=== PATIENT | female | born 1940 | race Caucasian/White ===

== ENCOUNTER → 2018-08-21 | Outpatient (CLI) | payer MEDICARE ==
[~2018-08-21] VITALS: Ht 157.5 cm; Wt 63.0 kg
[~2018-08-21] MED LIST: ALPR0.254 PO; DILT240C PO; NS IV 500 ML 500 ML IV SCH; NS IV 500 ML 500 ML ONE; RT-ALBUINH INH
[2018-08-21 14:00] VITALS: BP 119/57
--- NOTE | 2018-08-21 14:00 | NUR ---
PT ARRIVED AT 1258, HOWEVER, DUE TO ACCOUNT REGISTRATION ISSUES, TREATMENT WAS DELAYED.
[2018-08-21 15:17] VITALS: BP 119/57
[2018-08-21 15:33] VITALS: BP 127/60
--- NOTE | 2018-08-21 16:10 | NUR ---
TRANSPORTED PT PER WC TO [facility] AND REPORT GIVEN TO Miracle FIERRO RN. CARE OF PT TRANSFERRED TO [facility] MED[facility]SUR[facility].
--- NOTE | 2018-08-21 16:15 | NUR ---
PATIENT BROUGHT TO ROOM VIA WHEELCHAIR. ACCOMPANIED BY STAFF AND ADULT SON. FIRST UNIT OF BLOOD TRANSFUSING. ORIENTED TO ROOM AND CALL LIGHT. PATIENT HAS NO COMPLAINTS AT THIS TIME.
[2018-08-21 17:23] VITALS: BP 147/68
[2018-08-21 17:42] VITALS: BP 149/67
[2018-08-21 18:03] VITALS: BP 148/67
[2018-08-21 21:11] LABS: HEMOGLOBIN 8.3 G/DL (11.5-16.0)
--- NOTE | 2018-08-21 21:20 | NUR ---
SECOND UNIT OF BLOOD DONE AT 2004, VS 99.0F TEMP, HEART RATE 80, B/P 159/68. DISCHARGE INSTRUCTIONS GIVEN TO PT AND REPLIED UNDERSTANDING OF THE INSTRUCTIONS. PT LEFT THE FLOOR VIA WC, ACCOMPANIED BY THIS RN AND SON AT 2119.
== END ==
LOC: SDC 12:46
PROVIDERS: ATTEND Family Medicine
DX: D64.9 Anemia, unspecified (principal)
CPT/HCPCS: 36415; 36430; 85014; 85018; 86850; 86900; 86901; 86920

== ENCOUNTER → 2018-08-21 | Outpatient (CLI) | payer MEDICARE ==
[~2018-08-21] MED LIST changes: -NS IV 500 ML 500 ML IV SCH; -NS IV 500 ML 500 ML ONE
[2018-08-21 11:14] LABS: EOSINOPHILS % (AUTO) 0 % (0-10); LYMPHOCYTES % (AUTO) 4 % (12-44); MEAN CORPUSCULAR HEMOGLOBIN 19 PG (25-34); MEAN CORPUSCULAR HGB CONC 27 G/DL (32-36); MEAN CORPUSCULAR VOLUME 70 FL (80-99); MEAN PLATELET VOLUME 9.6 FL (7.4-10.4); MONOCYTES % (AUTO) 8 % (0-12); NEUTROPHILS % (AUTO) 87 % (42-75); PLATELET COUNT 559 10^3/uL (130-400); RED CELL DISTRIBUTION WIDTH 17.3 % (10.0-14.5)
[2018-08-21 11:15] LABS: BASOPHILS % (AUTO) 0 % (0-10); EOSINOPHILS # (AUTO) 0.1 10^3/uL (0.0-0.3); LYMPHOCYTES # (AUTO) 0.6 X 10^3 (1.0-4.0); NEUTROPHILS # (AUTO) 11.2 X 10^3 (1.8-7.8)
[2018-08-21 11:19] LABS: HEMATOCRIT 19 % (35-52); HEMOGLOBIN 5.1 G/DL (11.5-16.0)
[2018-08-21 11:42] LABS: BAND NEUTROPHILS 0 %; BASOPHILS % (MANUAL) 0 %; EOSINOPHILS % (MANUAL) 1 %; HYPOCHROMASIA MODERATE; LYMPHOCYTES % (MANUAL) 2 %; MONOCYTES % (MANUAL) 5 %; NEUTROPHILS % (MANUAL) 92 %
[2018-08-21 11:43] LABS: MICROCYTOSIS MARKED
== END ==
LOC: LAB FS 10:50
PROVIDERS: ATTEND Family Medicine
DX: D64.9 Anemia, unspecified (principal)
CPT/HCPCS: 36415; 85007; 85027

== ENCOUNTER → 2018-10-23 | Outpatient (CLI) | payer MEDICARE ==
[~2018-10-23] MED LIST changes: +NS IV 500 ML 500 ML IV SCH
[2018-10-23 21:09] VITALS: BP 120/58
[2018-10-23 21:35] VITALS: BP 118/56
[2018-10-24 00:09] VITALS: BP 133/64
[2018-10-24 00:46] VITALS: BP 119/55
[2018-10-24 01:06] VITALS: BP 125/60
[2018-10-24 03:47] VITALS: BP 129/63
[2018-10-24 06:14] LABS: HEMOGLOBIN 7.5 G/DL (11.5-16.0)
--- NOTE | 2018-10-24 06:20 | NUR ---
THIS CALLED PT'S LAB RESULTS OF HEMOGLOBIN 7.5 AND HEMATOCRIT 25 AFTER 2 UNITS OF PACKED RED BLOOD CELLS AN OUTPATIENT INFUSION TO DR. MATTHEWS. DR. MATTHEWS OKAY WITH DISCONTINUING IV AND SENDING PT HOME.
== END ==
LOC: 4TH 19:10 → SDC 19:10 → 4TH 10-24 14:37
PROVIDERS: ATTEND Family Medicine
DX: D64.9 Anemia, unspecified (principal)
CPT/HCPCS: 36430; 86850; 86900; 86901; 86920

== ENCOUNTER → 2018-10-23 | Outpatient (CLI) | payer MEDICARE ==
[2018-10-23 15:28] LABS: WHITE BLOOD COUNT 10.9 10^3/uL (4.3-11.0)
[2018-10-23 15:30] LABS: HEMATOCRIT 18 % (35-52); HEMOGLOBIN 4.8 G/DL (11.5-16.0); MEAN CORPUSCULAR HEMOGLOBIN 19 PG (25-34); MEAN CORPUSCULAR VOLUME 68 FL (80-99)
[2018-10-23 15:31] LABS: BASOPHILS % (AUTO) 0 % (0-10); EOSINOPHILS # (AUTO) 0.1 10^3/uL (0.0-0.3); EOSINOPHILS % (AUTO) 1 % (0-10); LYMPHOCYTES # (AUTO) 0.6 X 10^3 (1.0-4.0); LYMPHOCYTES % (AUTO) 6 % (12-44); MEAN CORPUSCULAR HGB CONC 27 G/DL (32-36); MEAN PLATELET VOLUME 9.3 FL (7.4-10.4); MONOCYTES # (AUTO) 0.8 X 10^3 (0.0-1.0); MONOCYTES % (AUTO) 8 % (0-12); NEUTROPHILS # (AUTO) 9.4 X 10^3 (1.8-7.8); NEUTROPHILS % (AUTO) 86 % (42-75); PLATELET COUNT 534 10^3/uL (130-400); RED CELL DISTRIBUTION WIDTH 17.5 % (10.0-14.5)
[2018-10-23 15:59] LABS: BAND NEUTROPHILS 0 %; LYMPHOCYTES % (MANUAL) 4 %; MONOCYTES % (MANUAL) 2 %; NEUTROPHILS % (MANUAL) 92 %
[2018-10-23 16:00] LABS: BASOPHILS % (MANUAL) 0 %; EOSINOPHILS % (MANUAL) 0 %; HYPOCHROMASIA MODERATE; METAMYELOCYTES % 0 %; MYELOCYTES % 2 %
== END ==
LOC: LAB FS 14:19
PROVIDERS: ATTEND Family Medicine
DX: D64.9 Anemia, unspecified (principal)
CPT/HCPCS: 36415; 85007; 85027

== ENCOUNTER → 2018-10-31 | Outpatient (CLI) | payer MEDICARE ==
[~2018-10-31] MED LIST changes: -NS IV 500 ML 500 ML IV SCH
[2018-10-31 11:32] LABS: HEMATOCRIT 29 % (35-52); HEMOGLOBIN 8.3 G/DL (11.5-16.0); MEAN CORPUSCULAR HEMOGLOBIN 22 PG (25-34); MEAN CORPUSCULAR HGB CONC 29 G/DL (32-36); MEAN CORPUSCULAR VOLUME 75 FL (80-99); WHITE BLOOD COUNT 11.8 10^3/uL (4.3-11.0)
[2018-10-31 11:33] LABS: BASOPHILS % (AUTO) 0 % (0-10); EOSINOPHILS # (AUTO) 0.1 10^3/uL (0.0-0.3); EOSINOPHILS % (AUTO) 1 % (0-10); LYMPHOCYTES # (AUTO) 0.7 X 10^3 (1.0-4.0); LYMPHOCYTES % (AUTO) 6 % (12-44); MEAN PLATELET VOLUME 9.8 FL (7.4-10.4); MONOCYTES # (AUTO) 0.9 X 10^3 (0.0-1.0); MONOCYTES % (AUTO) 7 % (0-12); NEUTROPHILS # (AUTO) 10.1 X 10^3 (1.8-7.8); NEUTROPHILS % (AUTO) 86 % (42-75); PLATELET COUNT 430 10^3/uL (130-400); RED CELL DISTRIBUTION WIDTH 22.6 % (10.0-14.5)
[2018-10-31 11:47] LABS: BAND NEUTROPHILS 0 %; BASOPHILS % (MANUAL) 0 %; EOSINOPHILS % (MANUAL) 1 %; HYPOCHROMASIA MODERATE; LYMPHOCYTES % (MANUAL) 2 %; MONOCYTES % (MANUAL) 3 %; NEUTROPHILS % (MANUAL) 94 %
[2018-10-31 11:48] LABS: ANISOCYTOSIS SLIGHT
== END ==
LOC: LAB FS 11:10
PROVIDERS: ATTEND Family Medicine
DX: D50.9 Iron deficiency anemia, unspecified (principal)
CPT/HCPCS: 36415; 85007; 85027

== ENCOUNTER 2018-12-10 16:19 | Outpatient (RCR) | payer MEDICARE ==
[~2018-12-10] VITALS: Ht 157.5 cm; Wt 63.0 kg
[2018-12-10] VITALS (7 sets, daily range): BP systolic 96–119; BP diastolic 51–58
[2018-12-10] MEDS ORDERED: diphenhydrAMINE 25 MG TAB (BENADRYL) PO ONE (17:00)
[2018-12-10] MEDS ORDERED: ACETAMINOPHEN 500 MG TAB (TYLENOL) PO ONE (17:00)
[2018-12-10] MEDS ORDERED: NS IV 500 ML 500 ML IV SCH (17:00)
--- NOTE | 2018-12-10 19:15 | NUR ---
TO 4TH FLOOR, ROOM 432 PER . REPORT TO Mahamed ONTIVEROS RN AND CARE OF PT TRANSFERRED TO 4TH MED/SURG.
--- NOTE | 2018-12-10 23:50 | NUR ---
2 units of blood transfused, patient tolerated well, IV removed from left AC, catheter intact. belongings returned to patient and family. accompanied by staff downstairs.
== END 2019-03-10 | disposition home or self-care (01) ==
LOC: SDC 16:19
PROVIDERS: ATTEND Family Medicine
DX: D50.9 Iron deficiency anemia, unspecified (principal)
CPT/HCPCS: 36415; 36430; 86850; 86900; 86901; 86920

== ENCOUNTER → 2018-12-10 | Outpatient (CLI) | payer MEDICARE ==
[2018-12-10 13:20] LABS: WHITE BLOOD COUNT 10.8 10^3/uL (4.3-11.0)
[2018-12-10 13:21] LABS: BASOPHILS % (AUTO) 0 % (0-10); EOSINOPHILS # (AUTO) 0.1 10^3/uL (0.0-0.3); EOSINOPHILS % (AUTO) 1 % (0-10); LYMPHOCYTES # (AUTO) 0.7 X 10^3 (1.0-4.0); LYMPHOCYTES % (AUTO) 6 % (12-44); MEAN CORPUSCULAR HEMOGLOBIN 20 PG (25-34); MEAN CORPUSCULAR HGB CONC 28 G/DL (32-36); MEAN CORPUSCULAR VOLUME 71 FL (80-99); MEAN PLATELET VOLUME 9.5 FL (7.4-10.4); MONOCYTES # (AUTO) 0.7 X 10^3 (0.0-1.0); MONOCYTES % (AUTO) 7 % (0-12); NEUTROPHILS # (AUTO) 9.2 X 10^3 (1.8-7.8); NEUTROPHILS % (AUTO) 85 % (42-75); PLATELET COUNT 573 10^3/uL (130-400); RED CELL DISTRIBUTION WIDTH 18.6 % (10.0-14.5)
[2018-12-10 13:22] LABS: HEMATOCRIT 23 % (35-52)
[2018-12-10 13:25] LABS: HEMOGLOBIN 6.3 G/DL (11.5-16.0)
== END ==
LOC: LAB FS 12:55
PROVIDERS: ATTEND Family Medicine
DX: D50.9 Iron deficiency anemia, unspecified (principal)
CPT/HCPCS: 36415; 85025

== ENCOUNTER → 2019-02-25 | Outpatient (CLI) | payer MEDICARE ==
[2019-02-25 13:12] LABS: BASOPHILS % (AUTO) 1 % (0-10); EOSINOPHILS % (AUTO) 1 % (0-10); LYMPHOCYTES % (AUTO) 6 % (12-44); MEAN CORPUSCULAR HEMOGLOBIN 21 PG (25-34); MEAN CORPUSCULAR HGB CONC 29 G/DL (32-36); MEAN CORPUSCULAR VOLUME 73 FL (80-99); MEAN PLATELET VOLUME 9.3 FL (7.4-10.4); MONOCYTES % (AUTO) 8 % (0-12); NEUTROPHILS % (AUTO) 84 % (42-75); PLATELET COUNT 514 10^3/uL (130-400); RED CELL DISTRIBUTION WIDTH 17.1 % (10.0-14.5); WHITE BLOOD COUNT 10.4 10^3/uL (4.3-11.0)
[2019-02-25 13:13] LABS: BASOPHILS # (AUTO) 0.1 10^3/uL (0.0-0.1); EOSINOPHILS # (AUTO) 0.1 10^3/uL (0.0-0.3); LYMPHOCYTES # (AUTO) 0.7 X 10^3 (1.0-4.0); MONOCYTES # (AUTO) 0.9 X 10^3 (0.0-1.0); NEUTROPHILS # (AUTO) 8.7 X 10^3 (1.8-7.8)
[2019-02-25 13:34] LABS: HEMATOCRIT 23 % (35-52); HEMOGLOBIN 6.7 G/DL (11.5-16.0)
== END ==
LOC: LAB FS 11:35
PROVIDERS: ATTEND Family Medicine
DX: D50.9 Iron deficiency anemia, unspecified (principal)
CPT/HCPCS: 36415; 85025

== ENCOUNTER 2019-02-26 07:54 | Outpatient (CLI) | payer MEDICARE ==
[~2019-02-26] VITALS: Ht 157.5 cm; Wt 63.0 kg
[2019-02-26] VITALS (7 sets, daily range): BP systolic 112–127; BP diastolic 51–73
[2019-02-26] MEDS ORDERED: NS IV 500 ML 500 ML ONE (09:01)
[2019-02-26] MEDS ORDERED: NS IV 500 ML 500 ML IV SCH (09:30)
== END 2019-02-26 15:53 | disposition home or self-care (01) ==
LOC: SDC 07:54
PROVIDERS: ATTEND Family Medicine
DX: D64.9 Anemia, unspecified (principal)
CPT/HCPCS: 36415; 36430; 85014; 85018; 86850; 86900; 86901; 86920

== ENCOUNTER 2019-06-05 14:28 | Outpatient (CLI) | payer MEDICARE ==
[~2019-06-05] VITALS: Ht 160 cm; Wt 58.1 kg
[2019-06-05] VITALS (7 sets, daily range): BP systolic 99–120; BP diastolic 42–79
[2019-06-05] MEDS ORDERED: NS IV 500 ML 500 ML IV SCH (15:00)
[2019-06-05 20:49] LABS: HEMOGLOBIN 8.1 G/DL (11.5-16.0)
== END 2019-06-05 20:55 ==
LOC: SDC 14:28
PROVIDERS: ATTEND Family Medicine
DX: D64.9 Anemia, unspecified (principal)
CPT/HCPCS: 36415; 36430; 85014; 85018; 86850; 86900; 86901; 86920

== ENCOUNTER 2019-09-30 12:00 | Outpatient (CLI) | payer MEDICARE ==
[2019-09-30] VITALS (7 sets, daily range): BP systolic 108–138; BP diastolic 50–65
[~2019-09-30 12:00] MED LIST changes: -DILT240C PO; +DILT240C91 PO
--- NOTE | 2019-09-30 12:12 | NUR ---
roe from lab/blood bank phoned and informed would need a new h & h drawn because no h/h on file. this rn informed 4.2 hgb was on doctors order, he informed need one drawn.
[2019-09-30] MEDS ORDERED: NS IV 500 ML 500 ML IV SCH (12:15)
[2019-09-30 12:32] LABS: HEMOGLOBIN 4.9 G/DL (11.5-16.0)
--- NOTE | 2019-09-30 17:10 | NUR ---
BLOOD INFUSED, VITALS STABLE, LINE FLUSHED WITH 5CC NS, WAITED 15 MIN AND LENORA H/H AND SENT TO LAB.
[2019-09-30 17:31] LABS: HEMOGLOBIN 7.4 G/DL (11.5-16.0)
== END 2019-09-30 17:55 | disposition home or self-care (01) ==
LOC: SDC 12:00
PROVIDERS: ATTEND Family Medicine
DX: D64.9 Anemia, unspecified (principal)
CPT/HCPCS: 36415; 36430; 85014; 85018; 86850; 86900; 86901; 86920

== ENCOUNTER → 2019-11-26 | Outpatient (CLI) | payer MEDICARE ==
[2019-11-26] VITALS (7 sets, daily range): BP systolic 121–150; BP diastolic 56–72
[~2019-11-26] VITALS: Ht 157.5 cm; Wt 58.1 kg
[~2019-11-26] MED LIST changes: +GENT5DRO30 OP; +NS IV 500 ML 500 ML IV SCH
[2019-11-26 18:31] LABS: HEMOGLOBIN 8.1 G/DL (11.5-16.0)
--- NOTE | 2019-11-26 19:10 | NUR ---
NS 0.9% RUN AT 50 ML/HR TO RESTARTED IV SITE RIGHT AC FOR APPROX 10 MIN. NO SWELLING AT SITE, PT DENIES COMPLAINTS, NO IV PUMP OCCLUSION ALARM. 2ND UNIT OF PRBC STARTED AT 75 CC/HR PER PUMP AT 1853. VSS AT 1905, DENIES COMPLAINTS, IV SITE CLEAR. RATE INCREASED TO 120 CC/HR. ASSIST UP TO WC AND TRANSPORTED TO ICU BED 3 WITH STAFF X2 TO COMPLETE TRANSFUSION. PT STATES "THAT IV IS STINGING A BIT NOW." ON ARRIVAL TO ICU. SLIGHT SWELLING AT SITE. TRANSFUSION PAUSED. REPORT TO Tim FROST RN. IV WILL BE RESTARTED FOR COMPLETION OF 2ND UNIT PRBC.
--- NOTE | 2019-11-26 19:32 | NUR ---
PT TO ROOM ICU 3. IV STARTED IN LEFT AC 20G X1 ATTEMPT. PT TOLERATED WELL
== END ==
LOC: SDC 14:07
PROVIDERS: ATTEND Family Medicine
DX: D64.9 Anemia, unspecified (principal)
CPT/HCPCS: 36415; 36430; 85014; 85018; 86850; 86900; 86901; 86920

== ENCOUNTER → 2020-04-09 | Outpatient (CLI) | payer MEDICARE ==
[~2020-04-09] MED LIST changes: +ALPR.25T PO; -ALPR0.254 PO; -NS IV 500 ML 500 ML IV SCH
[2020-04-09 13:31] LABS: WHITE BLOOD COUNT 11.9 10^3/uL (4.3-11.0)
[2020-04-09 13:33] LABS: BASOPHILS % (AUTO) 0 % (0-10); EOSINOPHILS % (AUTO) 1 % (0-10); HEMATOCRIT 24 % (35-52); HEMOGLOBIN 6.4 G/DL (11.5-16.0); LYMPHOCYTES % (AUTO) 6 % (12-44); MEAN CORPUSCULAR HEMOGLOBIN 19 PG (25-34); MEAN CORPUSCULAR HGB CONC 27 G/DL (32-36); MEAN CORPUSCULAR VOLUME 69 FL (80-99); MONOCYTES % (AUTO) 8 % (0-12); NEUTROPHILS % (AUTO) 84 % (42-75); PLATELET COUNT 514 10^3/uL (130-400)
[2020-04-09 13:34] LABS: EOSINOPHILS # (AUTO) 0.2 10^3/uL (0.0-0.3); LYMPHOCYTES # (AUTO) 0.7 X 10^3 (1.0-4.0); MONOCYTES # (AUTO) 0.9 X 10^3 (0.0-1.0)
== END ==
LOC: LAB FS 12:57
PROVIDERS: ATTEND Family Medicine
DX: D50.9 Iron deficiency anemia, unspecified (principal)
CPT/HCPCS: 36415; 85025

== ENCOUNTER → 2020-07-16 | Outpatient (CLI) | payer MEDICARE ==
[2020-07-16 09:37] LABS: BASOPHILS % (AUTO) 0 % (0-10); EOSINOPHILS % (AUTO) 2 % (0-10); HEMATOCRIT 24 % (35-52); HEMOGLOBIN 7.2 G/DL (11.5-16.0); LYMPHOCYTES % (AUTO) 7 % (12-44); MEAN CORPUSCULAR HEMOGLOBIN 22 PG (25-34); MEAN CORPUSCULAR HGB CONC 30 G/DL (32-36); MEAN CORPUSCULAR VOLUME 76 FL (80-99); MEAN PLATELET VOLUME 9.4 FL (7.4-10.4); MONOCYTES % (AUTO) 9 % (0-12); NEUTROPHILS % (AUTO) 82 % (42-75); PLATELET COUNT 536 10^3/uL (130-400); WHITE BLOOD COUNT 9.6 10^3/uL (4.3-11.0)
[2020-07-16 09:38] LABS: EOSINOPHILS # (AUTO) 0.2 10^3/uL (0.0-0.3); LYMPHOCYTES # (AUTO) 0.7 X 10^3 (1.0-4.0); MONOCYTES # (AUTO) 0.8 X 10^3 (0.0-1.0); NEUTROPHILS # (AUTO) 7.9 X 10^3 (1.8-7.8)
[2020-07-16 11:21] LABS: ANISOCYTOSIS MODERATE; BAND NEUTROPHILS 2 %; BASOPHILS % (MANUAL) 1 %; EOSINOPHILS % (MANUAL) 2 %; HYPOCHROMASIA MODERATE; LYMPHOCYTES % (MANUAL) 6 %; MONOCYTES % (MANUAL) 7 %; NEUTROPHILS % (MANUAL) 82 %
[2020-07-16 11:22] LABS: MICROCYTOSIS 2+
== END ==
LOC: LAB FS 08:59
PROVIDERS: ATTEND Family Medicine
DX: D50.9 Iron deficiency anemia, unspecified (principal)
CPT/HCPCS: 36415; 85007; 85027

== ENCOUNTER 2020-09-15 12:48 | Outpatient (CLI) | payer MEDICARE ==
[~2020-09-15] VITALS: Ht 157 cm; Wt 58.9 kg
[2020-09-15] MEDS ORDERED: NS IV 500 ML 500 ML ONE (13:12)
[2020-09-15 13:33] VITALS: BP 90/74
[2020-09-15] MEDS ORDERED: NS IV 500 ML 500 ML IV SCH (13:45)
[2020-09-15 14:16] VITALS: BP 95/44
[2020-09-15 14:31] VITALS: BP 105/46
[2020-09-15 15:55] VITALS: BP 120/47
[2020-09-15 16:10] VITALS: BP 114/48
[2020-09-15 16:30] VITALS: BP 125/54
== END 2020-09-15 18:30 ==
LOC: SDC 12:48
PROVIDERS: ATTEND Family Medicine
DX: D50.0 Iron deficiency anemia secondary to blood loss (chronic) (principal)
CPT/HCPCS: 36430; 86850; 86900; 86901; 86920; P9016

== ENCOUNTER → 2020-09-15 | Outpatient (CLI) | payer MEDICARE ==
[~2020-09-15] MED LIST changes: +ASPI-1238 PO; +ASPI-999 PO; +PANT40TA52 PO
[2020-09-15 12:05] LABS: MEAN CORPUSCULAR HGB CONC 29 G/DL (32-36); MEAN CORPUSCULAR VOLUME 74 FL (80-99); MEAN PLATELET VOLUME 9.8 FL (7.4-10.4); PLATELET COUNT 716 10^3/uL (130-400); WHITE BLOOD COUNT 12.6 10^3/uL (4.3-11.0)
[2020-09-15 12:06] LABS: BASOPHILS # (AUTO) 0.1 10^3/uL (0.0-0.1); BASOPHILS % (AUTO) 1 % (0-10); EOSINOPHILS # (AUTO) 0.1 10^3/uL (0.0-0.3); EOSINOPHILS % (AUTO) 1 % (0-10); LYMPHOCYTES # (AUTO) 0.7 X 10^3 (1.0-4.0); LYMPHOCYTES % (AUTO) 6 % (12-44); MONOCYTES # (AUTO) 0.7 X 10^3 (0.0-1.0); MONOCYTES % (AUTO) 6 % (0-12); NEUTROPHILS # (AUTO) 10.9 X 10^3 (1.8-7.8); NEUTROPHILS % (AUTO) 86 % (42-75)
[2020-09-15 12:08] LABS: HEMATOCRIT 18 % (35-52); HEMOGLOBIN 5.3 G/DL (11.5-16.0); MEAN CORPUSCULAR HEMOGLOBIN 22 PG (25-34)
[2020-09-15 13:31] LABS: LYMPHOCYTES % (MANUAL) 6 %; MONOCYTES % (MANUAL) 5 %; NEUTROPHILS % (MANUAL) 89 %
[2020-09-15 13:32] LABS: ANISOCYTOSIS 2+; HYPOCHROMASIA 3+; MICROCYTOSIS 2+; PLATELET ESTIMATE INCREASED
== END ==
LOC: LAB FS 11:14
PROVIDERS: ATTEND Family Medicine
DX: D50.0 Iron deficiency anemia secondary to blood loss (chronic) (principal)
CPT/HCPCS: 36415; 85007; 85027

== ENCOUNTER 2020-09-21 09:37 | Emergency (ER) | payer MEDICARE ==
--- NOTE | 2020-09-21 09:40 | ED General ---
General Stated Complaint: LOW BP; ABD LAB History of Present Illness Date Seen by Provider: Sep 21, 2020 Time Seen by Provider: 09:45 Initial Comments 80-year-old female presents from her primary care physician's office with complaint of shortness of air, low blood pressure and low hemoglobin. Patient with long-term history of anemia and gets frequent blood transfusions. Her PCP states that she has had probably 25 endoscopies looking for cause of bleeding and that has never been found. Her last blood transfusion was just a couple weeks ago, she states she has had 4 units in the month of August. Allergies and Home Medications Allergies Coded Allergies: Pxervia-Mmr-Fbc Reductase Inhibitor (Verified Allergy, Unknown, 08/25/20) Sulfa (Sulfonamide Antibiotics) (Unverified Allergy, Unknown, 08/21/18) amoxicillin (Verified Allergy, Unknown, 08/25/20) aspartame (Unverified Allergy, Unknown, 08/21/18) atorvastatin (Verified Allergy, Unknown, 08/25/20) bee venom protein (honey bee) (Verified Allergy, Unknown, 08/25/20) diphenhydramine (Verified Allergy, Unknown, 08/25/20) ipratropium (Verified Allergy, Unknown, 08/25/20) iron (Unverified Allergy, Unknown, 08/21/18) "TACHYCARDIA" WITH IV INFUSION nicotine (Verified Allergy, Unknown, 08/25/20) quinine (Verified Allergy, Unknown, 08/25/20) Home Medications ALPRAZolam 0.25 Mg Tablet, 0.25 MG PO BID PRN for ANXIETY, (Reported) Albuterol Sulfate 1 Puff Puff, 2 PUFF INH Q6H PRN for SHORTNESS OF BREATH, (Reported) Aspirin 81 Mg Tablet.dr, 81 MG PO DAILY, (Reported) Diltiazem HCl 240 Mg Cap.er.24h, 240 MG PO DAILY, (Reported) LAST FILLED 03-16-2020 #90/90 DAY SUPPLY Pantoprazole Sodium 40 Mg Tablet.dr, 40 MG PO DAILY Prescribed by: PRESLEY MATTHEWS on 08/27/20 1210 Patient Home Medication List Home Medication List Reviewed: Yes Review of Systems Review of Systems Constitutional: No chills, No fever; malaise, weakness Respiratory: No cough; short of breath Cardiovascular: No chest pain, No edema, No palpitations, No syncope Gastrointestinal: No abdominal pain, No constipation, No diarrhea, No melena, No nausea, No vomiting Genitourinary: No dysuria, No frequency Skin: No change in color, No rash Past Qkrbgnk-Xzfaiq-Jhnqfh Hx Past Med/Social Hx: Reviewed Nursing Past Med/Soc Hx Physical Exam Vital Signs Vital Signs - First Documented 09/21/20 09:40 Temp 36.6 Pulse 69 Resp 16 B/P (MAP) 114/66 (82) Pulse Ox 98 O2 Delivery Room Air Capillary Refill : Height, Weight, BMI Height: '" Weight: lbs. oz. kg; BMI Method: General Appearance: No Apparent Distress, WD/WN HEENT: PERRL/EOMI, Normal ENT Inspection Neck: Normal Inspection, Non Tender Respiratory: Chest Non Tender, Lungs Clear, Normal Breath Sounds, No Accessory Muscle Use, No Respiratory Distress Cardiovascular: No Edema, No Gallop, No JVD, Tachycardia Gastrointestinal: Non Tender, Soft Back: Normal Inspection, No CVA Tenderness Extremity: Normal Capillary Refill, Non Tender Progress/Results/Core Measures Suspected Sepsis SIRS Temperature: Pulse: Respiratory Rate: Laboratory Tests 09/21/20 09:45: White Blood Count 12.2H Blood Pressure / Mean: Laboratory Tests 09/21/20 09:45: Creatinine 1.02, Platelet Count 650H, Total Bilirubin < 0.2 Results/Orders Lab Results Laboratory Tests Test 09/21/20 09:45 Range/Units White Blood Count 12.2 H 4.3-11.0 10^3/uL Red Blood Count 3.41 L 4.35-5.85 10^6/uL Hemoglobin 8.2 #L 11.5-16.0 G/DL Hematocrit 27 L 35-52 % Mean Corpuscular Volume 79 L 80-99 FL Mean Corpuscular Hemoglobin 24 L 25-34 PG Mean Corpuscular Hemoglobin Concent 31 L 32-36 G/DL Red Cell Distribution Width 20.6 H 10.0-14.5 % Platelet Count 650 H 130-400 10^3/uL Mean Platelet Volume 10.0 7.4-10.4 FL Immature Granulocyte % (Auto) 1 % Neutrophils (%) (Auto) 83 H 42-75 % Lymphocytes (%) (Auto) 6 L 12-44 % Monocytes (%) (Auto) 8 0-12 % Eosinophils (%) (Auto) 2 0-10 % Basophils (%) (Auto) 1 0-10 % Neutrophils # (Auto) 10.2 H 1.8-7.8 X 10^3 Lymphocytes # (Auto) 0.8 L 1.0-4.0 X 10^3 Monocytes # (Auto) 1.0 0.0-1.0 X 10^3 Eosinophils # (Auto) 0.2 0.0-0.3 10^3/uL Basophils # (Auto) 0.1 0.0-0.1 10^3/uL Immature Granulocyte # (Auto) 0.1 0.0-0.1 10^3/uL Neutrophils % (Manual) 81 % Lymphocytes % (Manual) 3 % Monocytes % (Manual) 11 % Eosinophils % (Manual) 4 % Basophils % (Manual) 0 % Metamyelocytes % 1 % Band Neutrophils 0 % Hypochromasia MODERATE Poikilocytosis Anisocytosis SLIGHT Sodium Level 135 135-145 MMOL/L Potassium Level 4.4 3.6-5.0 MMOL/L Chloride Level 100 98-107 MMOL/L Carbon Dioxide Level 25 21-32 MMOL/L Anion Gap 25 H 5-14 MMOL/L Blood Urea Nitrogen 15 7-18 MG/DL Creatinine 1.02 0.60-1.30 MG/DL Estimat Glomerular Filtration Rate 52 BUN/Creatinine Ratio 15 Glucose Level 107 H 70-105 MG/DL Calcium Level 9.0 8.5-10.1 MG/DL Corrected Calcium 9.1 8.5-10.1 MG/DL Total Bilirubin < 0.2 0.1-1.0 MG/DL Aspartate Amino Transf (AST/SGOT) 16 5-34 U/L Alanine Aminotransferase (ALT/SGPT) 5 0-55 U/L Alkaline Phosphatase 127 40-136 U/L Total Protein 6.5 6.4-8.2 GM/DL Albumin 3.9 3.2-4.5 GM/DL My Orders Orders - ROVENSTYESI GONZALEZ DO Ed Iv/Invasive Line Start (09/21/20 09:40) Cbc With Automated Diff (09/21/20 09:40) Comprehensive Metabolic Panel (09/21/20 09:40) Ns Iv 1000 Ml (Sodium Chloride 0.9%) (09/21/20 09:45) Diltiazem Injection (Cardizem Injection) (09/21/20 10:00) Manual Differential (09/21/20 09:45) Diltiazem Cd 24 Hr Capsule (Cardizem Cd (09/22/20 09:00) Diltiazem Injection (Cardizem Injection) (09/21/20 11:00) Medications Given in ED Current Medications Medications Dose Ordered Sig/Jonathan Route Start Time Stop Time Status Last Admin Dose Admin Diltiazem HCl 2.5 mg ONCE ONCE IVP 09/21/20 11:00 09/21/20 11:01 DC 09/21/20 10:57 2.5 MG Diltiazem HCl 5 mg ONCE ONCE IVP 09/21/20 10:00 09/21/20 10:01 DC 09/21/20 10:30 5 MG Sodium Chloride 1,000 ml @ STK-MED ONCE .ROUTE 09/21/20 09:45 09/21/20 09:52 DC 09/21/20 10:00 999 MLS/HR Vital Signs/I&O 09/21/20 09:40 Temp 36.6 Pulse 69 Resp 16 B/P (MAP) 114/66 (82) Pulse Ox 98 O2 Delivery Room Air Capillary Refill : ECG Initial ECG Impression Date: Sep 21, 2020 Initial ECG Impression Time: 09:52 Initial ECG Rate: 140 Initial ECG Rhythm: SVT Initial ECG Impression: SVT Initial ECG Comparisson: No Previous ECG Available Departure Impression Primary Impression: Supraventricular tachycardia Additional Impression: Acute on chronic anemia Disposition: 01 HOME, SELF-CARE Condition: Improved Departure-Patient Inst. Decision time for Depature: 11:12 Patient Instructions: Anemia, Possibly From Low Iron, Adult Add. Discharge Instructions: Call Dr Lake to arrange a follow up appointment in 3 days. Take your blood pressure medication as soon as you get home. Follow up in the ER if you feel worse. YESI CAMERON DO Sep 21, 2020 09:40
[2020-09-21] MEDS ORDERED: NS IV 1000 ML 1,000 ML ONE (09:45)
[2020-09-21 10:01] LABS: HEMOGLOBIN 8.2 G/DL (11.5-16.0); MEAN CORPUSCULAR HEMOGLOBIN 24 PG (25-34); WHITE BLOOD COUNT 12.2 10^3/uL (4.3-11.0)
[2020-09-21 10:02] LABS: BASOPHILS % (AUTO) 1 % (0-10); EOSINOPHILS % (AUTO) 2 % (0-10); HEMATOCRIT 27 % (35-52); LYMPHOCYTES % (AUTO) 6 % (12-44); MEAN CORPUSCULAR HGB CONC 31 G/DL (32-36); MEAN CORPUSCULAR VOLUME 79 FL (80-99); MONOCYTES % (AUTO) 8 % (0-12); NEUTROPHILS # (AUTO) 10.2 X 10^3 (1.8-7.8); NEUTROPHILS % (AUTO) 83 % (42-75); PLATELET COUNT 650 10^3/uL (130-400)
[2020-09-21 10:03] LABS: BASOPHILS # (AUTO) 0.1 10^3/uL (0.0-0.1); EOSINOPHILS # (AUTO) 0.2 10^3/uL (0.0-0.3); LYMPHOCYTES # (AUTO) 0.8 X 10^3 (1.0-4.0)
[2020-09-21 10:17] LABS: ALANINE AMINOTRANSFERASE 5 U/L (0-55); ALKALINE PHOSPHATASE 127 U/L (40-136); BUN/CREATININE RATIO 15; CARBON DIOXIDE 25 MMOL/L (21-32); CHLORIDE 100 MMOL/L (98-107); CREATININE SERUM 1.02 MG/DL (0.60-1.30); GFR ESTIMATED 52; GLUCOSE 107 MG/DL (70-105); POTASSIUM 4.4 MMOL/L (3.6-5.0); SODIUM 135 MMOL/L (135-145)
[2020-09-21 10:18] LABS: ALBUMIN 3.9 GM/DL (3.2-4.5); BAND NEUTROPHILS 0 %; BASOPHILS % (MANUAL) 0 %; BILIRUBIN,TOTAL < 0.2 MG/DL (0.1-1.0); EOSINOPHILS % (MANUAL) 4 %; LYMPHOCYTES % (MANUAL) 3 %; METAMYELOCYTES % 1 %; MONOCYTES % (MANUAL) 11 %; NEUTROPHILS % (MANUAL) 81 %; TOTAL PROTEIN 6.5 GM/DL (6.4-8.2)
[2020-09-21 10:19] LABS: ANISOCYTOSIS SLIGHT; HYPOCHROMASIA MODERATE
[2020-09-21 11:27] VITALS: BP 117/57
[2020-09-22] MEDS ORDERED: dilTIAZem120 MG (CARDIZEM CD) CAP PO SCH (09:00)
== END 2020-09-21 11:15 | disposition home or self-care (01) ==
LOC: EDUNIT# 09:37 → ER FS 09:39
DX: I47.1 Supraventricular tachycardia (principal); D64.89 Other specified anemias; Z79.82 Long term (current) use of aspirin; Z88.1 Allergy status to other antibiotic agents; Z88.2 Allergy status to sulfonamides; Z88.8 Allergy status to other drugs, medicaments and biological substances
CPT/HCPCS: 36415; 80053; 85007; 85027; 93005

== ENCOUNTER → 2020-09-24 | Outpatient (CLI) | payer MEDICARE ==
[2020-09-24 09:16] LABS: HEMATOCRIT 24 % (35-52); HEMOGLOBIN 7.1 G/DL (11.5-16.0); MEAN CORPUSCULAR HEMOGLOBIN 24 PG (25-34); MEAN CORPUSCULAR VOLUME 80 FL (80-99); WHITE BLOOD COUNT 9.2 10^3/uL (4.3-11.0)
[2020-09-24 09:17] LABS: BASOPHILS % (AUTO) 0 % (0-10); EOSINOPHILS # (AUTO) 0.3 10^3/uL (0.0-0.3); EOSINOPHILS % (AUTO) 4 % (0-10); LYMPHOCYTES # (AUTO) 0.5 X 10^3 (1.0-4.0); LYMPHOCYTES % (AUTO) 6 % (12-44); MEAN CORPUSCULAR HGB CONC 30 G/DL (32-36); MONOCYTES # (AUTO) 0.6 X 10^3 (0.0-1.0); MONOCYTES % (AUTO) 7 % (0-12); NEUTROPHILS # (AUTO) 7.6 X 10^3 (1.8-7.8); NEUTROPHILS % (AUTO) 83 % (42-75); PLATELET COUNT 437 10^3/uL (130-400)
== END ==
LOC: LAB FS 08:54
PROVIDERS: ATTEND Family Medicine
DX: D50.0 Iron deficiency anemia secondary to blood loss (chronic) (principal)
CPT/HCPCS: 36415; 85025

== ENCOUNTER 2020-09-29 08:18 | Outpatient (CLI) | payer MEDICARE ==
[2020-09-29] VITALS (7 sets, daily range): BP systolic 133–158; BP diastolic 56–69
[~2020-09-29] VITALS: Ht 157 cm; Wt 58.9 kg
[2020-09-29] MEDS ORDERED: NS IV 500 ML 500 ML IV ONE (08:45)
== END 2020-09-29 17:50 ==
LOC: SDC 08:18
PROVIDERS: ATTEND Family Medicine
DX: D64.9 Anemia, unspecified (principal)
CPT/HCPCS: 36430; 86850; 86900; 86901; 86920; P9016

== ENCOUNTER 2020-10-15 18:29 | Emergency (ER) | payer MEDICARE ==
--- NOTE | 2020-10-15 18:33 | ED Chest Pain ---
General Stated Complaint: CP,SOA,DIZZY,HEADACHE Source: patient Exam Limitations: no limitations History of Present Illness Date Seen by Provider: Oct 15, 2020 Time Seen by Provider: 18:33 Initial Comments 80-year-old female presents with complaint of not feeling well all day today. Denies nausea vomiting or diarrhea. States she is eating and drinking okay Allergies and Home Medications Allergies Coded Allergies: Tvscjsx-Gpu-Ixa Reductase Inhibitor (Verified Allergy, Unknown, 08/25/20) Sulfa (Sulfonamide Antibiotics) (Unverified Allergy, Unknown, 08/21/18) amoxicillin (Verified Allergy, Unknown, 08/25/20) aspartame (Unverified Allergy, Unknown, 08/21/18) atorvastatin (Verified Allergy, Unknown, 08/25/20) bee venom protein (honey bee) (Verified Allergy, Unknown, 08/25/20) diphenhydramine (Verified Allergy, Unknown, 08/25/20) ipratropium (Verified Allergy, Unknown, 08/25/20) iron (Unverified Allergy, Unknown, 08/21/18) "TACHYCARDIA" WITH IV INFUSION nicotine (Verified Allergy, Unknown, 08/25/20) quinine (Verified Allergy, Unknown, 08/25/20) Home Medications ALPRAZolam 0.25 Mg Tablet, 0.25 MG PO BID PRN for ANXIETY, (Reported) Albuterol Sulfate 1 Puff Puff, 2 PUFF INH Q6H PRN for SHORTNESS OF BREATH, (Reported) Aspirin 81 Mg Tablet.dr, 81 MG PO DAILY, (Reported) Diltiazem HCl 240 Mg Cap.er.24h, 240 MG PO DAILY, (Reported) LAST FILLED 03-16-2020 #90/90 DAY SUPPLY Diltiazem HCl 120 Mg Cap.er.24h, 120 MG PO DAILY Prescribed by: YESI CAMERON on 10/15/201937 Pantoprazole Sodium 40 Mg Tablet.dr, 40 MG PO DAILY Prescribed by: PRESLEY MATTHEWS on 08/27/20 1210 Patient Home Medication List Home Medication List Reviewed: Yes Review of Systems Review of Systems Constitutional: dizziness; No fever; malaise, weakness Respiratory: Denies Cough; Shortness of Air; Denies Stridor, Denies Wheezing Cardiovascular: Chest Pain, Lightheadedness, Palpitations; Denies Syncope Gastrointestinal: Denies Diarrhea; Nausea; Denies Vomiting Musculoskeletal: No back pain, No joint pain Skin: No change in color, No rash Past Jduzefk-Dnhywx-Dnpoja Hx Past Med/Social Hx: Reviewed Nursing Past Med/Soc Hx Patient Social History Type Used: Cigarettes 2nd Hand Smoke Exposure: No Recent Hopitalizations: No Seasonal Allergies Seasonal Allergies: No Past Medical History Surgeries: Yes (neck, esha and bso) Section, Hysterectomy Respiratory: Yes COPD Cardiac: Yes Heart Attack, Hypertension Neurological: Yes Stroke, TIA Genitourinary: No Gastrointestinal: Yes Gastrointestinal Bleed Musculoskeletal: No Endocrine: No HEENT: No Cancer: No Psychosocial: No Integumentary: No Blood Disorders: Yes (essential thrombocytosis) Physical Exam Vital Signs Vital Signs - First Documented Capillary Refill : Height, Weight, BMI Height: 5'2.00" Weight: 139lbs. 0.0oz. 63.722739qx; 23.58 BMI Method: General Appearance: No Apparent Distress, WD/WN, Anxious Neck: Non Tender, Supple Respiratory: Chest Non Tender, Lungs Clear, Normal Breath Sounds Cardiovascular: Irregularly Irregular; No JVD; Tachycardia Gastrointestinal: No Pulsatile Mass, Non Tender, Soft Extremity: Normal Capillary Refill, Normal Inspection, Non Tender, No Calf Tenderness Neurologic/Psychiatric: Alert, Oriented x3, No Motor/Sensory Deficits, Normal Mood/Affect Progress/Results/Core Measures Results/Orders Lab Results Laboratory Tests Test 10/15/20 18:55 Range/Units White Blood Count 11.2 H 4.3-11.0 10^3/uL Red Blood Count 3.35 L 4.35-5.85 10^6/uL Hemoglobin 8.2 L 11.5-16.0 G/DL Hematocrit 27 L 35-52 % Mean Corpuscular Volume 80 80-99 FL Mean Corpuscular Hemoglobin 24 L 25-34 PG Mean Corpuscular Hemoglobin Concent 31 L 32-36 G/DL Red Cell Distribution Width 17.4 H 10.0-14.5 % Platelet Count 445 H 130-400 10^3/uL Mean Platelet Volume 10.1 7.4-10.4 FL Immature Granulocyte % (Auto) 0 % Neutrophils (%) (Auto) 81 H 42-75 % Lymphocytes (%) (Auto) 8 L 12-44 % Monocytes (%) (Auto) 10 0-12 % Eosinophils (%) (Auto) 1 0-10 % Basophils (%) (Auto) 0 0-10 % Neutrophils # (Auto) 9.1 H 1.8-7.8 X 10^3 Lymphocytes # (Auto) 0.9 L 1.0-4.0 X 10^3 Monocytes # (Auto) 1.1 H 0.0-1.0 X 10^3 Eosinophils # (Auto) 0.1 0.0-0.3 10^3/uL Basophils # (Auto) 0.0 0.0-0.1 10^3/uL Immature Granulocyte # (Auto) 0.1 0.0-0.1 10^3/uL Neutrophils % (Manual) 86 % Lymphocytes % (Manual) 8 % Monocytes % (Manual) 6 % Sodium Level 130 L 135-145 MMOL/L Potassium Level 3.7 3.6-5.0 MMOL/L Chloride Level 97 L 98-107 MMOL/L Carbon Dioxide Level 20 L 21-32 MMOL/L Anion Gap 13 5-14 MMOL/L Blood Urea Nitrogen 6 L 7-18 MG/DL Creatinine 1.02 0.60-1.30 MG/DL Estimat Glomerular Filtration Rate 52 BUN/Creatinine Ratio 6 Glucose Level 108 H 70-105 MG/DL Calcium Level 8.9 8.5-10.1 MG/DL Corrected Calcium 9.0 8.5-10.1 MG/DL Total Bilirubin 0.2 0.1-1.0 MG/DL Aspartate Amino Transf (AST/SGOT) 14 5-34 U/L Alanine Aminotransferase (ALT/SGPT) 7 0-55 U/L Alkaline Phosphatase 131 40-136 U/L Troponin I < 0.30 <0.30 NG/ML Total Protein 6.3 L 6.4-8.2 GM/DL Albumin 3.9 3.2-4.5 GM/DL My Orders Orders - ROVENSTINE,YESI L DO Ed Iv/Invasive Line Start (10/15/20 18:34) Cbc With Automated Diff (10/15/20 18:34) Comprehensive Metabolic Panel (10/15/20 18:34) Troponin I Fs (10/15/20 18:34) Chest 1 View Ap/Pa Only (10/15/20 18:34) Ekg Tracing (10/15/20 18:34) Diltiazem Injection (Cardizem Injection) (10/15/20 19:00) Manual Differential (10/15/20 18:55) Ns Iv 1000 Ml (Sodium Chloride 0.9%) (10/15/20 19:15) Medications Given in ED Current Medications Medications Dose Ordered Sig/Jonathan Route Start Time Stop Time Status Last Admin Dose Admin Diltiazem HCl 15 mg ONCE ONCE IVP 10/15/20 19:00 10/15/20 19:01 DC 10/15/20 18:59 15 MG Vital Signs/I&O 10/15/20 10/15/20 10/15/20 18:29 18:29 19:51 Temp 36.8 Pulse 150 72 Resp 20 18 B/P (MAP) 112/83 (93) 92/57 Pulse Ox 92 100 O2 Delivery Nasal Cannula Room Air Room Air O2 Flow Rate 3.00 Progress Progress Note : Progress Note HR slowed w Diltiazem bolus to 80, BP 90's/50's. Will give NS IV bolus. H/H stable for her, actually up from level 2 September. Advised to discuss her Meds with her PCP, Dr Lake as pt needs rate control, but her pressure can get low. Much improved at discharge, unsure if she takea diltiazem, but listed as daily med. Initial ECG Impression Date: Oct 15, 2020 Initial ECG Impression Time: 18:40 Initial ECG Rate: 150 Initial ECG Rhythm: SVT Initial ECG Impression: SVT Departure Impression Primary Impression: Supraventricular tachycardia Additional Impression: Anemia Qualified Codes: D64.9 - Anemia, unspecified Disposition: 01 HOME, SELF-CARE Condition: Improved Departure-Patient Inst. Decision time for Depature: 19:37 Referrals: GAL LAKE MD (PCP/Family) Primary Care Physician Patient Instructions: Supraventricular Tachycardia (SVT) Add. Discharge Instructions: Call Dr Lake's office tomorrow morning to ask about your Diltiazem prescription......I have sent in a Rx for Diltiazem 120mg daily. Keep your appointment with the General Surgeon scheduled in 2 weeks for further evaluation of your GI bleeding Scripts Diltiazem HCl (Diltiazem 24Hr Cd) 120 Mg Cap.er.24h 120 MG PO DAILY, #30 CAP Prov: YESI CAMERON DO 10/15/20 YESI CAMERON DO Oct 15, 2020 18:33
[2020-10-15 19:01] LABS: HEMATOCRIT 27 % (35-52); HEMOGLOBIN 8.2 G/DL (11.5-16.0); LYMPHOCYTES % (AUTO) 8 % (12-44); MEAN CORPUSCULAR HEMOGLOBIN 24 PG (25-34); MEAN CORPUSCULAR HGB CONC 31 G/DL (32-36); MEAN CORPUSCULAR VOLUME 80 FL (80-99); MEAN PLATELET VOLUME 10.1 FL (7.4-10.4); NEUTROPHILS % (AUTO) 81 % (42-75); PLATELET COUNT 445 10^3/uL (130-400); WHITE BLOOD COUNT 11.2 10^3/uL (4.3-11.0)
[2020-10-15 19:02] LABS: BASOPHILS % (AUTO) 0 % (0-10); EOSINOPHILS # (AUTO) 0.1 10^3/uL (0.0-0.3); EOSINOPHILS % (AUTO) 1 % (0-10); LYMPHOCYTES # (AUTO) 0.9 X 10^3 (1.0-4.0); MONOCYTES # (AUTO) 1.1 X 10^3 (0.0-1.0); MONOCYTES % (AUTO) 10 % (0-12); NEUTROPHILS # (AUTO) 9.1 X 10^3 (1.8-7.8)
--- NOTE | 2020-10-15 19:08 | Diagnostic Imaging Report ---
INDICATION: Chest pain, shortness of breath, dizziness, head pain. FINDINGS: No infiltrate, effusion or pneumothorax. There is no failure pattern. No free air beneath the diaphragms. IMPRESSION: No acute appearing abnormality. Clear chest on follow-up. Dictated by: Dictated on workstation # [id number]
[2020-10-15] MEDS ORDERED: NS IV 1000 ML 1,000 ML IV SCH (19:15)
[2020-10-15 19:19] LABS: CARBON DIOXIDE 20 MMOL/L (21-32); CHLORIDE 97 MMOL/L (98-107); POTASSIUM 3.7 MMOL/L (3.6-5.0); SODIUM 130 MMOL/L (135-145)
[2020-10-15 19:20] LABS: ALANINE AMINOTRANSFERASE 7 U/L (0-55); ALBUMIN 3.9 GM/DL (3.2-4.5); ALKALINE PHOSPHATASE 131 U/L (40-136); BILIRUBIN,TOTAL 0.2 MG/DL (0.1-1.0); BUN/CREATININE RATIO 6; CALCIUM 8.9 MG/DL (8.5-10.1); CREATININE SERUM 1.02 MG/DL (0.60-1.30); GFR ESTIMATED 52; GLUCOSE 108 MG/DL (70-105); TOTAL PROTEIN 6.3 GM/DL (6.4-8.2)
[2020-10-15 19:25] LABS: LYMPHOCYTES % (MANUAL) 8 %; MONOCYTES % (MANUAL) 6 %; NEUTROPHILS % (MANUAL) 86 %
[2020-10-15] MEDS ORDERED: DILT120C88 PO (19:38)
[2020-10-15 19:51] VITALS: BP 92/57
[2020-10-15] MEDS ORDERED: LORA-404 PO (22:52)
== END 2020-10-15 19:59 | disposition home or self-care (01) ==
LOC: EDUNIT# 18:29 → ER FS 18:30
DX: I47.1 Supraventricular tachycardia (principal); D64.9 Anemia, unspecified; I10 Essential (primary) hypertension; J44.9 Chronic obstructive pulmonary disease, unspecified; I25.2 Old myocardial infarction; Z88.2 Allergy status to sulfonamides; Z88.1 Allergy status to other antibiotic agents; Z91.030 Bee allergy status; Z88.8 Allergy status to other drugs, medicaments and biological substances; Z86.73 Personal history of transient ischemic attack (TIA), and cerebral infarction without residual deficits; Z79.82 Long term (current) use of aspirin
CPT/HCPCS: 36415; 71045; 80053; 84484; 85007; 85027; 93005

== ENCOUNTER 2020-10-15 21:42 | Emergency (ER) | payer MEDICARE ==
[~2020-10-15 21:42] MED LIST changes: +DILT120C88 PO
[2020-10-15] MEDS ORDERED: LORazepam 0.5 MG (ATIVAN) TABLET PO STA (21:57)
--- NOTE | 2020-10-15 21:58 | ED Psychosocial ---
General Stated Complaint: SOA,HEAD PAIN History of Present Illness Date Seen by Provider: Oct 15, 2020 Time Seen by Provider: 21:50 Initial Comments 80-year-old female just discharged from this ER with SVT. She was treated with diltiazem and had improvement and resolution of her symptoms that she presented with. Patient was counseled, advised to follow-up with her PCP regarding her medication. See note for details of the same date. Patient went home, was feeling anxious and shaky so her son brought her back to the emergency room. Allergies and Home Medications Allergies Coded Allergies: Rldgcfa-Vvo-Buk Reductase Inhibitor (Verified Allergy, Unknown, 08/25/20) Sulfa (Sulfonamide Antibiotics) (Unverified Allergy, Unknown, 08/21/18) amoxicillin (Verified Allergy, Unknown, 08/25/20) aspartame (Unverified Allergy, Unknown, 08/21/18) atorvastatin (Verified Allergy, Unknown, 08/25/20) bee venom protein (honey bee) (Verified Allergy, Unknown, 08/25/20) diphenhydramine (Verified Allergy, Unknown, 08/25/20) ipratropium (Verified Allergy, Unknown, 08/25/20) iron (Unverified Allergy, Unknown, 08/21/18) "TACHYCARDIA" WITH IV INFUSION nicotine (Verified Allergy, Unknown, 08/25/20) quinine (Verified Allergy, Unknown, 08/25/20) Home Medications ALPRAZolam 0.25 Mg Tablet, 0.25 MG PO BID PRN for ANXIETY, (Reported) Albuterol Sulfate 1 Puff Puff, 2 PUFF INH Q6H PRN for SHORTNESS OF BREATH, (Reported) Aspirin 81 Mg Tablet.dr, 81 MG PO DAILY, (Reported) Diltiazem HCl 240 Mg Cap.er.24h, 240 MG PO DAILY, (Reported) LAST FILLED 03-16-2020 #90/90 DAY SUPPLY Diltiazem HCl 120 Mg Cap.er.24h, 120 MG PO DAILY Prescribed by: YESI CAMERON on 10/15/201937 Lorazepam 0.5 Mg Tablet, 0.5 MG PO TID PRN for ANXIETY Prescribed by: YESI CAMERON on 10/15/202252 Pantoprazole Sodium 40 Mg Tablet.dr, 40 MG PO DAILY Prescribed by: PRESLEY MATTHEWS on 08/27/20 1210 Patient Home Medication List Home Medication List Reviewed: Yes Review of Systems Constitutional: No fever, No malaise, No weakness Respiratory: No cough, No short of breath Cardiovascular: see HPI; No chest pain, No edema, No palpitations, No syncope Psychiatric/Neurological: See HPI, Anxiety; Denies Tremors, Denies Weakness Past Wcpnste-Suqswh-Ekgvrs Hx Past Med/Social Hx: Reviewed Nursing Past Med/Soc Hx Patient Social History Type Used: Cigarettes Former Smoker, Quit: Sep 06, 2020 2nd Hand Smoke Exposure: No Recent Hopitalizations: No Seasonal Allergies Seasonal Allergies: No Past Medical History Surgeries: Yes (neck, esha and bso) Section, Hysterectomy Respiratory: Yes COPD Cardiac: Yes Heart Attack, Hypertension Neurological: Yes Stroke, TIA Genitourinary: No Gastrointestinal: Yes Gastrointestinal Bleed Musculoskeletal: No Endocrine: No HEENT: No Cancer: No Psychosocial: No Integumentary: No Blood Disorders: Yes (essential thrombocytosis) Physical Exam Capillary Refill : Height, Weight, BMI Height: 5'2.00" Weight: 139lbs. 0.0oz. 63.934885gd; 23.58 BMI Method: General Appearance: WD/WN, no apparent distress, other (anxious) HEENT: PERRL/EOMI, normal ENT inspection Respiratory: chest non-tender, lungs clear, normal breath sounds Cardiovascular: normal peripheral pulses, regular rate, rhythm, no edema, no gallop, no JVD, no murmur Neurologic/Psychiatric: no motor/sensory deficits, alert, normal mood/affect, oriented x 3 Appearance/Memory: appropriate appearance, appropriate insight Behavior/Eye Contact: cooperative, good eye contact, normal speech Thoughts/Hallucinations: normal thought pattern Skin: normal color, warm/dry Progress/Results/Core Measures Results/Orders My Orders Orders - ROVENSTINEYESI DO Lorazepam Tablet (Ativan Tablet) (10/15/20 21:57) Progress Progress Note : Progress Note normal vitals and in no distress. Asked pt if she had anxiety medication and she said, "no". Pointed to her medications, which she did not have at previous visit today. She has a Rx for Xanax, asked why she didn't take one, she said' "I only take that in the morning". Explained that alprazolam is for anxiety and she could take it for this purpose. Given 1mg Ativan po Departure Impression Primary Impression: Anxiety Disposition: 01 HOME, SELF-CARE Condition: Improved Departure-Patient Inst. Decision time for Depature: 23:21 Referrals: GAL LAKE MD (PCP/Family) Primary Care Physician Patient Instructions: Anxiety, Adult ED Add. Discharge Instructions: See Dr Lake next week to discuss your daily medications. Scripts Lorazepam (Ativan) 0.5 Mg Tablet 0.5 MG PO TID PRN for ANXIETY for 7 Days, #20 TAB Prov: YESI CAMERON DO 10/15/20 YESI CAMERON DO Oct 15, 2020 21:58
[2020-10-15] MEDS ORDERED: LORA-404 PO (22:52)
[2020-10-15 23:27] VITALS: BP 118/42
== END 2020-10-15 23:31 | disposition home or self-care (01) ==
LOC: EDUNIT# 21:42 → ER FS 21:43
DX: F41.9 Anxiety disorder, unspecified (principal); J44.9 Chronic obstructive pulmonary disease, unspecified; I25.2 Old myocardial infarction; I10 Essential (primary) hypertension; Z88.2 Allergy status to sulfonamides; Z88.1 Allergy status to other antibiotic agents; Z91.030 Bee allergy status; Z88.8 Allergy status to other drugs, medicaments and biological substances; Z87.891 Personal history of nicotine dependence; Z86.73 Personal history of transient ischemic attack (TIA), and cerebral infarction without residual deficits; Z79.82 Long term (current) use of aspirin
CPT/HCPCS: 99283

== ENCOUNTER → 2020-10-21 | Outpatient (CLI) | payer MEDICARE ==
[~2020-10-21] MED LIST changes: +LORA-404 PO
[2020-10-21 09:10] LABS: HEMATOCRIT 26 % (35-52); HEMOGLOBIN 7.8 G/DL (11.5-16.0); MEAN CORPUSCULAR HEMOGLOBIN 24 PG (25-34); MEAN CORPUSCULAR HGB CONC 30 G/DL (32-36); MEAN CORPUSCULAR VOLUME 80 FL (80-99); MEAN PLATELET VOLUME 10.2 FL (7.4-10.4); PLATELET COUNT 368 10^3/uL (130-400)
[2020-10-21 09:11] LABS: BASOPHILS # (AUTO) 0.1 10^3/uL (0.0-0.1); BASOPHILS % (AUTO) 1 % (0-10); EOSINOPHILS # (AUTO) 0.4 10^3/uL (0.0-0.3); EOSINOPHILS % (AUTO) 3 % (0-10); LYMPHOCYTES # (AUTO) 0.9 X 10^3 (1.0-4.0); LYMPHOCYTES % (AUTO) 8 % (12-44); MONOCYTES % (AUTO) 9 % (0-12); NEUTROPHILS # (AUTO) 8.6 X 10^3 (1.8-7.8); NEUTROPHILS % (AUTO) 78 % (42-75)
[2020-10-21 09:31] LABS: BAND NEUTROPHILS 0 %; BASOPHILS % (MANUAL) 2 %; EOSINOPHILS % (MANUAL) 2 %; LYMPHOCYTES % (MANUAL) 10 %; MONOCYTES % (MANUAL) 4 %; NEUTROPHILS % (MANUAL) 81 %
[2020-10-21 09:32] LABS: ANISOCYTOSIS SLIGHT; ELLIPT/OVALOCYTES SLIGHT; MYELOCYTES % 1 %
== END ==
LOC: LAB FS 08:32
PROVIDERS: ATTEND Family Medicine
DX: D47.3 Essential (hemorrhagic) thrombocythemia (principal); D50.0 Iron deficiency anemia secondary to blood loss (chronic)
CPT/HCPCS: 36415; 85007; 85027

== ENCOUNTER → 2020-10-25 | Outpatient (CLI) | payer MEDICARE ==
[2020-10-25 08:41] LABS: BASOPHILS % (AUTO) 0 % (0-10); EOSINOPHILS % (AUTO) 2 % (0-10); HEMATOCRIT 24 % (35-52); LYMPHOCYTES # (AUTO) 0.5 X 10^3 (1.0-4.0); LYMPHOCYTES % (AUTO) 6 % (12-44); MEAN CORPUSCULAR HEMOGLOBIN 23 PG (25-34); MEAN CORPUSCULAR HGB CONC 30 G/DL (32-36); MEAN CORPUSCULAR VOLUME 79 FL (80-99); MEAN PLATELET VOLUME 9.7 FL (7.4-10.4); MONOCYTES % (AUTO) 9 % (0-12); NEUTROPHILS # (AUTO) 7.5 X 10^3 (1.8-7.8); NEUTROPHILS % (AUTO) 82 % (42-75); PLATELET COUNT 483 10^3/uL (130-400); WHITE BLOOD COUNT 9.1 10^3/uL (4.3-11.0)
[2020-10-25 08:42] LABS: EOSINOPHILS # (AUTO) 0.2 10^3/uL (0.0-0.3); MONOCYTES # (AUTO) 0.8 X 10^3 (0.0-1.0)
[2020-10-25 09:21] LABS: ANISOCYTOSIS 2+; BASOPHILS % (MANUAL) 1 %; EOSINOPHILS % (MANUAL) 3 %; HYPOCHROMASIA 3+; LYMPHOCYTES % (MANUAL) 6 %; MICROCYTOSIS 1+; MONOCYTES % (MANUAL) 9 %; NEUTROPHILS % (MANUAL) 81 %
== END ==
LOC: LAB FS 08:14
PROVIDERS: ATTEND Family Medicine
DX: D50.0 Iron deficiency anemia secondary to blood loss (chronic) (principal); D47.3 Essential (hemorrhagic) thrombocythemia
CPT/HCPCS: 36415; 85007; 85027

== ENCOUNTER → 2020-10-27 | Outpatient (CLI) | payer MEDICARE ==
[2020-10-27 09:25] LABS: HEMATOCRIT 26 % (35-52); HEMOGLOBIN 7.2 G/DL (11.5-16.0); MEAN CORPUSCULAR HEMOGLOBIN 23 PG (25-34); WHITE BLOOD COUNT 8.4 10^3/uL (4.3-11.0)
[2020-10-27 09:26] LABS: BASOPHILS # (AUTO) 0.1 10^3/uL (0.0-0.1); BASOPHILS % (AUTO) 1 % (0-10); EOSINOPHILS # (AUTO) 0.2 10^3/uL (0.0-0.3); EOSINOPHILS % (AUTO) 3 % (0-10); LYMPHOCYTES # (AUTO) 0.6 X 10^3 (1.0-4.0); LYMPHOCYTES % (AUTO) 7 % (12-44); MEAN CORPUSCULAR HGB CONC 28 G/DL (32-36); MEAN CORPUSCULAR VOLUME 81 FL (80-99); MEAN PLATELET VOLUME 9.5 FL (7.4-10.4); MONOCYTES # (AUTO) 0.8 X 10^3 (0.0-1.0); MONOCYTES % (AUTO) 9 % (0-12); NEUTROPHILS # (AUTO) 6.8 X 10^3 (1.8-7.8); NEUTROPHILS % (AUTO) 81 % (42-75); PLATELET COUNT 532 10^3/uL (130-400)
== END ==
LOC: LAB FS 08:48
PROVIDERS: ATTEND Family Medicine
DX: D50.0 Iron deficiency anemia secondary to blood loss (chronic) (principal)
CPT/HCPCS: 36415; 85025

== ENCOUNTER → 2020-11-01 | Outpatient (CLI) | payer MEDICARE ==
[2020-11-01 09:12] LABS: WHITE BLOOD COUNT 9.1 10^3/uL (4.3-11.0)
[2020-11-01 09:17] LABS: HEMATOCRIT 21 % (35-52); HEMOGLOBIN 6.4 G/DL (11.5-16.0); MEAN CORPUSCULAR HEMOGLOBIN 22 PG (25-34); MEAN CORPUSCULAR HGB CONC 30 G/DL (32-36); MEAN CORPUSCULAR VOLUME 74 FL (80-99)
[2020-11-01 09:18] LABS: BASOPHILS % (AUTO) 0 % (0-10); EOSINOPHILS # (AUTO) 0.2 10^3/uL (0.0-0.3); EOSINOPHILS % (AUTO) 2 % (0-10); LYMPHOCYTES # (AUTO) 0.6 X 10^3 (1.0-4.0); LYMPHOCYTES % (AUTO) 7 % (12-44); MEAN PLATELET VOLUME 10.5 FL (7.4-10.4); MONOCYTES # (AUTO) 0.8 X 10^3 (0.0-1.0); MONOCYTES % (AUTO) 9 % (0-12); NEUTROPHILS # (AUTO) 7.5 X 10^3 (1.8-7.8); NEUTROPHILS % (AUTO) 82 % (42-75); PLATELET COUNT 250 10^3/uL (130-400)
[2020-11-01 09:49] LABS: BAND NEUTROPHILS 0 %; BASOPHILS % (MANUAL) 1 %; EOSINOPHILS % (MANUAL) 1 %; HYPERSEGMENTED NEUT MODERATE; LYMPHOCYTES % (MANUAL) 4 %; MONOCYTES % (MANUAL) 10 %; NEUTROPHILS % (MANUAL) 84 %
[2020-11-01 09:50] LABS: HYPOCHROMASIA SLIGHT; PLATELET CLUMPS SLIGHT
== END ==
LOC: LAB FS 08:36
PROVIDERS: ATTEND Family Medicine
DX: D50.0 Iron deficiency anemia secondary to blood loss (chronic) (principal)
CPT/HCPCS: 36415; 85007; 85027

== ENCOUNTER → 2020-11-01 | Outpatient (CLI) | payer MEDICARE ==
[~2020-11-01] MED LIST changes: +NS IV 500 ML 500 ML IV SCH
[2020-11-01 13:16] VITALS: BP 117/59
[2020-11-01 13:32] VITALS: BP 117/57
[2020-11-01 15:24] VITALS: BP 124/73
[2020-11-01 15:54] VITALS: BP 135/66
[2020-11-01 16:07] VITALS: BP 147/65
[2020-11-01 18:10] VITALS: BP_SYST 117; BP_SYST 146; BP_DIAS 59; BP_DIAS 70
== END ==
LOC: SDC 11:20
PROVIDERS: ATTEND Family Medicine
DX: D64.9 Anemia, unspecified (principal)
CPT/HCPCS: 36430; 86850; 86900; 86901; 86920; P9016

== ENCOUNTER → 2020-11-08 | Outpatient (CLI) | payer MEDICARE ==
[~2020-11-08] MED LIST changes: -NS IV 500 ML 500 ML IV SCH
[2020-11-08 10:01] LABS: BASOPHILS % (AUTO) 1 % (0-10); EOSINOPHILS % (AUTO) 2 % (0-10); HEMATOCRIT 33 % (35-52); HEMOGLOBIN 9.8 G/DL (11.5-16.0); LYMPHOCYTES % (AUTO) 6 % (12-44); MEAN CORPUSCULAR HEMOGLOBIN 23 PG (25-34); MEAN CORPUSCULAR HGB CONC 30 G/DL (32-36); MEAN CORPUSCULAR VOLUME 79 FL (80-99); MEAN PLATELET VOLUME 9.6 FL (7.4-10.4); MONOCYTES % (AUTO) 7 % (0-12); NEUTROPHILS % (AUTO) 83 % (42-75); PLATELET COUNT 324 10^3/uL (130-400); WHITE BLOOD COUNT 9.6 10^3/uL (4.3-11.0)
[2020-11-08 10:02] LABS: BASOPHILS # (AUTO) 0.1 10^3/uL (0.0-0.1); EOSINOPHILS # (AUTO) 0.2 10^3/uL (0.0-0.3); LYMPHOCYTES # (AUTO) 0.6 X 10^3 (1.0-4.0); MONOCYTES # (AUTO) 0.7 X 10^3 (0.0-1.0)
== END ==
LOC: LAB FS 08:49
PROVIDERS: ATTEND Family Medicine
DX: D50.0 Iron deficiency anemia secondary to blood loss (chronic) (principal)
CPT/HCPCS: 36415; 85025

== ENCOUNTER → 2020-12-10 | Outpatient (CLI) | payer MEDICARE ==
[2020-12-10 09:13] LABS: BASOPHILS % (AUTO) 1 % (0-10); EOSINOPHILS # (AUTO) 0.1 10^3/uL (0.0-0.3); EOSINOPHILS % (AUTO) 1 % (0-10); HEMATOCRIT 27 % (35-52); LYMPHOCYTES # (AUTO) 0.5 X 10^3 (1.0-4.0); LYMPHOCYTES % (AUTO) 6 % (12-44); MEAN CORPUSCULAR HEMOGLOBIN 22 PG (25-34); MEAN CORPUSCULAR HGB CONC 30 G/DL (32-36); MEAN CORPUSCULAR VOLUME 74 FL (80-99); MEAN PLATELET VOLUME 9.5 FL (7.4-10.4); MONOCYTES # (AUTO) 0.6 X 10^3 (0.0-1.0); MONOCYTES % (AUTO) 8 % (0-12); NEUTROPHILS # (AUTO) 6.8 X 10^3 (1.8-7.8); NEUTROPHILS % (AUTO) 84 % (42-75); PLATELET COUNT 411 10^3/uL (130-400); WHITE BLOOD COUNT 8.1 10^3/uL (4.3-11.0)
== END ==
LOC: LAB FS 08:33
PROVIDERS: ATTEND Family Medicine
DX: D50.0 Iron deficiency anemia secondary to blood loss (chronic) (principal)
CPT/HCPCS: 36415; 85025

== ENCOUNTER → 2020-12-16 | Outpatient (CLI) | payer MEDICARE ==
[2020-12-16 08:58] LABS: HEMATOCRIT 27 % (35-52); HEMOGLOBIN 7.8 G/DL (11.5-16.0); MEAN CORPUSCULAR HEMOGLOBIN 21 PG (25-34); MEAN CORPUSCULAR HGB CONC 29 G/DL (32-36); MEAN CORPUSCULAR VOLUME 73 FL (80-99); PLATELET COUNT 356 10^3/uL (130-400); WHITE BLOOD COUNT 7.9 10^3/uL (4.3-11.0)
[2020-12-16 08:59] LABS: BASOPHILS % (AUTO) 0 % (0-10); EOSINOPHILS % (AUTO) 2 % (0-10); LYMPHOCYTES % (AUTO) 4 % (12-44); MEAN PLATELET VOLUME 9.8 FL (7.4-10.4); MONOCYTES % (AUTO) 9 % (0-12); NEUTROPHILS % (AUTO) 84 % (42-75)
[2020-12-16 09:00] LABS: EOSINOPHILS # (AUTO) 0.2 10^3/uL (0.0-0.3); LYMPHOCYTES # (AUTO) 0.3 X 10^3 (1.0-4.0); MONOCYTES # (AUTO) 0.7 X 10^3 (0.0-1.0); NEUTROPHILS # (AUTO) 6.6 X 10^3 (1.8-7.8)
[2020-12-16 09:28] LABS: BAND NEUTROPHILS 1 %; BASOPHILS % (MANUAL) 0 %; EOSINOPHILS % (MANUAL) 3 %; LYMPHOCYTES % (MANUAL) 4 %; MONOCYTES % (MANUAL) 11 %; NEUTROPHILS % (MANUAL) 81 %
[2020-12-16 09:29] LABS: ANISOCYTOSIS SLIGHT; HYPOCHROMASIA MODERATE
== END ==
LOC: LAB FS 08:17
PROVIDERS: ATTEND Family Medicine
DX: D50.0 Iron deficiency anemia secondary to blood loss (chronic) (principal)
CPT/HCPCS: 36415; 85007; 85027

== ENCOUNTER → 2021-01-06 | Outpatient (CLI) | payer MEDICARE ==
[2021-01-06 08:49] LABS: HEMATOCRIT 26 % (35-52); HEMOGLOBIN 7.5 G/DL (11.5-16.0); LYMPHOCYTES % (AUTO) 7 % (12-44); MEAN CORPUSCULAR HEMOGLOBIN 20 PG (25-34); MEAN CORPUSCULAR HGB CONC 29 G/DL (32-36); MEAN CORPUSCULAR VOLUME 69 FL (80-99); MEAN PLATELET VOLUME 9.8 FL (7.4-10.4); MONOCYTES % (AUTO) 9 % (0-12); NEUTROPHILS % (AUTO) 80 % (42-75); PLATELET COUNT 420 10^3/uL (130-400); WHITE BLOOD COUNT 8.6 10^3/uL (4.3-11.0)
[2021-01-06 08:50] LABS: BASOPHILS # (AUTO) 0.1 10^3/uL (0.0-0.1); BASOPHILS % (AUTO) 1 % (0-10); EOSINOPHILS # (AUTO) 0.2 10^3/uL (0.0-0.3); EOSINOPHILS % (AUTO) 2 % (0-10); LYMPHOCYTES # (AUTO) 0.6 X 10^3 (1.0-4.0); MONOCYTES # (AUTO) 0.8 X 10^3 (0.0-1.0); NEUTROPHILS # (AUTO) 6.9 X 10^3 (1.8-7.8)
[2021-01-06 09:19] LABS: ANISOCYTOSIS MODERATE; EOSINOPHILS % (MANUAL) 2 %; HYPOCHROMASIA MODERATE; LYMPHOCYTES % (MANUAL) 11 %; MICROCYTOSIS MODERATE; MONOCYTES % (MANUAL) 6 %; NEUTROPHILS % (MANUAL) 81 %
== END ==
LOC: LAB FS 08:19
PROVIDERS: ATTEND Family Medicine
DX: Z01.89 Encounter for other specified special examinations (principal)
CPT/HCPCS: 36415; 85007; 85027

== ENCOUNTER → 2021-01-12 | Outpatient (CLI) | payer MEDICARE ==
[2021-01-12 09:33] LABS: BASOPHILS % (AUTO) 1 % (0-10); EOSINOPHILS % (AUTO) 2 % (0-10); HEMATOCRIT 29 % (35-52); HEMOGLOBIN 8.1 G/DL (11.5-16.0); LYMPHOCYTES % (AUTO) 5 % (12-44); MEAN CORPUSCULAR HEMOGLOBIN 20 PG (25-34); MEAN CORPUSCULAR HGB CONC 28 G/DL (32-36); MEAN CORPUSCULAR VOLUME 70 FL (80-99); MEAN PLATELET VOLUME 9.7 FL (7.4-10.4); MONOCYTES % (AUTO) 8 % (0-12); NEUTROPHILS % (AUTO) 84 % (42-75); PLATELET COUNT 390 10^3/uL (130-400)
[2021-01-12 09:34] LABS: BASOPHILS # (AUTO) 0.1 10^3/uL (0.0-0.1); EOSINOPHILS # (AUTO) 0.2 10^3/uL (0.0-0.3); LYMPHOCYTES # (AUTO) 0.5 X 10^3 (1.0-4.0); MONOCYTES # (AUTO) 0.8 X 10^3 (0.0-1.0); NEUTROPHILS # (AUTO) 8.4 X 10^3 (1.8-7.8)
[2021-01-12 09:59] LABS: BAND NEUTROPHILS 1 %; BASOPHILS % (MANUAL) 0 %; EOSINOPHILS % (MANUAL) 4 %; LYMPHOCYTES % (MANUAL) 10 %; MICROCYTOSIS MODERATE; MONOCYTES % (MANUAL) 1 %; NEUTROPHILS % (MANUAL) 84 %
== END ==
LOC: LAB FS 08:37
PROVIDERS: ATTEND Family Medicine
DX: D50.0 Iron deficiency anemia secondary to blood loss (chronic) (principal)
CPT/HCPCS: 36415; 85007; 85027

== ENCOUNTER → 2021-01-26 | Outpatient (CLI) | payer MEDICARE ==
[2021-01-26 09:20] LABS: HEMATOCRIT 26 % (35-52); HEMOGLOBIN 7.4 G/DL (11.5-16.0); MEAN CORPUSCULAR HEMOGLOBIN 20 PG (25-34); MEAN CORPUSCULAR HGB CONC 29 G/DL (32-36); MEAN CORPUSCULAR VOLUME 68 FL (80-99); MEAN PLATELET VOLUME 9.6 FL (7.4-10.4); PLATELET COUNT 473 10^3/uL (130-400); WHITE BLOOD COUNT 10.5 10^3/uL (4.3-11.0)
[2021-01-26 09:21] LABS: BASOPHILS % (AUTO) 0 % (0-10); EOSINOPHILS # (AUTO) 0.2 10^3/uL (0.0-0.3); EOSINOPHILS % (AUTO) 2 % (0-10); LYMPHOCYTES # (AUTO) 0.5 X 10^3 (1.0-4.0); LYMPHOCYTES % (AUTO) 5 % (12-44); MONOCYTES # (AUTO) 0.7 X 10^3 (0.0-1.0); MONOCYTES % (AUTO) 7 % (0-12); NEUTROPHILS % (AUTO) 86 % (42-75)
[2021-01-26 09:37] LABS: ATYPICAL LYMPHOCYTES 2 %; BAND NEUTROPHILS 0 %; BASOPHILS % (MANUAL) 0 %; EOSINOPHILS % (MANUAL) 0 %; LYMPHOCYTES % (MANUAL) 2 %; MONOCYTES % (MANUAL) 5 %; NEUTROPHILS % (MANUAL) 91 %
[2021-01-26 09:38] LABS: ANISOCYTOSIS SLIGHT; ELLIPT/OVALOCYTES SLIGHT; HYPOCHROMASIA MODERATE
== END ==
LOC: LAB FS 09:00
PROVIDERS: ATTEND Family Medicine
DX: D50.0 Iron deficiency anemia secondary to blood loss (chronic) (principal)
CPT/HCPCS: 36415; 85007; 85027

== ENCOUNTER 2021-02-03 08:28 | Outpatient (RCR) | payer MEDICARE ==
[2021-02-03 09:14] LABS: HEMOGLOBIN 7.2 G/DL (11.5-16.0); MEAN CORPUSCULAR HEMOGLOBIN 19 PG (25-34); WHITE BLOOD COUNT 10.6 10^3/uL (4.3-11.0)
[2021-02-03 09:15] LABS: HEMATOCRIT 26 % (35-52); MEAN CORPUSCULAR VOLUME 68 FL (80-99)
[2021-02-03 09:22] LABS: BASOPHILS % (AUTO) 0 % (0-10); EOSINOPHILS # (AUTO) 0.2 10^3/uL (0.0-0.3); EOSINOPHILS % (AUTO) 1 % (0-10); LYMPHOCYTES # (AUTO) 0.5 X 10^3 (1.0-4.0); LYMPHOCYTES % (AUTO) 5 % (12-44); MEAN CORPUSCULAR HGB CONC 28 G/DL (32-36); MEAN PLATELET VOLUME 9.7 FL (7.4-10.4); MONOCYTES # (AUTO) 0.9 X 10^3 (0.0-1.0); MONOCYTES % (AUTO) 8 % (0-12); NEUTROPHILS % (AUTO) 85 % (42-75); PLATELET COUNT 468 10^3/uL (130-400)
[2021-02-03 10:08] LABS: EOSINOPHILS % (MANUAL) 2 %; HYPOCHROMASIA MARKED; LYMPHOCYTES % (MANUAL) 8 %; MONOCYTES % (MANUAL) 6 %; NEUTROPHILS % (MANUAL) 84 %; PLATELET ESTIMATE INCREASED; RBC MORPH ABNORMAL
[2021-02-03 10:09] LABS: ANISOCYTOSIS MODERATE; ELLIPT/OVALOCYTES SLIGHT; MICROCYTOSIS MARKED; POIKILOCYTOSIS MODERATE; TARGET CELLS SLIGHT; TEAR DROP CELLS SLIGHT
== END 2021-05-04 | disposition home or self-care (01) ==
LOC: LAB FS 08:28
PROVIDERS: ATTEND Family Medicine
DX: D50.0 Iron deficiency anemia secondary to blood loss (chronic) (principal)
CPT/HCPCS: 36415; 85007; 85027

== ENCOUNTER → 2021-02-16 | Outpatient (CLI) | payer MEDICARE ==
[2021-02-16 11:29] LABS: HEMATOCRIT 26 % (35-52); HEMOGLOBIN 7.2 g/dL (11.5-16.0); LYMPHOCYTES % (AUTO) 4 % (12-44); MEAN CORPUSCULAR HEMOGLOBIN 18 pg (25-34); MEAN CORPUSCULAR HGB CONC 28 g/dL (32-36); MEAN CORPUSCULAR VOLUME 66 fL (80-99); MEAN PLATELET VOLUME 9.9 fL (9.0-12.2); NEUTROPHILS % (AUTO) 88 % (42-75); PLATELET COUNT 435 10^3/uL (130-400); WHITE BLOOD COUNT 10.6 10^3/uL (4.3-11.0)
[2021-02-16 11:30] LABS: BASOPHILS % (AUTO) 0 % (0-10); EOSINOPHILS # (AUTO) 0.1 10^3/uL (0.0-0.3); EOSINOPHILS % (AUTO) 1 % (0-10); LYMPHOCYTES # (AUTO) 0.5 X 10^3 (1.0-4.0); MONOCYTES # (AUTO) 0.6 X 10^3 (0.0-1.0); MONOCYTES % (AUTO) 6 % (0-12); NEUTROPHILS # (AUTO) 9.3 X 10^3 (1.8-7.8)
[2021-02-16 11:59] LABS: EOSINOPHILS % (MANUAL) 1 %; LYMPHOCYTES % (MANUAL) 6 %; MONOCYTES % (MANUAL) 4 %; NEUTROPHILS % (MANUAL) 89 %
[2021-02-16 12:00] LABS: HYPOCHROMASIA 3+; MICROCYTOSIS 2+; PLATELET ESTIMATE INCREASED
== END ==
LOC: LAB FS 08:55
PROVIDERS: ATTEND Family Medicine
DX: D50.0 Iron deficiency anemia secondary to blood loss (chronic) (principal)
CPT/HCPCS: 36415; 85007; 85027

== ENCOUNTER → 2021-02-25 | Outpatient (CLI) | payer MEDICARE ==
[2021-02-25 09:09] LABS: HEMATOCRIT 27 % (35-52); HEMOGLOBIN 7.6 g/dL (11.5-16.0); MEAN CORPUSCULAR HEMOGLOBIN 18 pg (25-34); MEAN CORPUSCULAR VOLUME 66 fL (80-99); WHITE BLOOD COUNT 10.3 10^3/uL (4.3-11.0)
[2021-02-25 09:10] LABS: MEAN CORPUSCULAR HGB CONC 28 g/dL (32-36); MEAN PLATELET VOLUME 9.7 fL (9.0-12.2); PLATELET COUNT 474 10^3/uL (130-400)
[2021-02-25 09:11] LABS: BASOPHILS % (AUTO) 0 % (0-10); EOSINOPHILS % (AUTO) 2 % (0-10); LYMPHOCYTES % (AUTO) 6 % (12-44); MONOCYTES % (AUTO) 7 % (0-12); NEUTROPHILS % (AUTO) 85 % (42-75)
[2021-02-25 09:12] LABS: EOSINOPHILS # (AUTO) 0.2 10^3/uL (0.0-0.3); LYMPHOCYTES # (AUTO) 0.6 X 10^3 (1.0-4.0); MONOCYTES # (AUTO) 0.7 X 10^3 (0.0-1.0); NEUTROPHILS # (AUTO) 8.8 X 10^3 (1.8-7.8)
[2021-02-25 09:44] LABS: BAND NEUTROPHILS 0 %; BASOPHILS % (MANUAL) 0 %; EOSINOPHILS % (MANUAL) 3 %; LYMPHOCYTES % (MANUAL) 9 %; MONOCYTES % (MANUAL) 6 %; NEUTROPHILS % (MANUAL) 82 %
== END ==
LOC: LAB FS 08:44
PROVIDERS: ATTEND Family Medicine
DX: D50.0 Iron deficiency anemia secondary to blood loss (chronic) (principal)
CPT/HCPCS: 36415; 85007; 85027

== ENCOUNTER → 2021-03-04 | Outpatient (CLI) | payer MEDICARE ==
[2021-03-04 10:44] LABS: HEMATOCRIT 26 % (35-52); HEMOGLOBIN 7.3 g/dL (11.5-16.0); MEAN CORPUSCULAR HEMOGLOBIN 19 pg (25-34); MEAN CORPUSCULAR HGB CONC 28 g/dL (32-36); MEAN CORPUSCULAR VOLUME 67 fL (80-99); MEAN PLATELET VOLUME 9.7 fL (9.0-12.2); NEUTROPHILS % (AUTO) 85 % (42-75); PLATELET COUNT 441 10^3/uL (130-400); WHITE BLOOD COUNT 10.5 10^3/uL (4.3-11.0)
[2021-03-04 10:45] LABS: BASOPHILS # (AUTO) 0.1 10^3/uL (0.0-0.1); BASOPHILS % (AUTO) 1 % (0-10); EOSINOPHILS # (AUTO) 0.2 10^3/uL (0.0-0.3); EOSINOPHILS % (AUTO) 1 % (0-10); LYMPHOCYTES # (AUTO) 0.6 X 10^3 (1.0-4.0); LYMPHOCYTES % (AUTO) 6 % (12-44); MONOCYTES # (AUTO) 0.8 X 10^3 (0.0-1.0); MONOCYTES % (AUTO) 7 % (0-12); NEUTROPHILS # (AUTO) 8.9 X 10^3 (1.8-7.8)
[2021-03-04 10:55] LABS: BASOPHILS % (MANUAL) 2 %; EOSINOPHILS % (MANUAL) 2 %; LYMPHOCYTES % (MANUAL) 8 %; MONOCYTES % (MANUAL) 5 %; NEUTROPHILS % (MANUAL) 83 %; PLATELET ESTIMATE INCREASED; POIKILOCYTOSIS SLIGHT; RBC MORPH ABNORMAL
[2021-03-04 10:56] LABS: ANISOCYTOSIS MODERATE; ELLIPT/OVALOCYTES SLIGHT; HYPOCHROMASIA MODERATE; MICROCYTOSIS MARKED; TARGET CELLS SLIGHT
== END ==
LOC: LAB FS 09:01
PROVIDERS: ATTEND Family Medicine
DX: D50.0 Iron deficiency anemia secondary to blood loss (chronic) (principal)
CPT/HCPCS: 36415; 85007; 85027

== ENCOUNTER → 2021-03-11 | Outpatient (CLI) | payer MEDICARE ==
[2021-03-11 09:00] LABS: HEMATOCRIT 26 % (35-52); HEMOGLOBIN 7.1 g/dL (11.5-16.0); MEAN CORPUSCULAR HEMOGLOBIN 18 pg (25-34); MEAN CORPUSCULAR HGB CONC 28 g/dL (32-36); MEAN CORPUSCULAR VOLUME 67 fL (80-99); MEAN PLATELET VOLUME 9.7 fL (9.0-12.2); PLATELET COUNT 509 10^3/uL (130-400); WHITE BLOOD COUNT 11.5 10^3/uL (4.3-11.0)
[2021-03-11 09:01] LABS: BASOPHILS # (AUTO) 0.1 10^3/uL (0.0-0.1); BASOPHILS % (AUTO) 1 % (0-10); EOSINOPHILS # (AUTO) 0.2 10^3/uL (0.0-0.3); EOSINOPHILS % (AUTO) 2 % (0-10); LYMPHOCYTES % (AUTO) 8 % (12-44); MONOCYTES % (AUTO) 9 % (0-12); NEUTROPHILS # (AUTO) 9.2 X 10^3 (1.8-7.8); NEUTROPHILS % (AUTO) 80 % (42-75)
[2021-03-11 09:22] LABS: BAND NEUTROPHILS 0 %; BASOPHILS % (MANUAL) 1 %; EOSINOPHILS % (MANUAL) 0 %; LYMPHOCYTES % (MANUAL) 10 %; MONOCYTES % (MANUAL) 12 %; NEUTROPHILS % (MANUAL) 77 %
[2021-03-11 09:23] LABS: ANISOCYTOSIS SLIGHT; HYPOCHROMASIA MODERATE
== END ==
LOC: LAB FS 08:33
PROVIDERS: ATTEND Family Medicine
DX: D50.0 Iron deficiency anemia secondary to blood loss (chronic) (principal)
CPT/HCPCS: 36415; 85007; 85027

== ENCOUNTER 2021-03-18 10:31 | Outpatient (CLI) | payer MEDICARE ==
[~2021-03-18] VITALS: Ht 160 cm; Wt 54.5 kg
[2021-03-18] VITALS (7 sets, daily range): BP systolic 120–151; BP diastolic 62–72
[2021-03-18] MEDS ORDERED: CATHETER FLUSH 10 ML SYR IV PRN (11:00)
[2021-03-18] MEDS ORDERED: NS IV 500 ML 500 ML IV SCH (11:15)
== END 2021-03-18 17:05 ==
LOC: SDC 10:31
PROVIDERS: ATTEND Family Medicine
DX: D64.9 Anemia, unspecified (principal)
CPT/HCPCS: 36430; 86850; 86900; 86901; 86920; P9016

== ENCOUNTER → 2021-03-18 | Outpatient (CLI) | payer MEDICARE ==
[2021-03-18 08:58] LABS: WHITE BLOOD COUNT 10.9 10^3/uL (4.3-11.0)
[2021-03-18 09:01] LABS: HEMATOCRIT 25 % (35-52); HEMOGLOBIN 6.7 g/dL (11.5-16.0); MEAN CORPUSCULAR HEMOGLOBIN 19 pg (25-34)
[2021-03-18 09:02] LABS: BASOPHILS % (AUTO) 0 % (0-10); EOSINOPHILS # (AUTO) 0.2 10^3/uL (0.0-0.3); EOSINOPHILS % (AUTO) 2 % (0-10); LYMPHOCYTES # (AUTO) 0.9 X 10^3 (1.0-4.0); LYMPHOCYTES % (AUTO) 8 % (12-44); MEAN CORPUSCULAR HGB CONC 27 g/dL (32-36); MEAN CORPUSCULAR VOLUME 70 fL (80-99); MEAN PLATELET VOLUME 9.8 fL (9.0-12.2); MONOCYTES % (AUTO) 9 % (0-12); NEUTROPHILS # (AUTO) 8.8 X 10^3 (1.8-7.8); NEUTROPHILS % (AUTO) 80 % (42-75); PLATELET COUNT 527 10^3/uL (130-400)
[2021-03-18 09:22] LABS: BAND NEUTROPHILS 0 %; BASOPHILS % (MANUAL) 0 %; EOSINOPHILS % (MANUAL) 1 %; HYPOCHROMASIA MARKED; LYMPHOCYTES % (MANUAL) 7 %; MONOCYTES % (MANUAL) 7 %; NEUTROPHILS % (MANUAL) 85 %
[2021-03-18 09:23] LABS: ANISOCYTOSIS MODERATE; POIKILOCYTOSIS SLIGHT
== END ==
LOC: LAB FS 08:25
PROVIDERS: ATTEND Family Medicine
DX: D50.0 Iron deficiency anemia secondary to blood loss (chronic) (principal)
CPT/HCPCS: 36415; 85007; 85027

== ENCOUNTER → 2021-03-28 | Outpatient (CLI) | payer MEDICARE ==
[2021-03-28 09:06] LABS: HEMATOCRIT 33 % (35-52); MEAN CORPUSCULAR HEMOGLOBIN 22 pg (25-34); MEAN CORPUSCULAR HGB CONC 30 g/dL (32-36); MEAN CORPUSCULAR VOLUME 74 fL (80-99); WHITE BLOOD COUNT 11.6 10^3/uL (4.3-11.0)
[2021-03-28 09:07] LABS: BASOPHILS % (AUTO) 0 % (0-10); EOSINOPHILS # (AUTO) 0.2 10^3/uL (0.0-0.3); EOSINOPHILS % (AUTO) 2 % (0-10); LYMPHOCYTES # (AUTO) 0.7 X 10^3 (1.0-4.0); LYMPHOCYTES % (AUTO) 6 % (12-44); MEAN PLATELET VOLUME 9.6 fL (9.0-12.2); MONOCYTES # (AUTO) 0.8 X 10^3 (0.0-1.0); MONOCYTES % (AUTO) 7 % (0-12); NEUTROPHILS # (AUTO) 9.8 X 10^3 (1.8-7.8); NEUTROPHILS % (AUTO) 85 % (42-75); PLATELET COUNT 445 10^3/uL (130-400)
[2021-03-28 09:46] LABS: EOSINOPHILS % (MANUAL) 3 %; LYMPHOCYTES % (MANUAL) 6 %; MONOCYTES % (MANUAL) 7 %; NEUTROPHILS % (MANUAL) 84 %
[2021-03-28 09:47] LABS: HYPOCHROMASIA 2+; MICROCYTOSIS 2+
== END ==
LOC: LAB FS 08:32
PROVIDERS: ATTEND Family Medicine
DX: D50.0 Iron deficiency anemia secondary to blood loss (chronic) (principal)
CPT/HCPCS: 36415; 85007; 85027

== ENCOUNTER → 2021-04-04 | Outpatient (CLI) | payer MEDICARE ==
[2021-04-04 09:10] LABS: HEMATOCRIT 32 % (35-52); HEMOGLOBIN 9.4 g/dL (11.5-16.0); MEAN CORPUSCULAR HEMOGLOBIN 22 pg (25-34)
[2021-04-04 09:11] LABS: MEAN CORPUSCULAR HGB CONC 30 g/dL (32-36); MEAN CORPUSCULAR VOLUME 74 fL (80-99); MEAN PLATELET VOLUME 9.3 fL (9.0-12.2); PLATELET COUNT 455 10^3/uL (130-400)
[2021-04-04 09:13] LABS: BASOPHILS # (AUTO) 0.1 10^3/uL (0.0-0.1); BASOPHILS % (AUTO) 1 % (0-10); EOSINOPHILS # (AUTO) 0.2 10^3/uL (0.0-0.3); EOSINOPHILS % (AUTO) 2 % (0-10); LYMPHOCYTES # (AUTO) 0.5 X 10^3 (1.0-4.0); LYMPHOCYTES % (AUTO) 6 % (12-44); MONOCYTES # (AUTO) 0.6 X 10^3 (0.0-1.0); MONOCYTES % (AUTO) 7 % (0-12); NEUTROPHILS # (AUTO) 7.5 X 10^3 (1.8-7.8); NEUTROPHILS % (AUTO) 84 % (42-75)
[2021-04-04 09:35] LABS: ANISOCYTOSIS SLIGHT; BAND NEUTROPHILS 0 %; BASOPHILS % (MANUAL) 1 %; EOSINOPHILS % (MANUAL) 1 %; HYPOCHROMASIA SLIGHT; LYMPHOCYTES % (MANUAL) 5 %; MONOCYTES % (MANUAL) 6 %; NEUTROPHILS % (MANUAL) 87 %
== END ==
LOC: LAB FS 08:35
PROVIDERS: ATTEND Family Medicine
DX: D50.0 Iron deficiency anemia secondary to blood loss (chronic) (principal)
CPT/HCPCS: 36415; 85007; 85027

== ENCOUNTER → 2021-04-25 | Outpatient (CLI) | payer MEDICARE ==
[2021-04-25 11:10] LABS: BASOPHILS % (AUTO) 0 % (0-10); EOSINOPHILS % (AUTO) 2 % (0-10); HEMATOCRIT 27 % (35-52); HEMOGLOBIN 8.3 g/dL (11.5-16.0); LYMPHOCYTES % (AUTO) 5 % (12-44); MEAN CORPUSCULAR HEMOGLOBIN 22 pg (25-34); MEAN CORPUSCULAR HGB CONC 31 g/dL (32-36); MEAN CORPUSCULAR VOLUME 73 fL (80-99); MEAN PLATELET VOLUME 9.8 fL (9.0-12.2); MONOCYTES % (AUTO) 7 % (0-12); NEUTROPHILS % (AUTO) 85 % (42-75); PLATELET COUNT 445 10^3/uL (130-400)
[2021-04-25 11:11] LABS: EOSINOPHILS # (AUTO) 0.2 10^3/uL (0.0-0.3); LYMPHOCYTES # (AUTO) 0.5 X 10^3 (1.0-4.0); MONOCYTES # (AUTO) 0.7 X 10^3 (0.0-1.0); NEUTROPHILS # (AUTO) 8.5 X 10^3 (1.8-7.8)
[2021-04-25 11:31] LABS: EOSINOPHILS % (MANUAL) 1 %; HYPOCHROMASIA 2+; LYMPHOCYTES % (MANUAL) 4 %; MICROCYTOSIS 3+; MONOCYTES % (MANUAL) 6 %; NEUTROPHILS % (MANUAL) 89 %; PLATELET ESTIMATE INCREASED
== END ==
LOC: LAB FS 08:38
PROVIDERS: ATTEND Family Medicine
DX: D50.0 Iron deficiency anemia secondary to blood loss (chronic) (principal)
CPT/HCPCS: 36415; 85007; 85027

== ENCOUNTER 2021-06-13 08:15 | Outpatient (RCR) | payer MEDICARE ==
[2021-05-09 09:41] LABS: WHITE BLOOD COUNT 12.6 10^3/uL (4.3-11.0)
[2021-05-09 09:42] LABS: BASOPHILS % (AUTO) 0 % (0-10); EOSINOPHILS # (AUTO) 0.2 10^3/uL (0.0-0.3); EOSINOPHILS % (AUTO) 2 % (0-10); HEMATOCRIT 29 % (35-52); HEMOGLOBIN 8.8 g/dL (11.5-16.0); LYMPHOCYTES # (AUTO) 0.6 X 10^3 (1.0-4.0); LYMPHOCYTES % (AUTO) 5 % (12-44); MEAN CORPUSCULAR HEMOGLOBIN 22 pg (25-34); MEAN CORPUSCULAR HGB CONC 30 g/dL (32-36); MEAN CORPUSCULAR VOLUME 73 fL (80-99); MEAN PLATELET VOLUME 9.8 fL (9.0-12.2); MONOCYTES # (AUTO) 0.7 X 10^3 (0.0-1.0); MONOCYTES % (AUTO) 6 % (0-12); NEUTROPHILS % (AUTO) 87 % (42-75); PLATELET COUNT 509 10^3/uL (130-400)
[2021-05-09 11:13] LABS: EOSINOPHILS % (MANUAL) 4 %; LYMPHOCYTES % (MANUAL) 4 %; MONOCYTES % (MANUAL) 6 %; NEUTROPHILS % (MANUAL) 86 %; PLATELET ESTIMATE INCREASED
[2021-05-09 11:14] LABS: ANISOCYTOSIS MODERATE; HYPOCHROMASIA 3+; MICROCYTOSIS 2+
[2021-05-18 09:11] LABS: HEMATOCRIT 27 % (35-52); HEMOGLOBIN 8.1 g/dL (11.5-16.0); MEAN CORPUSCULAR HEMOGLOBIN 21 pg (25-34); WHITE BLOOD COUNT 11.8 10^3/uL (4.3-11.0)
[2021-05-18 09:12] LABS: BASOPHILS % (AUTO) 0 % (0-10); EOSINOPHILS % (AUTO) 1 % (0-10); LYMPHOCYTES # (AUTO) 0.5 X 10^3 (1.0-4.0); LYMPHOCYTES % (AUTO) 5 % (12-44); MEAN CORPUSCULAR HGB CONC 30 g/dL (32-36); MEAN CORPUSCULAR VOLUME 71 fL (80-99); MEAN PLATELET VOLUME 9.4 fL (9.0-12.2); MONOCYTES # (AUTO) 0.6 X 10^3 (0.0-1.0); MONOCYTES % (AUTO) 5 % (0-12); NEUTROPHILS # (AUTO) 10.5 X 10^3 (1.8-7.8); NEUTROPHILS % (AUTO) 89 % (42-75); PLATELET COUNT 495 10^3/uL (130-400)
[2021-05-18 09:13] LABS: EOSINOPHILS # (AUTO) 0.2 10^3/uL (0.0-0.3)
[2021-05-18 09:30] LABS: BAND NEUTROPHILS 1 %; EOSINOPHILS % (MANUAL) 1 %; LYMPHOCYTES % (MANUAL) 4 %; MONOCYTES % (MANUAL) 2 %; NEUTROPHILS % (MANUAL) 92 %
[2021-05-18 09:31] LABS: HYPOCHROMASIA MODERATE; MICROCYTOSIS MODERATE; PLATELET ESTIMATE INCREASED; POLYCHROMASIA SLIGHT
[2021-05-18 09:32] LABS: ANISOCYTOSIS SLIGHT; RBC MORPH ABNORMAL
[2021-06-13 08:53] LABS: HEMATOCRIT 25 % (35-52); HEMOGLOBIN 7.2 g/dL (11.5-16.0); MEAN CORPUSCULAR HEMOGLOBIN 20 pg (25-34); WHITE BLOOD COUNT 10.4 10^3/uL (4.3-11.0)
[2021-06-13 08:54] LABS: BASOPHILS % (AUTO) 0 % (0-10); EOSINOPHILS # (AUTO) 0.1 10^3/uL (0.0-0.3); EOSINOPHILS % (AUTO) 1 % (0-10); LYMPHOCYTES # (AUTO) 0.4 X 10^3 (1.0-4.0); LYMPHOCYTES % (AUTO) 4 % (12-44); MEAN CORPUSCULAR HGB CONC 29 g/dL (32-36); MEAN CORPUSCULAR VOLUME 68 fL (80-99); MEAN PLATELET VOLUME 9.9 fL (9.0-12.2); MONOCYTES # (AUTO) 0.5 X 10^3 (0.0-1.0); MONOCYTES % (AUTO) 5 % (0-12); NEUTROPHILS # (AUTO) 9.2 X 10^3 (1.8-7.8); NEUTROPHILS % (AUTO) 89 % (42-75); PLATELET COUNT 467 10^3/uL (130-400)
[2021-06-13 09:49] LABS: BAND NEUTROPHILS 1 %; BASOPHILS % (MANUAL) 0 %; EOSINOPHILS % (MANUAL) 0 %; LYMPHOCYTES % (MANUAL) 3 %; MONOCYTES % (MANUAL) 7 %; NEUTROPHILS % (MANUAL) 89 %
[2021-06-13 09:50] LABS: PLATELET ESTIMATE NORMAL; RBC MORPH NORMAL
== END 2021-06-24 | disposition home or self-care (01) ==
LOC: LAB FS 08:15
PROVIDERS: ATTEND Family Medicine
DX: D50.0 Iron deficiency anemia secondary to blood loss (chronic) (principal)
CPT/HCPCS: 36415; 85007; 85027

== ENCOUNTER 2021-06-21 08:33 | Outpatient (RCR) | payer MEDICARE ==
[2021-06-21 09:34] LABS: BASOPHILS % (AUTO) 0 % (0-10); EOSINOPHILS % (AUTO) 2 % (0-10); LYMPHOCYTES # (AUTO) 0.4 X 10^3 (1.0-4.0); LYMPHOCYTES % (AUTO) 5 % (12-44); MEAN CORPUSCULAR HEMOGLOBIN 19 pg (25-34); MEAN CORPUSCULAR HGB CONC 29 g/dL (32-36); MEAN CORPUSCULAR VOLUME 67 fL (80-99); MEAN PLATELET VOLUME 9.6 fL (9.0-12.2); MONOCYTES # (AUTO) 0.8 X 10^3 (0.0-1.0); MONOCYTES % (AUTO) 8 % (0-12); NEUTROPHILS # (AUTO) 8.4 X 10^3 (1.8-7.8); NEUTROPHILS % (AUTO) 85 % (42-75); PLATELET COUNT 537 10^3/uL (130-400); WHITE BLOOD COUNT 9.8 10^3/uL (4.3-11.0)
[2021-06-21 09:35] LABS: EOSINOPHILS # (AUTO) 0.2 10^3/uL (0.0-0.3)
[2021-06-21 09:40] LABS: HEMOGLOBIN 6.9 g/dL (11.5-16.0)
[2021-06-21 09:41] LABS: HEMATOCRIT 24 % (35-52)
[2021-06-21 10:12] LABS: BAND NEUTROPHILS 1 %; BASOPHILS % (MANUAL) 1 %; EOSINOPHILS % (MANUAL) 1 %; LYMPHOCYTES % (MANUAL) 3 %; MONOCYTES % (MANUAL) 8 %; NEUTROPHILS % (MANUAL) 86 %; PLATELET ESTIMATE INCREASED
[2021-06-21 10:13] LABS: HYPOCHROMASIA 3+; MICROCYTOSIS 3+
== END 2021-06-24 | disposition home or self-care (01) ==
LOC: LAB FS 08:33
PROVIDERS: ATTEND Family Medicine
DX: D50.0 Iron deficiency anemia secondary to blood loss (chronic) (principal)
CPT/HCPCS: 36415; 85007; 85027

== ENCOUNTER 2021-06-22 08:07 | Outpatient (CLI) | payer MEDICARE ==
[~2021-06-22] VITALS: Ht 160 cm; Wt 58.6 kg
[2021-06-22 08:12] VITALS: BP 110/52
[2021-06-22] MEDS ORDERED: NS IV 500 ML 500 ML IV SCH (08:30)
[2021-06-22 08:55] LABS: HEMOGLOBIN 6.8 g/dL (11.5-16.0)
[2021-06-22 09:53] VITALS: BP 110/52
[2021-06-22 10:10] VITALS: BP 124/63
[2021-06-22 12:35] VITALS: BP 142/99
[2021-06-22 13:10] VITALS: BP 146/64
[2021-06-22 16:10] VITALS: BP 132/62
== END 2021-06-22 16:30 | disposition home or self-care (01) ==
LOC: SDC 08:07
PROVIDERS: ATTEND Family Medicine
DX: D64.9 Anemia, unspecified (principal)
CPT/HCPCS: 36430; 85014; 85018; 86850; 86900; 86901; 86920; P9016; 36415

== ENCOUNTER → 2021-07-13 | Outpatient (CLI) | payer MEDICARE ==
[2021-07-13 09:40] LABS: HEMATOCRIT 32 % (35-52); LYMPHOCYTES % (AUTO) 5 % (12-44); MEAN CORPUSCULAR HEMOGLOBIN 22 pg (25-34); MEAN CORPUSCULAR HGB CONC 31 g/dL (32-36); MEAN CORPUSCULAR VOLUME 73 fL (80-99); MEAN PLATELET VOLUME 9.5 fL (9.0-12.2); MONOCYTES % (AUTO) 8 % (0-12); NEUTROPHILS % (AUTO) 84 % (42-75); PLATELET COUNT 440 10^3/uL (130-400); WHITE BLOOD COUNT 8.9 10^3/uL (4.3-11.0)
[2021-07-13 09:41] LABS: BASOPHILS % (AUTO) 0 % (0-10); EOSINOPHILS # (AUTO) 0.1 10^3/uL (0.0-0.3); EOSINOPHILS % (AUTO) 2 % (0-10); LYMPHOCYTES # (AUTO) 0.5 X 10^3 (1.0-4.0); MONOCYTES # (AUTO) 0.7 X 10^3 (0.0-1.0); NEUTROPHILS # (AUTO) 7.5 X 10^3 (1.8-7.8)
[2021-07-13 10:16] LABS: BAND NEUTROPHILS 0 %; BASOPHILS % (MANUAL) 1 %; EOSINOPHILS % (MANUAL) 4 %; LYMPHOCYTES % (MANUAL) 5 %; MONOCYTES % (MANUAL) 7 %; MYELOCYTES % 1 %; NEUTROPHILS % (MANUAL) 82 %
== END ==
LOC: LAB FS 08:58
PROVIDERS: ATTEND Family Medicine
DX: D50.9 Iron deficiency anemia, unspecified (principal)
CPT/HCPCS: 36415; 85007; 85027

== ENCOUNTER → 2021-07-25 | Outpatient (RCR) | payer MEDICARE ==
[2021-07-25 10:14] LABS: WHITE BLOOD COUNT 10.4 10^3/uL (4.3-11.0)
[2021-07-25 10:15] LABS: BASOPHILS % (AUTO) 0 % (0-10); EOSINOPHILS # (AUTO) 0.1 10^3/uL (0.0-0.3); EOSINOPHILS % (AUTO) 1 % (0-10); HEMATOCRIT 31 % (35-52); HEMOGLOBIN 9.3 g/dL (11.5-16.0); LYMPHOCYTES # (AUTO) 0.6 X 10^3 (1.0-4.0); LYMPHOCYTES % (AUTO) 5 % (12-44); MEAN CORPUSCULAR HEMOGLOBIN 22 pg (25-34); MEAN CORPUSCULAR HGB CONC 30 g/dL (32-36); MEAN CORPUSCULAR VOLUME 73 fL (80-99); MEAN PLATELET VOLUME 9.4 fL (9.0-12.2); MONOCYTES # (AUTO) 0.8 X 10^3 (0.0-1.0); MONOCYTES % (AUTO) 7 % (0-12); NEUTROPHILS # (AUTO) 8.9 X 10^3 (1.8-7.8); NEUTROPHILS % (AUTO) 85 % (42-75); PLATELET COUNT 358 10^3/uL (130-400)
[2021-07-25 12:31] LABS: BAND NEUTROPHILS 1 %; BASOPHILS % (MANUAL) 0 %; EOSINOPHILS % (MANUAL) 1 %; LYMPHOCYTES % (MANUAL) 4 %; MONOCYTES % (MANUAL) 4 %; NEUTROPHILS % (MANUAL) 89 %
[2021-07-25 12:32] LABS: ATYPICAL LYMPHOCYTES 1 %; HYPOCHROMASIA 2+; MICROCYTOSIS 2+; PLATELET ESTIMATE NORMAL
== END | disposition home or self-care (01) ==
LOC: LAB FS 09:12
PROVIDERS: ATTEND Family Medicine
DX: D50.9 Iron deficiency anemia, unspecified (principal)
CPT/HCPCS: 36415; 85007; 85027

== ENCOUNTER 2021-08-05 09:07 | Outpatient (RCR) | payer MEDICARE ==
[2021-08-05 09:37] LABS: BASOPHILS % (AUTO) 0 % (0-10); EOSINOPHILS # (AUTO) 0.2 10^3/uL (0.0-0.3); EOSINOPHILS % (AUTO) 2 % (0-10); HEMATOCRIT 31 % (35-52); HEMOGLOBIN 9.4 g/dL (11.5-16.0); LYMPHOCYTES # (AUTO) 0.5 10^3/uL (1.0-4.0); LYMPHOCYTES % (AUTO) 5 % (12-44); MEAN CORPUSCULAR HEMOGLOBIN 22 pg (25-34); MEAN CORPUSCULAR HGB CONC 30 g/dL (32-36); MEAN CORPUSCULAR VOLUME 74 fL (80-99); MEAN PLATELET VOLUME 9.8 fL (9.0-12.2); MONOCYTES # (AUTO) 0.7 10^3/uL (0.0-1.0); MONOCYTES % (AUTO) 7 % (0-12); NEUTROPHILS # (AUTO) 9.3 10^3/uL (1.8-7.8); NEUTROPHILS % (AUTO) 86 % (42-75); PLATELET COUNT 380 10^3/uL (130-400); WHITE BLOOD COUNT 10.8 10^3/uL (4.3-11.0)
[2021-08-05 10:16] LABS: ATYPICAL LYMPHOCYTES 1 %; BASOPHILS % (MANUAL) 1 %; EOSINOPHILS % (MANUAL) 2 %; LYMPHOCYTES % (MANUAL) 3 %; MONOCYTES % (MANUAL) 7 %; NEUTROPHILS % (MANUAL) 86 %
[2021-08-05 10:17] LABS: ANISOCYTOSIS MARKED; HYPOCHROMASIA MODERATE; MICROCYTOSIS MODERATE; PLATELET ESTIMATE NORMAL; POIKILOCYTOSIS SLIGHT; RBC MORPH ABNORMAL
[2021-08-05 10:18] LABS: ELLIPT/OVALOCYTES SLIGHT; TARGET CELLS SLIGHT
== END 2021-08-22 | disposition home or self-care (01) ==
LOC: LAB FS 09:07
PROVIDERS: ATTEND Family Medicine
DX: D50.9 Iron deficiency anemia, unspecified (principal)
CPT/HCPCS: 36415; 85007; 85027

== ENCOUNTER 2021-08-23 09:05 | Outpatient (RCR) | payer MEDICARE ==
[2021-08-23 09:43] LABS: BASOPHILS % (AUTO) 0 % (0-10); EOSINOPHILS # (AUTO) 0.2 10^3/uL (0.0-0.3); EOSINOPHILS % (AUTO) 2 % (0-10); HEMATOCRIT 27 % (35-52); HEMOGLOBIN 8.2 g/dL (11.5-16.0); LYMPHOCYTES # (AUTO) 0.4 10^3/uL (1.0-4.0); LYMPHOCYTES % (AUTO) 5 % (12-44); MEAN CORPUSCULAR HEMOGLOBIN 22 pg (25-34); MEAN CORPUSCULAR HGB CONC 30 g/dL (32-36); MEAN CORPUSCULAR VOLUME 72 fL (80-99); MEAN PLATELET VOLUME 9.5 fL (9.0-12.2); MONOCYTES # (AUTO) 0.6 10^3/uL (0.0-1.0); MONOCYTES % (AUTO) 7 % (0-12); NEUTROPHILS # (AUTO) 8.1 10^3/uL (1.8-7.8); NEUTROPHILS % (AUTO) 86 % (42-75); PLATELET COUNT 378 10^3/uL (130-400); WHITE BLOOD COUNT 9.5 10^3/uL (4.3-11.0)
[2021-08-23 10:12] LABS: BAND NEUTROPHILS 0 %; BASOPHILS % (MANUAL) 1 %; EOSINOPHILS % (MANUAL) 3 %; HYPOCHROMASIA SLIGHT; LYMPHOCYTES % (MANUAL) 4 %; MONOCYTES % (MANUAL) 6 %; NEUTROPHILS % (MANUAL) 86 %
[2021-09-07] MEDS ORDERED: ONDA4TAB11 PO (15:06)
[2021-09-11] MEDS ORDERED: DILT240C91 PO (09:51)
[2021-09-11] MEDS ORDERED: DILT180C85 PO (09:53)
[2021-09-12] MEDS ORDERED: DILT60TA PO (08:43)
[2021-09-12] MEDS ORDERED: LORA-404 PO (08:43)
[2021-09-12] MEDS ORDERED: ALBU2.5V4 PO (08:43)
[2021-09-12] MEDS ORDERED: ONDA4TAB11 PO (08:43)
[2021-09-12] MEDS ORDERED: PANT40TA52 PO (08:44)
[2021-09-12] MEDS ORDERED: TRM50T PO (08:53)
[2021-09-14] MEDS ORDERED: CYAN-41 PO (10:51)
[2021-09-14] MEDS ORDERED: ASPI-1238 PO (11:01)
[2021-09-22] MEDS ORDERED: SUCR1TAB PO (13:15)
== END 2021-09-22 | disposition home or self-care (01) ==
LOC: LAB FS 09:05
PROVIDERS: ATTEND Family Medicine
DX: D50.9 Iron deficiency anemia, unspecified (principal)
CPT/HCPCS: 36415; 85007; 85027

== ENCOUNTER 2021-09-07 13:18 | Emergency (ER) | payer MEDICARE ==
[2021-09-07] MEDS ORDERED: LACTATED RINGERS 1,000 ML IV SCH (13:30)
[2021-09-07] MEDS ORDERED: ADENOSINE 6 MG/2 ML (ADENOCARD) VIAL IV ONE (13:30)
[2021-09-07] MEDS ORDERED: ONDANSETRON 4 MG/2 ML (SDV) Z0FRAN IVP ONE (13:30)
[2021-09-07] MEDS ORDERED: ASPIRIN 81 MG CHEW (CHILDREN'S ASA) PO ONE (13:30)
[2021-09-07 13:44] LABS: BASOPHILS # (AUTO) 0.1 10^3/uL (0.0-0.1); BASOPHILS % (AUTO) 0 % (0-10); EOSINOPHILS # (AUTO) 0.2 10^3/uL (0.0-0.3); EOSINOPHILS % (AUTO) 1 % (0-10); HEMATOCRIT 32 % (35-52); HEMOGLOBIN 9.6 g/dL (11.5-16.0); LYMPHOCYTES # (AUTO) 1.1 10^3/uL (1.0-4.0); LYMPHOCYTES % (AUTO) 7 % (12-44); MEAN CORPUSCULAR HEMOGLOBIN 21 pg (25-34); MEAN CORPUSCULAR HGB CONC 30 g/dL (32-36); MEAN CORPUSCULAR VOLUME 72 fL (80-99); MONOCYTES # (AUTO) 1.2 10^3/uL (0.0-1.0); MONOCYTES % (AUTO) 7 % (0-12); NEUTROPHILS # (AUTO) 13.4 10^3/uL (1.8-7.8); NEUTROPHILS % (AUTO) 83 % (42-75); PLATELET COUNT 211 10^3/uL (130-400); WHITE BLOOD COUNT 16.1 10^3/uL (4.3-11.0)
--- NOTE | 2021-09-07 13:46 | ED Cardiac General ---
History of Present Illness General Stated Complaint: STROKE SYMPTOMS Source: patient, family Exam Limitations: no limitations History of Present Illness Date Seen by Provider: Sep 07, 2021 Time Seen by Provider: 13:16 Initial Comments 81-year-old female with past medical history of advanced COPD on 3 L baseline oxygen, hypertension, hyperlipidemia, CAD, stroke coming in with her son due to general weakness. Started about an hour prior to arrival when she was trying to go to the bathroom, and felt generally weak. Did not feel more weak on one side or the other, no numbness, no vision or voice changes. Denied any chest pain, increased shortness of breath, abdominal pain, has had some nausea with nonbloody nonbilious vomiting that started on route here. Also denies any diarrhea or any other concerns. Have been eating and drinking normally prior to today. Allergies and Home Medications Allergies Coded Allergies: Szddjnf-Dkp-Yif Reductase Inhibitor (Verified Allergy, Unknown, 08/25/20) Sulfa (Sulfonamide Antibiotics) (Unverified Allergy, Unknown, 08/21/18) amoxicillin (Verified Allergy, Unknown, 08/25/20) aspartame (Unverified Allergy, Unknown, 08/21/18) atorvastatin (Verified Allergy, Unknown, 08/25/20) bee venom protein (honey bee) (Verified Allergy, Unknown, 08/25/20) diphenhydramine (Verified Allergy, Unknown, 08/25/20) ipratropium (Verified Allergy, Unknown, 08/25/20) iron (Unverified Allergy, Unknown, 08/21/18) "TACHYCARDIA" WITH IV INFUSION nicotine (Verified Allergy, Unknown, 08/25/20) quinine (Verified Allergy, Unknown, 08/25/20) Patient Home Medication List Home Medication List Reviewed: Yes ALPRAZolam (Xanax Tablet) 0.25 Mg Tablet, 0.25 MG PO BID PRN for ANXIETY, (Reported) Entered as Reported by: BRONSON AHUMADA on 08/21/18 164 Albuterol Sulfate (Ventolin Hfa) 1 Puff Puff, 2 PUFF INH Q6H PRN for SHORTNESS OF BREATH, (Reported) Entered as Reported by: BRONSON AHUMADA on 08/21/18 1649 Aspirin (Aspirin EC) 81 Mg Tablet.dr, 81 MG PO DAILY, (Reported) Entered as Reported by: DORIS WADDELL on 08/26/20 1030 Diltiazem HCl (Diltiazem 24Hr ER) 240 Mg Cap.er.24h, 240 MG PO DAILY, (Reported) Entered as Reported by: BRONSON AHUMADA on 08/21/18 1649 Diltiazem HCl (Diltiazem 24Hr Cd) 120 Mg Cap.er.24h, 120 MG PO DAILY Prescribed by: YESI CAMERON on 10/15/20 1938 Lorazepam (Ativan) 0.5 Mg Tablet, 0.5 MG PO TID PRN for ANXIETY Prescribed by: YESI VILLALBASTCARLOS on 10/15/20 2253 Ondansetron (Ondansetron Odt) 4 Mg Tab.rapdis, 4 MG PO Q6H PRN for NAUSEA/VOMITING-1ST LINE Prescribed by: LISA AMAYA on 09/07/21 1506 Pantoprazole Sodium (Pantoprazole Sodium) 40 Mg Tablet.dr, 40 MG PO DAILY Prescribed by: PRESLEY MATTHEWS on 08/27/20 1210 Review of Systems Review of Systems Constitutional: No chills, No fever EENTM: No Blurred Vision Respiratory: Denies Cough, Denies Shortness of Air Cardiovascular: Denies Chest Pain; Lightheadedness Gastrointestinal: No Symptoms Reported Genitourinary: No Symptoms Reported Musculoskeletal: no symptoms reported Skin: no symptoms reported Psychiatric/Neurological: No Symptoms Reported Endocrine: No Symptoms Reported Hematologic/Lymphatic: No Symptoms Reported All Other Systems Reviewed Negative Unless Noted: Yes Past Lejwftw-Moobfa-Pwrxgx Hx Patient Social History Tobacco Use?: Yes (Quit cigarettes 3 weeks ago) Seasonal Allergies Seasonal Allergies: No Past Medical History Surgeries: Yes (neck, esha and bso) Section, Hysterectomy Respiratory: Yes COPD Cardiac: Yes Heart Attack, Hypertension Neurological: Yes Stroke, TIA Genitourinary: No Gastrointestinal: Yes Gastrointestinal Bleed Musculoskeletal: No Endocrine: No HEENT: No Cancer: No Psychosocial: No Integumentary: No Blood Disorders: Yes (essential thrombocytosis) Physical Exam Vital Signs Vital Signs - First Documented 09/07/21 09/07/21 13:29 14:27 Temp 35.9 Pulse 169 Resp 12 B/P (MAP) 140/57 (84) Pulse Ox 100 O2 Delivery Nasal Cannula O2 Flow Rate 3.00 Capillary Refill : Height, Weight, BMI Height: 5'2.00" Weight: 139lbs. 0.0oz. 63.218393jo; 23.58 BMI Method: General Appearance: No Apparent Distress, WD/WN HEENT: PERRL/EOMI, Normal ENT Inspection, Pharynx Normal Neck: Full Range of Motion, Normal Inspection, Non Tender, Supple Respiratory: Chest Non Tender, Lungs Clear, Normal Breath Sounds, No Accessory Muscle Use, No Respiratory Distress Cardiovascular: No Edema, Normal Peripheral Pulses, Tachycardia Gastrointestinal: Non Tender, Soft; No Distended, No Guarding Extremity: Normal Capillary Refill, Normal Inspection, Normal Range of Motion, Non Tender, No Calf Tenderness, No Pedal Edema Neurologic/Psychiatric: Alert, Oriented x3, No Motor/Sensory Deficits, Normal Mood/Affect, 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 as Tested Skin: Normal Color, Warm/Dry Lymphatic: No Adenopathy Progress/Results/Core Measures Results/Orders Lab Results Laboratory Tests Test 09/07/21 13:39 Range/Units White Blood Count 16.1 H 4.3-11.0 10^3/uL Red Blood Count 4.52 3.80-5.11 10^6/uL Hemoglobin 9.6 L 11.5-16.0 g/dL Hematocrit 32 L 35-52 % Mean Corpuscular Volume 72 L 80-99 fL Mean Corpuscular Hemoglobin 21 L 25-34 pg Mean Corpuscular Hemoglobin Concent 30 L 32-36 g/dL Red Cell Distribution Width 18.0 H 10.0-14.5 % Platelet Count 211 130-400 10^3/uL Mean Platelet Volume 10.0 9.0-12.2 fL Immature Granulocyte % (Auto) 1 % Neutrophils (%) (Auto) 83 H 42-75 % Lymphocytes (%) (Auto) 7 L 12-44 % Monocytes (%) (Auto) 7 0-12 % Eosinophils (%) (Auto) 1 0-10 % Basophils (%) (Auto) 0 0-10 % Neutrophils # (Auto) 13.4 H 1.8-7.8 10^3/uL Lymphocytes # (Auto) 1.1 1.0-4.0 10^3/uL Monocytes # (Auto) 1.2 H 0.0-1.0 10^3/uL Eosinophils # (Auto) 0.2 0.0-0.3 10^3/uL Basophils # (Auto) 0.1 0.0-0.1 10^3/uL Immature Granulocyte # (Auto) 0.2 H 0.0-0.1 10^3/uL Neutrophils % (Manual) 85 % Lymphocytes % (Manual) 4 % Monocytes % (Manual) 8 % Eosinophils % (Manual) 0 % Basophils % (Manual) 1 % Band Neutrophils 1 % Atypical Lymphocytes 1 % Clumped Platelets MODERATE Hypochromasia SLIGHT Anisocytosis SLIGHT Prothrombin Time 13.8 12.2-14.7 SEC INR Comment 1.0 0.8-1.4 Activated Partial Thromboplast Time 27 24-35 SEC Sodium Level 132 L 135-145 MMOL/L Potassium Level 4.1 3.6-5.0 MMOL/L Chloride Level 97 L 98-107 MMOL/L Carbon Dioxide Level 18 L 21-32 MMOL/L Anion Gap 17 H 5-14 MMOL/L Blood Urea Nitrogen 8 7-18 MG/DL Creatinine 1.12 0.60-1.30 MG/DL Estimat Glomerular Filtration Rate 49 BUN/Creatinine Ratio 7 Glucose Level 146 H 70-105 MG/DL Calcium Level 9.5 8.5-10.1 MG/DL Corrected Calcium 9.6 8.5-10.1 MG/DL Magnesium Level 1.9 1.6-2.4 MG/DL Total Bilirubin 0.3 0.1-1.0 MG/DL Aspartate Amino Transf (AST/SGOT) 13 5-34 U/L Alanine Aminotransferase (ALT/SGPT) 7 0-55 U/L Alkaline Phosphatase 130 40-136 U/L Troponin I < 0.30 <0.30 NG/ML Pro-B-Type Natriuretic Peptide 816.0 H <75.0 PG/ML Total Protein 6.9 6.4-8.2 GM/DL Albumin 3.9 3.2-4.5 GM/DL My Orders Orders - LISA AMAYA MD Cbc With Automated Diff (09/07/21 13:28) Magnesium (09/07/21 13:28) Chest 1 View Ap/Pa Only (09/07/21 13:28) Ekg Tracing (09/07/21 13:28) Comprehensive Metabolic Panel (09/07/21 13:28) Protime With Inr (09/07/21 13:28) Partial Thromboplastin Time (09/07/21 13:28) O2 (09/07/21 13:28) Monitor-Rhythm Ecg Trace Only (09/07/21 13:28) Aspirin Chewable Tablet (Baby Aspirin Ch (09/07/21 13:30) Ed Iv/Invasive Line Start (09/07/21 13:28) Troponin I Fs (09/07/21 13:28) Probnp Fs (09/07/21 13:28) Lactated Ringers (Lr 1000 Ml Iv Solution (09/07/21 13:30) Ondansetron Injection (Zofran Injectio (09/07/21 13:30) Adenosine Injection (Adenocard Injection (09/07/21 13:30) Manual Differential (09/07/21 13:39) Diltiazem Injection (Cardizem Injection) (09/07/21 14:00) Diltiazem Drip Pre-Mix (Cardizem Drip Pr (09/07/21 14:00) Diltiazem Drip Pre-Mix (Cardizem Drip Pr (09/07/21 13:51) Diltiazem Injection (Cardizem Injection) (09/07/21 13:52) Ekg Tracing (09/07/21 14:05) Diltiazem Cd 24 Hr Capsule (Cardizem Cd (09/07/21 14:30) Medications Given in ED Current Medications Medications Dose Ordered Sig/Jonathan Route Start Time Stop Time Status Last Admin Dose Admin Adenosine 12 mg ONCE ONCE IV 09/07/21 13:30 09/07/21 13:31 DC 09/07/21 13:51 12 MG Aspirin 324 mg ONCE ONCE PO 09/07/21 13:30 09/07/21 13:31 DC 09/07/21 13:45 324 MG Diltiazem HCl 10 mg ONCE ONCE IVP 09/07/21 14:00 09/07/21 14:01 DC 09/07/21 13:56 10 MG Ondansetron HCl 4 mg ONCE ONCE IVP 09/07/21 13:30 09/07/21 13:31 DC 09/07/21 13:58 4 MG Vital Signs/I&O 09/07/21 09/07/21 13:29 14:27 Temp 35.9 Pulse 169 Resp 12 B/P (MAP) 140/57 (84) Pulse Ox 100 100 O2 Delivery Nasal Cannula Nasal Cannula O2 Flow Rate 3.00 3.00 Progress Progress Note : Progress Note 81-year-old female with above history coming in due to general weakness. ABCs were intact and vitals were stable on presentation. Physical exam reassuring including a nonfocal neuro exam. Her NIH stroke scale is 0. On the monitor her heart rate was in the 170s and appeared like SVT which was consistent with without an EKG. An IV was placed and basic labs including cardiac biomarkers were obtained. Adenosine was given with conversion for about 1 minute before she went back into SVT. She was then given a bolus of diltiazem followed by a drip, she converted relatively quickly so the drip was stopped. She was given a bolus of IV fluids as well. We gave her p.o. diltiazem to last longer afte rwards. On reassessment she was feeling significantly better. Chest x-ray clear without any focal abnormalities. I believe she is stable for discharge with outpatient follow-up given she is at her baseline. The patient was able to stand at her baseline as well. She was sent home with strict return precautions. Initial ECG Impression Date: Sep 07, 2021 Initial ECG Impression Time: 13:29 Initial ECG Rate: 168 Initial ECG Rhythm: SVT Comment Narrow QRS, normal axis, SVT EKG : EKG Time: 14:00 Rate: 86 Rhythm: Normal Sinus Comment Narrow QRS, normal axis, no significant ST changes or T wave normalities Diagnostic Imaging Diagonstic Imaging: Xray (chest) Comments [facility] [place], [place] NAME: [facility] REC#: [id number] PT STATUS: REG ER : 1940 PHYSICIAN: LISA AMAYA MD ADMIT DATE: 09/07/21/ER FS Draft Date of Exam:09/07/21 CHEST 1 VIEW AP/PA ONLY INDICATION: Generalized weakness and shortness of breath. TIME OF EXAM: 1:37 p.m. COMPARISON: Correlation is made with prior chest from 10/15/2020. FINDING: The heart size is normal. The pulmonary vascularity is unremarkable. The lungs are clear. No infiltrate, effusion or pneumothorax is detected. IMPRESSION: No acute cardiopulmonary process is detected. Dictated on workstation # [id number] Dict: 09/07/21 1344 Trans: 09/07/21 1346 [id number] Interpreted by: KAILYN HUBBARD MD Electronically signed by: Departure Impression Primary Impression: SVT (supraventricular tachycardia) Additional Impressions: Weakness Vomiting Qualified Codes: R11.2 - Nausea with vomiting, unspecified Disposition: HOME, SELF-CARE Condition: Stable Departure-Patient Inst. Decision time for Depature: 15:05 Referrals: GAL DAN MD (PCP/Family) Primary Care Physician JOSELYN MCCLELLAND MD FACP FAC CCDS Patient Instructions: Supraventricular Tachycardia (SVT) Add. Discharge Instructions: You are seen in the emergency department because you are feeling generally weak. You were in a rhythm called SVT or supraventricular tachycardia. We gave you some medicines to break you out of this rhythm. You can restart your diltiazem tomorrow, but we gave you enough for today. I sent nausea medicines to your pharmacy if you continue to feel like you need to vomit. Please call Dr. Mcclelland whose number is in this paperwork to schedule an appointment, he is a commercial real estate paralegal and [employer]. Scripts Ondansetron (Ondansetron Odt) 4 Mg Tab.rapdis 4 MG PO Q6H PRN for NAUSEA/VOMITING-1ST LINE for 5 Days, #20 TAB Prov: LISA AMAYA MD 09/07/21 LISA AMAYA MD Sep 07, 2021 13:46
[2021-09-07] MEDS ORDERED: dilTIAZem DRIP PRE-MIX 125 ML IV ONE (13:51)
[2021-09-07 13:59] LABS: PROTHROMBIN TIME PATIENT 13.8 SEC (12.2-14.7)
[2021-09-07] MEDS ORDERED: dilTIAZem DRIP PRE-MIX 125 ML IV SCH (14:00)
[2021-09-07 14:04] LABS: ANISOCYTOSIS SLIGHT; ATYPICAL LYMPHOCYTES 1 %; BAND NEUTROPHILS 1 %; BASOPHILS % (MANUAL) 1 %; EOSINOPHILS % (MANUAL) 0 %; HYPOCHROMASIA SLIGHT; LYMPHOCYTES % (MANUAL) 4 %; MONOCYTES % (MANUAL) 8 %; NEUTROPHILS % (MANUAL) 85 %; PLATELET CLUMPS MODERATE
[2021-09-07] MEDS ORDERED: dilTIAZem120 MG (CARDIZEM CD) CAP PO SCH (14:30)
[2021-09-07 14:41] LABS: ALBUMIN 3.9 GM/DL (3.2-4.5); BILIRUBIN,TOTAL 0.3 MG/DL (0.1-1.0); CALCIUM 9.5 MG/DL (8.5-10.1); CREATININE SERUM 1.12 MG/DL (0.60-1.30); MAGNESIUM 1.9 MG/DL (1.6-2.4); POTASSIUM 4.1 MMOL/L (3.6-5.0); TOTAL PROTEIN 6.9 GM/DL (6.4-8.2)
[2021-09-07] MEDS ORDERED: ONDA4TAB11 PO (15:06)
[2021-09-07 15:47] VITALS: BP 136/57
== END 2021-09-07 15:15 | disposition home or self-care (01) ==
LOC: EDUNIT# 13:18 → ER FS 13:19
DX: I47.1 Supraventricular tachycardia (principal); R11.2 Nausea with vomiting, unspecified; Z87.891 Personal history of nicotine dependence
CPT/HCPCS: 36415; 71045; 80053; 83735; 83880; 84484; 85007; 85027; 85610; 85730; 93005; 93041

== ENCOUNTER 2021-09-09 12:20 | Inpatient (IN) | payer MEDICARE ==
[2021-09-09] VITALS (7 sets, daily range): BP systolic 105–146; BP diastolic 59–78
[~2021-09-09] VITALS: Ht 160 cm; Wt 64.1 kg
[~2021-09-09 12:20] MED LIST changes: +ONDA4TAB11 PO
[2021-09-09] MEDS ORDERED: ADENOSINE 6 MG/2 ML (ADENOCARD) VIAL IV ONE ×4 (12:30→13:00)
[2021-09-09] MEDS ORDERED: NS IV 1000 ML 1,000 ML ONE (12:36)
[2021-09-09 12:53] LABS: BASOPHILS % (AUTO) 0 % (0-10); EOSINOPHILS # (AUTO) 0.1 10^3/uL (0.0-0.3); EOSINOPHILS % (AUTO) 1 % (0-10); HEMATOCRIT 31 % (35-52); HEMOGLOBIN 9.2 g/dL (11.5-16.0); LYMPHOCYTES # (AUTO) 0.9 10^3/uL (1.0-4.0); LYMPHOCYTES % (AUTO) 6 % (12-44); MEAN CORPUSCULAR HEMOGLOBIN 22 pg (25-34); MEAN CORPUSCULAR HGB CONC 30 g/dL (32-36); MEAN CORPUSCULAR VOLUME 73 fL (80-99); MEAN PLATELET VOLUME 10.1 fL (9.0-12.2); MONOCYTES # (AUTO) 0.9 10^3/uL (0.0-1.0); MONOCYTES % (AUTO) 6 % (0-12); NEUTROPHILS # (AUTO) 13.1 10^3/uL (1.8-7.8); NEUTROPHILS % (AUTO) 86 % (42-75); PLATELET COUNT 533 10^3/uL (130-400); WHITE BLOOD COUNT 15.2 10^3/uL (4.3-11.0)
[2021-09-09] MEDS ORDERED: fentaNYL INJ 100 MCG/2 ML AMP ONE (12:57)
[2021-09-09] MEDS ORDERED: MIDAZOLAM 5 MG/5 ML (VERSED) VIAL ONE (12:58)
[2021-09-09] MEDS ORDERED: proPOfol 200 MG/20 ML (DIPRIVAN) VIAL IV ONE (13:04)
[2021-09-09 13:06] LABS: POTASSIUM 4.1 MMOL/L (3.6-5.0)
[2021-09-09 13:07] LABS: CALCIUM 9.8 MG/DL (8.5-10.1)
[2021-09-09 13:08] LABS: TOTAL PROTEIN 6.7 GM/DL (6.4-8.2)
[2021-09-09 13:10] LABS: BILIRUBIN,TOTAL 0.4 MG/DL (0.1-1.0)
[2021-09-09] MEDS ORDERED: dilTIAZem DRIP PRE-MIX 125 ML IV ONE (13:11)
[2021-09-09 13:12] LABS: CREATININE SERUM 1.01 MG/DL (0.60-1.30)
[2021-09-09 13:15] LABS: MAGNESIUM 1.7 MG/DL (1.6-2.4)
[2021-09-09] MEDS ORDERED: dilTIAZem DRIP PRE-MIX 125 ML IV SCH ×2 (13:15→18:00)
[2021-09-09 13:17] LABS: PROTHROMBIN TIME PATIENT 13.4 SEC (12.2-14.7)
--- NOTE | 2021-09-09 13:33 | Diagnostic Imaging Report ---
CLINICAL INDICATION: Patient is weak and has a history of SMVT. EXAM: Portable chest x-ray, upright view. COMPARISON: Chest x-ray dated 09/07/2021. FINDINGS: Pulmonary vasculature and cardiac silhouette are within normal limits. There are slightly increased lung markings in both lung bases again seen, which may be related to atelectasis or scarring. There is no interval lung infiltrate. There is no pleural effusion or pneumothorax. There are degenerative spurs involving the spine. IMPRESSION: There is no radiographic evidence of acute cardiopulmonary process. Suspected mild bibasilar atelectasis or scarring. Dictated by: Dictated on workstation # [id number]
[2021-09-09 13:54] LABS: ANISOCYTOSIS SLIGHT; BASOPHILS % (MANUAL) 0 %; EOSINOPHILS % (MANUAL) 2 %; HYPOCHROMASIA SLIGHT; LYMPHOCYTES % (MANUAL) 6 %; MICROCYTOSIS SLIGHT; MONOCYTES % (MANUAL) 7 %; NEUTROPHILS % (MANUAL) 85 %
[2021-09-09 15:14] LABS: BILIRUBIN,URINE NEGATIVE (NEGATIVE); CLARITY,URINE CLEAR; COLOR,URINE YELLOW; GLUCOSE, URINE (UA) NEGATIVE (NEGATIVE); KETONES,URINE 1+ (NEGATIVE); LEUKOCYTE ESTERASE ,URINE 1+ (NEGATIVE); NITRITE,URINE NEGATIVE (NEGATIVE); PROTEIN,URINE TRACE (NEGATIVE)
[2021-09-09 15:19] LABS: BACTERIA,URINE FEW /HPF; HYALINE CASTS, URINE 0-2 /LPF; RBC,URINE 0-2 /HPF; YEAST,URINE FEW /HPF
[2021-09-09] MEDS ORDERED: NS 100 ML (IVPB) BAG IV ONE (16:15)
[2021-09-09] MEDS ORDERED: HOLD METFORMIN - RECEIVED CONTRAST 20 ML VIAL IV SCH (16:15)
[2021-09-09] MEDS ORDERED: IOHEXOL 350 MG/ML 100 ML (OMNIPAQUE 350) VIAL IV ONE (16:15)
--- NOTE | 2021-09-09 16:21 | ED General ---
General Chief Complaint: Cardiac/General Problems Stated Complaint: STROKE SYMPTOMS Nursing Triage Note: PT FROM [facility] PT VERY WEAK, STATES HAS HX SVT. SON BROUGHT PT TO ED. STATES HAS NOT HAD BM FOR 4 DAYS. UPON ARRIVAL PT IN SVT HR 160'S. PT LETHARGIC Source of Information: Patient Exam Limitations: No Limitations History of Present Illness Date Seen by Provider: Sep 09, 2021 Time Seen by Provider: 12:25 Initial Comments This 81-year-old woman presents to the emergency room with complaints of generalized weakness, shortness of breath, constipation, headache, and lethargy. She was seen 2 days ago in the [place] ER and treated for SVT. To her knowledge she has not ever had SVT before, but review of the chart notes multiple ER visits for SVT in the past. Patient reported no other arrhythmias but it was later noted on her [facility] paperwork she does have a history of chronic atrial fibrillation. Patient was noted to have a narrow complex tachycardia in the 140s with a morphology suggestive of SVT. She was intermittently hypotensive during initial assessment. She is alert and able to answer questions appropriately. She exhibited no focal neurologic deficits on initial assessment. 2 and 3 days ago patient was having significant nausea and vomiting. She may not have been keeping her medications down during that time. Nausea and vomiting have sensed diminished. She denies any fever, cough, or other symptoms of acute infection. She did have COVID-19 at the end of June. She was treated with Paxlovid and later steroids. Her per son's report she also has "lesions" in her GI tract that cause her to experience chronic blood loss. Allergies and Home Medications Allergies Coded Allergies: Odbihtv-NEM-LxI Reductase Inhibitor (Verified Allergy, Unknown, 08/25/20) Sulfa (Sulfonamide Antibiotics) (Unverified Allergy, Unknown, 08/21/18) amoxicillin (Verified Allergy, Unknown, 08/25/20) aspartame (Unverified Allergy, Unknown, 08/21/18) atorvastatin (Verified Allergy, Unknown, 08/25/20) bee venom protein (honey bee) (Verified Allergy, Unknown, 08/25/20) diphenhydramine (Verified Allergy, Unknown, 08/25/20) ipratropium (Verified Allergy, Unknown, 08/25/20) iron (Unverified Allergy, Unknown, 08/21/18) "TACHYCARDIA" WITH IV INFUSION nicotine (Verified Allergy, Unknown, 08/25/20) quinine (Verified Allergy, Unknown, 08/25/20) Patient Home Medication List Home Medication List Reviewed: Yes ALPRAZolam (Xanax Tablet) 0.25 Mg Tablet, 0.25 MG PO BID PRN for ANXIETY, (Reported) Entered as Reported by: BRONSON AHUMADA on 08/21/18 1649 Albuterol Sulfate (Ventolin Hfa) 1 Puff Puff, 2 PUFF INH Q6H PRN for SHORTNESS OF BREATH, (Reported) Entered as Reported by: BRONSON AHUMADA on 08/21/18 1649 Aspirin (Aspirin EC) 81 Mg Tablet.dr, 81 MG PO DAILY, (Reported) Entered as Reported by: DORIS WADDELL on 08/26/20 1030 Diltiazem HCl (Diltiazem 24Hr ER) 240 Mg Cap.er.24h, 240 MG PO DAILY, (Reported) Entered as Reported by: BRONSON AHUMADA on 08/21/18 1649 Diltiazem HCl (Diltiazem 24Hr Cd) 120 Mg Cap.er.24h, 120 MG PO DAILY Prescribed by: YESI CAMERON on 10/15/20 1938 Lorazepam (Ativan) 0.5 Mg Tablet, 0.5 MG PO TID PRN for ANXIETY Prescribed by: YESI CAMERON on 10/15/20 2253 Ondansetron (Ondansetron Odt) 4 Mg Tab.rapdis, 4 MG PO Q6H PRN for NAUSEA/VOMITING-1ST LINE Prescribed by: LISA AMAYA on 09/07/21 1506 Pantoprazole Sodium (Pantoprazole Sodium) 40 Mg Tablet.dr, 40 MG PO DAILY Prescribed by: PRESLEY MATTHEWS on 08/27/20 1210 Review of Systems Review of Systems Constitutional: see HPI EENTM: no symptoms reported Respiratory: see HPI Cardiovascular: see HPI Gastrointestinal: see HPI Genitourinary: no symptoms reported : No Musculoskeletal: no symptoms reported Skin: no symptoms reported Psychiatric/Neurological: No Symptoms Reported Hematologic/Lymphatic: No Symptoms Reported Past Kmplvgo-Cociwt-Prsbsh Hx Patient Social History Tobacco Use?: No Smoking Status: Former Smoker Substance use?: No Alcohol Use?: No Pt feels they are or have been: No Seasonal Allergies Seasonal Allergies: No Past Medical History Surgery/Hospitalization HX: COPD, SVT, STROKE, Surgeries: Yes (neck, esha and bso) Section, Hysterectomy Respiratory: Yes COPD Cardiac: Yes (SVT) Atrial Fibrillation, Heart Attack, Hypertension Neurological: Yes Stroke, TIA Genitourinary: No Gastrointestinal: Yes Gastrointestinal Bleed Musculoskeletal: No Endocrine: No HEENT: No Cancer: No Psychosocial: No Integumentary: No Blood Disorders: Yes (essential thrombocytosis, chronic anemia transfusion dependent) Physical Exam Vital Signs Vital Signs - First Documented 09/09/21 12:20 Pulse 165 Resp 20 B/P (MAP) 104/81 (89) Pulse Ox 100 O2 Delivery Nasal Cannula O2 Flow Rate 4.00 Capillary Refill : Less Than 3 Seconds Height, Weight, BMI Height: 5'2.00" Weight: 139lbs. 0.0oz. 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 Mentation sluggish. Able to follow instructions and answer questions appropriately.) Skin: Normal Color, Warm/Dry Progress/Results/Core Measures Suspected Sepsis SIRS Temperature: Pulse: 165 Respiratory Rate: 20 Laboratory Tests 09/09/21 12:29: White Blood Count 15.2H Blood Pressure 104 /81 Mean: 89 Laboratory Tests 09/09/21 12:29: Creatinine 1.01, INR Comment 1.0, Platelet Count 533H, Total Bilirubin 0.4 Results/Orders Lab Results Laboratory Tests Test 09/09/21 12:29 09/09/21 14:53 Range/Units White Blood Count 15.2 H 4.3-11.0 10^3/uL Red Blood Count 4.22 3.80-5.11 10^6/uL Hemoglobin 9.2 L 11.5-16.0 g/dL Hematocrit 31 L 35-52 % Mean Corpuscular Volume 73 L 80-99 fL Mean Corpuscular Hemoglobin 22 L 25-34 pg Mean Corpuscular Hemoglobin Concent 30 L 32-36 g/dL Red Cell Distribution Width 17.4 H 10.0-14.5 % Platelet Count 533 H 130-400 10^3/uL Mean Platelet Volume 10.1 9.0-12.2 fL Immature Granulocyte % (Auto) 1 % Neutrophils (%) (Auto) 86 H 42-75 % Lymphocytes (%) (Auto) 6 L 12-44 % Monocytes (%) (Auto) 6 0-12 % Eosinophils (%) (Auto) 1 0-10 % Basophils (%) (Auto) 0 0-10 % Neutrophils # (Auto) 13.1 H 1.8-7.8 10^3/uL Lymphocytes # (Auto) 0.9 L 1.0-4.0 10^3/uL Monocytes # (Auto) 0.9 0.0-1.0 10^3/uL Eosinophils # (Auto) 0.1 0.0-0.3 10^3/uL Basophils # (Auto) 0.0 0.0-0.1 10^3/uL Immature Granulocyte # (Auto) 0.1 0.0-0.1 10^3/uL Neutrophils % (Manual) 85 % Lymphocytes % (Manual) 6 % Monocytes % (Manual) 7 % Eosinophils % (Manual) 2 % Basophils % (Manual) 0 % Hypochromasia SLIGHT Anisocytosis SLIGHT Microcytosis SLIGHT Prothrombin Time 13.4 12.2-14.7 SEC INR Comment 1.0 0.8-1.4 Activated Partial Thromboplast Time 36 H 24-35 SEC Sodium Level 133 L 135-145 MMOL/L Potassium Level 4.1 3.6-5.0 MMOL/L Chloride Level 97 L 98-107 MMOL/L Carbon Dioxide Level 20 L 21-32 MMOL/L Anion Gap 16 H 5-14 MMOL/L Blood Urea Nitrogen 9 7-18 MG/DL Creatinine 1.01 0.60-1.30 MG/DL Estimat Glomerular Filtration Rate 55 BUN/Creatinine Ratio 9 Glucose Level 111 H 70-105 MG/DL Calcium Level 9.8 8.5-10.1 MG/DL Corrected Calcium 9.8 8.5-10.1 MG/DL Magnesium Level 1.7 1.6-2.4 MG/DL Total Bilirubin 0.4 0.1-1.0 MG/DL Aspartate Amino Transf (AST/SGOT) 15 5-34 U/L Alanine Aminotransferase (ALT/SGPT) 11 0-55 U/L Alkaline Phosphatase 112 40-136 U/L Myoglobin 69.5 10.0-92.0 NG/ML Troponin I < 0.028 <0.028 NG/ML Total Protein 6.7 6.4-8.2 GM/DL Albumin 4.0 3.2-4.5 GM/DL Urine Color YELLOW Urine Clarity CLEAR Urine pH 7.0 5-9 Urine Specific [place] 1.010 L 1.016-1.022 Urine Protein TRACE H NEGATIVE Urine Glucose (UA) NEGATIVE NEGATIVE Urine Ketones 1+ H NEGATIVE Urine Nitrite NEGATIVE NEGATIVE Urine Bilirubin NEGATIVE NEGATIVE Urine Urobilinogen 0.2 < = 1.0 MG/DL Urine Leukocyte Esterase 1+ H NEGATIVE Urine RBC (Auto) TRACE-I H NEGATIVE Urine RBC 0-2 /HPF Urine WBC 5-10 H /HPF Urine Squamous Epithelial Cells 2-5 /HPF Urine Crystals NONE /LPF Urine Bacteria FEW H /HPF Urine Casts PRESENT /LPF Urine Hyaline Casts 0-2 H /LPF Urine Mucus NEGATIVE /LPF Urine Yeast FEW H /HPF Urine Culture Indicated YES My Orders Orders - AURELIA TORRES MD Ekg Tracing (09/09/21 12:30) Adenosine Injection (Adenocard Injection (09/09/21 12:30) Adenosine Injection (Adenocard Injection (09/09/21 12:36) Ns Iv 1000 Ml (Sodium Chloride 0.9%) (09/09/21 12:36) Cbc With Automated Diff (09/09/21 12:46) Magnesium (09/09/21 12:46) Chest 1 View, Ap/Pa Only (09/09/21 12:46) Ekg Tracing (09/09/21 12:46) Comprehensive Metabolic Panel (09/09/21 12:46) Myoglobin Serum (09/09/21 12:46) Protime With Inr (09/09/21 12:46) Partial Thromboplastin Time (09/09/21 12:46) O2 (09/09/21 12:46) Monitor-Rhythm Ecg Trace Only (09/09/21 12:46) Lipid Panel (09/10/21 06:00) Ed Iv/Invasive Line Start (09/09/21 12:46) Troponin I [place] (09/09/21 12:46) Adenosine Injection (Adenocard Injection (09/09/21 13:00) Adenosine Injection (Adenocard Injection (09/09/21 13:00) Manual Differential (09/09/21 12:29) Fentanyl Inj (Sublimaze Injection) (09/09/21 12:57) Midazolam Injection (Versed Injection) (09/09/21 12:58) Propofol Injection (Diprivan Injection) (09/09/21 13:04) Diltiazem Drip Pre-Mix (Cardizem Drip Pr (09/09/21 13:15) Diltiazem Drip Pre-Mix (Cardizem Drip Pr (09/09/21 13:11) Ekg Tracing (09/09/21 13:44) Ekg Tracing (09/09/21 13:44) Ua Culture If Indicated (09/09/21 14:27) Urine Culture (09/09/21 14:53) Ct Abdomen/Pelvis W (09/09/21 15:58) Iohexol Injection (Omnipaque 350 Mg/Ml 1 (09/09/21 16:15) Received Contrast (Hold Metformin- Contr (09/09/21 16:15) Ns (Ivpb) (Sodium Chloride 0.9% Ivpb Bag (09/09/21 16:15) Blood Culture (09/09/21 16:54) Vital Signs Adult Sepsis Patie Q15M (09/09/21 16:54) Remove Rings In Anticipation O (09/09/21 16:54) Lactic Acid Analyzer (09/09/21 16:54) Meropenem (Merrem 1000 Mg) (09/09/21 17:00) Consult Physician (09/09/21 17:10) Consult Physician (09/09/21 17:10) Ed Admission (Communication) (09/09/21 17:11) Medications Given in ED Current Medications Medications Dose Ordered Sig/Jonathan Route Start Time Stop Time Status Last Admin Dose Admin Adenosine 6 mg ONCE ONCE IV 09/09/21 13:00 09/09/21 13:01 DC 09/09/21 12:32 6 MG Adenosine 12 mg ONCE ONCE IV 09/09/21 13:00 09/09/21 13:01 DC 09/09/21 12:38 12 MG Iohexol 100 ml ONCE ONCE IV 09/09/21 16:15 09/09/21 16:16 DC 09/09/21 16:28 66 ML Meropenem 1000 mg/ Sodium Chloride 100 ml @ 200 mls/hr ONCE ONCE IV 09/09/21 17:00 09/09/21 17:29 DC 09/09/21 17:52 200 MLS/HR Sodium Chloride 100 ml ONCE ONCE IV 09/09/21 16:15 09/09/21 16:16 DC 09/09/21 16:28 80 ML Sodium Chloride 1,000 ml @ STK-MED ONCE .ROUTE 09/09/21 12:36 09/09/21 12:40 DC 09/09/21 12:45 1,000 MLS/HR Vital Signs/I&O 09/09/21 09/09/21 12:20 14:20 Pulse 165 Resp 20 B/P (MAP) 104/81 (89) Pulse Ox 100 92 O2 Delivery Nasal Cannula Nasal Cannula O2 Flow Rate 4.00 4.00 Capillary Refill : Less Than 3 Seconds Blood Pressure Mean: 89 Progress Note #1: Time: 17:17 Progress Note Patient was seen and examined promptly after arrival. She was noted to have SVT with mild hypotension. IV fluids were initiated. She was given adenosine 6 mg which briefly converted her to sinus rhythm. Adenosine was repeated with a 12 mg dose. This likewise briefly converted her to sinus rhythm. Patient was becoming more persistently hypotensive. A second liter of IV fluids was initiated. We were preparing for electrocardioversion when her narrow complex tachycardia started spacing out which resulted in an improved blood pressure. We were then able to start a Cardizem drip. Intermittent SVT alternating with brief sinus rhythm gradually improved and eventually converted to sustained sinus rhythm. Patient was feeling much improved. After cardiac stability was achieved, we addressed the abdominal pain with a CT scan. Colitis was noted. Blood cultures will be obtained and she will be started on meropenem for both colitis and urinary tract infection. Dr. Murillo was consulted and the case was discussed with him multiple times. Dr. Martinez agrees to admission and will write orders. Patient is going to the ICU on Cardizem drip. Dr. Martinez desires to continue drip and convert to oral Cardizem after she is settled into the ICU. Progress Note #2: Time: 18:[address] Martinez requested consultation with Dr. Wolef. Dr. Wolfe recommends a clear liquid diet and PPI. He was in agreement with choice of meropenem as an antibiotic. ECG EKG #1: EKG Time: 12:29 Rate: 163 Rhythm: SVT Comment SVT with heart rate in the 160s. No definite ischemic changes. EKG #2: EKG Time: 12:29 Rate: 111 Rhythm: SVT Comment SVT with conversion to sinus rhythm after administration of adenosine. No ST elevation or depression. EKG #3: EKG Time: 12:30 Rate: 164 Rhythm: SVT Comment Return to SVT after chemical cardioversion with adenosine. Heart rate is back to the 160s. No ST elevation to suggest STEMI. EKG #4: EKG Time: 12:34 Rate: 41 Rhythm: S.Ketan Comment Sinus bradycardia after conversion to sinus rhythm with a second dose of adenosine. Minimal ST depression. No ST elevation. Diagnostic Imaging Diagonstic Imaging: Xray Plain Films/CT/US/NM/MRI: chest Comments NAME: DORA PAINTING MED REC#: [id number] PT STATUS: REG ER : 1940 PHYSICIAN: AURELIA TORRES MD ADMIT DATE: 09/09/21/ER Signed Date of Exam:09/09/21 CHEST 1 VIEW, AP/PA ONLY CLINICAL INDICATION: Patient is weak and has a history of SMVT. EXAM: Portable chest x-ray, upright view. COMPARISON: Chest x-ray dated 09/07/2021. FINDINGS: Pulmonary vasculature and cardiac silhouette are within normal limits. There are slightly increased lung markings in both lung bases again seen, which may be related to atelectasis or scarring. There is no interval lung infiltrate. There is no pleural effusion or pneumothorax. There are degenerative spurs involving the spine. IMPRESSION: There is no radiographic evidence of acute cardiopulmonary process. Suspected mild bibasilar atelectasis or scarring. Dictated by: Dictated on workstation # [id number] Dict: 09/09/21 1328 Trans: 09/09/21 1656 [id number] Interpreted by: ISATU AGUILAR MD Electronically signed by: ISATU AGUILAR MD 09/09/211655 Diagonstic Imaging: CT Plain Films/CT/US/NM/MRI: abdomen, pelvis Comments NAME: DORA PAINTING [facility] REC#: [id number] PT STATUS: REG ER : 1940 PHYSICIAN: AURELIA TORRES MD ADMIT DATE: 09/09/21/ER Signed Date of Exam:09/09/21 CT ABDOMEN/PELVIS W EXAMINATION: CT abdomen and pelvis with intravenous contrast. TECHNIQUE: Multiple contiguous axial images were obtained through the abdomen and pelvis after the uneventful administration of intravenous contrast. All CT scans use one or more of the following dose optimizing techniques: Automated exposure control, MA and/or KvP adjustment based on patient size and exam type or iterative reconstruction. HISTORY: Abdominal pain, leukocytosis. COMPARISON: None available. FINDINGS: Lung bases: Bibasilar dependent atelectasis. There is a 1.1 x 0.9 cm right lower lobe subpleural pulmonary nodule. Solid organs: The liver is normal without focal lesion. The gallbladder is surgically absent. There is no biliary ductal dilation. Pancreas is normal. Spleen is normal. Adrenal glands are normal. The kidneys are normal without hydronephrosis. Bowel: The stomach and small bowel are normal without obstruction. There is wall thickening of the right hemicolon. No findings of acute appendicitis. Peritoneum: There is no intraperitoneal free fluid or free air. No suspicious lymphadenopathy. Vasculature: Calcification of the aorta without aneurysm. Musculoskeletal: Degenerative changes of the spine without suspicious osseous lesion or compression fracture. Pelvis: The uterus is surgically absent. No adnexal mass. The urinary bladder is normal. IMPRESSION: 1. Wall thickening of the right hemicolon, which can be seen with an infectious or inflammatory colitis. 2. A 1.0 cm average right lower lobe subpleural pulmonary nodule. Recommend follow-up CT in three months or alternatively evaluation with PET/CT. Dictated by: Dictated on workstation # [id number] Dict: 09/09/21 1634 Trans: 09/09/21 1642 [id number] Interpreted by: MARCELINO VALERIO DO Electronically signed by: MARCELINO VALERIO DO 09/09/21 1392 Departure Communication (Admissions) Time/Spoke to Admitting Phy: 17:05 Dr. Martinez Time/Spoke to Consulting Phy: 13:00 Dr. Murillo Impression Primary Impression: Paroxysmal SVT (supraventricular tachycardia) Additional Impressions: Hypotension Qualified Codes: I95.9 - Hypotension, unspecified Left sided abdominal pain Urinary tract infection Qualified Codes: N39.0 - Urinary tract infection, site not specified Colitis Pulmonary nodule 1 cm or greater in diameter Disposition: ADMITTED INPATIENT Condition: Stable Admissions Decision to Admit Reason: Admit from ER (General) Decision to Admit/Date: Sep 09, 2021 Time/Decision to Admit Time: 13:00 Departure-Patient Inst. Referrals: GAL DAN MD (PCP/Family) Primary Care Physician Copy Copies To 1: GAL DAN MD, JOSHUA T MD Sep 09, 2021 16:21
--- NOTE | 2021-09-09 16:41 | Diagnostic Imaging Report ---
EXAMINATION: CT abdomen and pelvis with intravenous contrast. TECHNIQUE: Multiple contiguous axial images were obtained through the abdomen and pelvis after the uneventful administration of intravenous contrast. All CT scans use one or more of the following dose optimizing techniques: Automated exposure control, MA and/or KvP adjustment based on patient size and exam type or iterative reconstruction. HISTORY: Abdominal pain, leukocytosis. COMPARISON: None available. FINDINGS: Lung bases: Bibasilar dependent atelectasis. There is a 1.1 x 0.9 cm right lower lobe subpleural pulmonary nodule. Solid organs: The liver is normal without focal lesion. The gallbladder is surgically absent. There is no biliary ductal dilation. Pancreas is normal. Spleen is normal. Adrenal glands are normal. The kidneys are normal without hydronephrosis. Bowel: The stomach and small bowel are normal without obstruction. There is wall thickening of the right hemicolon. No findings of acute appendicitis. Peritoneum: There is no intraperitoneal free fluid or free air. No suspicious lymphadenopathy. Vasculature: Calcification of the aorta without aneurysm. Musculoskeletal: Degenerative changes of the spine without suspicious osseous lesion or compression fracture. Pelvis: The uterus is surgically absent. No adnexal mass. The urinary bladder is normal. IMPRESSION: 1. Wall thickening of the right hemicolon, which can be seen with an infectious or inflammatory colitis. 2. A 1.0 cm average right lower lobe subpleural pulmonary nodule. Recommend follow-up CT in three months or alternatively evaluation with PET/CT. Dictated by: Dictated on workstation # [id number]
[2021-09-09] MEDS ORDERED: MEROPENEM 1,000 MG in NS (IVPB) 100 ML IV ONE (17:00)
[2021-09-09] MEDS ORDERED: morphine INJ 4 MG/ML 1 ML (VIAL/SYRINGE) IV PRN (18:00)
[2021-09-09] MEDS ORDERED: polyethylene glycoL POWDER 17 GM (MIRALAX) PACK PO PRN (18:00)
[2021-09-09] MEDS ORDERED: PATIENT MAY USE OWN MEDS, ALL PO SCH (18:00)
[2021-09-09] MEDS ORDERED: ONDANSETRON 4 MG/2 ML (SDV) Z0FRAN IV PRN (18:00)
[2021-09-09] MEDS ORDERED: BISACODYL 10 MG SUPP (DULCOLAX) PR PRN (18:00)
[2021-09-09] MEDS ORDERED: MILK OF MAGNESIA 400 MG/5 ML 30 ML UDC PO PRN (18:00)
[2021-09-09] MEDS: MEROPENEM 1,000 MG in NS (IVPB) 100 ML IV SCH (18:00)
[2021-09-09] MEDS ORDERED: ANTACID SUSP 30 ML UDC (MYLANTA) PO PRN (18:00)
[2021-09-09] MEDS ORDERED: LACTULOSE SYRUP 10GM/15ML (ENULOSE) 30ML UDC PO PRN (18:00)
[2021-09-09] MEDS ORDERED: CALCIUM CARBONATE 500 MG (TUMS) TAB.CHEW PO PRN (18:00)
[2021-09-09] MEDS ORDERED: ACETAMINOPHEN 325 MG TABLET PO PRN (18:00)
[2021-09-09] MEDS ORDERED: ONDANSETRON 4 MG (ZOFRAN) ORAL DISSOLVE TAB PO PRN (18:00)
[2021-09-09] MEDS: NS IV 1000 ML 1,000 ML IV SCH (20:07)
[2021-09-09] MEDS: DOCUSATE SODIUM 100 MG (COLACE) CAP PO SCH (20:08)
[2021-09-09] MEDS: SENNOSIDES 8.6 MG (SENOKOT) TAB PO SCH (20:08)
--- NOTE | 2021-09-09 21:22 | CONSULTATION REPORT ---
DATE OF SERVICE: ADMITTING PHYSICIAN: Dr. Martinez. ATTENDING PRIMARY CARE PHYSICIAN: Dr. Lake. HISTORY OF PRESENT ILLNESS: The patient is an 81-year-old female who presented to the Emergency Department with generalized weakness and shortness of breath as well as headache and lethargy. She was seen 2 days prior at [facility] and was treated for supraventricular tachycardia. She has a known history of this in the past as well. She also does have a possibility of atrial fibrillation. Upon presentation, she was found to be tachycardic in the 140s as well as a rhythm consistent with supraventricular tachycardia, which was rate controlled with a calcium channel naheed. Upon further questioning, she reports for the past 2 days, she has had some nausea and vomiting as well as some mild abdominal pain. She has had some issues with loose stools in the past as well as blood per rectum. We had done an EGD on her on 08/27/2020 and she was found to have a small hiatal hernia as well as a moderate gastritis and a small antral ulcer with an overlying clot and no active bleeding. A CT scan was also performed, which did show inflammation of the right side of the colon consistent with colitis. PAST MEDICAL HISTORY: Supraventricular tachycardia, atrial fibrillation, history of myocardial infarction, hypertension, COPD, history of stroke, history of TIA, history of lower gastrointestinal bleeding. PAST SURGICAL HISTORY: Total abdominal hysterectomy, section. ALLERGIES: STATINS, SULFA, AMOXICILLIN, ASPARTAME, ATORVASTATIN - DIPHENHYDRAMINE, IPRATROPIUM, IRON, NICOTINE, QUININE. MEDICATIONS: Alprazolam 0.25 mg b.i.d. p.r.n., albuterol inhaler 2 puffs q.6 hours p.r.n. Aspirin 81 mg daily, diltiazem 240 mg daily, lorazepam 0.5 mg t.i.d. p.r.n., Zofran p.r.n., Protonix 40 mg daily. SOCIAL HISTORY: Previous smoker, negative alcohol. FAMILY HISTORY: Noncontributory. VITAL SIGNS: Temperature 35.7, pulse 65, blood pressure 134/56, respirations 22, pulse ox 100% on 4 liters nasal cannula. REVIEW OF SYSTEMS: This is a well-nourished female, currently in no acute distress. She is currently not experiencing any shortness of breath or difficulty breathing. No cough or sputum production. Two-day history of nausea and vomiting of undigested food as well as bilious material. No hematemesis, no coffee ground emesis. She has had intermittent episodes of diarrhea in the past and also possibly red blood per rectum. No fever, chills, no recent inadvertent weight loss. All other review of systems negative. PHYSICAL EXAMINATION: CHEST: Distant breath sounds and scattered rhonchi bilaterally. HEART: Regular, no murmurs. EXTREMITIES: No lower extremity edema, negative Homans sign. HEENT: No scleral icterus. NECK: No cervical lymphadenopathy. ABDOMEN: Soft, nondistended. There is pain along the right lateral abdomen. No peritoneal signs. No hernias. SKIN: Warm, dry. LABORATORY DATA: WBC 15.2, hemoglobin 9.2, hematocrit 31, platelets 533, BUN 9, creatinine 1.01. Urinalysis, 1+ leukocyte esterase, few bacteria. ASSESSMENT AND PLAN: An 81-year-old female with symptomatic supraventricular tachycardia, which has been rate controlled with calcium channel naheed. She has also had nausea and vomiting as well as a history of antral ulcer as well as a hiatal hernia that was detected on an EGD in 2020. A CT scan also did show colitis along the right side of the colon of unknown etiology; however, due to her past history, this mostly likely indicates an ischemic colitis. Recommendation is to proceed with conservative management with maximizing her medical status as well as IV fluids to allow for greater arterial perfusion. We will also start IV antibiotics. Once stable, as an inpatient versus an outpatient, she may also need an EGD as well as colonoscopy as well as biopsies as appropriate. Job ID: [id number] DocumentID: [id number] Dictated Date: 09/09/2021 20:57:13 Preparation Supervisor Freezing Date: 09/09/2021 21:21:40 Dictated By: NELDA HUDSON MD [facility]
[2021-09-10] VITALS (14 sets, daily range): BP systolic 133–167; BP diastolic 52–84
[2021-09-10] MEDS: NS IV 1000 ML 1,000 ML IV SCH (02:00)
[2021-09-10 04:24] LABS: BASOPHILS % (AUTO) 0 % (0-10); EOSINOPHILS # (AUTO) 0.2 10^3/uL (0.0-0.3); EOSINOPHILS % (AUTO) 1 % (0-10); HEMATOCRIT 27 % (35-52); HEMOGLOBIN 7.9 g/dL (11.5-16.0); LYMPHOCYTES # (AUTO) 0.7 10^3/uL (1.0-4.0); LYMPHOCYTES % (AUTO) 6 % (12-44); MEAN CORPUSCULAR HEMOGLOBIN 22 pg (25-34); MEAN CORPUSCULAR HGB CONC 30 g/dL (32-36); MEAN CORPUSCULAR VOLUME 73 fL (80-99); MEAN PLATELET VOLUME 9.7 fL (9.0-12.2); MONOCYTES # (AUTO) 0.7 10^3/uL (0.0-1.0); MONOCYTES % (AUTO) 6 % (0-12); NEUTROPHILS % (AUTO) 86 % (42-75); PLATELET COUNT 339 10^3/uL (130-400); WHITE BLOOD COUNT 11.7 10^3/uL (4.3-11.0)
[2021-09-10 04:29] LABS: ALBUMIN 3.5 GM/DL (3.2-4.5); CHLORIDE 102 MMOL/L (98-107); POTASSIUM 3.4 MMOL/L (3.6-5.0); SODIUM 135 MMOL/L (135-145)
[2021-09-10 04:31] LABS: TRIGLYCERIDES 123 MG/DL (<150); VLDL CHOLESTEROL 25 MG/DL (5-40)
[2021-09-10 04:32] LABS: GLUCOSE 82 MG/DL (70-105); TOTAL PROTEIN 5.6 GM/DL (6.4-8.2)
[2021-09-10 04:33] LABS: CARBON DIOXIDE 21 MMOL/L (21-32)
[2021-09-10 04:34] LABS: BILIRUBIN,TOTAL 0.4 MG/DL (0.1-1.0)
[2021-09-10 04:35] LABS: ALKALINE PHOSPHATASE 91 U/L (40-136); CREATININE SERUM 0.76 MG/DL (0.60-1.30); GFR ESTIMATED 78
[2021-09-10 04:36] LABS: CHOLESTEROL 143 MG/DL (< 200)
[2021-09-10 04:37] LABS: BUN/CREATININE RATIO 11
[2021-09-10 04:38] LABS: HDL CHOLESTEROL 38 MG/DL (40-60)
[2021-09-10 04:39] LABS: ALANINE AMINOTRANSFERASE < 6 U/L (0-55)
[2021-09-10] MEDS: MEROPENEM 1,000 MG in NS (IVPB) 100 ML IV SCH ×2 (05:19→17:37)
--- NOTE | 2021-09-10 06:22 | History & Physical-Hospitalist ---
History of Present Illness HPI/Chief Complaint Chief complaint: Palpitations with weakness History of present illness: This is an 81-year-old white female with known history of SVT who presented to the ER with palpitations. Patient was found to have SVT but refractory to interventions. Patient was placed on Cardizem drip with good improvement in aborted tachycardia. Patient denies any pain. Her bowels did move. Colitis diagnosed on CT scan so placed on antibiotics. Dr. HUDSON consulted along with Dr. Murillo for colitis and arrhythmia respectively. Patient doing very well, moved to fourth floor. Echocardiogram being performed today. Source: patient Exam Limitations: no limitations Date Seen 09/10/21 Time Seen by a Provider: 11:00 Attending Physician Lizet Martinez Pankaj K MD Referring Physician Date of Admission Sep 09, 2021 at 17:12 Home Medications & Allergies Home Medications Reviewed patient Home Medication Reconciliation performed by pharmacy medication reconciliations security installation technician and/or nursing. Patients Allergies have been reviewed. Allergies Allergies Coded Allergies Qepnanu-RFY-JfI Reductase Inhibitor (Verified Allergy, Unknown, 08/25/20) Sulfa (Sulfonamide Antibiotics) (Unverified Allergy, Unknown, 08/21/18) amoxicillin (Verified Allergy, Unknown, 08/25/20) aspartame (Unverified Allergy, Unknown, 08/21/18) atorvastatin (Verified Allergy, Unknown, 08/25/20) bee venom protein (honey bee) (Verified Allergy, Unknown, 08/25/20) diphenhydramine (Verified Allergy, Unknown, 08/25/20) ipratropium (Verified Allergy, Unknown, 08/25/20) iron (Unverified Allergy, Unknown, 08/21/18) "TACHYCARDIA" WITH IV INFUSION nicotine (Verified Allergy, Unknown, 08/25/20) quinine (Verified Allergy, Unknown, 08/25/20) Past Noivfkk-Xirgap-Xsbwxp Hx Patient Social History Marrital Status: single Employed/Student: retired Tobacco Use?: No Tobacco type used: Cigarettes Smoking Status: Former Smoker Use of E-Cig and/or Vaping dev: No Substance use?: No Alcohol Use?: No Pt feels they are or have been: No Immunizations Up To Date Date of Influenza Vaccine: Jul 12, 2021 Seasonal Allergies Seasonal Allergies: No Current Status Advance Directives: No Communicates: Verbally Primary Language: Tam[place] Preferred Spoken Language: Tam[place] Is interpretation needed?: No Implanted or Applied Medical D: None Past Medical History Surgeries: Section, Hysterectomy COPD Atrial Fibrillation, Heart Attack, Hypertension Stroke, TIA Gastrointestinal Bleed Blood Disorders: Yes (essential thrombocytosis, chronic anemia transfusion dependent) PMHx: Depression COPD CAD HTN Chronic transfusion dependent anemia SurgHx: Hysterectomy Appendectomy Neck surgery Review of Systems Constitutional: see HPI, malaise, weakness EENTM: no symptoms reported Respiratory: dyspnea on exertion Cardiovascular: palpitations Gastrointestinal: no symptoms reported Genitourinary: no symptoms reported Musculoskeletal: no symptoms reported Skin: no symptoms reported Psychiatric/Neurological: No Symptoms Reported All Other Systems Reviewed Negative Unless Noted: Yes Physical Exam Physical Exam Vital Signs Vital Signs - First Documented 09/09/21 09/10/21 12:20 07:03 Pulse 165 Resp 20 B/P (MAP) 104/81 (89) Pulse Ox 100 O2 Delivery Nasal Cannula O2 Flow Rate 4.00 FiO2 100 Capillary Refill : Less Than 3 Seconds Height, Weight, BMI Height: 5'2.00" Weight: 139lbs. 0.0oz. [id number]; 22.89 BMI Method: General Appearance: No Apparent Distress, Chronically ill Eyes: Right Eye Normal Inspection, Right Eye PERRL HEENT: PERRL/EOMI, Normal ENT Inspection, Pharynx Normal, Moist Mucous Membranes Neck: Full Range of Motion, Normal Inspection, Non Tender Respiratory: Chest Non Tender, Lungs Clear, Normal Breath Sounds, No Accessory Muscle Use, No Respiratory Distress Cardiovascular: Regular Rate, Rhythm, No Edema, No Gallop, No JVD, No Murmur, Normal Peripheral Pulses Gastrointestinal: Normal Bowel Sounds, No Organomegaly, No Pulsatile Mass, Soft, Tenderness Back: Normal Inspection, No CVA Tenderness, No Vertebral Tenderness Extremity: Normal Capillary Refill, Normal Inspection, Normal Range of Motion, Non Tender, No Calf Tenderness, No Pedal Edema Neurologic/Psychiatric: Alert, Oriented x3, No Motor/Sensory Deficits, Normal Mood/Affect Skin: Normal Color, Warm/Dry Lymphatic: No Adenopathy Results Results/Procedures Labs Laboratory Tests 09/09/21 12:29 09/10/21 04:11 Patient resulted labs reviewed. Assessment/Plan Admission Diagnosis Assessment: Atrial tachycardia status post Cardizem drip History of TIA and stroke Acute colitis placed on antibiotics consulted general surgery Hypertension Plan: Supportive care IV antibiotics Moved to fourth floor Appreciate Dr. HUDSON and Dr. Murillo Admission Status: Inpatient Order (span 2 midnights) Reason for Inpatient Admission: Atrial tachycardia with colitis Diagnosis/Problems Diagnosis/Problems (1) Supraventricular tachycardia Status: Acute (2) Paroxysmal atrial fibrillation (3) Hypotension Status: Acute Qualifiers: Hypotension type: unspecified hypotension type Qualified Codes: I95.9 - Hypotension, unspecified (4) Acute on chronic anemia Status: Acute Clinical Quality Measures DVT/VTE Risk/Contraindication: Contraindications-Pharm: Other *list below* Other: LIZET Khalil DO Sep 10, 2021 06:22
[2021-09-10] MEDS: RT-ALBUTEROL SULF 2.5 MG/3 ML PRE-MIX VIAL INH SCH ×4 (06:57→18:40)
[2021-09-10] MEDS: DOCUSATE SODIUM 100 MG (COLACE) CAP PO SCH ×2 (08:54→20:47)
[2021-09-10] MEDS: SENNOSIDES 8.6 MG (SENOKOT) TAB PO SCH ×2 (08:55→20:47)
[2021-09-10] MEDS: PANTOPRAZOLE 40 MG (PROTONIX) VIAL IV SCH (08:55)
--- NOTE | 2021-09-10 10:07 | Occupational Therapy Eval ---
OT Evaluation-General/PLF Medical Diagnosis Admission Date Sep 09, 2021 at 17:12 Medical Diagnosis: colitis, paroxysmal SVT. Onset Date: Sep 09, 2021 Therapy Diagnosis Therapy Diagnosis: decreased ADL status Height/Weight Height (Feet): 5 Height (Inches): 2.00 Weight (Pounds): 139 Weight (Ounces): 0.0 Precautions Precautions/Isolations: Fall Prevention, Standard Precautions Referral Physician: Michelle Social History Home: Single Level Current Living Status: Children (son and son's S.O.) Entry Into Home: Level Entry ADL-Prior Level of Function SCALE: Activities may be completed with or without assistive devices. 5-Whghopusgt-lweqaom completes the activity by him/herself with no assistance from a helper. 5-Set-up or Clean-up Assistance-helper sets up or cleans up; patient completes activity. [place] assists only prior to or following the activity. 4-Supervision or Touching Assistance-helper provides verbal cues and/or touching/steadying and/or contact guard assistance as patient completes activity. Assistance may be provided throughout the activity or intermittently. 3-Partial/Moderate Assistance-helper does LESS THAN HALF the effort. [place] lifts, holds or supports trunk or limbs, but provides less than half the effort. 2-Substantial/Maximal Assistance-helper does MORE THAN HALF the effort. [place] lifts or holds trunk or limbs and provides more than half the effort. 1-Slzxsmmpa-objugy does ALL the effort. Patient does none of the effort to complete the activity. Or, the assistance of 2 or more helpers is required for the patient to complete the activity. If activity was not attempted, code reason: 7-Patient Refused. 9-Not Applicable-not attempted and the patient did not perform the activity before the current illness, exacerbation or injury. 10-Not Attempted due to Environmental Limitations-(lack of equipment, weather restraints, etc.). 88-Not Attempted due to Medical Conditions or Safety Concerns. ADL PLOF Comments Pt reports IND with ADLs and functional mobility, using cane PRN. She lives with her son in a 1 story house, level entry. She has a tub/shower with a SC, and she has someone with her to supervise as she showers. She wears O2 at baseline Self Care: Independent Functional Cognition: Independent OT Current Status Subjective Pt laying in bed, nurse states pt OK to be seen for OT. Mental Status/Objective Patient Orientation: Person, Place, Situation Attachments: Oxygen Current Upper Extremity ROM WFL RUE LUE Pt limited movements due to attachments, most likely WFL Upper Extremity Strength grossly 3+/5 ADL-Treatment Eating (QC): 5 (set up with opening containers, pt independent with liquid diet.) Oral Hygiene (QC): 3 (Min A with brushing dentures. Pt able to place dentures and tablet in cup to soak.) Other Treatments Pt in bed, agreeable to OT evaluation. Pt provided information about PLOF and home set up, and participated in UE screen. Pt appeared to limit movements of LUE due to attachments, but most likely WFL. OT assisted pt with brushing her dentures, min A. Min A with hair brushing, set up with face washing. OT assists pt with setting up breakfast tray, assist to open containers, then pt able to consume liquid diet without assistance. Pt declined OOB activities at this time, requesting to rest. Pt able to scoot towards HOB with SBA, min verbal cues. Pt positioned to comfort. Post tx, pt in bed, call light in reach and all needs met. Education OT Patient Education: Correct positioning, Energy conservation, Modified ADL techniques, Progress toward Goal/Update tx plan, Purpose of tx/functional activities, Rehab process Teaching Recipient: Patient Teaching Methods: Discussion Response to Teaching: Verbalize Understanding OT Shelter Goals Mass Spectrometry Manager Goals Time Frame: Sep 23, 2021 Eating (QC): 6 Oral Hygiene (QC): 6 Toileting Hygiene (QC): 6 Shower/Bathe Self (QC): 4 Upper Body Dressing (QC): 5 Lower Body Dressing (QC): 4 On/Off Footwear (QC): 4 Additional Goals: 1-Demonstrate ADL Tasks, 2-Verbalize Understanding, 3- ImproveStrength/Santino 1=Demonstrate adherence to instructed precautions during ADL tasks. 2=Patient will verbalize/demonstrate understanding of assistive devices/modifications for ADL. 3=Patient will improve strength/tolerance for activity to enable patient to perform ADL's. OT Education/Plan Problem List/Assessment Assessment: Decreased Activ Tolerance, Decreased UE Strength, Impaired Funct Balance, Impaired I ADL's, Impaired Self-Care Skills Discharge Recommendations Plan/Recommendations: Continue POC Treatment Plan/Plan of Care Patient would benefit from OT for education, treatment and training to promote independence in ADL's, mobility, safety and/or upper extremity function for ADL's. Plan of Care: ADL Retraining, Functional Mobility, UE Funct Exercise/Act Treatment Duration: Sep 23, 2021 Frequency: 3 times per week (3-5 times per week) Estimated Hrs Per Day: .25 hour per day Agreement: Yes Rehab Potential: Fair Time/GCodes Start Time: 09:20 Stop Time: 09:39 Total Time Billed (hr/min): 19 Billed Treatment Time 1, CESAR SINGH OT Sep 10, 2021 10:07
--- NOTE | 2021-09-10 10:23 | Tele-ICU Consult ---
History of Present Illness History of Present Illness Date Seen by Provider: Sep 10, 2021 Time Seen by Provider: 10:23 Date of Admission (Tele-ICU Physician , consultation) Available chart/ vitals / labs / Images reviewed H&P is from ER notes Patient's information available about PMH, Shx, Fhx allergy reviewed in EMR. ROS as per chart and RN report Now in ICU, hemodynamically stable Video assessment done using teleICU camera, rest of exam as per RN Discussed with RN. Consultants: Hospital course: (09/09) 81F Admitted for SVT with conversion to SR after two doses adenosine. Sepsis UTI ,possible colitis may be ischemic colitis. A/P SVT - off drips - PO cardizem UTI with E coli on cx 09/09 - abx - meropenem N/V - CT with colitis - ? ischemic - Sx consulted - ABX 09/09 meropenem Anemia - ? delutional - follow - STOP IVF h/o PUD - egd 2020 atrial ulcer , HH Hypoxia 2 L O2 - chronic , baseline level Lines : (Central Line Necessity Reviewed) [place]: OG: Nutrition: Analgesia: Anxiety/ delirium VTE Prophylaxis: Stress Ulcer Prophylaxis: PPI Plans in collaboration with bedside consultants and IM MDs. Discussed with RN to reach out if any questions or concerns A total of 32 minutes of critical care time was devoted to this patient today, required to treat and/or prevent further deterioration of critical care condition ( as above ) . Allergies and Home Medications Allergies Coded Allergies: Endxtym-SFM-SmB Reductase Inhibitor (Verified Allergy, Unknown, 08/25/20) Sulfa (Sulfonamide Antibiotics) (Unverified Allergy, Unknown, 08/21/18) amoxicillin (Verified Allergy, Unknown, 08/25/20) aspartame (Unverified Allergy, Unknown, 08/21/18) atorvastatin (Verified Allergy, Unknown, 08/25/20) bee venom protein (honey bee) (Verified Allergy, Unknown, 08/25/20) diphenhydramine (Verified Allergy, Unknown, 08/25/20) ipratropium (Verified Allergy, Unknown, 08/25/20) iron (Unverified Allergy, Unknown, 08/21/18) "TACHYCARDIA" WITH IV INFUSION nicotine (Verified Allergy, Unknown, 08/25/20) quinine (Verified Allergy, Unknown, 08/25/20) Home Medications ALPRAZolam 0.25 Mg Tablet, 0.25 MG PO BID PRN for ANXIETY, (Reported) Albuterol Sulfate 1 Puff Puff, 2 PUFF INH Q6H PRN for SHORTNESS OF BREATH, (Reported) Aspirin 81 Mg Tablet.dr, 81 MG PO DAILY, (Reported) Diltiazem HCl 240 Mg Cap.er.24h, 240 MG PO DAILY, (Reported) LAST FILLED 03-16-2020 #90/90 DAY SUPPLY Diltiazem HCl 120 Mg Cap.er.24h, 120 MG PO DAILY Prescribed by: YESI CAMERON on 10/15/20 1938 Lorazepam 0.5 Mg Tablet, 0.5 MG PO TID PRN for ANXIETY Prescribed by: YESI CAMERON on 10/15/20 2253 Ondansetron 4 Mg Tab.rapdis, 4 MG PO Q6H PRN for NAUSEA/VOMITING-1ST LINE Prescribed by: LISA AMAYA on 09/07/21 1506 Pantoprazole Sodium 40 Mg Tablet.dr, 40 MG PO DAILY Prescribed by: PRESLEY MATTHEWS on 08/27/20 1210 Past Medical/Social/Family Hx Patient Social History Tobacco Use?: No Tobacco type used: Cigarettes Smoking Status: Former Smoker Use of E-Cig and/or Vaping dev: No Substance use?: No Alcohol Use?: No Pt stated abuse/neglect: No Immunizations Up To Date Influenza Vaccine Up-to-Date: No; Not Current Current Status Advance Directives: No Communicates: Verbally Primary Language: Sudanese Preferred Spoken Language: Sudanese Is interpretation needed?: No Implanted or Applied Medical D: None Past Medical History PMHx: Depression COPD CAD HTN Chronic transfusion dependent anemia SurgHx: Hysterectomy Appendectomy Neck surgery Review of Systems Constitutional: see HPI Focused Exam Lactate Level 09/09/21 17:23: Lactic Acid Level 0.70 Height, Weight, BMI Height: 5'2.00" Weight: 139lbs. 0.0oz. 63.361076dd; 22.89 BMI Method: Exam Exam Patient acknowledged, consented, and participated in this virtual visit which was conducted using real time audio/video Vital Signs Date Time Temp Pulse Resp B/P (MAP) Pulse Ox O2 Delivery O2 Flow Rate FiO2 09/10/21 10:00 71 16 157/60 (92) 100 Nasal Cannula 2.00 09/10/21 09:19 Nasal Cannula 2.00 09/10/21 09:00 74 142/70 (94) 99 Nasal Cannula 2.00 09/10/21 08:00 100 Nasal Cannula 2.00 09/10/21 08:00 87 17 153/59 (90) 94 Nasal Cannula 2.00 09/10/21 07:46 36.3 09/10/21 07:03 Nasal Cannula 2.00 100 09/10/21 07:00 68 09/10/21 07:00 67 13 138/57 (84) 100 Nasal Cannula 2.00 09/10/21 06:00 82 21 167/84 (111) 98 High Flow N/C 5.00 09/10/21 05:00 58 19 133/66 (88) 99 High Flow N/C 5.00 09/10/21 04:00 36.5 High Flow N/C 5.00 09/10/21 04:00 94 Nasal Cannula 3.00 09/10/21 04:00 82 20 136/64 (88) 100 High Flow N/C 5.00 09/10/21 03:00 54 19 136/63 (87) 100 High Flow N/C 5.00 09/10/21 02:00 55 18 152/61 (91) 100 High Flow N/C 5.00 09/10/21 01:00 64 17 144/57 (86) 100 High Flow N/C 5.00 09/10/21 01:00 61 09/10/21 00:00 36.2 High Flow N/C 5.00 09/10/21 00:00 74 27 142/62 (88) 100 High Flow N/C 5.00 09/09/21 23:58 94 Nasal Cannula 4.00 09/09/21 23:00 73 25 146/61 (89) 95 High Flow N/C 5.00 09/09/21 22:13 Nasal Cannula 4.00 09/09/21 22:00 71 16 139/70 (93) 100 High Flow N/C 5.00 09/09/21 21:00 55 18 143/59 (87) 100 High Flow N/C 5.00 09/09/21 20:00 64 19 128/62 (84) 100 High Flow N/C 5.00 09/09/21 20:00 94 Nasal Cannula 4.00 09/09/21 20:00 35.7 09/09/21 19:00 61 09/09/21 19:00 65 25 135/78 (97) 100 High Flow N/C 5.00 09/09/21 18:30 132/59 (83) 09/09/21 18:30 64 14 100 09/09/21 18:28 69 09/09/21 18:15 105/76 (86) 09/09/21 18:01 65 22 134/56 100 09/09/21 14:20 92 Nasal Cannula 4.00 09/09/21 12:20 165 20 104/81 (89) 100 Nasal Cannula 4.00 I & O 09/10/21 07:00 Intake Total 1890 ml Output Total 1300 ml Balance 590 ml Height & Weight Height: 5'2.00" Weight: 139lbs. 0.0oz. 63.447623zp; 22.89 BMI Method: General Appearance: No Apparent Distress, WD/WN, Other (Appears ill/lethargic) HEENT: PERRL/EOMI, Normal ENT Inspection Neck: Normal Inspection; No JVD Respiratory: Lungs Clear, Normal Breath Sounds, No Accessory Muscle Use Cardiovascular: No Edema, No Murmur, Tachycardia Capillary Refill: Less Than 3 Seconds Extremity: Normal Inspection, Non Tender, No Pedal Edema Neurologic/Psychiatric: Alert, Oriented x3, credit reporter II-XII Norm as Tested, Other (Generalized weakness with no focal deficits. Mentation sluggish. Able to follow instructions and answer questions appropriately.) Skin: Normal Color, Warm/Dry Results Lab Laboratory Tests 09/09/21 12:29 09/10/21 04:11 Assessment/Plan Assessment/Plan . TIFFANY ARREOLA MD Sep 10, 2021 10:23
[2021-09-10] MEDS ORDERED: ALPRAZolam 0.25 MG (XANAX) TAB PO PRN (11:30)
--- NOTE | 2021-09-10 12:06 | Physical Therapy Evaluation ---
PT Evaluation-General Medical Diagnosis Admission Date Sep 09, 2021 at 17:12 Medical Diagnosis: colitis, paroxysmal SVT. Onset Date: Sep 09, 2021 Therapy Diagnosis Therapy Diagnosis: decreased mobility Height/Weight Height (Feet): 5 Height (Inches): 2.00 Weight (Pounds): 139 Weight (Ounces): 0.0 Precautions Precautions/Isolations: Fall Prevention, Standard Precautions Weight Bear Status Right Lower Extremity: Right Full Weight Bearing Left Lower Extremity: Left Full Weight Bearing Referral Physician: Michelle Reason for Referral: Evaluation/Treatment Medical History Pertinent Medical History: Atrial Fib, CAD, COPD, CVA Current History Presented to ER with weakness, SOB, constipation, headache. Reviewed History: Yes Social History Home: Single Level Current Living Status: Children (son and son's S.O.) Entry Into Home: Level Entry Prior Prior Level of Function SCALE: Activities may be completed with or without assistive devices. 8-Ypchkckrxt-imzytzu completes the activity by him/herself with no assistance from a helper. 5-Set-up or Clean-up Assistance-helper sets up or cleans up; patient completes activity. [place] assists only prior to or following the activity. 4-Supervision or Touching Assistance-helper provides verbal cues and/or touching/steadying and/or contact guard assistance as patient completes activity. Assistance may be provided throughout the activity or intermittently. 3-Partial/Moderate Assistance-helper does LESS THAN HALF the effort. [place] lifts, holds or supports trunk or limbs, but provides less than half the effort. 2-Substantial/Maximal Assistance-helper does MORE THAN HALF the effort. [place] lifts or holds trunk or limbs and provides more than half the effort. 1-Bbnjxbxfb-hzpasq does ALL the effort. Patient does none of the effort to complete the activity. Or, the assistance of 2 or more helpers is required for the patient to complete the activity. If activity was not attempted, code reason: 7-Patient Refused. 9-Not Applicable-not attempted and the patient did not perform the activity before the current illness, exacerbation or injury. 10-Not Attempted due to Environmental Limitations-(lack of equipment, weather restraints, etc.). 88-Not Attempted due to Medical Conditions or Safety Concerns. Bed Mobility: 6 Transfers (B,C,W/C): 6 Gait: 6 Indoor Mobility (Ambulation): Independent PT Evaluation-Current Subjective Pt. in bed, states she just returned from the bedside chair per testing needing to be done soon. Pt. states she was able to get to/from commode to bed by herself earlier. Pt/Family Goals home Objective Patient Orientation: Person, Place, Time, Situation ROM/Strength ROM Upper Extremities See PT ROM Lower Extremities WNL (B) Strength Upper Extremities See OT Strength Lower Extremities Grossly 4/5 (B) Integumentary/Posture Integumentary see nursing notes Bowel Incontinence: No Bladder Incontinence: No Posture unremarkable Neuromuscular (Tone, Coordination, Reflexes) grossly intact Sensory Vision: Functional Hearing: Functional Sensation Right Upper Extremit: Intact Sensation Left Upper Extremity: Intact Sensation Right Lower Extremit: Intact Sensation Left Lower Extremity: Intact Transfers Roll Left to Right (QC): 6 Sit to Lying (QC): 6 Lying to Sitting/Side of Bed(Q: 6 Sit to Stand (QC): 4 Gait Does the Patient Walk?: Yes Mode of Locomotion: Walk Anticipated Mode of Locomotion: Walk Balance Sitting Static: Good Sitting Dynamic: Good Standing Static: Good Assessment/Needs Pt. is an 81 y.o. female with mild mobility deficits. She is currently CGA/SBA with transfers, no ambulation tested today per upcoming test and needing to be in bed. Pt. would benefit from short-term PT to restore mobility for return home safely. Rehab Potential: Good PT Short Term Goals Short Term Goals Time Frame: Sep 16, 2021 Sit to lyin Lying to sitting on side of be: 6 Sit to stand: 6 Chair/iom-gy-qneyt transfer: 6 Walk 10 feet: 6 Walk 50 feet with two turns: 6 Walk 150 feet: 6 PT Plan Problem List Problem List: Activity Tolerance, Functional Strength, Safety, Balance, Gait, Transfer, Bed Mobility, ROM Treatment/Plan Treatment Plan: Continue Plan of Care Treatment Plan: Bed Mobility, Education, Functional Activity Santino, Functional Strength, Gait, Safety, Therapeutic Exercise, Transfers Treatment Duration: Sep 16, 2021 Frequency: 6 times per week Estimated Hrs Per Day: .25 hour per day Patient and/or Family Agrees t: Yes Time/GCodes Time In: 1110 Time Out: 1120 Total Billed Treatment Time: 10 Total Billed Treatment 1, JOLLY 10' SUSAN CONTRERAS PT Sep 10, 2021 12:06
--- NOTE | 2021-09-10 13:50 | Consultation-Cardiology ---
HPI-Cardiology Cardiology Consultation: Date of Consultation 09/10/21 Date of Admission 09/09/2021 Attending Physician Lizet Martinez DO Admitting Physician K[place]ash Lake MD Consulting Physician SARAH LEE JR, MD HPI: Time Seen by a Provider: 15:06 Chief Complaint: Reason for consultation: Atrial arrhythmias. I had the pleasure of seeing Celena in the intensive care unit at [facility] in [place], [place] this afternoon. She has a history of hypertension but no known history of cardiac disease. Earlier in the week she had gone to [place] emergency room with palpitations. She was found to be in supraventricular tachycardia and was treated with intravenous adenosine which broke the tach ycardia. She was discharged home later the same day from the emergency room. Then yesterday she was at home and again developed palpitations with a sensation of rapid heartbeats that would come and go. This would make her very lightheaded and short of breath. She denies chest discomfort. At one point she had gotten up to use the bathroom and was again having palpitations and felt as though she could not move. She did not feel weak or dizzy at that time. She just states that she cannot move. She called out to her family and they brought her to our emergency room for further evaluation. She was again found to be in supraventricular tachycardia and was treated with adenosine twice. On the second dose she converted back to sinus rhythm but within a short period of time, she was having recurrent supraventricular tachycardia as well as some possible short bursts of atrial fibrillation. She was started on intravenous diltiazem and admitted to the intensive care unit. I started her on oral diltiazem last evening and today she is feeling much better. She is off the intravenous diltiazem. She denies chest discomfort, paroxysmal nocturnal dyspnea, orthopnea, syncope, or ankle edema. She states she quit smoking several days ago after the first episode of palpitations. Certain portions of this document may have been dictated utilizing voice recognition technology. Inherent to this technology, typographical and grammatical errors may exist. As much as I am diligent to identify and correct these mistakes, some errors may remain in the document. Review of Systems-Cardiology Review of Systems : No Other comments Review of 10 organ systems is as per the history of present illness, otherwise negative. QWP-Mkecxs-Iflxdm Hx Patient Social History Smoking Status: Former Smoker 2nd Hand Smoke Exposure: No Have you traveled recently?: No Alcohol Use?: No Pt feels they are or have been: No Tobacco type used: Cigarettes Immunizations Up To Date Date of Influenza Vaccine: Jul 12, 2021 Past Medical History PMH As described under Assessment. Allergies and Home Medications Allergies Coded Allergies: Zhrjjbx-TTF-[id number] Reductase Inhibitor (Verified Allergy, Unknown, 08/25/20) Sulfa (Sulfonamide Antibiotics) (Unverified Allergy, Unknown, 08/21/18) amoxicillin (Verified Allergy, Unknown, 08/25/20) aspartame (Unverified Allergy, Unknown, 08/21/18) atorvastatin (Verified Allergy, Unknown, 08/25/20) bee venom protein (honey bee) (Verified Allergy, Unknown, 08/25/20) diphenhydramine (Verified Allergy, Unknown, 08/25/20) ipratropium (Verified Allergy, Unknown, 08/25/20) iron (Unverified Allergy, Unknown, 08/21/18) "TACHYCARDIA" WITH IV INFUSION nicotine (Verified Allergy, Unknown, 08/25/20) quinine (Verified Allergy, Unknown, 08/25/20) Patient Home Medication List Home Medication List Reviewed: Yes ALPRAZolam (Xanax Tablet) 0.25 Mg Tablet, 0.25 MG PO BID PRN for ANXIETY, (Reported) Entered as Reported by: BRONSON AHUMADA on 08/21/181648 Albuterol Sulfate (Ventolin Hfa) 1 Puff Puff, 2 PUFF INH Q6H PRN for SHORTNESS OF BREATH, (Reported) Entered as Reported by: BRONSON AHUMADA on 08/21/18 164 Aspirin (Aspirin EC) 81 Mg Tablet.dr, 81 MG PO DAILY, (Reported) Entered as Reported by: DORIS WADDELL on 08/26/20 1030 Diltiazem HCl (Diltiazem 24Hr ER) 240 Mg Cap.er.24h, 240 MG PO DAILY, (Reported) Entered as Reported by: BRONSON AHUMADA on 08/21/18 164 Diltiazem HCl (Diltiazem 24Hr Cd) 120 Mg Cap.er.24h, 120 MG PO DAILY Prescribed by: YESI CAMERON on 10/15/201937 Lorazepam (Ativan) 0.5 Mg Tablet, 0.5 MG PO TID PRN for ANXIETY Prescribed by: YESI CAMERON on 10/15/20 2253 Ondansetron (Ondansetron Odt) 4 Mg Tab.rapdis, 4 MG PO Q6H PRN for NAUSEA/VOMITING-1ST LINE Prescribed by: LISA AMAYA on 09/07/21 1506 Pantoprazole Sodium (Pantoprazole Sodium) 40 Mg Tablet.dr, 40 MG PO DAILY Prescribed by: PRESLEY MATTHEWS on 08/27/20 1210 Exam Vital Signs Vital Signs Date Time Temp Pulse Resp B/P (MAP) Pulse Ox O2 Delivery O2 Flow Rate FiO2 09/10/21 13:00 86 19 100 Nasal Cannula 2.00 09/10/21 12:00 135/68 (90) 09/10/21 11:37 36.4 09/10/21 10:39 100 Physical Exam General: Alert. No acute distress. Well nourished and appears stated age. Eye: Extraocular movements are intact. Conjunctivae are clear. There are no xanthelasma. HENT: Normocephalic. Atraumatic. Carotid pulsations 2/2 without bruits. Neck: Jugular venous pressure does not appear elevated. No thyromegaly appreciated. Respiratory: Lungs are clear to auscultation. Respirations are non-labored. Breath sounds are equal. Symmetrical chest wall expansion. Cardiovascular: Normal rate. Regular rhythm. No murmur. No gallop. Point of maximal impulse is not appear displaced. Good pulses equal in all extremities. N o edema. Gastrointestinal: Soft. Normal bowel sounds. Skin: Skin turgor is normal. There is no pallor. Musculoskeletal: No kyphosis or scoliosis appreciated. Neurologic: Alert and oriented to person, place, time. Cranial nerves 3-12 appear grossly intact. The patient has good motor tone strength in the upper and lower extremities bilaterally. Psychiatric: Cooperative. Appropriate mood & affect. Labs Laboratory Tests Test 09/09/21 17:23 09/10/21 04:11 09/10/21 10:25 Range/Units Lactic Acid Level 0.70 0.50-2.00 MMOL/L White Blood Count 11.7 H 4.3-11.0 10^3/uL Red Blood Count 3.62 L 3.80-5.11 10^6/uL Hemoglobin 7.9 L 11.5-16.0 g/dL Hematocrit 27 L 35-52 % Mean Corpuscular Volume 73 L 80-99 fL Mean Corpuscular Hemoglobin 22 L 25-34 pg Mean Corpuscular Hemoglobin Concent 30 L 32-36 g/dL Red Cell Distribution Width 17.3 H 10.0-14.5 % Platelet Count 339 130-400 10^3/uL Mean Platelet Volume 9.7 9.0-12.2 fL Immature Granulocyte % (Auto) 1 % Neutrophils (%) (Auto) 86 H 42-75 % Lymphocytes (%) (Auto) 6 L 12-44 % Monocytes (%) (Auto) 6 0-12 % Eosinophils (%) (Auto) 1 0-10 % Basophils (%) (Auto) 0 0-10 % Neutrophils # (Auto) 10.0 H 1.8-7.8 10^3/uL Lymphocytes # (Auto) 0.7 L 1.0-4.0 10^3/uL Monocytes # (Auto) 0.7 0.0-1.0 10^3/uL Eosinophils # (Auto) 0.2 0.0-0.3 10^3/uL Basophils # (Auto) 0.0 0.0-0.1 10^3/uL Immature Granulocyte # (Auto) 0.1 0.0-0.1 10^3/uL Sodium Level 135 135-145 MMOL/L Potassium Level 3.4 L 3.6-5.0 MMOL/L Chloride Level 102 98-107 MMOL/L Carbon Dioxide Level 21 21-32 MMOL/L Anion Gap 12 5-14 MMOL/L Blood Urea Nitrogen 8 7-18 MG/DL Creatinine 0.76 0.60-1.30 MG/DL Estimat Glomerular Filtration Rate 78 BUN/Creatinine Ratio 11 Glucose Level 82 70-105 MG/DL Calcium Level 9.0 8.5-10.1 MG/DL Corrected Calcium 9.4 8.5-10.1 MG/DL Total Bilirubin 0.4 0.1-1.0 MG/DL Aspartate Amino Transf (AST/SGOT) 12 5-34 U/L Alanine Aminotransferase (ALT/SGPT) < 6 0-55 U/L Alkaline Phosphatase 91 40-136 U/L Total Protein 5.6 L 6.4-8.2 GM/DL Albumin 3.5 3.2-4.5 GM/DL Triglycerides Level 123 <150 MG/DL Cholesterol Level 143 < 200 MG/DL LDL Cholesterol Direct 83 1-129 MG/DL VLDL Cholesterol 25 5-40 MG/DL HDL Cholesterol 38 L 40-60 MG/DL Stool Occult Blood Immunoassay NEGATIVE NEGATIVE Radiology ECHOCARDIOGRAM (09/10/2021): 1. Left ventricle: The cavity size is normal. There is severe concentric hypertrophy. Systolic function is normal. The estimated ejection fraction is 60- 65%. There were no regional wall motion abnormalities identified. Doppler parameters are consistent with abnormal left ventricular relaxation (grade 1 diastolic dysfunction). 2. Mitral valve: The annulus is mildly calcified. 3. Pulmonary arteries: The pulmonary artery pressure cannot be estimated on this study due to inadequate tricuspid regurgitant envelope. ECG Impression ECG Comment She had several electrocardiograms in the emergency room and her most recent electrocardiogram shows sinus bradycardia at 41 bpm with occasional premature supraventricular complexes, nonspecific intraventricular conduction delay and nonspecific ST changes. Diagnosis/Problems Diagnosis/Problems (1) Supraventricular tachycardia Status: Acute Assessment & Plan: She mainly seems to be having intermittent paroxysmal supraventricular tachycardia. This seems to have improved with oral diltiazem twice daily. I will change this over to once daily long-acting oral diltiazem. (2) Paroxysmal atrial fibrillation Assessment & Plan: She also had some irregular supraventricular tachycardia while she was in the emergency room which could be brief bursts of atrial fibrillation. She has not had any prolonged atrial fibrillation since being admitted. I may consider an outpatient event monitor following discharge. There is no indication for oral anticoagulation at this time. (3) Primary hypertension Assessment & Plan: She is now on diltiazem for the supraventricular tachycardia and her blood pressures have improved. (4) Cigarette smoker Assessment & Plan: She just quit smoking last week. Ongoing cessation was encouraged. SARAH LEE JR, MD Sep 10, 2021 13:50
[2021-09-11] VITALS: BP 134/68
[2021-09-11 04:00] VITALS: BP 151/67
[2021-09-11] MEDS: MEROPENEM 1,000 MG in NS (IVPB) 100 ML IV SCH ×2 (05:14→17:38)
--- NOTE | 2021-09-11 06:55 | Progress Note - Hospitalist ---
Subjective HPI/CC On Admission Date Seen by Provider: Sep 11, 2021 Time Seen by Provider: 12:00 Chief complaint: Palpitations with weakness History of present illness: This is an 81-year-old white female with known history of SVT who presented to the ER with palpitations. Patient was found to have SVT but refractory to interventions. Patient was placed on Cardizem drip with good improvement in aborted tachycardia. Patient denies any pain. Her bowels did move. Colitis diagnosed on CT scan so placed on antibiotics. Dr. HUDSON consulted along with Dr. Murillo for colitis and arrhythmia respectively. Patient doing very well, moved to fourth floor. Echocardiogram being performed today. Subjective/Events-last exam Patient was feeling better but now not feeling well Complains of weakness generalized Refused to allow labs to be drawn today Antibiotics maintained PT and OT will be ordered tomorrow Checked meds labs Review of Systems General: Fatigue, Malaise Neurological: Weakness Focused Exam Lactate Level 09/09/21 17:23: Lactic Acid Level 0.70 Objective Exam Vital Signs Vital Signs Date Time Temp Pulse Resp B/P (MAP) Pulse Ox O2 Delivery O2 Flow Rate FiO2 09/12/21 04:00 36.1 77 18 131/60 (83) 100 Nasal Cannula 2.00 09/11/21 21:26 100 Capillary Refill : Less Than 3 Seconds General Appearance: No Apparent Distress, WD/WN, Chronically ill Respiratory: Lungs Clear, Normal Breath Sounds Cardiovascular: Regular Rate, Rhythm Neurologic/Psychiatric: Alert, Oriented x3, No Motor/Sensory Deficits, Normal Mood/Affect Results/Procedures Lab Patient resulted labs reviewed. Assessment/Plan Assessment and Plan Assess & Plan/Chief Complaint Assessment: Atrial tachycardia status post Cardizem drip History of TIA and stroke Acute colitis placed on antibiotics consulted general surgery Hypertension Plan: Supportive care IV antibiotics Moved to fourth floor Appreciate Dr. HUDSON and Dr. Murillo 09/11/2021: Supportive care PT and OT tomorrow Diagnosis/Problems Diagnosis/Problems (1) Supraventricular tachycardia Status: Acute (2) Paroxysmal atrial fibrillation (3) Hypotension Status: Acute Qualifiers: Hypotension type: unspecified hypotension type Qualified Codes: I95.9 - Hypotension, unspecified (4) Acute on chronic anemia Status: Acute Clinical Quality Measures DVT/VTE Risk/Contraindication: Contraindications-Pharm: Other *list below* Other: ANA PAULA Khalil DO Sep 11, 2021 06:55
[2021-09-11] MEDS: RT-ALBUTEROL SULF 2.5 MG/3 ML PRE-MIX VIAL INH SCH ×3 (07:06→21:26)
[2021-09-11 07:14] VITALS: BP_SYST 122; BP_SYST 179; BP_DIAS 62; BP_DIAS 68
[2021-09-11] MEDS: SENNOSIDES 8.6 MG (SENOKOT) TAB PO SCH ×2 (07:32→22:40)
[2021-09-11] MEDS: DOCUSATE SODIUM 100 MG (COLACE) CAP PO SCH ×2 (07:32→22:40)
[2021-09-11] MEDS: PANTOPRAZOLE 40 MG (PROTONIX) VIAL IV SCH (09:01)
[2021-09-11] MEDS ORDERED: DILT240C91 PO (09:51)
[2021-09-11] MEDS ORDERED: DILT180C85 PO (09:53)
--- NOTE | 2021-09-11 09:55 | Cardiology Progress Note ---
Progress Note-Cardiology Events since last exam Date Seen by Provider: Sep 11, 2021 Time Seen by Provider: 09:54 Events since last exam I am following her due to supraventricular tachycardia. She has been transferred to the medical floor. She has not had any recurrent supraventricular tachycardia noted on telemetry. Overall, she states she feels better and she wants to go home today. She denies chest pain, dyspnea at rest, palpitations, syncope, or ankle edema. Certain portions of this document may have been dictated utilizing voice recognition technology. Inherent to this technology, typographical and grammatical errors may exist. As much as I am diligent to identify and correct these mistakes, some errors may remain in the document. Vitals Last set of Vitals Signs Vital Signs 09/11/21 07:14 Temp 36.4 Pulse 69 Resp 22 B/P (MAP) 122/62 (82) Pulse Ox 100 O2 Delivery Nasal Cannula O2 Flow Rate 2.00 FiO2 100 Exam Vital Signs Vital Signs Date Time Temp Pulse Resp B/P (MAP) Pulse Ox O2 Delivery O2 Flow Rate FiO2 09/11/21 07:14 Nasal Cannula 2.00 100 09/11/21 07:14 36.4 69 22 122/62 (82) 100 Physical Exam General: Alert. No acute distress. Eye: No xanthelasma. HENT: Normocephalic. Neck: Jugular venous pressure does not appear elevated. Respiratory: Lungs are clear to auscultation. Respirations are non-labored. Breath sounds are equal. Symmetrical chest wall expansion. Cardiovascular: Normal rate. Regular rhythm. 2/6 systolic ejection murmur. No gallop. No edema. Gastrointestinal: Soft. Normal bowel sounds. Skin: Warm. Dry. Neurologic: Alert and oriented to person, place, time. Cranial nerves 3-11 grossly intact. Psychiatric: Cooperative. Appropriate mood & affect. Labs Laboratory Tests Test 09/10/21 10:25 09/10/21 17:45 Range/Units Stool Occult Blood Immunoassay NEGATIVE NEGATIVE Glucometer 103 70-110 MG/DL Diagnosis/Problems Diagnosis/Problems (1) Supraventricular tachycardia Status: Acute Assessment & Plan: She mainly seems to be having intermittent paroxysmal supraventricular tachycardia. I now have her on once daily diltiazem CD. The arrhythmia has improved. I recommend a 24-hour Holter monitor following discharge. I will arrange for this through my office after she goes home. (2) Paroxysmal atrial fibrillation Assessment & Plan: She also had some irregular supraventricular tachycardia while she was in the emergency room which could be brief bursts of atrial fibrillation. She has not had any prolonged atrial fibrillation since being admitted. As above, I will have her undergo a 24-hour Holter monitor for some initial screening after she is discharged. There is no indication for oral anticoagulation at this time. (3) Primary hypertension Assessment & Plan: She is now on diltiazem for the supraventricular tachycardia and her blood pressures have improved. (4) Abnormal electrocardiogram Assessment & Plan: She also has a borderline abnormal electrocardiogram. I will have my office arrange for an outpatient stress test following discharge. I have started her on low strength aspirin. She is intolerant to statin medications. (5) Cigarette smoker Assessment & Plan: She just quit smoking last week. Ongoing cessation was encouraged. SARAH LEE JR, MD Sep 11, 2021 09:55
[2021-09-11] MEDS ORDERED: ASPIRIN E.C. 81 MG (ECOTRIN) TAB PO ONE (10:00)
--- NOTE | 2021-09-11 10:33 | Progress Note ---
Subjective Date Seen by a Provider: Sep 11, 2021 Time Seen by a Provider: 09:40 Subjective/Events-last exam Patient seen with Dr. Wolfe. Patient denies any abdominal pain. Did report episode of nausea this morning, but no vomiting. Tolerating diet. Having BMs. Focused Exam Lactate Level 09/09/21 17:23: Lactic Acid Level 0.70 Objective Exam Vital Signs Date Time Temp Pulse Resp B/P (MAP) Pulse Ox O2 Delivery O2 Flow Rate FiO2 09/11/21 09:00 100 Nasal Cannula 2.00 09/11/21 07:14 Nasal Cannula 2.00 100 09/11/21 07:14 36.4 69 22 122/62 (82) 100 Nasal Cannula 2.00 09/11/21 07:00 75 09/11/21 04:00 36.3 69 16 151/67 (95) 100 Nasal Cannula 2.00 09/11/21 01:00 75 09/11/21 00:00 36.6 72 18 134/68 (90) 99 Nasal Cannula 2.00 09/10/21 21:00 100 Nasal Cannula 2.00 09/10/21 19:37 36.6 88 20 136/60 (85) 99 Nasal Cannula 2.00 09/10/21 19:00 90 09/10/21 18:42 Nasal Cannula 2.00 100 09/10/21 18:00 92 19 100 Nasal Cannula 2.00 09/10/21 17:48 36.7 09/10/21 17:00 81 23 98 Nasal Cannula 2.00 09/10/21 16:00 84 24 140/52 (81) 100 Nasal Cannula 2.00 09/10/21 15:27 Nasal Cannula 2.00 100 09/10/21 15:00 71 25 100 Nasal Cannula 2.00 09/10/21 13:00 86 19 100 Nasal Cannula 2.00 09/10/21 13:00 83 09/10/21 12:00 78 17 135/68 (90) 94 Nasal Cannula 2.00 09/10/21 12:00 100 Nasal Cannula 2.00 09/10/21 11:37 36.4 09/10/21 11:00 81 13 99 Nasal Cannula 2.00 09/10/21 10:39 Nasal Cannula 2.00 100 I & O 09/11/21 07:00 Intake Total 1850 ml Output Total 500 ml Balance 1350 ml Capillary Refill : Less Than 3 Seconds General Appearance: No Apparent Distress, WD/WN Neck: Normal Inspection, Supple Respiratory: No Accessory Muscle Use, No Respiratory Distress Cardiovascular: Regular Rate, Rhythm, No Edema Gastrointestinal: normal bowel sounds, non tender, soft Extremity: Normal Inspection, Normal Range of Motion Neurologic/Psychiatric: Alert, Oriented x3 Skin: Normal Color, Warm/Dry Results Lab Laboratory Tests 09/10/21 17:45: Glucometer 103 Microbiology 09/09/21 Blood Culture - Preliminary, Resulted Staph, Coag Neg (INSPECTOR WELDED PARTS) 09/09/21 Urine Culture - Final, Complete Escherichia coli See Comments Assessment/Plan Assessment/Plan Assess & Plan/Chief Complaint An 81-year-old female with symptomatic supraventricular tachycardia, ischemic colitis. VSS WBC 11.7 Continue IV abx, fluids, pain and nausea medication Continue with PUD diet EGD and Colonoscopy with biopsies as inpatient vs outpatient Clinical Quality Measures DVT/VTE Risk/Contraindication: Contraindications-Pharm: Other *list below* Other: FAWN Mendes COMPLIANCE NURSE Sep 11, 2021 10:33
[2021-09-11 11:14] VITALS: BP 147/63
[2021-09-11 15:51] VITALS: BP 147/62
[2021-09-11 19:38] VITALS: BP 131/72
[2021-09-12] VITALS (9 sets, daily range): BP systolic 122–140; BP diastolic 57–95
[2021-09-12] MEDS: MEROPENEM 1,000 MG in NS (IVPB) 100 ML IV SCH ×2 (04:57→17:36)
[2021-09-12 06:09] LABS: BASOPHILS % (AUTO) 0 % (0-10); EOSINOPHILS # (AUTO) 0.2 10^3/uL (0.0-0.3); EOSINOPHILS % (AUTO) 2 % (0-10); HEMATOCRIT 25 % (35-52); HEMOGLOBIN 7.3 g/dL (11.5-16.0); LYMPHOCYTES # (AUTO) 0.6 10^3/uL (1.0-4.0); LYMPHOCYTES % (AUTO) 8 % (12-44); MEAN CORPUSCULAR HEMOGLOBIN 22 pg (25-34); MEAN CORPUSCULAR HGB CONC 30 g/dL (32-36); MEAN CORPUSCULAR VOLUME 72 fL (80-99); MONOCYTES # (AUTO) 0.6 10^3/uL (0.0-1.0); MONOCYTES % (AUTO) 8 % (0-12); NEUTROPHILS # (AUTO) 6.4 10^3/uL (1.8-7.8); NEUTROPHILS % (AUTO) 81 % (42-75); PLATELET COUNT 291 10^3/uL (130-400)
[2021-09-12 06:15] LABS: ALBUMIN 3.3 GM/DL (3.2-4.5); POTASSIUM 3.3 MMOL/L (3.6-5.0)
[2021-09-12 06:18] LABS: TOTAL PROTEIN 5.3 GM/DL (6.4-8.2)
[2021-09-12 06:20] LABS: BILIRUBIN,TOTAL 0.2 MG/DL (0.1-1.0)
[2021-09-12 06:21] LABS: CREATININE SERUM 0.73 MG/DL (0.60-1.30)
--- NOTE | 2021-09-12 07:06 | Progress Note - Hospitalist ---
Subjective HPI/CC On Admission Date Seen by Provider: Sep 12, 2021 Time Seen by Provider: 10:00 Chief complaint: Palpitations with weakness History of present illness: This is an 81-year-old white female with known history of SVT who presented to the ER with palpitations. Patient was found to have SVT but refractory to interventions. Patient was placed on Cardizem drip with good improvement in aborted tachycardia. Patient denies any pain. Her bowels did move. Colitis diagnosed on CT scan so placed on antibiotics. Dr. HUDSON consulted along with Dr. Murillo for colitis and arrhythmia respectively. Patient doing very well, moved to fourth floor. Echocardiogram being performed today. Subjective/Events-last exam Pt is doing well Hemoglobin down to 7.3 will give one unit of blood Pt appears to be very weak Dr. Hudson was updated on the hemoglobin Denies any other issues Review of Systems General: Fatigue, Malaise Focused Exam Lactate Level Objective Exam Vital Signs Vital Signs Date Time Temp Pulse Resp B/P (MAP) Pulse Ox O2 Delivery O2 Flow Rate FiO2 09/13/21 03:42 36.9 80 18 148/74 (98) 98 Nasal Cannula 1.00 09/12/21 11:12 28 Capillary Refill : Less Than 3 Seconds General Appearance: No Apparent Distress, WD/WN, Chronically ill, Thin Respiratory: Lungs Clear, Normal Breath Sounds Cardiovascular: Regular Rate, Rhythm Neurologic/Psychiatric: Alert, Oriented x3, Depressed Affect Results/Procedures Lab Laboratory Tests 09/12/21 05:37 Patient resulted labs reviewed. Assessment/Plan Assessment and Plan Assess & Plan/Chief Complaint Assessment: Atrial tachycardia status post Cardizem drip History of TIA and stroke Acute colitis placed on antibiotics consulted general surgery Hypertension Symptomatic anemia requiring transfusion on 09/12/2021 Plan: Supportive care IV antibiotics Moved to fourth floor Appreciate Dr. HUDSON and Dr. Murillo 09/11/2021: Supportive care PT and OT tomorrow 09/12/2021: Transfuse [address] HUDSON of anemia Diagnosis/Problems Diagnosis/Problems (1) Supraventricular tachycardia Status: Acute (2) Paroxysmal atrial fibrillation (3) Hypotension Status: Acute Qualifiers: Hypotension type: unspecified hypotension type Qualified Codes: I95.9 - Hypotension, unspecified (4) Acute on chronic anemia Status: Acute Clinical Quality Measures DVT/VTE Risk/Contraindication: Contraindications-Pharm: Other *list below* Other: ANA PAULA Khalil DO Sep 12, 2021 07:06
[2021-09-12] MEDS ORDERED: NS IV 500 ML 500 ML IV SCH (07:15)
[2021-09-12] MEDS: RT-ALBUTEROL SULF 2.5 MG/3 ML PRE-MIX VIAL INH SCH ×4 (07:18→21:57)
[2021-09-12] MEDS: POTASSIUM CL 10MEQ/50ML IVPB 50 ML IV SCH ×3 (08:29→08:47)
[2021-09-12] MEDS: ASPIRIN E.C. 81 MG (ECOTRIN) TAB PO SCH ×2 (08:30→17:22)
[2021-09-12] MEDS: SENNOSIDES 8.6 MG (SENOKOT) TAB PO SCH ×2 (08:30→21:08)
[2021-09-12] MEDS: DOCUSATE SODIUM 100 MG (COLACE) CAP PO SCH ×2 (08:30→21:08)
[2021-09-12] MEDS: PANTOPRAZOLE 40 MG (PROTONIX) VIAL IV SCH (08:30)
[2021-09-12] MEDS ORDERED: LORA-404 PO (08:43)
[2021-09-12] MEDS ORDERED: ONDA4TAB11 PO (08:43)
[2021-09-12] MEDS ORDERED: DILT60TA PO (08:43)
[2021-09-12] MEDS ORDERED: ALBU2.5V4 PO (08:43)
[2021-09-12] MEDS ORDERED: PANT40TA52 PO (08:44)
[2021-09-12] MEDS ORDERED: KCL 20 MEQ TAB (K-DUR) PO ONE ×2 (08:45→11:00)
[2021-09-12] MEDS ORDERED: TRM50T PO (08:53)
--- NOTE | 2021-09-12 10:03 | Physical Therapy Daily Note ---
PT Daily Note-Current Subjective Pt sitting on [facility] upon arrival. SIDE SHOW ENTERTAINER answering call light. Pt agrees to PT. Pt reports nausea and cannot finish breakfast. Pain Location: No Pain Reported Mental Status Patient Orientation: Person, Place, Situation Attachments: Oxygen, IV Transfers SCALE: Activities may be completed with or without assistive devices. 3-Rxdgggqqwd-utflqtj completes the activity by him/herself with no assistance from a helper. 5-Set-up or Clean-up Assistance-helper sets up or cleans up; patient completes activity. [place] assists only prior to or following the activity. 4-Supervision or Touching Assistance-helper provides verbal cues and/or touching/steadying and/or contact guard assistance as patient completes activity. Assistance may be provided throughout the activity or intermittently. 3-Partial/Moderate Assistance-helper does LESS THAN HALF the effort. [place] lifts, holds or supports trunk or limbs, but provides less than half the effort. 2-Substantial/Maximal Assistance-helper does MORE THAN HALF the effort. [place] lifts or holds trunk or limbs and provides more than half the effort. 8-Rxwsqknpr-mlskjj does ALL the effort. Patient does none of the effort to complete the activity. Or, the assistance of 2 or more helpers is required for the patient to complete the activity. If activity was not attempted, code reason: 7-Patient Refused. 9-Not Applicable-not attempted and the patient did not perform the activity before the current illness, exacerbation or injury. 10-Not Attempted due to Environmental Limitations-(lack of equipment, weather restraints, etc.). 88-Not Attempted due to Medical Conditions or Safety Concerns. Sit to Lying (QC): 5 Sit to Stand (QC): 4 Chair/Exr-fl-Ounbh Xfer(QC): 4 Toilet Transfer (QC): 4 Weight Bearing Right Lower Extremity: Right Full Weight Bearing Left Lower Extremity: Left Full Weight Bearing Treatments Pt on [facility] upon arrival. Pt stands with Min A-CGA from SIDE SHOW ENTERTAINER. Pt is able to TF back to bed with just assistance for managing IV & O2 lines. Pt declines EX or add. walk. PIC line Nurse arrives to complete new IV so tx ends at this time. All needs met, call light in hand. Assessment Current Status: Good Progress Pt is fatigued during tx. PT Short Term Goals Short Term Goals Time Frame: Sep 16, 2021 Sit to lyin Lying to sitting on side of be: 6 Sit to stand: 6 Chair/dod-ah-bipma transfer: 6 Walk 10 feet: 6 Walk 50 feet with two turns: 6 Walk 150 feet: 6 PT Plan Problem List Problem List: Activity Tolerance, Functional Strength Treatment/Plan Treatment Plan: Continue Plan of Care Treatment Plan: Bed Mobility, Education, Functional Activity Santino, Functional Strength, Gait, Safety, Therapeutic Exercise, Transfers Treatment Duration: Sep 16, 2021 Frequency: 6 times per week Estimated Hrs Per Day: .25 hour per day Patient and/or Family Agrees t: Yes Safety Risks/Education Patient Education: Transfer Techniques, Correct Positioning Teaching Recipient: Patient Teaching Methods: Discussion Response to Teaching: Verbalize Understanding Time/GCodes Time In: 933 Time Out: 945 Total Billed Treatment Time: 12 Total Billed Treatment 1, FA (12m) CHECO BLACKWELL PTA Sep 12, 2021 10:03
[2021-09-12] MEDS ORDERED: RT-ALBUTEROL SULF 2.5 MG/3 ML PRE-MIX VIAL INH PRN (12:00)
--- NOTE | 2021-09-12 12:07 | Occupational Ther Daily Note ---
OT Current Status-Daily Note Subjective Pt alert, lying in bed. Pt anxious about ordering lunch using phone. Director Trial in [place] dhillonA asked if he could assist pt with meal due to not being able to get through to call center on phone for lunch. Director Trial(Abdirahman) was able to assist pt with ordering and changing ordering status. Mental Status/Objective Patient Orientation: Person, Place, Time, Situation Attachments: IV, Oxygen ADL-Treatment Pt able to cleanse arms and use deodorant by self after set up. Pt declined any other bathing, dressing or oral care. Supine <--> EOB independent. Pt had to sit on EOB due to dizziness. [place] [facility] [place]. SBA to manipulate clothing then pt sat to cleanse after urination. After therapy, pt lying in bed with call light/phone in reach. All needs met in room. Therapy Code Descriptions/Definitions Functional Riner Measure: 0=Not Assessed/NA 4=Minimal Assistance 1=Total Assistance 5=Supervision or Setup 2=Maximal Assistance 6=Modified Riner 3=Moderate Assistance 7=Complete IndependenceSCALE: Activities may be completed with or without assistive devices. 0-Andmgwkvxe-knqharp completes the activity by him/herself with no assistance from a helper. 5-Set-up or Clean-up Assistance-helper sets up or cleans up; patient completes activity. [place] assists only prior to or following the activity. 4-Supervision or Touching Assistance-helper provides verbal cues and/or touching/steadying and/or contact guard assistance as patient completes activity. Assistance may be provided throughout the activity or intermittently. 3-Partial/Moderate Assistance-helper does LESS THAN HALF the effort. [place] lifts, holds or supports trunk or limbs, but provides less than half the effort. 2-Substantial/Maximal Assistance-helper does MORE THAN HALF the effort. [place] lifts or holds trunk or limbs and provides more than half the effort. 0-Kgtyzibtf-knlawu does ALL the effort. Patient does none of the effort to complete the activity. Or, the assistance of 2 or more helpers is required for the patient to complete the activity. If activity was not attempted, code reason: 7-Patient Refused. 9-Not Applicable-not attempted and the patient did not perform the activity before the current illness, exacerbation or injury. 10-Not Attempted due to Environmental Limitations-(lack of equipment, weather restraints, etc.). 88-Not Attempted due to Medical Conditions or Safety Concerns. Toileting Hygiene (QC): 4 Toilet Transfer (QC): 4 OT Residential Goals Residential Goals Time Frame: Sep 23, 2021 Eating (QC): 6 Oral Hygiene (QC): 6 Toileting Hygiene (QC): 6 Shower/Bathe Self (QC): 4 Upper Body Dressing (QC): 5 Lower Body Dressing (QC): 4 On/Off Footwear (QC): 4 Additional Goals: 1-Demonstrate ADL Tasks, 2-Verbalize Understanding, 3-ImproveStrength/Santino 1=Demonstrate adherence to instructed precautions during ADL tasks. 2=Patient will verbalize/demonstrate understanding of assistive devices/modifications for ADL. 3=Patient will improve strength/tolerance for activity to enable patient to perform ADL's. OT Education/Plan Problem List/Assessment Assessment: Decreased Activ Tolerance Discharge Recommendations Plan/Recommendations: Continue POC Treatment Plan/Plan of Care Patient would benefit from OT for education, treatment and training to promote independence in ADL's, mobility, safety and/or upper extremity function for ADL's. Plan of Care: ADL Retraining, Functional Mobility, UE Funct Exercise/Act Treatment Duration: Sep 23, 2021 Frequency: 3 times per week (3-5 times per week) Estimated Hrs Per Day: .25 hour per day Agreement: Yes Rehab Potential: Good Time/GCodes Start Time: 11:30 Stop Time: 11:53 Total Time Billed (hr/min): 23 Billed Treatment Time 1 visit-ADL 2 (23 min) JOSLYN SANTANA Sep 12, 2021 12:07
--- NOTE | 2021-09-12 16:23 | Cardiology Progress Note ---
Progress Note-Cardiology Events since last exam Date Seen by Provider: Sep 12, 2021 Time Seen by Provider: 16:18 Events since last exam I am following her due to atrial arrhythmias. For the most part, she has re mained in sinus rhythm while here in the hospital. She is now receiving a blood transfusion due to anemia. Today she reports melanotic stools which she apparently had not reported to the emergency room provider. She denies chest discomfort, dyspnea at rest, palpitations, syncope, or ankle edema. Certain portions of this document may have been dictated utilizing voice recognition technology. Inherent to this technology, typographical and grammatical errors may exist. As much as I am diligent to identify and correct these mistakes, some errors may remain in the document. Vitals Last set of Vitals Signs Vital Signs 09/12/21 09/12/21 11:12 15:55 Temp 36.2 Pulse 82 Resp 18 B/P (MAP) 122/60 (80) Pulse Ox 97 O2 Delivery Nasal Cannula O2 Flow Rate 1.00 FiO2 28 Labs Labs Laboratory Tests 09/12/21 05:37 Exam Vital Signs Vital Signs Date Time Temp Pulse Resp B/P (MAP) Pulse Ox O2 Delivery O2 Flow Rate FiO2 09/12/21 15:55 36.2 82 18 122/60 (80) 97 Nasal Cannula 1.00 09/12/21 11:12 28 Physical Exam General: Alert. No acute distress. Eye: No xanthelasma. HENT: Normocephalic. Neck: Jugular venous pressure does not appear elevated. Respiratory: Lungs are clear to auscultation. Respirations are non-labored. Breath sounds are equal. Symmetrical chest wall expansion. Cardiovascular: Normal rate. Regular rhythm. 2/6 high-pitched systolic ejection murmur. No gallop. No edema. Gastrointestinal: Soft. Normal bowel sounds. Skin: Warm. Dry. Neurologic: Alert and oriented to person, place, time. Cranial nerves 3-11 grossly intact. Psychiatric: Cooperative. Appropriate mood & affect. Labs Laboratory Tests Test 09/12/21 05:37 Range/Units White Blood Count 8.0 4.3-11.0 10^3/uL Red Blood Count 3.40 L 3.80-5.11 10^6/uL Hemoglobin 7.3 L 11.5-16.0 g/dL Hematocrit 25 L 35-52 % Mean Corpuscular Volume 72 L 80-99 fL Mean Corpuscular Hemoglobin 22 L 25-34 pg Mean Corpuscular Hemoglobin Concent 30 L 32-36 g/dL Red Cell Distribution Width 17.5 H 10.0-14.5 % Platelet Count 291 130-400 10^3/uL Mean Platelet Volume 10.0 9.0-12.2 fL Immature Granulocyte % (Auto) 1 % Neutrophils (%) (Auto) 81 H 42-75 % Lymphocytes (%) (Auto) 8 L 12-44 % Monocytes (%) (Auto) 8 0-12 % Eosinophils (%) (Auto) 2 0-10 % Basophils (%) (Auto) 0 0-10 % Neutrophils # (Auto) 6.4 1.8-7.8 10^3/uL Lymphocytes # (Auto) 0.6 L 1.0-4.0 10^3/uL Monocytes # (Auto) 0.6 0.0-1.0 10^3/uL Eosinophils # (Auto) 0.2 0.0-0.3 10^3/uL Basophils # (Auto) 0.0 0.0-0.1 10^3/uL Immature Granulocyte # (Auto) 0.1 0.0-0.1 10^3/uL Sodium Level 135 135-145 MMOL/L Potassium Level 3.3 L 3.6-5.0 MMOL/L Chloride Level 99 98-107 MMOL/L Carbon Dioxide Level 24 21-32 MMOL/L Anion Gap 12 5-14 MMOL/L Blood Urea Nitrogen 4 L 7-18 MG/DL Creatinine 0.73 0.60-1.30 MG/DL Estimat Glomerular Filtration Rate 82 BUN/Creatinine Ratio 5 Glucose Level 92 70-105 MG/DL Calcium Level 9.0 8.5-10.1 MG/DL Corrected Calcium 9.6 8.5-10.1 MG/DL Total Bilirubin 0.2 0.1-1.0 MG/DL Aspartate Amino Transf (AST/SGOT) 11 5-34 U/L Alanine Aminotransferase (ALT/SGPT) 6 0-55 U/L Alkaline Phosphatase 94 40-136 U/L Total Protein 5.3 L 6.4-8.2 GM/DL Albumin 3.3 3.2-4.5 GM/DL Diagnosis/Problems Diagnosis/Problems (1) Supraventricular tachycardia Status: Acute Assessment & Plan: She mainly seemed to be having intermittent paroxysmal supraventricular tachycardia at the time of admission. Exact electrophysiologic mechanism is unclear. I now have her on once daily diltiazem CD. She had been taking this at home but there was some confusion about the dose. Her son told me today that she had previously been on a higher dose but developed fatigue and the dose was cut back. The arrhythmia has improved. I recommend a 24-hour Holter monitor following discharge. I will arrange for this through my office after she goes home. (2) Paroxysmal atrial fibrillation Assessment & Plan: She also had some irregular supraventricular tachycardia while she was in the emergency room which could be brief bursts of atrial fibrillation. She has not had any prolonged atrial fibrillation since being admitted. As above, I will have her undergo a 24-hour Holter monitor for some initial screening after she is discharged. There is no indication for oral anticoagulation at this time. (3) Primary hypertension Assessment & Plan: She is on diltiazem and blood pressures have been well controlled. If the records are correct, the dose of diltiazem she is taking now is the same dose she was taking prior to admission. (4) Abnormal electrocardiogram Assessment & Plan: She has a borderline abnormal electrocardiogram and had ST depression when she had tachycardia. My office will arrange for an outpatient stress test following discharge. I have started her on low strength aspirin. She is intolerant to statin medications. (5) Cigarette smoker Assessment & Plan: She just quit smoking prior to admission. Ongoing cessation was encouraged. SARAH LEE JR, MD Sep 12, 2021 16:23
--- NOTE | 2021-09-12 16:45 | Physician Query Clarification ---
Physician Query-General Query to Physician: The medical record reflects the following clinical scenario: The patient, in the setting of History/Risk factors, advanced age, Clinical Findings, urine culture showing E. coli Greater than 100,000, UA with 5-10 WBCs, bacteria present, 1+ leukocyte esterase, WBC 13.2 Treatment meropenem IV, IV fluids Question: Do you agree with the impression of Urinary Tract infection per Dr. Linsey Lawrence and Dr. Greg Centeno? 1. Yes; will document diagnosis/condition in the Progress Notes 2. No; will continue current documentation in the Progress Notes 3. Other; will document explanation of clinical findings 4. Clinically undetermined; no explanation for clinical findings Please clarify and document your clinical opinion in the Progress Notes and Discharge Summary including the definitive and/or presumptive diagnosis, (suspected or probable), related to the above clinical findings. Please include clinical findings supporting your diagnosis. In responding to this query, please exercise your independent professional judgment. The purpose of this communication is to more accurately reflect the complexity of your patients condition. The fact that a question is asked does not imply that any particular answer is desired or expected. Please remember a lack of response to the above will prompt a phone page by CDI/coding staff Thank you for timely response to this clarification. Emily Evans MSN, RN Clinical Spikemaking Supervisor [phone] [email or web address] PHYSICIAN RESPONSE: Based on the clinical findings in the record, please respond to the query above on this document as an addendum. Physician Response: Physician Response no If you have questions please contact: Accounting Advisory Services Manager: Ext: Thank you for your time and cooperation. Clinical Spikemaking Supervisor/Accounting Advisory Services Manager This is a permanent part of the medical record EMILY EVANS Sep 12, 2021 16:45 ANA PAULA NUNN DO Sep 12, 2021 20:31
--- NOTE | 2021-09-12 17:46 | Physician Query Clarification ---
Physician Query-General Query to Physician: Clinical Validation Clarification : Álavro Martinez Sepsis has been documented in the medical record. After study, do you consider Sepsis a clinically valid diagnosis? If not clin ically valid, please document "Sepsis, ruled out" on the progress notes and/or discharge summary. 1. No, Sepsis not clinically valid/ruled out 2. Yes, Sepsis is a clinically valid diagnosis 3. Other, with explanation of the clinical findings 4. Clinically undetermined, no explanation for the clinical findings Additional information: Possible ischemic colitis with VS/LABS: IV meropenem HR 165, RR 20, BP 104/81, SpO2 100% sat on 4 L T 35.7, WBC 13.2, Lactic acid 0.70, NS 1L, IV meropenem Please remember a lack of response to the above will prompt a phone page by CDI/coding staff. In responding to this query, please exercise your independent professional judgment. The purpose of this communication is to more accurately reflect the complexity of your patients condition. The fact that a question is asked does not imply that any particular answer is desired or expected. Thank you for timely response to this clarification. Emily Evans MSN, RN Clinical Architectural Project Captain PH PHYSICIAN RESPONSE: Based on the clinical findings in the record, please respond to the query above on this document as an addendum. Physician Response: Physician Response sepsis due to colitis If you have questions please contact: Service Parts Driver: Ext: Thank you for your time and cooperation. Clinical Architectural Project Captain/Service Parts Driver This is a permanent part of the medical record EMILY EVANS Sep 12, 2021 17:46 ANA PAULA MARTINEZ DO Sep 12, 2021 20:32
--- NOTE | 2021-09-12 18:42 | Progress Note ---
Subjective Date Seen by a Provider: Sep 12, 2021 Time Seen by a Provider: 18:00 Subjective/Events-last exam doing better. minimal abd pain. hb stable. HR stable. tolerating diet. Objective Exam Vital Signs Date Time Temp Pulse Resp B/P (MAP) Pulse Ox O2 Delivery O2 Flow Rate FiO2 09/12/21 15:55 36.2 82 18 122/60 (80) 97 Nasal Cannula 1.00 09/12/21 15:21 98 Nasal Cannula 1.00 09/12/21 14:17 36.0 82 19 140/64 100 09/12/21 13:59 36.2 81 20 124/57 100 Room Air 09/12/21 13:00 84 09/12/21 12:00 36.5 83 20 137/71 (93) 97 Nasal Cannula 5.00 09/12/21 11:12 36.0 80 99 28 09/12/21 11:08 99 Nasal Cannula 2.00 09/12/21 09:00 100 Nasal Cannula 2.00 09/12/21 08:00 36.0 89 16 132/95 (107) 100 Nasal Cannula 2.00 09/12/21 07:19 99 Nasal Cannula 2.00 09/12/21 07:00 113 09/12/21 04:00 36.1 77 18 131/60 (83) 100 Nasal Cannula 2.00 09/12/21 01:00 85 09/12/21 00:00 35.8 76 17 136/59 (84) 100 Nasal Cannula 2.00 09/11/21 21:30 Nasal Cannula 2.00 09/11/21 21:26 Nasal Cannula 2.00 100 09/11/21 19:38 36.5 74 18 131/72 (91) 100 Nasal Cannula 2.00 09/11/21 19:00 88 I & O 09/12/21 07:00 Intake Total 1095 ml Output Total 500 ml Balance 595 ml Capillary Refill : Less Than 3 Seconds General Appearance: No Apparent Distress HEENT: PERRL/EOMI Neck: Full Range of Motion Respiratory: Chest Non Tender, Lungs Clear Cardiovascular: Regular Rate, Rhythm Gastrointestinal: normal bowel sounds, non tender, soft Extremity: Normal Capillary Refill Neurologic/Psychiatric: Alert, Oriented x3 Skin: Normal Color Lymphatic: No Adenopathy Results Lab Laboratory Tests 09/12/21 05:37: White Blood Count 8.0, Red Blood Count 3.40L, Hemoglobin 7.3L, Hematocrit 25L, Mean Corpuscular Volume 72L, Mean Corpuscular Hemoglobin 22L, Mean Corpuscular Hemoglobin Concent 30L, Red Cell Distribution Width 17.5H, Platelet Count 291, Mean Platelet Volume 10.0, Immature Granulocyte % (Auto) 1, Neutrophils (%) (Auto) 81H, Lymphocytes (%) (Auto) 8L, Monocytes (%) (Auto) 8, Eosinophils (%) (Auto) 2, Basophils (%) (Auto) 0, Neutrophils # (Auto) 6.4, Lymphocytes # (Auto) 0.6L, Monocytes # (Auto) 0.6, Eosinophils # (Auto) 0.2, Basophils # (Auto) 0.0, Immature Granulocyte # (Auto) 0.1, Sodium Level 135, Potassium Level 3.3L, Chloride Level 99, Carbon Dioxide Level 24, Anion Gap 12, Blood Urea Nitrogen 4L , Creatinine 0.73, Estimat Glomerular Filtration Rate 82, BUN/Creatinine Ratio 5, Glucose Level 92, Calcium Level 9.0, Corrected Calcium 9.6, Total Bilirubin 0.2, Aspartate Amino Transf (AST/SGOT) 11, Alanine Aminotransferase (ALT/SGPT) 6, Alkaline Phosphatase 94, Total Protein 5.3L, Albumin 3.3 Microbiology 09/09/21 Blood Culture - Preliminary, Resulted Staph, Coag Neg (SENIOR SUPPLY CHAIN ANALYST) 09/09/21 Urine Culture - Final, Complete Escherichia coli See Comments Assessment/Plan Assessment/Plan Assess & Plan/Chief Complaint colitis with anemia. diet as tolerated. cont PPI. will need EGD and colonscopy as OP in about 2 weeks. Clinical Quality Measures DVT/VTE Risk/Contraindication: Contraindications-Pharm: Other *list below* Other: NELDA Saab MD Sep 12, 2021 18:42
[2021-09-12] MEDS: MELATONIN 3 MG TABLET PO PRN (20:49)
[2021-09-13] VITALS (8 sets, daily range): BP systolic 115–154; BP diastolic 56–85
[2021-09-13 05:21] LABS: BASOPHILS % (AUTO) 0 % (0-10); EOSINOPHILS # (AUTO) 0.2 10^3/uL (0.0-0.3); EOSINOPHILS % (AUTO) 2 % (0-10); HEMATOCRIT 28 % (35-52); HEMOGLOBIN 8.7 g/dL (11.5-16.0); LYMPHOCYTES # (AUTO) 0.7 10^3/uL (1.0-4.0); LYMPHOCYTES % (AUTO) 7 % (12-44); MEAN CORPUSCULAR HEMOGLOBIN 23 pg (25-34); MEAN CORPUSCULAR HGB CONC 31 g/dL (32-36); MEAN CORPUSCULAR VOLUME 74 fL (80-99); MONOCYTES # (AUTO) 0.8 10^3/uL (0.0-1.0); MONOCYTES % (AUTO) 8 % (0-12); NEUTROPHILS # (AUTO) 8.3 10^3/uL (1.8-7.8); NEUTROPHILS % (AUTO) 83 % (42-75); PLATELET COUNT 337 10^3/uL (130-400)
[2021-09-13] MEDS: MEROPENEM 1,000 MG in NS (IVPB) 100 ML IV SCH ×2 (05:32→18:25)
[2021-09-13 05:34] LABS: ALBUMIN 3.4 GM/DL (3.2-4.5); POTASSIUM 4.2 MMOL/L (3.6-5.0)
[2021-09-13 05:35] LABS: CALCIUM 9.3 MG/DL (8.5-10.1)
[2021-09-13 05:36] LABS: TOTAL PROTEIN 5.8 GM/DL (6.4-8.2)
[2021-09-13 05:38] LABS: BILIRUBIN,TOTAL 0.7 MG/DL (0.1-1.0)
[2021-09-13 05:40] LABS: CREATININE SERUM 0.7 MG/DL (0.60-1.30)
[2021-09-13] MEDS ORDERED: CYANOCOBALAMIN INJ 1000 MCG/ML IM ONE (06:00)
[2021-09-13] MEDS: CYANOCOBALAMIN 1,000 MCG (VITAMIN B-12) TABLET PO SCH (06:26)
[2021-09-13] MEDS: RT-ALBUTEROL SULF 2.5 MG/3 ML PRE-MIX VIAL INH SCH ×2 (07:15→23:20)
[2021-09-13] MEDS: PANTOPRAZOLE 40 MG (PROTONIX) VIAL IV SCH (08:57)
[2021-09-13] MEDS: SENNOSIDES 8.6 MG (SENOKOT) TAB PO SCH ×2 (09:01→19:43)
[2021-09-13] MEDS: DOCUSATE SODIUM 100 MG (COLACE) CAP PO SCH ×2 (09:03→19:42)
[2021-09-13] MEDS: ASPIRIN E.C. 81 MG (ECOTRIN) TAB PO SCH (09:04)
--- NOTE | 2021-09-13 09:09 | Progress Note - Hospitalist ---
Subjective HPI/CC On Admission Date Seen by Provider: Sep 13, 2021 Time Seen by Provider: 10:00 Chief complaint: Palpitations with weakness History of present illness: This is an 81-year-old white female with known history of SVT who presented to the ER with palpitations. Patient was found to have SVT but refractory to interventions. Patient was placed on Cardizem drip with good improvement in aborted tachycardia. Patient denies any pain. Her bowels did move. Colitis diagnosed on CT scan so placed on antibiotics. Dr. HUDSON consulted along with Dr. Murillo for colitis and arrhythmia respectively. Patient doing very well, moved to fourth floor. Echocardiogram being performed today. Subjective/Events-last exam Pt is doing about the same Very weak Social work inquired about placement in a skilled nursing or home health but she declined both She continues to tell me that she doesn't feel well Hemoglobin was 8.[address] Hudson Holding Aspirin due to severe anemia requiring transfusion Allergic to iron PT and OT ordered Review of Systems General: Fatigue, Malaise Objective Exam Vital Signs Vital Signs Date Time Temp Pulse Resp B/P (MAP) Pulse Ox O2 Delivery O2 Flow Rate FiO2 09/14/21 04:13 36.5 74 18 146/76 (99) 98 Nasal Cannula 1.00 1.00 09/12/21 11:12 28 Capillary Refill : Less Than 3 Seconds General Appearance: No Apparent Distress, WD/WN, Chronically ill Respiratory: Lungs Clear, Normal Breath Sounds Cardiovascular: Regular Rate, Rhythm Neurologic/Psychiatric: Alert, Oriented x3 Results/Procedures Lab Patient resulted labs reviewed. Assessment/Plan Assessment and Plan Assess & Plan/Chief Complaint Assessment: Atrial tachycardia status post Cardizem drip History of TIA and stroke Acute colitis placed on antibiotics consulted general surgery Hypertension Symptomatic anemia requiring transfusion on 09/12/2021 Plan: Supportive care IV antibiotics Moved to fourth floor Appreciate Dr. HUDSON and Dr. Murillo 09/11/2021: Supportive care PT and OT tomorrow 09/12/2021: Transfuse [address] HUDSON of anemia 09/13/2021: Supportive care Refuses skilled nursing or home health Diagnosis/Problems Diagnosis/Problems (1) Supraventricular tachycardia Status: Acute (2) Paroxysmal atrial fibrillation (3) Hypotension Status: Acute Qualifiers: Hypotension type: unspecified hypotension type Qualified Codes: I95.9 - Hypotension, unspecified (4) Acute on chronic anemia Status: Acute Clinical Quality Measures DVT/VTE Risk/Contraindication: Contraindications-Pharm: Other *list below* Other: ANA PAULA Khalil DO Sep 13, 2021 09:09
--- NOTE | 2021-09-13 09:12 | Cardiology Progress Note ---
Progress Note-Cardiology Events since last exam Date Seen by Provider: Sep 13, 2021 Time Seen by Provider: 09:09 Events since last exam I am following her due to atrial arrhythmias. This morning she has some nausea that improved with sublingual Zofran. She denies vomiting. She has some epigastric discomfort but denies chest pain, per se. She denies any change in her chronic dyspnea which she relates is due to previous smoking. She feels lightheaded but denies syncope. She denies palpitations or ankle edema. Certain portions of this document may have been dictated utilizing voice recognition technology. Inherent to this technology, typographical and grammatical errors may exist. As much as I am diligent to identify and correct these mistakes, some errors may remain in the document. Vitals Last set of Vitals Signs Vital Signs 09/12/21 09/13/21 09/13/21 09/13/21 11:12 08:00 09:00 12:27 Temp 36.6 Pulse 78 Resp 18 B/P (MAP) 146/66 (92) Pulse Ox 100 O2 Delivery Nasal Cannula O2 Flow Rate 1.00 FiO2 28 Labs Labs Laboratory Tests 09/13/21 05:13 Exam Vital Signs Vital Signs Date Time Temp Pulse Resp B/P (MAP) Pulse Ox O2 Delivery O2 Flow Rate FiO2 09/13/21 12:27 78 146/66 (92) 09/13/21 09:00 100 Nasal Cannula 1.00 09/13/21 08:00 36.6 18 09/12/21 11:12 28 Physical Exam General: Alert. No acute distress. Eye: No xanthelasma. HENT: Normocephalic. Neck: Jugular venous pressure does not appear elevated. Respiratory: Lungs are clear to auscultation. Respirations are non-labored. Breath sounds are equal. Symmetrical chest wall expansion. Cardiovascular: Normal rate. Regular rhythm. 2/6 systolic ejection murmur. No gallop. No edema. Gastrointestinal: Soft. Normal bowel sounds. Skin: Warm. Dry. Neurologic: Alert and oriented to person, place, time. Cranial nerves 3-11 grossly intact. Psychiatric: Cooperative. Appropriate mood & affect. Labs Laboratory Tests Test 09/13/21 05:13 Range/Units White Blood Count 10.0 4.3-11.0 10^3/uL Red Blood Count 3.81 3.80-5.11 10^6/uL Hemoglobin 8.7 L 11.5-16.0 g/dL Hematocrit 28 L 35-52 % Mean Corpuscular Volume 74 L 80-99 fL Mean Corpuscular Hemoglobin 23 L 25-34 pg Mean Corpuscular Hemoglobin Concent 31 L 32-36 g/dL Red Cell Distribution Width 18.0 H 10.0-14.5 % Platelet Count 337 130-400 10^3/uL Mean Platelet Volume 10.0 9.0-12.2 fL Immature Granulocyte % (Auto) 1 % Neutrophils (%) (Auto) 83 H 42-75 % Lymphocytes (%) (Auto) 7 L 12-44 % Monocytes (%) (Auto) 8 0-12 % Eosinophils (%) (Auto) 2 0-10 % Basophils (%) (Auto) 0 0-10 % Neutrophils # (Auto) 8.3 H 1.8-7.8 10^3/uL Lymphocytes # (Auto) 0.7 L 1.0-4.0 10^3/uL Monocytes # (Auto) 0.8 0.0-1.0 10^3/uL Eosinophils # (Auto) 0.2 0.0-0.3 10^3/uL Basophils # (Auto) 0.0 0.0-0.1 10^3/uL Immature Granulocyte # (Auto) 0.1 0.0-0.1 10^3/uL Sodium Level 134 L 135-145 MMOL/L Potassium Level 4.2 3.6-5.0 MMOL/L Chloride Level 100 98-107 MMOL/L Carbon Dioxide Level 24 21-32 MMOL/L Anion Gap 10 5-14 MMOL/L Blood Urea Nitrogen 6 L 7-18 MG/DL Creatinine 0.70 0.60-1.30 MG/DL Estimat Glomerular Filtration Rate 86 BUN/Creatinine Ratio 9 Glucose Level 89 70-105 MG/DL Calcium Level 9.3 8.5-10.1 MG/DL Corrected Calcium 9.8 8.5-10.1 MG/DL Total Bilirubin 0.7 0.1-1.0 MG/DL Aspartate Amino Transf (AST/SGOT) 12 5-34 U/L Alanine Aminotransferase (ALT/SGPT) 7 0-55 U/L Alkaline Phosphatase 98 40-136 U/L Total Protein 5.8 L 6.4-8.2 GM/DL Albumin 3.4 3.2-4.5 GM/DL Diagnosis/Problems Diagnosis/Problems (1) Supraventricular tachycardia Status: Acute Assessment & Plan: She mainly seemed to be having intermittent paroxysmal supraventricular tachycardia at the time of admission. Exact electrophysiologic mechanism is unclear. I now have her on once daily diltiazem CD. She had been taking this at home but there was some confusion about the dose. Her son told me she had previously been on a higher dose but developed fatigue and the dose was cut back. The arrhythmia has improved. I recommend a 24-hour Holter monitor following discharge. I will arrange for this through my office after she goes home. (2) Paroxysmal atrial fibrillation Assessment & Plan: She also had some irregular supraventricular tachycardia while she was in the emergency room which could have been brief bursts of atrial fibrillation. She has not had any prolonged atrial fibrillation since being admitted. As above, I will have her undergo a 24-hour Holter monitor for some initial screening after she is discharged. There is no strong indication for or al anticoagulation at this time. (3) Abnormal electrocardiogram Assessment & Plan: She has a borderline abnormal electrocardiogram and had ST depression when she had tachycardia. We had a cancellation in the stress lab today. I had her undergo the nuclear stress test today. I previously started her on low strength aspirin. She is intolerant of statin medications. (4) Primary hypertension Assessment & Plan: She is on diltiazem and blood pressures had been well controlled. If the records are correct, the dose of diltiazem she is taking now is the same dose she was taking prior to admission. Her blood pressures have become mildly elevated over the past 24 hours. If this continues, we may need to adjust her antihypertensive medication. I would prefer to just increase the dose of diltiazem. (5) Cigarette smoker Assessment & Plan: She just quit smoking prior to admission. Ongoing cessation was encouraged. SARAH LEE JR, MD Sep 13, 2021 09:12
[2021-09-13] MEDS ORDERED: REGADENOSON 0.4 MG/5 ML SYR (LEXISCAN) IV ONE ×2 (09:15→11:42)
--- NOTE | 2021-09-13 11:41 | Occupational Ther Daily Note ---
OT Current Status-Daily Note Subjective Pt alert, lying in bed. Pt agrees to therapy. Tech in room to take pt to procedure. Mental Status/Objective Patient Orientation: Person, Place, Time, Situation Attachments: IV, Oxygen ADL-Treatment Independent with bed mobility. SBA for transfer from EOB to BSC. SBA to manipulate clothing for toileting and independent with cleansing. After set up, pt able to don/doff lower body clothing with SBA for safety. Pt then ambulated to w/c for tech to take pt to procedure. All needs met. Therapy Code Descriptions/Definitions Functional [place] Measure: 0=Not Assessed/NA 4=Minimal Assistance 1=Total Assistance 5=Supervision or Setup 2=Maximal Assistance 6=Modified [place] 3=Moderate Assistance 7=Complete IndependenceSCALE: Activities may be completed with or without assistive devices. 0-Kfyxyfphkm-xmtgner completes the activity by him/herself with no assistance from a helper. 5-Set-up or Clean-up Assistance-helper sets up or cleans up; patient completes activity. [place] assists only prior to or following the activity. 4-Supervision or Touching Assistance-helper provides verbal cues and/or touching/steadying and/or contact guard assistance as patient completes activity. Assistance may be provided throughout the activity or intermittently. 3-Partial/Moderate Assistance-helper does LESS THAN HALF the effort. [place] lifts, holds or supports trunk or limbs, but provides less than half the effort. 2-Substantial/Maximal Assistance-helper does MORE THAN HALF the effort. [place] lifts or holds trunk or limbs and provides more than half the effort. 2-Nypdivmko-ggenfd does ALL the effort. Patient does none of the effort to complete the activity. Or, the assistance of 2 or more helpers is required for the patient to complete the activity. If activity was not attempted, code reason: 7-Patient Refused. 9-Not Applicable-not attempted and the patient did not perform the activity bef ore the current illness, exacerbation or injury. 10-Not Attempted due to Environmental Limitations-(lack of equipment, weather r estraints, etc.). 88-Not Attempted due to Medical Conditions or Safety Concerns. Lower Body Dressing (QC): 4 Toileting Hygiene (QC): 4 Toilet Transfer (QC): 4 OT Customer Contact Representative Goals Customer Contact Representative Goals Time Frame: Sep 23, 2021 Eating (QC): 6 Oral Hygiene (QC): 6 Toileting Hygiene (QC): 6 Shower/Bathe Self (QC): 4 Upper Body Dressing (QC): 5 Lower Body Dressing (QC): 4 On/Off Footwear (QC): 4 Additional Goals: 1-Demonstrate ADL Tasks, 2-Verbalize Understanding, 3- ImproveStrength/Santino 1=Demonstrate adherence to instructed precautions during ADL tasks. 2=Patient will verbalize/demonstrate understanding of assistive devices/modifications for ADL. 3=Patient will improve strength/tolerance for activity to enable patient to perform ADL's. OT Education/Plan Problem List/Assessment Assessment: Decreased Activ Tolerance, Impaired Self-Care Skills Discharge Recommendations Plan/Recommendations: Continue POC Treatment Plan/Plan of Care Patient would benefit from OT for education, treatment and training to promote independence in ADL's, mobility, safety and/or upper extremity function for ADL's. Plan of Care: ADL Retraining, Functional Mobility, UE Funct Exercise/Act Treatment Duration: Sep 23, 2021 Frequency: 3 times per week (3-5 times per week) Estimated Hrs Per Day: .25 hour per day Agreement: Yes Rehab Potential: Good Time/GCodes Start Time: 10:55 Stop Time: 11:15 Total Time Billed (hr/min): 20 Billed Treatment Time 1 visit-ADL 1 (20 min) JOSLYN SANTANA Sep 13, 2021 11:41
--- NOTE | 2021-09-13 11:57 | Occupational Ther Daily Note ---
OT Current Status-Daily Note Subjective Pt dozing in recliner, woke to name. 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 Pt agrees to therapy. No c/o pain. Mental Status/Objective Patient Orientation: Person, Place, Time, Situation Attachments: IV ADL-Treatment Pt declines any bathing or dressing. Pt does agree to oral care. Pt does not have dentures here, but is willing to complete oral care. Pt requires set up due to low vision. Pt then is able to complete by self, SBA only for handing pt items. After therapy, pt sitting in recliner with call light/phone in reach. All needs met in room. Therapy Code Descriptions/Definitions Functional [place] Measure: 0=Not Assessed/NA 4=Minimal Assistance 1=Total Assistance 5=Supervision or Setup 2=Maximal Assistance 6=Modified [place] 3=Moderate Assistance 7=Complete IndependenceSCALE: Activities may be completed with or without assistive devices. 3-Wplqknrfhl-djjcwls completes the activity by him/herself with no assistance from a helper. 5-Set-up or Clean-up Assistance-helper sets up or cleans up; patient completes activity. [place] assists only prior to or following the activity. 4-Supervision or Touching Assistance-helper provides verbal cues and/or touching/steadying and/or contact guard assistance as patient completes activity. Assistance may be provided throughout the activity or intermittently. 3-Partial/Moderate Assistance-helper does LESS THAN HALF the effort. [place] lifts, holds or supports trunk or limbs, but provides less than half the effort. 2-Substantial/Maximal Assistance-helper does MORE THAN HALF the effort. [place] lifts or holds trunk or limbs and provides more than half the effort. 1-Lthxsgokl-cvztbt does ALL the effort. Patient does none of the effort to complete the activity. Or, the assistance of 2 or more helpers is required for the patient to complete the activity. If activity was not attempted, code reason: 7-Patient Refused. 9-Not Applicable-not attempted and the patient did not perform the activity before the current illness, exacerbation or injury. 10-Not Attempted due to Environmental Limitations-(lack of equipment, weather restraints, etc.). 88-Not Attempted due to Medical Conditions or Safety Concerns. Oral Hygiene (QC): 4 OT Hand Rug Braider Goals Hand Rug Braider Goals Time Frame: Sep 23, 2021 Eating (QC): 6 Oral Hygiene (QC): 6 Toileting Hygiene (QC): 6 Shower/Bathe Self (QC): 4 Upper Body Dressing (QC): 5 Lower Body Dressing (QC): 4 On/Off Footwear (QC): 4 Additional Goals: 1-Demonstrate ADL Tasks, 2-Verbalize Understanding, 3- ImproveStrength/Santino 1=Demonstrate adherence to instructed precautions during ADL tasks. 2=Patient will verbalize/demonstrate understanding of assistive de vices/modifications for ADL. 3=Patient will improve strength/tolerance for activity to enable patient to perform ADL's. OT Education/Plan Problem List/Assessment Assessment: Impaired Self-Care Skills, Visual-Perceptual Deficit Discharge Recommendations Plan/Recommendations: Continue POC Treatment Plan/Plan of Care Patient would benefit from OT for education, treatment and training to promote independence in ADL's, mobility, safety and/or upper extremity function for ADL's. Plan of Care: ADL Retraining, Functional Mobility, UE Funct Exercise/Act Treatment Duration: Sep 23, 2021 Frequency: 3 times per week (3-5 times per week) Estimated Hrs Per Day: .25 hour per day Agreement: Yes Rehab Potential: Good Time/GCodes Start Time: 11:41 Stop Time: 11:53 Total Time Billed (hr/min): 12 Billed Treatment Time 1 visit-ADL 1 (12 min) JOSLYN SANTANA Sep 13, 2021 11:57
--- NOTE | 2021-09-13 14:00 | Physical Therapy Daily Note ---
PT Daily Note-Current Transfers SCALE: Activities may be completed with or without assistive devices. 2-Pkmezzfnxv-mrcnymx completes the activity by him/herself with no assistance from a helper. 5-Set-up or Clean-up Assistance-helper sets up or cleans up; patient completes activity. [place] assists only prior to or following the activity. 4-Supervision or Touching Assistance-helper provides verbal cues and/or touching/steadying and/or contact guard assistance as patient completes activity. Assistance may be provided throughout the activity or intermittently. 3-Partial/Moderate Assistance-helper does LESS THAN HALF the effort. [place] lifts, holds or supports trunk or limbs, but provides less than half the effort. 2-Substantial/Maximal Assistance-helper does MORE THAN HALF the effort. [place] lifts or holds trunk or limbs and provides more than half the effort. 1-Pwpqtxwdx-uttznx does ALL the effort. Patient does none of the effort to complete the activity. Or, the assistance of 2 or more helpers is required for the patient to complete the activity. If activity was not attempted, code reason: 7-Patient Refused. 9-Not Applicable-not attempted and the patient did not perform the activity before the current illness, exacerbation or injury. 10-Not Attempted due to Environmental Limitations-(lack of equipment, weather restraints, etc.). 88-Not Attempted due to Medical Conditions or Safety Concerns. Roll Left & Right (QC): 4 Sit to Lying (QC): 4 Lying to Sitting/Side of Bed(Q: 4 Sit to Stand (QC): 4 Weight Bearing Right Lower Extremity: Right Full Weight Bearing Left Lower Extremity: Left Full Weight Bearing Gait Training Does the Patient Walk?: Yes Distance: 100 feet Walk 10 feet (QC): 4 Walk 50 ft with 2 Turns(QC): 4 Gait Assistive Device: FWW Assessment Current Status: Fair Progress Patient demonstrates fair overall tolerance to activity. Demonstrates increased gait distance. Patient performs all observed bed mobility and transfers with SBA and verbal cues. Patient ambulates 100 feet with FWW, with SBA and verbal cues for posture, safety, progression and conservation of energy. Patient ambulates with narrow MOISES, shortened stride length bilaterally and fatigues quickly. Patient in bed post treatment with call light in hand, all needs met, nursing notified. PT Short Term Goals Short Term Goals Time Frame: Sep 16, 2021 Sit to lyin Lying to sitting on side of be: 6 Sit to stand: 6 Chair/lrc-qi-ljkjj transfer: 6 Walk 10 feet: 6 Walk 50 feet with two turns: 6 Walk 150 feet: 6 PT Plan Treatment/Plan Treatment Plan: Continue Plan of Care Treatment Plan: Bed Mobility, Education, Functional Activity Santino, Functional Strength, Gait, Safety, Therapeutic Exercise, Transfers Treatment Duration: Sep 16, 2021 Frequency: 6 times per week Estimated Hrs Per Day: .25 hour per day Patient and/or Family Agrees t: Yes Safety Risks/Education Patient Education: Gait Training Teaching Recipient: Patient Teaching Methods: Demonstration, Discussion Response to Teaching: Verbalize Understanding, Return Demonstration Time/GCodes Time In: 1338 Time Out: 1353 Total Billed Treatment Time: 15 Total Billed Treatment Visit, TING Garza PT Sep 13, 2021 14:00
--- NOTE | 2021-09-13 16:32 | NUCLEAR STRESS TEST ---
REGADENOSON NUCLEAR STRESS Date of procedure: 09/13/2021. Primary care provider: Kailash Lake MD Admitting physician: Jennifer Martinez DO. INDICATION: Abnormal electrocardiogram. BASELINE ELECTROCARDIOGRAM: Sinus rhythm with occasional premature supraventricular complexes, right bundle branch block and small inferolateral Q waves. STRESS TEST PROCEDURE: The patient was administered 0.4 mg of intravenous Regadenoson. The resting heart rate was 78 bpm and the peak heart rate was 107 bpm. The resting blood pressure was 146/66 mmHg and the minimum blood pressure was 129/66 mmHg. This represents a normal heart rate and a normal blood pressure response to Regadenoson. The test was stopped due to the protocol. There was no chest discomfort during the test. There were premature supraventricular complexes during the test. There were no significant stress induced electrocardiogram changes. NUCLEAR PROCEDURE: The patient was administered 10.4 mCi of intravenous technetium 99m Tetrofosmin at rest for the rest images. The patient was subsequently administered 32.6 mCi of intravenous technetium 99m Tetrofosmin at peak stress for the stress images. Following an appropriate wait after each injection, imaging was obtained. The images were subsequently processed and reformatted in the usual views. Gated imaging was obtained. The image quality was adequate with a mild degree of gastrointestinal attenuation artifact. CT attenuation correction was used as a adjunct to standard imaging. Both the corrected and uncorrected images were reviewed for interpretation. NUCLEAR RESULTS: There was normal myocardial perfusion in all segments without evidence of infarction or ischemia. There was normal left ventricular chamber size with an end-diastolic volume of 40 mL and an end-systolic volume of 11 mL. There was no evidence of transient ischemic dilatation. The TID ratio was 1.08. There was normal wall motion in all segments with a calculated ejection fraction of 72%. IMPRESSION: 1. Normal heart rate and blood pressure response to regadenoson. 2. There was no chest discomfort or electrocardiogram changes during the test. 3. There were isolated premature supraventricular complexes throughout the test. 4. There was normal myocardial perfusion in all segments without evidence of infarction or ischemia. 5. There was normal wall motion in all segments with a calculated ejection fraction of 72%. Certain portions of this document may have been dictated utilizing voice recognition technology. Inherent to this technology, typographical and grammatical errors may exist. As much as I am diligent to identify and correct these mistakes, some errors may remain in the document. SARAH LEE JR, MD Sep 13, 2021 16:32
[2021-09-13] MEDS: MELATONIN 3 MG TABLET PO PRN (21:03)
[2021-09-14 00:01] VITALS: BP 137/63
[2021-09-14 04:13] VITALS: BP 146/76
[2021-09-14 05:13] LABS: BASOPHILS % (AUTO) 0 % (0-10); EOSINOPHILS # (AUTO) 0.3 10^3/uL (0.0-0.3); EOSINOPHILS % (AUTO) 3 % (0-10); HEMATOCRIT 30 % (35-52); HEMOGLOBIN 9.4 g/dL (11.5-16.0); LYMPHOCYTES # (AUTO) 0.8 10^3/uL (1.0-4.0); LYMPHOCYTES % (AUTO) 9 % (12-44); MEAN CORPUSCULAR HEMOGLOBIN 23 pg (25-34); MEAN CORPUSCULAR HGB CONC 31 g/dL (32-36); MEAN CORPUSCULAR VOLUME 74 fL (80-99); MEAN PLATELET VOLUME 9.6 fL (9.0-12.2); MONOCYTES # (AUTO) 0.8 10^3/uL (0.0-1.0); MONOCYTES % (AUTO) 9 % (0-12); NEUTROPHILS # (AUTO) 7.1 10^3/uL (1.8-7.8); NEUTROPHILS % (AUTO) 78 % (42-75); PLATELET COUNT 246 10^3/uL (130-400)
[2021-09-14 05:20] LABS: ALBUMIN 3.5 GM/DL (3.2-4.5)
[2021-09-14 05:21] LABS: POTASSIUM 4.2 MMOL/L (3.6-5.0)
[2021-09-14 05:22] LABS: CALCIUM 9.4 MG/DL (8.5-10.1)
[2021-09-14 05:23] LABS: TOTAL PROTEIN 5.9 GM/DL (6.4-8.2)
[2021-09-14 05:25] LABS: BILIRUBIN,TOTAL 0.4 MG/DL (0.1-1.0)
[2021-09-14 05:26] LABS: CREATININE SERUM 0.74 MG/DL (0.60-1.30)
[2021-09-14] MEDS: MEROPENEM 1,000 MG in NS (IVPB) 100 ML IV SCH (06:13)
[2021-09-14] MEDS: CYANOCOBALAMIN 1,000 MCG (VITAMIN B-12) TABLET PO SCH (06:13)
[2021-09-14] MEDS: RT-ALBUTEROL SULF 2.5 MG/3 ML PRE-MIX VIAL INH SCH ×2 (06:54→14:29)
[2021-09-14 08:00] VITALS: BP 131/68
[2021-09-14] MEDS: SENNOSIDES 8.6 MG (SENOKOT) TAB PO SCH (08:24)
[2021-09-14] MEDS: DOCUSATE SODIUM 100 MG (COLACE) CAP PO SCH (08:24)
[2021-09-14] MEDS: ASPIRIN E.C. 81 MG (ECOTRIN) TAB PO SCH ×2 (08:28→09:21)
[2021-09-14] MEDS: PANTOPRAZOLE 40 MG (PROTONIX) VIAL IV SCH (08:28)
--- NOTE | 2021-09-14 09:11 | Cardiology Progress Note ---
Progress Note-Cardiology Events since last exam Date Seen by Provider: Sep 14, 2021 Time Seen by Provider: 09:10 Events since last exam I am following her due to atrial arrhythmias. She feels weak and tired today. No change in her chronic dyspnea on exertion which she relates is due to her long history of cigarette smoking which she has quit. She denies chest pain, palpitations, syncope, or ankle edema. Certain portions of this document may have been dictated utilizing voice recognition technology. Inherent to this technology, typographical and grammatical errors may exist. As much as I am diligent to identify and correct these mistakes, some errors may remain in the document. Vitals Last set of Vitals Signs Vital Signs 09/12/21 09/14/21 09/14/21 11:12 04:13 07:00 Temp 36.5 Pulse 77 Resp 18 B/P (MAP) 146/76 (99) Pulse Ox 98 O2 Delivery Nasal Cannula O2 Flow Rate 2.00 FiO2 28 Labs Labs Laboratory Tests 09/14/21 05:05 Exam Vital Signs Vital Signs Date Time Temp Pulse Resp B/P (MAP) Pulse Ox O2 Delivery O2 Flow Rate FiO2 09/14/21 07:00 77 09/14/21 07:00 98 Nasal Cannula 2.00 09/14/21 04:13 36.5 18 146/76 (99) 09/12/21 11:12 28 Physical Exam General: Alert. No acute distress. Eye: No xanthelasma. HENT: Normocephalic. Neck: Jugular venous pressure does not appear elevated. Respiratory: Lungs are clear to auscultation. Respirations are non-labored. Breath sounds are equal. Symmetrical chest wall expansion. Cardiovascular: Normal rate. Regular rhythm. 2/6 high-pitched systolic ejection murmur. No gallop. No edema. Gastrointestinal: Soft. Normal bowel sounds. Skin: Warm. Dry. Neurologic: Alert and oriented to person, place, time. Cranial nerves 3-11 grossly intact. Psychiatric: Cooperative. Appropriate mood & affect. Labs Laboratory Tests Test 09/14/21 05:05 Range/Units White Blood Count 9.0 4.3-11.0 10^3/uL Red Blood Count 4.07 3.80-5.11 10^6/uL Hemoglobin 9.4 L 11.5-16.0 g/dL Hematocrit 30 L 35-52 % Mean Corpuscular Volume 74 L 80-99 fL Mean Corpuscular Hemoglobin 23 L 25-34 pg Mean Corpuscular Hemoglobin Concent 31 L 32-36 g/dL Red Cell Distribution Width 18.4 H 10.0-14.5 % Platelet Count 246 130-400 10^3/uL Mean Platelet Volume 9.6 9.0-12.2 fL Immature Granulocyte % (Auto) 1 % Neutrophils (%) (Auto) 78 H 42-75 % Lymphocytes (%) (Auto) 9 L 12-44 % Monocytes (%) (Auto) 9 0-12 % Eosinophils (%) (Auto) 3 0-10 % Basophils (%) (Auto) 0 0-10 % Neutrophils # (Auto) 7.1 1.8-7.8 10^3/uL Lymphocytes # (Auto) 0.8 L 1.0-4.0 10^3/uL Monocytes # (Auto) 0.8 0.0-1.0 10^3/uL Eosinophils # (Auto) 0.3 0.0-0.3 10^3/uL Basophils # (Auto) 0.0 0.0-0.1 10^3/uL Immature Granulocyte # (Auto) 0.1 0.0-0.1 10^3/uL Sodium Level 133 L 135-145 MMOL/L Potassium Level 4.2 3.6-5.0 MMOL/L Chloride Level 100 98-107 MMOL/L Carbon Dioxide Level 22 21-32 MMOL/L Anion Gap 11 5-14 MMOL/L Blood Urea Nitrogen 12 7-18 MG/DL Creatinine 0.74 0.60-1.30 MG/DL Estimat Glomerular Filtration Rate 80 BUN/Creatinine Ratio 16 Glucose Level 91 70-105 MG/DL Calcium Level 9.4 8.5-10.1 MG/DL Corrected Calcium 9.8 8.5-10.1 MG/DL Total Bilirubin 0.4 0.1-1.0 MG/DL Aspartate Amino Transf (AST/SGOT) 12 5-34 U/L Alanine Aminotransferase (ALT/SGPT) 8 0-55 U/L Alkaline Phosphatase 100 40-136 U/L Total Protein 5.9 L 6.4-8.2 GM/DL Albumin 3.5 3.2-4.5 GM/DL Diagnosis/Problems Diagnosis/Problems (1) Supraventricular tachycardia Status: Acute Assessment & Plan: She mainly seemed to be having intermittent paroxysmal supraventricular tachycardia at the time of admission. Exact electrophysiologic mechanism is unclear. I now have her on once daily diltiazem CD. She had been taking this at home but there was some confusion about the dose. Her son told me she had previously been on a higher dose but developed fatigue and the dose was cut back. The arrhythmia has improved. I recommend a 24-hour Holter monitor following discharge. I will arrange for this through my office after she goes home. (2) Paroxysmal atrial fibrillation Assessment & Plan: She also had some irregular supraventricular tachycardia while she was in the emergency room which could have been brief bursts of atrial fibrillation. She has not had any prolonged atrial fibrillation since being admitted. As above, I will have her undergo a 24-hour Holter monitor for some initial screening after she is discharged. There is no strong indication for oral anticoagulation at this time. (3) Abnormal electrocardiogram Assessment & Plan: She has a borderline abnormal electrocardiogram and had ST depression when she had tachycardia. She underwent a nuclear stress test on 09/13 and this showed normal perfusion with a normal ejection fraction. No additional testing is indicated for this abnormal electrocardiogram at this time. I previously started her on low strength aspirin. She is intolerant of statin medications. (4) Primary hypertension Assessment & Plan: She is on diltiazem and blood pressures had been well controlled. If the records are correct, the dose of diltiazem she is taking now is the same dose she was taking prior to admission. Her blood pressures have again improved over the past 24 hours. I recommend she continue the present dose of diltiazem. If her blood pressures become elevated again, I would recommend increasing the diltiazem as opposed to adding a different agent. (5) Cigarette smoker Assessment & Plan: She just quit smoking prior to admission. Ongoing cessation was encouraged. SARAH LEE JR, MD Sep 14, 2021 09:10
[2021-09-14] MEDS ORDERED: CYAN-41 PO (10:51)
[2021-09-14] MEDS ORDERED: ASPI-1238 PO (11:01)
--- NOTE | 2021-09-14 11:03 | Discharge Summary ---
Discharge Summary Hospital Course Was the Problem List Reviewed?: Yes Problems/Dx: (1) Supraventricular tachycardia Status: Acute (2) Paroxysmal atrial fibrillation (3) Abnormal electrocardiogram (4) Primary hypertension (5) Cigarette smoker Hospital Course Date of Admission: Sep 09, 2021 at 17:12 Admission Diagnosis : Family Physician/Provider: Kailash Lake MD Date of Discharge: 09/14/21 Discharge Diagnosis: Colitis, SVT, anemia requiring transfusion but allergic to iron Hospital Course: Pt had an uneventful hospital course for 6 days after she was admitted for abdominal pain found to have colitis and paroxysmal SVT. Pt was placed on Aspirin treatment, since oral anticoagulation was not an option due to severe anemia requiring transfusion. She did complete antibiotics for the colitis. Dr. Wolfe consulted. No evidence of required in-patient scopes. She will be required to have EGD and colonoscopy as an outpatient. She was deemed stable for discharge. She refused any home health or snf at discharge. Labs and Pending Lab Test: Laboratory Tests 09/14/21 05:05: White Blood Count 9.0, Red Blood Count 4.07, Hemoglobin 9.4L, Hematocrit 30L, Mean Corpuscular Volume 74L, Mean Corpuscular Hemoglobin 23L, Mean Corpuscular Hemoglobin Concent 31L, Red Cell Distribution Width 18.4H, Platelet Count 246, Mean Platelet Volume 9.6, Immature Granulocyte % (Auto) 1, Neutrophils (%) (Auto) 78H, Lymphocytes (%) (Auto) 9L, Monocytes (%) (Auto) 9, Eosinophils (%) (Auto) 3, Basophils (%) (Auto) 0, Neutrophils # (Auto) 7.1, Lymphocytes # (Auto) 0.8L, Monocytes # (Auto) 0.8, Eosinophils # (Auto) 0.3, Basophils # (Auto) 0.0, Immature Granulocyte # (Auto) 0.1, Sodium Level 133L, Potassium Level 4.2, Chloride Level 100, Carbon Dioxide Level 22, Anion Gap 11, Blood Urea Nitrogen 12, Creatinine 0.74, Estimat Glomerular Filtration Rate 80, BUN/Creatinine Ratio 16, Glucose Level 91, Calcium Level 9.4, Corrected Calcium 9.8, Total Bilirubin 0.4, Aspartate Amino Transf (AST/SGOT) 12, Alanine Aminotransferase (ALT/SGPT) 8, Alkaline Phosphatase 100, Total Protein 5.9L, Albumin 3.5 Microbiology 09/09/21 Blood Culture - Preliminary, Resulted Staph, 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) 09/09/21 Urine Culture - Final, Complete Escherichia coli See Comments Home Meds Active Vitamin B-12 (Cyanocobalamin (Vitamin B-12)) 1,000 Mcg Tablet 1,000 Mcg PO DAILY@0700 Diltiazem 24Hr ER (Diltiazem HCl) 180 Mg Cap.er.24h 180 Mg PO DAILY Diltiazem 24Hr ER (Diltiazem HCl) 240 Mg Cap.er.24h 240 Mg PO DAILY LAST FILLED 03-16-2020 #90/90 DAY SUPPLY Reported Tramadol HCl 50 Mg Tablet 50 Mg PO BID PRN Pantoprazole Sodium 40 Mg Tablet.dr 40 Mg PO DAILY Diltiazem HCl 60 Mg Tablet 60 Mg PO BID Ativan (Lorazepam) 0.5 Mg Tablet 0.5 Mg PO BID PRN Albuterol Sulfate 2.5 Mg/3 Ml Vial.neb 1 Vial PO Q6H PRN Ondansetron Odt (Ondansetron) 4 Mg Tab.rapdis 4 Mg PO Q6H PRN Ventolin Hfa (Albuterol Sulfate) 1 Puff Puff 2 Puff INH Q6H PRN Assessment/Pt Instructions PCP in 1 week Discharge Planning: <30 minutes discharge planning Discharge Instructions Discharge Diet: No Restrictions Activity as Tolerated: Yes Discharge Physical Examination Vital Signs Vital Signs Date Time Temp Pulse Resp B/P (MAP) Pulse Ox O2 Delivery O2 Flow Rate FiO2 09/14/21 08:00 36.5 95 18 131/68 (89) 98 Nasal Cannula 1.00 09/12/21 11:12 28 General Appearance: No Apparent Distress, WD/WN, Chronically ill Respiratory: Lungs Clear Cardiovascular: Regular Rate, Rhythm Neurologic/Psychiatric: Alert, Oriented x3 Allergies: Coded Allergies: Hqthlrt-HPD-ZhS Reductase Inhibitor (Verified Allergy, Unknown, 08/25/20) Sulfa (Sulfonamide Antibiotics) (Unverified Allergy, Unknown, 08/21/18) amoxicillin (Verified Allergy, Unknown, 08/25/20) aspartame (Unverified Allergy, Unknown, 08/21/18) atorvastatin (Verified Allergy, Unknown, 08/25/20) bee venom protein (honey bee) (Verified Allergy, Unknown, 08/25/20) diphenhydramine (Verified Allergy, Unknown, 08/25/20) ipratropium (Verified Allergy, Unknown, 08/25/20) iron (Unverified Allergy, Unknown, 08/21/18) "TACHYCARDIA" WITH IV INFUSION nicotine (Verified Allergy, Unknown, 08/25/20) quinine (Verified Allergy, Unknown, 08/25/20) Discharge Summary Date of Admission Sep 09, 2021 at 17:12 Date of Discharge Discharge Date: Sep 14, 2021 Admission Diagnosis Assessment: Atrial tachycardia status post Cardizem drip History of TIA and stroke Acute colitis placed on antibiotics consulted general surgery Hypertension Plan: Supportive care IV antibiotics Moved to fourth floor Appreciate Dr. WOLFE and Dr. Murillo Discharge Diagnosis Assessment: Atrial tachycardia status post Cardizem drip History of TIA and stroke Acute colitis placed on antibiotics consulted general surgery Hypertension Symptomatic anemia requiring transfusion on 09/12/2021 Plan: Supportive care IV antibiotics Moved to fourth floor Appreciate Dr. WOLFE and Dr. Murillo 09/11/2021: Supportive care PT and OT tomorrow 09/12/2021: Transfuse [address] WOLFE of anemia 09/13/2021: Supportive care Refuses snf or home health (1) Supraventricular tachycardia Status: Acute Assessment & Plan: She mainly seemed to be having intermittent paroxysmal supraventricular tachycardia at the time of admission. Exact electrophysiologic mechanism is unclear. I now have her on once daily diltiazem CD. She had been taking this at home but there was some confusion about the dose. Her son told me she had previously been on a higher dose but developed fatigue and the dose was cut back. The arrhythmia has improved. I recommend a 24-hour Holter monitor following discharge. I will arrange for this through my office after she goes home. (2) Paroxysmal atrial fibrillation Assessment & Plan: She also had some irregular supraventricular tachycardia while she was in the emergency room which could have been brief bursts of atrial fibrillation. She has not had any prolonged atrial fibrillation since being admitted. As above, I will have her undergo a 24-hour Holter monitor for some initial screening after she is discharged. There is no strong indication for oral anticoagulation at this time. (3) Abnormal electrocardiogram Assessment & Plan: She has a borderline abnormal electrocardiogram and had ST depression when she had tachycardia. She underwent a nuclear stress test on 03/22 and this showed normal perfusion with a normal ejection fraction. No additional testing is indicated for this abnormal electrocardiogram at this time. I previously started her on low strength aspirin. She is intolerant of statin medications. (4) Primary hypertension Assessment & Plan: She is on diltiazem and blood pressures had been well cont rolled. If the records are correct, the dose of diltiazem she is taking now is the same dose she was taking prior to admission. Her blood pressures have again improved over the past 24 hours. I recommend she continue the present dose of diltiazem. If her blood pressures become elevated again, I would recommend increasing the diltiazem as opposed to adding a different agent. (5) Cigarette smoker Assessment & Plan: She just quit smoking prior to admission. Ongoing cessation was encouraged. Clinical Quality Measures DVT/VTE Risk/Contraindication: Contraindications-Pharm: Other *list below* Other: ANA PAULA Khalil DO Sep 14, 2021 11:03
--- NOTE | 2021-09-14 11:15 | Occ Therapy Progress Note ---
Therapy Progress Note Pt discharging to home today. Checked on pt, pt declined any treatment from OT services today. 1 refusal: [id number] JOSLYN SANTANA Sep 14, 2021 11:15
[2021-09-14 11:36] VITALS: BP 128/69
--- NOTE | 2021-09-14 12:19 | Physical Therapy Daily Note ---
PT Daily Note-Current Subjective Pt pleasant and agreeable. Pt denies pain. Pt expresses she hopes to go home soon. Pt requests to return to bed post therapy. Pt denies pain, "just SOA" post gait training. Mental Status Patient Orientation: Person, Place, Situation Attachments: Oxygen Transfers SCALE: Activities may be completed with or without assistive devices. 8-Adbbvwbvoc-xawjlwf completes the activity by him/herself with no assistance from a helper. 5-Set-up or Clean-up Assistance-helper sets up or cleans up; patient completes activity. [place] assists only prior to or following the activity. 4-Supervision or Touching Assistance-helper provides verbal cues and/or touching/steadying and/or contact guard assistance as patient completes activity. Assistance may be provided throughout the activity or intermittently. 3-Partial/Moderate Assistance-helper does LESS THAN HALF the effort. [place] lifts, holds or supports trunk or limbs, but provides less than half the effort. 2-Substantial/Maximal Assistance-helper does MORE THAN HALF the effort. [place] lifts or holds trunk or limbs and provides more than half the effort. 7-Infxeueaa-epxsox does ALL the effort. Patient does none of the effort to complete the activity. Or, the assistance of 2 or more helpers is required for the patient to complete the activity. If activity was not attempted, code reason: 7-Patient Refused. 9-Not Applicable-not attempted and the patient did not perform the activity before the current illness, exacerbation or injury. 10-Not Attempted due to Environmental Limitations-(lack of equipment, weather restraints, etc.). 88-Not Attempted due to Medical Conditions or Safety Concerns. Pt transfers mod (I) all levels Weight Bearing Right Lower Extremity: Right Full Weight Bearing Left Lower Extremity: Left Full Weight Bearing Gait Training Gait Assistive Device: FWW PT amb with FWW and Port O2 2L/min x 250ft, slow but steady Exercises Supine Ex: Ankle pumps, Quad Set, Short Arc Quads Supine Reps: 15 Assessment Current Status: Good Progress Pt back to bed per pt request. Call light in reach and all needs met. O2 per nasal canula. Pt igor well, somewhat fatigued with above. PT Short Term Goals Short Term Goals Time Frame: Sep 16, 2021 Sit to lyin Lying to sitting on side of be: 6 Sit to stand: 6 Chair/sfg-yy-rhxvw transfer: 6 Walk 10 feet: 6 Walk 50 feet with two turns: 6 Walk 150 feet: 6 PT Plan Treatment/Plan Treatment Plan: Continue Plan of Care Treatment Plan: Bed Mobility, Education, Functional Activity Santino, Functional Strength, Gait, Safety, Therapeutic Exercise, Transfers Treatment Duration: Sep 16, 2021 Frequency: 6 times per week Estimated Hrs Per Day: .25 hour per day Patient and/or Family Agrees t: Yes Time/GCodes Time In: 930 Time Out: 1000 Total Billed Treatment Time: 30 Total Billed Treatment 1, gait 25', ther ex 5' ANDERSON HILL CPTA Sep 14, 2021 12:19
[2021-09-14 17:10] VITALS: BP 128/69
--- NOTE | 2021-09-15 09:05 | Physician Query Clarification ---
PQ-Further Specificity Admission/Discharge Admission Date: Sep 09, 2021 at 17:12 Discharge Date: Sep 14, 2021 at 17:10 Dr. Martinez, The medical record reflects the following clinical scenario: History/Risk Factors: Colitis, SVT, anemia, PAF Clinical Findings: CT abd - Wall thickening of the right hemicolon, which can be seen with an infectious or inflammatory colitis. WBC 15.2 Treatment: IV Meropenem Question: Can you further specify colitis per the clinical indicators above? Please document a response in the Progress Notes or Discharge Summary. 1. infectious colitis 2. noninfectious colitis 3. Other, with explanation of the clinical findings. 4. Clinically undetermined, no explanation for the clinical findings. PHYSICIAN RESPONSE Can you specify per above: 1 Please remember a lack of response to the above will prompt a phone page by CDI/Coding staff. In responding to this query, please exercise your independent professional judgment. The purpose of this communication is to more accurately reflect the complexity of your patients condition. The fact that a question is asked does not imply that any particular answer is desired or expected. Thank you for your timely response to this clarification. Requestors name: Krystle THIS PHYSICIAN QUERY FORM IS A PERMANENT PART OF THE MEDICAL RECORD KRYSTLE DELUCA Sep 15, 2021 09:05 ANA PAULA MARTINEZ DO Sep 15, 2021 21:09
== END 2021-09-14 17:10 | disposition home or self-care (01) | DRG 872 ==
LOC: EDUNIT# 12:22 → ER 12:24 → ICU 17:12 → 4TH 09-10 20:01
PROVIDERS: ADMIT Internal Medicine; ATTEND Internal Medicine
DX: A41.9 Sepsis, unspecified organism (principal); A09 Infectious gastroenteritis and colitis, unspecified; I47.1 Supraventricular tachycardia; D64.9 Anemia, unspecified; I48.0 Paroxysmal atrial fibrillation; I95.9 Hypotension, unspecified; R09.02 Hypoxemia; F32.A Depression, unspecified; I25.10 Atherosclerotic heart disease of native coronary artery without angina pectoris; J44.9 Chronic obstructive pulmonary disease, unspecified; I10 Essential (primary) hypertension; D47.3 Essential (hemorrhagic) thrombocythemia; R91.1 Solitary pulmonary nodule; F17.210 Nicotine dependence, cigarettes, uncomplicated; Z86.16 Personal history of COVID-19; Z87.11 Personal history of peptic ulcer disease; I25.2 Old myocardial infarction; Z86.73 Personal history of transient ischemic attack (TIA), and cerebral infarction without residual deficits; Z79.82 Long term (current) use of aspirin; Z79.899 Other long term (current) drug therapy; Z88.1 Allergy status to other antibiotic agents; Z91.030 Bee allergy status; Z88.2 Allergy status to sulfonamides; Z91.09 Other allergy status, other than to drugs and biological substances
CPT/HCPCS: 36410; 36415; 71045; 74177; 76937; 78452; 80053; 80061; 81000; 82274; 82607; 82947; 83540; 83605; 83735; 83874; 83880; 84484; 85007; 85025; 85027; 85610; 85730; 86850; 86900; 86901; 86920; 87040; 87088; 93005; 93017; 93041; 93306; 94640; 94664; 94760; 96365; 96366; 96367; 96374; 96375

== ENCOUNTER 2021-09-22 06:09 | Outpatient (CLI) | payer MEDICARE ==
[~2021-09-22] VITALS: Ht 160 cm; Wt 56.7 kg
[~2021-09-22 06:09] MED LIST changes: +ALBU2.5V4 PO; +CYAN-41 PO; +DILT180C85 PO; +DILT60TA PO; +TRM50T PO
[2021-09-22] MEDS ORDERED: SUCR1TAB PO (13:15)
== END 2021-09-23 07:00 | disposition home or self-care (01) ==
LOC: PREOP 06:09
PROVIDERS: ATTEND Surgery
DX: Z01.818 Encounter for other preprocedural examination (principal)

== ENCOUNTER 2021-09-28 08:37 | Outpatient (RCR) | payer MEDICARE ==
[~2021-09-28 08:37] MED LIST changes: +SUCR1TAB PO
[2021-09-28 09:03] LABS: BASOPHILS % (AUTO) 0 % (0-10); EOSINOPHILS # (AUTO) 0.1 10^3/uL (0.0-0.3); EOSINOPHILS % (AUTO) 1 % (0-10); LYMPHOCYTES # (AUTO) 0.5 10^3/uL (1.0-4.0); LYMPHOCYTES % (AUTO) 7 % (12-44); MEAN CORPUSCULAR HGB CONC 31 g/dL (32-36); MEAN CORPUSCULAR VOLUME 74 fL (80-99); MEAN PLATELET VOLUME 9.9 fL (9.0-12.2); MONOCYTES # (AUTO) 0.8 10^3/uL (0.0-1.0); MONOCYTES % (AUTO) 10 % (0-12); NEUTROPHILS # (AUTO) 6.5 10^3/uL (1.8-7.8); NEUTROPHILS % (AUTO) 81 % (42-75); PLATELET COUNT 419 10^3/uL (130-400); WHITE BLOOD COUNT 7.9 10^3/uL (4.3-11.0)
[2021-09-28 09:11] LABS: HEMATOCRIT 18 % (35-52); MEAN CORPUSCULAR HEMOGLOBIN 22 pg (25-34)
[2021-09-28 09:12] LABS: HEMOGLOBIN 5.6 g/dL (11.5-16.0)
[2021-09-28 10:28] LABS: BASOPHILS % (MANUAL) 0 %; EOSINOPHILS % (MANUAL) 1 %; LYMPHOCYTES % (MANUAL) 9 %; MONOCYTES % (MANUAL) 10 %; NEUTROPHILS % (MANUAL) 80 %
[2021-09-28 10:29] LABS: HYPOCHROMASIA 3+; MICROCYTOSIS 2+; PLATELET ESTIMATE INCREASED
[2021-09-28] MEDS ORDERED: NF-VITD400 PO (16:19)
[2021-09-29] MEDS ORDERED: ASPI-1238 PO (09:55)
[2021-09-29] MEDS ORDERED: DILT180C85 PO (09:55)
[2021-09-29] MEDS ORDERED: CYAN10007 PO (09:55)
[2021-09-29] MEDS ORDERED: LORA-404 PO (10:00)
[2021-09-29] MEDS ORDERED: ERGO1250 PO (10:00)
== END 2021-10-22 | disposition home or self-care (01) ==
LOC: LAB FS 08:37
PROVIDERS: ATTEND Family Medicine
DX: D50.9 Iron deficiency anemia, unspecified (principal)
CPT/HCPCS: 36415; 85007; 85027

== ENCOUNTER 2021-09-28 11:17 | Inpatient (IN) | payer MEDICARE ==
[~2021-09-28] VITALS: Ht 160 cm; Wt 58.6 kg
[2021-09-28] MEDS ORDERED: NS IV 500 ML 500 ML IV SCH (13:15)
[2021-09-28 14:57] VITALS: BP 117/52
[2021-09-28] MEDS ORDERED: ONDANSETRON 4 MG/2 ML (SDV) Z0FRAN IVP PRN (15:00)
[2021-09-28] MEDS ORDERED: fentaNYL INJ 100 MCG/2 ML AMP IVP PRN (15:00)
[2021-09-28 15:16] VITALS: BP 106/51
[2021-09-28] MEDS ORDERED: NF-VITD400 PO (16:19)
[2021-09-28 17:58] VITALS: BP 120/58
[2021-09-28 20:00] VITALS: BP 121/59
[2021-09-28] MEDS: NS IV 1000 ML 1,000 ML IV SCH (22:40)
[2021-09-28] MEDS ORDERED: LORazepam 0.5 MG (ATIVAN) TABLET PO ONE (23:15)
[2021-09-29] VITALS (7 sets, daily range): BP systolic 110–167; BP diastolic 70–79
[2021-09-29 05:36] LABS: BASOPHILS % (AUTO) 0 % (0-10); EOSINOPHILS # (AUTO) 0.1 10^3/uL (0.0-0.3); EOSINOPHILS % (AUTO) 1 % (0-10); HEMATOCRIT 28 % (35-52); LYMPHOCYTES # (AUTO) 0.4 10^3/uL (1.0-4.0); LYMPHOCYTES % (AUTO) 4 % (12-44); MEAN CORPUSCULAR HEMOGLOBIN 26 pg (25-34); MEAN CORPUSCULAR HGB CONC 33 g/dL (32-36); MEAN CORPUSCULAR VOLUME 79 fL (80-99); MONOCYTES % (AUTO) 9 % (0-12); NEUTROPHILS # (AUTO) 9.3 10^3/uL (1.8-7.8); NEUTROPHILS % (AUTO) 85 % (42-75); PLATELET COUNT 359 10^3/uL (130-400); WHITE BLOOD COUNT 10.9 10^3/uL (4.3-11.0)
[2021-09-29 05:43] LABS: ALBUMIN 3.5 GM/DL (3.2-4.5)
[2021-09-29 05:44] LABS: POTASSIUM 4.5 MMOL/L (3.6-5.0)
[2021-09-29 05:45] LABS: CALCIUM 8.7 MG/DL (8.5-10.1)
[2021-09-29 05:46] LABS: TOTAL PROTEIN 5.8 GM/DL (6.4-8.2)
[2021-09-29 05:48] LABS: BILIRUBIN,TOTAL 0.7 MG/DL (0.1-1.0)
[2021-09-29 05:50] LABS: CREATININE SERUM 0.78 MG/DL (0.60-1.30)
[2021-09-29] MEDS: PANTOPRAZOLE 40 MG (PROTONIX) VIAL IV SCH (08:29)
[2021-09-29] MEDS: NS IV 1000 ML 1,000 ML IV SCH ×3 (08:30→18:23)
[2021-09-29] MEDS ORDERED: PATIENT MAY USE OWN MEDS, ALL MC SCH (09:45)
[2021-09-29] MEDS ORDERED: RT-ALBUTEROL SULF 2.5 MG/3 ML PRE-MIX VIAL INH PRN (09:45)
[2021-09-29] MEDS ORDERED: LORazepam 0.5 MG (ATIVAN) TABLET PO PRN ×2 (09:45→11:30)
[2021-09-29] MEDS ORDERED: CYAN10007 PO (09:55)
[2021-09-29] MEDS: RT-ALBUTEROL SULF 2.5 MG/3 ML PRE-MIX VIAL INH PRN ×2 (09:55→14:57)
[2021-09-29] MEDS ORDERED: ASPI-1238 PO (09:55)
[2021-09-29] MEDS ORDERED: DILT180C85 PO (09:55)
[2021-09-29] MEDS ORDERED: ERGO1250 PO (10:00)
[2021-09-29] MEDS ORDERED: MAGNESIUM CITRATE 300 ML BTL PO NR ×2 (10:00→14:00)
[2021-09-29] MEDS ORDERED: LORA-404 PO (10:00)
--- NOTE | 2021-09-29 10:54 | HISTORY AND PHYSICAL ---
DATE OF SERVICE: ATTENDING PRIMARY CARE PHYSICIAN: Dr. Kailash Lake. HISTORY OF PRESENT ILLNESS: The patient is an 81-year-old female who is known to us. She initially presented to the Emergency Department approximately a month ago with generalized weakness and shortness of breath as well as a headache and lethargy. She was treated a few days prior for SVT and does have a history of atrial fibrillation. Upon presentation, she was found to be tachycardic in the 140s with a rhythm was consistent with an SVT; however, her rate was controlled on calcium channel blockers. She did report some nausea and vomiting as well as mild abdominal pain. She also reported loose stools as well as blood per rectum. She did undergo an EGD on 08/27/2020 where she was found to have a small hiatal hernia as well as a moderate gastritis and a small antral ulcer with an overlying clot with no active bleeding. She also had a CT scan performed, which did show inflammation of the right side of the colon that was consistent with a colitis. She was treated with conservative management and then was instructed to follow up with us for a followup EGD as well as a colonoscopy. She was seen by her primary care physician yesterday and was found to be anemic with hemoglobin of 5. She was scheduled to undergo an EGD as well as a colonoscopy by us; however, will need resuscitation with packed red cells. She was admitted and transfused and will undergo prep for a colonoscopy as well as an EGD and port placement tomorrow. She does have poor venous access and does need frequent blood draws for her ongoing issues with anemia. She does report today that she does feel somewhat better; however, does still have some weakness and fatigue and does currently feel short of breath, but reports that she has been getting breathing treatments at home and does have a history of COPD. MEDICAL HISTORY: Anemia, SVT, atrial fibrillation, history of myocardial infarction, hypertension, COPD, history of stroke, history of TIA, gastroesophageal reflux disease, peptic ulcer disease. PAST SURGICAL HISTORY: section, total abdominal hysterectomy. ALLERGIES: SULFA, STATINS, IRON, ASPARTAME QUININE, AMOXICILLIN, DIPHENHYDRAMINE, IPRATROPIUM, BEE VENOM, NICOTINE. MEDICATIONS: Albuterol sulfate 2 puffs q.6 hours p.r.n., albuterol sulfate nebulizer q.6 hours p.r.n. shortness of breath, aspirin 81 mg daily, vitamin B12 daily, diltiazem 180 mg daily, vitamin D2 every Sunday, lorazepam 0.5 mg daily and p.r.n., Protonix 40 mg daily, Carafate 1 gram before meals and at bedtime, tramadol 50 mg b.i.d. p.r.n. SOCIAL HISTORY: Previous for tobacco smoke, quit in 2021, negative for alcohol. FAMILY HISTORY: Father, myocardial infarction. Mother, hypertension, stroke. Siblings, hypertension. VITAL SIGNS: Blood pressure 165/79, pulse 99, respirations 18, pulse ox 95% on 3 liters nasal cannula, temperature 36 degrees Celsius. REVIEW OF SYSTEMS: This is a well-nourished elderly female, in no acute distress. She does report periods of shortness of breath, but no difficulty breathing. No chest pain, palpitations or diaphoresis. No nausea, vomiting or abdominal pain. No diarrhea or constipation. She does report episodes of bright red blood per rectum in the past. No dark tarry stools. No fever or chills. No recent inadvertent weight loss. All other review of systems negative. PHYSICAL EXAMINATION: CHEST: Clear. Good breath sounds bilaterally. HEART: Regular, no murmurs. EXTREMITIES: No lower extremity edema. Negative Homans sign. HEENT: No scleral icterus. NECK: No cervical lymphadenopathy. ABDOMEN: Soft, nontender, nondistended. SKIN: Warm, dry and pink. NEUROLOGIC: Awake, alert and oriented x3. ASSESSMENT AND PLAN: An 81-year-old female with anemia, who has also had a recent episode of colitis that was detected on CT scan as well as a history of peptic ulcer disease, anemia, weakness and fatigue as well as poor peripheral circulation. At this time, we will proceed with resuscitation with packed red blood cells for her anemia. We will also proceed with PUD prophylaxis as well as schedule her for an EGD and a colonoscopy as well as placement of a [place] implantable port. Job ID: [id number] DocumentID: [id number] Dictated Date: 09/29/2021 10:09:10 Internal Review And Audit Compliance Date: 09/29/2021 10:54:13 Dictated By: FAWN CHATTERJEE APRN
--- NOTE | 2021-09-29 14:15 | Progress Note-Pre Operative ---
Pre-Operative Progress Note H&P Reviewed The H&P was reviewed, patient examined and no changes noted. Date Seen by Provider: Sep 29, 2021 Time Seen by Provider: 14:15 Date H&P Reviewed: Sep 29, 2021 Time H&P Reviewed: 14:15 Pre-Operative Diagnosis: recurrent anemia, poor periperal circulation NELDA HUDSON MD Sep 29, 2021 14:15
[2021-09-29] MEDS: SUCRALFATE 1 GM (CARAFATE) TAB PO SCH ×3 (14:32→20:42)
--- NOTE | 2021-09-29 17:05 | Consultation - Hospitalist ---
DELANO KEARNS MED STUDENT 09/29/21 1705: HPI History of Present Illness: HPI/Chief Complaint CC: severe anemia HPI: This is Miss Hailey Turcios" an 81 yo F,with a past medical history including previous GI bleed, peptic ulcer disease, COPD, hypertension, atrial fibrillation, previous myocardial infarction and CAD. She presented from [place], after having her lab draw completed. Her Hgb was found to be 5.6. She was admitted to the medical/surgical floor for management under Dr. Wolfe. She received 2 units of blood yesterday. Her Hgb has improved to 9.0. There is no known source for the blood loss. She will undergo an EGD and colonoscopy, as well as, port placement scheduled for tomorrow. At this time, she is hemodynamically stable. She endorses shortness of breath, cough and nausea. The hospitalist service is aware of her, and will continue to follow the case as managed by Dr. Wolfe. Source: patient Date Seen 09/29/21 Attending Physician Rinku Wolfe MD PCP Kailash Lake MD Referring Physician Date of Admission Sep 28, 2021 at 13:03 Home Medications & Allergies Home Medications Reviewed patient Home Medication Reconciliation performed by pharmacy medication reconciliations automotive exhaust emissions technician and/or nursing. Patients Allergies have been reviewed. Allergies Allergies Coded Allergies Stgzsaz-VDP-MkY Reductase Inhibitor (Verified Allergy, Unknown, 08/25/20) Sulfa (Sulfonamide Antibiotics) (Unverified Allergy, Unknown, 08/21/18) amoxicillin (Verified Allergy, Unknown, 08/25/20) aspartame (Unverified Allergy, Unknown, 08/21/18) atorvastatin (Verified Allergy, Unknown, 08/25/20) bee venom protein (honey bee) (Verified Allergy, Unknown, 08/25/20) diphenhydramine (Verified Allergy, Unknown, 08/25/20) ipratropium (Verified Allergy, Unknown, 08/25/20) iron (Unverified Allergy, Unknown, 08/21/18) "TACHYCARDIA" WITH IV INFUSION nicotine (Verified Allergy, Unknown, 08/25/20) quinine (Verified Allergy, Unknown, 08/25/20) Past Ccrfylw-Twrqtq-Amtrmd Hx Patient Social History Tobacco Use?: Yes Tobacco type used: Cigarettes Smoking Status: Former Smoker Smokeless Tobacco Frequency: Former User Use of E-Cig and/or Vaping dev: No Substance use?: No Alcohol Use?: No Pt feels they are or have been: No Immunizations Up To Date Date of Influenza Vaccine: Jul 12, 2021 First/Initial COVID19 Vaccinat: NO Second COVID19 Vaccination Devan: NO Seasonal Allergies Seasonal Allergies: No Current Status status: No status: No Advance Directives: No Communicates: Verbally Primary Language: [place] Preferred Spoken Language: [place] Is interpretation needed?: No Sensory deficits: Vision impairment, Hearing impairment Implanted or Applied Medical D: None Past Medical History Surgeries: Section, Hysterectomy, Orthopedic COPD Atrial Fibrillation, Heart Attack, Hypertension Stroke, TIA Gastrointestinal Bleed Blood Disorders: Yes (essential thrombocytosis, chronic anemia transfusion dependent) PMHx: Depression COPD CAD HTN Chronic transfusion dependent anemia SurgHx: Hysterectomy Appendectomy Neck surgery Family Medical History Heart Disease Review of Systems Constitutional: No chills, No dizziness, No fever; weakness EENTM: No blurred vision Respiratory: cough (chronic ), short of breath Cardiovascular: No chest pain, No edema, No palpitations Gastrointestinal: No abdominal pain, No constipation, No diarrhea; nausea; No vomiting Genitourinary: No dysuria, No frequency Physical Exam Physical Exam Vital Signs Vital Signs - First Documented Capillary Refill : Height, Weight, BMI Height: 5'2.00" Weight: 139lbs. 0.0oz. [id number]; 22.89 BMI Method: General Appearance: WD/WN, Anxious, Mild Distress HEENT: Moist Mucous Membranes; No Scleral Icterus (L), No Scleral Icterus (R) Neck: Full Range of Motion, Normal Inspection, Non Tender; No Lymphadenopathy (L), No Lymphadenopathy (R) Respiratory: Chest Non Tender, Decreased Breath Sounds (bilateral lower lobes ), Respiratory Distress Cardiovascular: Regular Rate, Rhythm, No Edema, No Murmur, Normal Peripheral Pulses Gastrointestinal: Normal Bowel Sounds, Non Tender, Soft Extremity: No Pedal Edema, Slow Capillary Refill Neurologic/Psychiatric: Alert, Oriented x3, Depressed Affect Skin: Normal Color, Warm/Dry Lymphatic: No Adenopathy Results Results/Procedures Labs Laboratory Tests 09/29/21 05:25 Patient resulted labs reviewed. Assessment/Plan Assessment and Plan Assess & Plan/Chief Complaint CC: severe anemia A/P - Severe anemia - Previous GI bleed - Peptic ulcer disease - COPD - Hypertension - AFib - History of SVT - previous myocardial infarction - history of TIA - CAD - Depression - Will continue plan as instructed by Dr. Wolfe - PRBC's as required - Colonoscopy prep today - EGD and colonoscopy tomorrow - Port placement, for poor peripheral circulation - Albuterol nebulized, Q6hr PRN - GI ppx with sucralfate - Hospitalist service will continue to follow case LIZET NUNN DO 09/30/21 0526: HPI History of Present Illness: HPI/Chief Complaint Chief complaint: Severe anemia History of present illness: This is an 81-year-old white female known to me from prior admission for midepigastric pain shortness of breath status post EGD at that time who presents to the hospital as a direct admission from her primary care provider's office due to a hemoglobin of 5.0. She required 2 units of blood and now her hemoglobin is good at 9.0. She will have EGD and colonoscopy tomorrow with placement of port. Source: patient Exam Limitations: no limitations Past Nuczuep-Zzcpoz-Ccudkr Hx Patient Social History Marrital Status: single Employed/Student: retired Smoking Status: Former Smoker Past Medical History COPD Atrial Fibrillation, High Cholesterol, Hypertension Colitis, Gastrointestinal Bleed Review of Systems Constitutional: see HPI Physical Exam Physical Exam General Appearance: WD/WN, Anxious, Chronically ill, Mild Distress Respiratory: Lungs Clear, Normal Breath Sounds Cardiovascular: Regular Rate, Rhythm Neurologic/Psychiatric: Alert, Oriented x3 Assessment/Plan Assessment and Plan Assess & Plan/Chief Complaint Assessment: Symptomatic anemia with hemoglobin of 5.0 requiring 2 units of blood Recent atrial tachycardia status post Cardizem drip History of TIA and stroke Recent acute colitis placed on antibiotics consulted general surgery to perform EGD last hospital stay Hypertension Symptomatic anemia requiring transfusion on 09/12/2021 Plan: EGD and colonoscopy tomorrow Port placement Supportive care Supervisory-Addendum Brief Verification & Attestation Participated in pt care: history, MDM, physical Personally performed: exam, history, MDM, supervision of care Care discussed with: Medical Student Procedures: n/a Results interpretation: Verified all documentation Verification and Attestation of Medical Student E/M Service A medical student performed and documented this service in my presence. I reviewed and verified all information documented by the medical student and made modifications to such information, when appropriate. I personally performed the physical exam and medical decision making. Lizet Nunn, Sep 30, 2021,05:22 DELANO KEARNS MED STUDENT Sep 29, 2021 17:05 LIZET NUNN DO Sep 30, 2021 05:26
[2021-09-29] MEDS ORDERED: LORazepam 0.5 MG (ATIVAN) TABLET PO SCH (21:00)
[2021-09-30] VITALS (13 sets, daily range): BP systolic 124–157; BP diastolic 58–91
[2021-09-30] MEDS: RT-ALBUTEROL SULF 2.5 MG/3 ML PRE-MIX VIAL INH PRN ×3 (02:44→17:23)
[2021-09-30 06:21] LABS: BASOPHILS % (AUTO) 0 % (0-10); EOSINOPHILS % (AUTO) 0 % (0-10); HEMATOCRIT 27 % (35-52); HEMOGLOBIN 8.5 g/dL (11.5-16.0); LYMPHOCYTES # (AUTO) 0.3 10^3/uL (1.0-4.0); LYMPHOCYTES % (AUTO) 3 % (12-44); MEAN CORPUSCULAR HEMOGLOBIN 25 pg (25-34); MEAN CORPUSCULAR HGB CONC 32 g/dL (32-36); MEAN CORPUSCULAR VOLUME 80 fL (80-99); MEAN PLATELET VOLUME 9.9 fL (9.0-12.2); MONOCYTES # (AUTO) 1.1 10^3/uL (0.0-1.0); MONOCYTES % (AUTO) 8 % (0-12); NEUTROPHILS # (AUTO) 12.1 10^3/uL (1.8-7.8); NEUTROPHILS % (AUTO) 88 % (42-75); PLATELET COUNT 365 10^3/uL (130-400); WHITE BLOOD COUNT 13.7 10^3/uL (4.3-11.0)
[2021-09-30 06:37] LABS: ALBUMIN 3.4 GM/DL (3.2-4.5); BILIRUBIN,TOTAL 0.7 MG/DL (0.1-1.0); CALCIUM 8.5 MG/DL (8.5-10.1); CREATININE SERUM 0.72 MG/DL (0.60-1.30); POTASSIUM 4.1 MMOL/L (3.6-5.0); TOTAL PROTEIN 5.6 GM/DL (6.4-8.2)
[2021-09-30] MEDS ORDERED: CYANOCOBALAMIN 1,000 MCG (VITAMIN B-12) TABLET PO SCH (07:00)
[2021-09-30] MEDS: SUCRALFATE 1 GM (CARAFATE) TAB PO SCH ×3 (07:58→16:33)
[2021-09-30] MEDS: NS IV 1000 ML 1,000 ML IV SCH ×2 (07:58→16:27)
[2021-09-30] MEDS: PANTOPRAZOLE 40 MG (PROTONIX) VIAL IV SCH (07:58)
[2021-09-30] MEDS ORDERED: ASPIRIN E.C. 81 MG (ECOTRIN) TAB PO SCH (09:00)
[2021-09-30] MEDS ORDERED: PANTOPRAZOLE 40 MG (PROTONIX) TAB PO SCH (09:00)
[2021-09-30] MEDS ORDERED: NON-FORMULARY MEDICATION 1 EA EA (Cyanocobalamin (Vitamin B-12) (Vitamin B-12) 1,000 MCG) PO SCH (09:00)
[2021-09-30] MEDS ORDERED: PROPOFOL INJECTION 50 ML IV ONE (10:58)
[2021-09-30] MEDS ORDERED: LIDOCAINE/EPI 2% 1:200,00 (XYLOCAINE) 20 ML VIAL ONE (11:18)
[2021-09-30] MEDS ORDERED: HEParin (CENTRAL IV FLUSH) 500 UNIT/5 ML SYR ONE (11:18)
[2021-09-30] MEDS ORDERED: 0.9% SODIUM CHLORIDE PF INJ 20 ML VIAL ONE (11:18)
[2021-09-30] MEDS ORDERED: ceFAZolin INJECTION 1,000 MG ONE (13:01)
[2021-09-30] MEDS ORDERED: LACTATED RINGERS 1,000 ML IV PRN (13:45)
--- NOTE | 2021-09-30 13:50 | Progress Note - Hospitalist ---
DELANO KEARNS MED STUDENT 09/30/21 1350: Subjective HPI/CC On Admission Date Seen by Provider: Sep 30, 2021 Time Seen by Provider: 10:15 Chief complaint: Severe anemia History of present illness: This is an 81-year-old white female known to me from prior admission for midepigastric pain shortness of breath status post EGD at that time who presents to the hospital as a direct admission from her primary care provider's office due to a hemoglobin of 5.0. She required 2 units of blood and now her hemoglobin is good at 9.0. She will have EGD and colonoscopy tomorrow with placement of port. Subjective/Events-last exam Miss Mello has no concerns as of this morning. She is still feeling poor. Her egd, colonoscopy and port placement are scheduled for this morning. Pt is starving and does not appreciate missing any meals. Currently on 3L via NC. Review of Systems General: No Chills; Fatigue HEENT: No Visual Changes Pulmonary: Dyspnea, Cough Cardiovascular: No: Chest Pain, Palpitations Gastrointestinal: No: Nausea, Vomiting, Abdominal Pain Genitourinary: No Dysuria, No Frequency Neurological: No: Weakness Objective Exam Vital Signs Vital Signs Date Time Temp Pulse Resp B/P (MAP) Pulse Ox O2 Delivery O2 Flow Rate FiO2 09/30/21 11:00 37.2 105 18 126/71 (89) 91 Nasal Cannula 3.00 Capillary Refill : General Appearance: WD/WN HEENT: No Scleral Icterus (L), No Scleral Icterus (R) Neck: Full Range of Motion, Non Tender; No Lymphadenopathy (L), No Lymphadenopathy (R) Respiratory: Chest Non Tender, Lungs Clear, Decreased Breath Sounds Cardiovascular: Regular Rate, Rhythm, No Edema, No Murmur, Normal Peripheral Pulses Gastrointestinal: Normal Bowel Sounds, Non Tender, Soft Extremity: Normal Capillary Refill, No Pedal Edema Neurologic/Psychiatric: Alert, Oriented x3, Normal Mood/Affect Skin: Normal Color, Warm/Dry Lymphatic: No Adenopathy Results/Procedures Lab Laboratory Tests 09/30/21 06:13 Patient resulted labs reviewed. Assessment/Plan Assessment and Plan Assess & Plan/Chief Complaint CC: severe anemia A/P - Severe anemia - COPD - Hypertension - AFib - History of SVT - previous myocardial infarction - history of TIA - CAD - Depression - Will continue plan as instructed by Dr. Kido - EGD, colonoscopy and port placement today - Supportive care - Hospitalist service will continue to follow case LIZET MARTINEZ DO 10/01/21 0556: Subjective Subjective/Events-last exam Patient ready for EGD and colonoscopy and port placement Hemoglobin stable patient doing really well Review of Systems General: Fatigue Objective Exam General Appearance: No Apparent Distress, WD/WN, Chronically ill Respiratory: Lungs Clear Cardiovascular: Regular Rate, Rhythm Neurologic/Psychiatric: Alert, Oriented x3 Assessment/Plan Assessment and Plan Assess & Plan/Chief Complaint EGD and colonoscopy and port placement Supervisory-Addendum Brief Verification & Attestation Participated in pt care: history, MDM, physical Personally performed: exam, history, MDM, supervision of care Care discussed with: Medical Student Procedures: n/a Results interpretation: Verified all documentation Verification and Attestation of Medical Student E/M Service A medical student performed and documented this service in my presence. I reviewed and verified all information documented by the medical student and made modifications to such information, when appropriate. I personally performed the physical exam and medical decision making. Lizet Martinez, Oct 01, 2021,05:56 DELANO KEARNS MED STUDENT Sep 30, 2021 13:50 LIZET MARTINEZ DO Oct 01, 2021 05:56
--- NOTE | 2021-09-30 13:59 | Anesthesia-General Post-Op ---
MAC Patient Condition Mental Status/LOC: Same as Preop Cardiovascular: Satisfactory Nausea/Vomiting: Absent Respiratory: Satisfactory Pain: Controlled Complications: Absent Post Op Complications Complications None Follow Up Care/Instructions Patient Instructions None needed. Anesthesiology Discharge Order Discharge Order Patient is doing well, no complaints, stable vital signs, no apparent adverse anesthesia problems. No complications reported per nursing. DAVID POTTS CRNA Sep 30, 2021 13:59
--- NOTE | 2021-09-30 14:00 | Progress Note-Post Operative ---
Post-Operative Progess Note Surgeon (s)/Geological Engineer (s) Surgeon NELDA HUDSON MD Geological Engineer: none Pre-Operative Diagnosis recurrent anemia, poor periperal circulation Post-Operative Diagnosis reflux eosphagitis(grade B), small HH(1.5cm), moderate gastritis. mild chronic stage 2 ext and int hemorrhoids, flat polyp descending colon(5mm). Procedure & Operative Findings Date of Procedure 09/30/21 Procedure Performed/Findings placement groshong under flouroscopy. EGD with bx. Colonoscopy with snare polypectomy Anesthesia Type mac Estimated Blood Loss Estimated blood loss (mL): minimal Specimens/Packing Specimens Removed ge jxn, antrum. descending colon. NELDA HUDSON MD Sep 30, 2021 14:00
--- NOTE | 2021-09-30 14:08 | Discharge Inst-Surgical ---
D/C Lap Instructions-KIDO New, Converted, or Re-Newed RX: RX on Chart Follow Up PRN Activity as tolerated High Fiber Diet 25g or more per day Avoid Alcohol, Caffeine, Spicy [place] and Acid foods. Drink 64 fluid oz or more of fluids per day. Symptoms to Report: Fever over 101 degree F, Nausea/Vomiting If any problems/questions: Contact your physician or go to Emergency Room NELDA HUDSON MD Sep 30, 2021 14:08
--- NOTE | 2021-09-30 14:24 | Diagnostic Imaging Report ---
INDICATION: Port-A-Cath placement Portable chest 2:16 PM Left subclavian Port-A-Cath tip projects over the SVC. There are some patchy alveolar infiltrates in the medial lung bases bilaterally. There are no effusions or pneumothoraces. IMPRESSION: Bilateral patchy medial basilar alveolar infiltrates. Dictated by: Dictated on workstation # [id number]
--- NOTE | 2021-09-30 17:45 | OPERATIVE REPORT ---
DATE OF SERVICE: 09/30/2021 ATTENDING PRIMARY CARE PHYSICIAN: Dr. Lake. PREOPERATIVE DIAGNOSES: Recurrent anemia, poor peripheral venous circulation with history of peptic ulcer disease. POSTOPERATIVE DIAGNOSES: Reflux esophagitis grade B, small hiatal hernia approximately 1.5 cm in size, moderate gastritis. No ulcers or any active bleeding. Chronic stage II external and internal hemorrhoids. Oval flat polyp of the descending colon, approximately 5 mm in size. No active bleeding. PROCEDURE: Placement of left subclavian Groshong implantable catheter under fluoroscopy, EGD with biopsy, colonoscopy with snare polypectomy. SURGEON: Nelda Wolfe MD ANESTHESIA: Monitored anesthesia care. ESTIMATED BLOOD LOSS: Minimal. FINDINGS: Same as postoperative diagnoses. DISPOSITION: The patient tolerated the procedure well. INDICATIONS: The patient is an 81-year-old female known to us. Approximately one month ago, she was admitted with SVT and history of atrial fibrillation and was able to be rate controlled with calcium channel blockers. She had also reported loose stools with blood per rectum and a CT scan of the abdomen was performed, which did show inflammation of the right side of the colon consistent with colitis. She was also found to be anemic requiring a blood transfusion at that time. We then proceeded with an EGD and she was on 08/27/2020 found to have a small hiatal hernia, moderate gastritis as well as a small antral ulcer with an overlying fibrin clot, no active bleed. She was again found to be anemic with a hemoglobin of 5 and she also has very poor peripheral venous circulation. She will need adequate resuscitation due to symptomatic anemia and was admitted and given blood transfusion, which did go up appropriately. She was also prepped for her colonoscopy. She does have a number of medical comorbidities including the aforementioned SVT, atrial fibrillation as well as history of myocardial infarction, hypertension, COPD as well as history of stroke. DESCRIPTION OF PROCEDURE: The patient was brought to the operating room, laid supine on the table. After adequate IV pain and sedative medications and monitored anesthesia care, the chest and neck were prepped and draped in standard surgical fashion. The left subclavian region was then anesthetized using 1% lidocaine with epinephrine. The left subclavian vein was then cannulated with drawing of venous blood and the guidewire was then inserted under fluoroscopy. The cannulated needle removed and a skin incision was made using a 15 blade. The dilator and sheath were then placed over the guidewire and the guidewire and dilator were then removed and the catheter was placed through the sheath until the catheter tip was at the superior vena caval - right atrial junction. The sheath was then removed. The inner wire within the catheter was then removed and the catheter cut down to size and port placed onto the catheter. The chest reservoir was then created by extending the skin incision laterally using a 15 blade. A plane was then created between the subcutaneous fat and the anterior pectoralis fascia using blunt dissection as well as electrocautery with visualization of good hemostasis. The port was then placed into the reservoir and sutured to the anterior pectoralis fascia using 3-0 Vicryl interrupted sutures. The subcutaneous tissue was then reapproximated with the same suture in an interrupted manner and skin was closed using 4-0 Monocryl running subcuticular suture. The wound was then cleaned and covered with Dermabond. The port was accessed with a non-coring Gonzalez needle and venous blood drawn and heparinized saline pushed in without any resistance. The mouthpiece was applied. The endoscope was placed in the mouth, visualizing the pharynx and hypopharyngeal region. Vocal cords, epiglottis and vallecula identified and appeared to be normal. Endoscope was then gently intubated the esophageal opening and esophagus insufflated. The endoscope was then advanced through the first, second and third portion of esophagus at the level of the GE junction, a reflux esophagitis, [place] grade B identified. No ulcers or strictures identified in the region. A biopsy was taken with forceps with visualization of good hemostasis. The endoscope was then advanced in the stomach and endoscope retroflexed, visualizing a small hiatal hernia approximately 1.5 cm in size. There was a moderate severity gastritis; however, there were no ulcerations or any active bleeding sources. A biopsy was taken of the antrum to rule out H. pylori with visualization of good hemostasis. The endoscope was then advanced through the pylorus into the first and second portion of the duodenum again with no ulcerations or any active bleeding sources. The endoscope was then slowly withdrawn while taking a second look and suctioning of residual air with no additional findings. The patient was then placed in frog leg position. A digital rectal examination was performed, which revealed chronic stage II external and internal hemorrhoids, not actively edematous nor inflamed and no bleeding. Normal sphincter tone was felt and there were no palpable masses. The endoscope was then intubated into the anus and rectum gently insufflated into the rectum. Endoscope was then advanced through the valves of Kruger of the rectum with no polyps or any neoplasms identified. The endoscope was then advanced through the sigmoid colon where no diverticulosis identified. At the distal descending colon, a flat and oval shaped polyp approximately 5 mm in size in widest diameter was identified and this was removed by snare polypectomy with visualization of good hemostasis. This was then retrieved and sent to pathology. The endoscope was then advanced to the remainder of the descending, transverse and ascending colon to the cecum, which were normal. No active bleeding sources identified. The endoscope was then slowly withdrawn while taking a second look and suctioning of residual air with no additional findings. The patient tolerated the procedure well. 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 We will also recommend a high fiber diet with at least 25 grams of fiber daily as well as significant amounts of water to promote soft stools on a daily basis. We did not find any active bleeding sources and if her hemoglobin remains stable, we feel there will be no contraindication to anticoagulation. However, if she does, she will need further investigation. Job ID: [id number] DocumentID: [id number] Dictated Date: 09/30/2021 14:09:38 Closing Supervisor Date: 09/30/2021 17:44:24 Dictated By: NELDA WOLFE MD MTDD
[2021-09-30] MEDS ORDERED: RT-ALBUTEROL SULF 2.5 MG/3 ML PRE-MIX VIAL INH SCH (21:00)
[2021-10-02] MEDS ORDERED: VITAMIN D2 1.25 MG (50,000 UNITS) CAP PO SCH (09:00)
== END 2021-09-30 18:15 | disposition home or self-care (01) | DRG 804 ==
LOC: SDC 11:17 → 4TH 13:03
PROVIDERS: ADMIT Surgery; ATTEND Surgery
PROC: 02HV33Z Insertion of Infusion Device into Superior Vena Cava, Percutaneous Approach (ICD-10-PCS; 2021-09-30)
PROC: 5A0935A Assistance with Respiratory Ventilation, Less than 24 Consecutive Hours, High Flow/Velocity Cannula (ICD-10-PCS; 2021-09-30)
PROC: 0DB48ZX Excision of Esophagogastric Junction, Via Natural or Artificial Opening Endoscopic, Diagnostic (ICD-10-PCS; principal; 2021-09-30 12:48)
PROC: 0JH60WZ Insertion of Totally Implantable Vascular Access Device into Chest Subcutaneous Tissue and Fascia, Open Approach (ICD-10-PCS; 2021-09-30 12:48)
PROC: 0DBM8ZZ Excision of Descending Colon, Via Natural or Artificial Opening Endoscopic (ICD-10-PCS; 2021-09-30 12:48)
DX: D64.9 Anemia, unspecified (principal); Z86.73 Personal history of transient ischemic attack (TIA), and cerebral infarction without residual deficits; I10 Essential (primary) hypertension; Z87.891 Personal history of nicotine dependence; J44.9 Chronic obstructive pulmonary disease, unspecified; I48.91 Unspecified atrial fibrillation; E78.00 Pure hypercholesterolemia, unspecified; K27.9 Peptic ulcer, site unspecified, unspecified as acute or chronic, without hemorrhage or perforation; I25.2 Old myocardial infarction; I25.10 Atherosclerotic heart disease of native coronary artery without angina pectoris; F32.A Depression, unspecified; K21.00 Gastro-esophageal reflux disease with esophagitis, without bleeding; K44.9 Diaphragmatic hernia without obstruction or gangrene; K29.70 Gastritis, unspecified, without bleeding; K64.8 Other hemorrhoids; K64.4 Residual hemorrhoidal skin tags; K63.5 Polyp of colon
CPT/HCPCS: 36410; 36415; 71045; 76937; 80053; 85025; 86850; 86900; 86901; 86920; 87081; 94640

== ENCOUNTER 2021-10-12 13:30 | Outpatient (RCR) | payer MEDICARE ==
[~2021-10-12 13:30] MED LIST changes: +CYAN10007 PO; +ERGO1250 PO; +NF-VITD400 PO
== END 2021-10-22 | disposition home or self-care (01) ==
LOC: CARD 13:30
PROVIDERS: ATTEND Internal Medicine Cardiovascular Disease
DX: I47.1 Supraventricular tachycardia (principal)

== ENCOUNTER 2021-10-21 18:11 | Emergency (ER) | payer MEDICARE ==
[~2021-10-21] VITALS: Ht 157 cm; Wt 56.6 kg
--- NOTE | 2021-10-21 21:01 | ED General ---
General Chief Complaint: General Problems/Pain Stated Complaint: ABNORMAL LABS Nursing Triage Note: PT WAS CONTACTED BY PCP, DR DAN TODAY ABOUT LOW HGB OF 6.4 FROM CBC DRAWN YESTERDAY. PT INSTRUCTED TO COME TO ED FOR TREATMENT AND EVALUATION. Source of Information: Patient Exam Limitations: No Limitations History of Present Illness Date Seen by Provider: Oct 21, 2021 Time Seen by Provider: 20:45 Initial Comments Patient presents ER by private conveyance from home with chief complaint of Dr. Dan peri labs yesterday and called her and told her hemoglobin was 6.4 she had to come to the ER to seek definitive treatment. She has had multiple transfusions in the past and has had multiple ablations by colonoscopy by a surgeon here as well as other places. She says this month she had an upper and lower GI done. She is not having any chest pain, shortness of air just low energy lately. No lopez bloody stools. Her last colonoscopy and EGD were done by Dr. HUDSON Allergies and Home Medications Allergies Coded Allergies: Xppfdnc-BLK-CiH Reductase Inhibitor (Verified Allergy, Unknown, 08/25/20) Sulfa (Sulfonamide Antibiotics) (Unverified Allergy, Unknown, 08/21/18) amoxicillin (Verified Allergy, Unknown, 08/25/20) aspartame (Unverified Allergy, Unknown, 08/21/18) atorvastatin (Verified Allergy, Unknown, 08/25/20) bee venom protein (honey bee) (Verified Allergy, Unknown, 08/25/20) diphenhydramine (Verified Allergy, Unknown, 08/25/20) ipratropium (Verified Allergy, Unknown, 08/25/20) iron (Unverified Allergy, Unknown, 08/21/18) "TACHYCARDIA" WITH IV INFUSION nicotine (Verified Allergy, Unknown, 08/25/20) quinine (Verified Allergy, Unknown, 08/25/20) Patient Home Medication List Home Medication List Reviewed: Yes Albuterol Sulfate (Ventolin Hfa) 1 Puff Puff, 2 PUFF INH Q6H PRN for SHORTNESS OF BREATH, (Reported) Entered as Reported by: BRONSON AHUMADA on 08/21/18 0209 Albuterol Sulfate (Albuterol Sulfate) 2.5 Mg/3 Ml Vial.neb, 1 VIAL PO Q6H PRN for SHORTNESS OF BREATH, (Reported) Entered as Reported by: SUE PAULINO on 09/12/21 0843 Aspirin (Aspirin EC) 81 Mg Tablet.dr, 81 MG PO 1700, (Reported) Entered as Reported by: DORIS WADDELL on 09/29/21 0955 Cyanocobalamin (Vitamin B-12) (Vitamin B-12) 1,000 Mcg Tablet.er, 1,000 MCG PO DAILY, (Reported) Entered as Reported by: DORIS WADDELL on 09/29/21 0955 Diltiazem HCl (Diltiazem 24Hr ER) 180 Mg Cap.er.24h, 180 MG PO DAILY, (Reported) Entered as Reported by: DORIS WADDELL on 09/29/21 0955 Ergocalciferol (Vitamin D2) (Vitamin D2) 1,250 Mcg Capsule, 1,250 MCG PO SUN, (Reported) Entered as Reported by: DORIS WADDELL on 09/29/21 1000 Lorazepam (Ativan) 0.5 Mg Tablet, 0.5 MG PO 1700, (Reported) Entered as Reported by: SUE PAULINO on 09/12/21 0843 Lorazepam (Ativan) 0.5 Mg Tablet, 0.5 MG PO 0700,1200 PRN for ANXIETY, (Reported) Entered as Reported by: DORIS WADDELL on 09/29/21 1000 Pantoprazole Sodium (Pantoprazole Sodium) 40 Mg Tablet.dr, 40 MG PO DAILY, (Reported) Entered as Reported by: SUE PAULINO on 09/12/21 0844 Sucralfate (Sucralfate) 1 Gm Tablet, 1 GM PO ACHS, (Reported) Entered as Reported by: KYLEIGH JEFFERSON on 09/22/21 1315 Tramadol HCl (Tramadol HCl) 50 Mg Tablet, 50 MG PO BID PRN for PAIN-MILD (1-4), (Reported) Entered as Reported by: USE PAULINO on 09/12/21 0853 Review of Systems Review of Systems Constitutional: No chills, No fever EENTM: No ear discharge, No ear pain Respiratory: No cough, No short of breath Gastrointestinal: No abdominal pain, No diarrhea, No hematemesis, No nausea, No vomiting Musculoskeletal: No back pain, No joint pain All Other Systems Reviewed Negative Unless Noted: Yes Past Hkpnbyc-Fuysxo-Nwhkmt Hx Patient Social History Tobacco Use?: No Use of E-Cig and/or Vaping dev: No Immunizations Up To Date First/Initial COVID19 Vaccinat: NO Second COVID19 Vaccination Devan: NO Third COVID19 Vaccination Date: NO Seasonal Allergies Seasonal Allergies: No Past Medical History Surgery/Hospitalization HX: COPD, SVT, STROKE, Surgeries: Yes (neck) Section, Hysterectomy, Orthopedic Respiratory: Yes COPD Currently Using CPAP: No Currently Using BIPAP: No Cardiac: Yes (SVT) Atrial Fibrillation, High Cholesterol, Hypertension Neurological: Yes Stroke, TIA Genitourinary: No Gastrointestinal: Yes Colitis, Gastrointestinal Bleed Musculoskeletal: No Endocrine: No HEENT: No Cancer: No Psychosocial: No Integumentary: No Blood Disorders: Yes (essential thrombocytosis, chronic anemia transfusion dependent) Family Medical History Heart Disease Physical Exam Vital Signs Vital Signs - First Documented 10/21/21 18:31 Temp 36.8 Pulse 90 Resp 18 B/P (MAP) 123/60 (81) Pulse Ox 97 O2 Delivery Nasal Cannula O2 Flow Rate 3.00 Capillary Refill : Less Than 3 Seconds Height, Weight, BMI Height: 5'2.00" Weight: 139lbs. 0.0oz. [id number]; 22.00 BMI Method: General Appearance: No Apparent Distress, WD/WN Eyes: Bilateral Eye Normal Inspection, Bilateral Eye PERRL, Bilateral Eye EOMI HEENT: PERRL/EOMI, Moist Mucous Membranes Neck: Full Range of Motion, Normal Inspection Respiratory: Lungs Clear, Normal Breath Sounds, No Accessory Muscle Use, No Respiratory Distress Cardiovascular: Regular Rate, Rhythm, No Edema Gastrointestinal: Normal Bowel Sounds, Non Tender, Soft Neurologic/Psychiatric: Alert, Oriented x3 Skin: Normal Color, Warm/Dry Progress/Results/Core Measures Suspected Sepsis SIRS Temperature: Pulse: 90 Respiratory Rate: 18 Laboratory Tests 10/21/21 21:40: White Blood Count 10.1 Blood Pressure 123 /60 Mean: 81 Laboratory Tests 10/21/21 21:40: Creatinine 0.87, Platelet Count 499H Results/Orders Lab Results Laboratory Tests Test 10/21/21 21:40 Range/Units White Blood Count 10.1 4.3-11.0 10^3/uL Red Blood Count 2.72 L 3.80-5.11 10^6/uL Hemoglobin 6.4 *L 11.5-16.0 g/dL Hematocrit 21 L 35-52 % Mean Corpuscular Volume 76 L 80-99 fL Mean Corpuscular Hemoglobin 24 L 25-34 pg Mean Corpuscular Hemoglobin Concent 31 L 32-36 g/dL Red Cell Distribution Width 17.5 H 10.0-14.5 % Platelet Count 499 H 130-400 10^3/uL Mean Platelet Volume 9.8 9.0-12.2 fL Immature Granulocyte % (Auto) 0 % Neutrophils (%) (Auto) 82 H 42-75 % Lymphocytes (%) (Auto) 7 L 12-44 % Monocytes (%) (Auto) 9 0-12 % Eosinophils (%) (Auto) 1 0-10 % Basophils (%) (Auto) 1 0-10 % Neutrophils # (Auto) 8.3 H 1.8-7.8 10^3/uL Lymphocytes # (Auto) 0.7 L 1.0-4.0 10^3/uL Monocytes # (Auto) 0.9 0.0-1.0 10^3/uL Eosinophils # (Auto) 0.1 0.0-0.3 10^3/uL Basophils # (Auto) 0.1 0.0-0.1 10^3/uL Immature Granulocyte # (Auto) 0.0 0.0-0.1 10^3/uL Neutrophils % (Manual) 86 % Lymphocytes % (Manual) 8 % Monocytes % (Manual) 4 % Eosinophils % (Manual) 1 % Band Neutrophils 1 % Hypochromasia MARKED Poikilocytosis SLIGHT Microcytosis MODERATE Sodium Level 132 L 135-145 MMOL/L Potassium Level 4.1 3.6-5.0 MMOL/L Chloride Level 98 98-107 MMOL/L Carbon Dioxide Level 21 21-32 MMOL/L Anion Gap 13 5-14 MMOL/L Blood Urea Nitrogen 9 7-18 MG/DL Creatinine 0.87 0.60-1.30 MG/DL Estimat Glomerular Filtration Rate 66 BUN/Creatinine Ratio 10 Glucose Level 116 H 70-105 MG/DL Calcium Level 8.9 8.5-10.1 MG/DL My Orders Orders - SCOTT OGLESBY Cbc With Automated Diff (10/21/21 20:57) Basic Metabolic Panel (10/21/21 20:57) Manual Differential (10/21/21 21:40) Vital Signs: Special (Order) (10/21/21 22:14) Consent-Obtain Consent For (10/21/21 22:14) Monitor S/S Transfusion Reacti (10/21/21 22:14) Vital Signs/I&O 10/21/21 10/21/21 18:31 22:31 Temp 36.8 35.8 Pulse 90 84 Resp 18 20 B/P (MAP) 123/60 (81) 110/56 Pulse Ox 97 99 O2 Delivery Nasal Cannula Nasal Cannula O2 Flow Rate 3.00 2.00 Capillary Refill : Less Than 3 Seconds Blood Pressure Mean: 81 Progress Note #1: Time: 21:00 Progress Note She is not accompanied by copy of her labs so we will access her port get some labs and set her up for outpatient blood of appropriate. She does have a history of heart disease so 2 units are probably reasonable Progress Note #2: Time: 22:12 Progress Note Type and cross for 2 units outpatient and then her son will take her home when that is done. Departure Impression Primary Impression: Acute on chronic anemia Additional Impression: GI bleed Qualified Codes: K92.2 - Gastrointestinal hemorrhage, unspecified Disposition: 01 HOME, SELF-CARE Condition: Stable Departure-Patient Inst. Decision time for Depature: 22:12 Referrals: GAL DAN MD (PCP/Family) Primary Care Physician Patient Instructions: Gastrointestinal Bleeding (DC) Add. Discharge Instructions: After you get your blood given outpatient you can go home and follow-up next week with your primary care doctor by phone. All discharge instructions reviewed with patient and/or family. Voiced understanding. Copy Copies To 1: GLA DAN MD, TITUS J Oct 21, 2021 21:01
[2021-10-21 21:50] LABS: BASOPHILS # (AUTO) 0.1 10^3/uL (0.0-0.1); BASOPHILS % (AUTO) 1 % (0-10); EOSINOPHILS # (AUTO) 0.1 10^3/uL (0.0-0.3); EOSINOPHILS % (AUTO) 1 % (0-10); HEMATOCRIT 21 % (35-52); LYMPHOCYTES # (AUTO) 0.7 10^3/uL (1.0-4.0); LYMPHOCYTES % (AUTO) 7 % (12-44); MEAN CORPUSCULAR HEMOGLOBIN 24 pg (25-34); MEAN CORPUSCULAR HGB CONC 31 g/dL (32-36); MEAN CORPUSCULAR VOLUME 76 fL (80-99); MEAN PLATELET VOLUME 9.8 fL (9.0-12.2); MONOCYTES # (AUTO) 0.9 10^3/uL (0.0-1.0); MONOCYTES % (AUTO) 9 % (0-12); NEUTROPHILS # (AUTO) 8.3 10^3/uL (1.8-7.8); NEUTROPHILS % (AUTO) 82 % (42-75); PLATELET COUNT 499 10^3/uL (130-400); WHITE BLOOD COUNT 10.1 10^3/uL (4.3-11.0)
[2021-10-21 21:52] LABS: HEMOGLOBIN 6.4 g/dL (11.5-16.0)
[2021-10-21 21:58] LABS: POTASSIUM 4.1 MMOL/L (3.6-5.0)
[2021-10-21 21:59] LABS: CALCIUM 8.9 MG/DL (8.5-10.1)
[2021-10-21 22:04] LABS: CREATININE SERUM 0.87 MG/DL (0.60-1.30)
[2021-10-21 22:31] VITALS: BP 110/56
[2021-10-21 23:03] LABS: BAND NEUTROPHILS 1 %; EOSINOPHILS % (MANUAL) 1 %; HYPOCHROMASIA MARKED; LYMPHOCYTES % (MANUAL) 8 %; MICROCYTOSIS MODERATE; MONOCYTES % (MANUAL) 4 %; NEUTROPHILS % (MANUAL) 86 %; POIKILOCYTOSIS SLIGHT
== END 2021-10-21 22:42 | disposition home or self-care (01) ==
LOC: EDUNIT# 18:11 → ER 18:13
DX: D62 Acute posthemorrhagic anemia (principal); K92.2 Gastrointestinal hemorrhage, unspecified; Z86.79 Personal history of other diseases of the circulatory system; Z90.710 Acquired absence of both cervix and uterus
CPT/HCPCS: 36415; 80048; 85007; 85027; 99281

== ENCOUNTER 2021-10-21 22:25 | Outpatient (CLI) | payer MEDICARE ==
[~2021-10-21] VITALS: Ht 157.4 cm; Wt 58.4 kg
[2021-10-21 22:58] VITALS: BP 103/64
[2021-10-21] MEDS ORDERED: NS IV 500 ML 500 ML IV SCH (23:15)
[2021-10-22] VITALS (7 sets, daily range): BP systolic 105–148; BP diastolic 44–70
== END 2021-10-22 09:46 | disposition home or self-care (01) ==
LOC: 4THo 22:25 → 4TH 22:25 → 4THo 10-22 09:46
PROVIDERS: ATTEND Emergency Medicine
DX: D50.0 Iron deficiency anemia secondary to blood loss (chronic) (principal)
CPT/HCPCS: 36430; 86850; 86900; 86901; 86920; P9016

== ENCOUNTER 2021-10-27 08:37 | Outpatient (RCR) | payer MEDICARE ==
[2021-10-27 09:11] LABS: BASOPHILS % (AUTO) 0 % (0-10); EOSINOPHILS # (AUTO) 0.2 10^3/uL (0.0-0.3); EOSINOPHILS % (AUTO) 2 % (0-10); HEMATOCRIT 32 % (35-52); HEMOGLOBIN 10.1 g/dL (11.5-16.0); LYMPHOCYTES # (AUTO) 0.7 10^3/uL (1.0-4.0); LYMPHOCYTES % (AUTO) 7 % (12-44); MEAN CORPUSCULAR HEMOGLOBIN 24 pg (25-34); MEAN CORPUSCULAR HGB CONC 32 g/dL (32-36); MEAN CORPUSCULAR VOLUME 76 fL (80-99); MEAN PLATELET VOLUME 9.5 fL (9.0-12.2); MONOCYTES # (AUTO) 0.9 10^3/uL (0.0-1.0); MONOCYTES % (AUTO) 9 % (0-12); NEUTROPHILS # (AUTO) 8.1 10^3/uL (1.8-7.8); NEUTROPHILS % (AUTO) 82 % (42-75); PLATELET COUNT 376 10^3/uL (130-400); WHITE BLOOD COUNT 9.8 10^3/uL (4.3-11.0)
== END 2021-11-22 | disposition home or self-care (01) ==
LOC: LAB FS 08:37
PROVIDERS: ATTEND Family Medicine
DX: D50.0 Iron deficiency anemia secondary to blood loss (chronic) (principal)
CPT/HCPCS: 36415; 85025

== ENCOUNTER 2021-12-06 18:11 | Emergency (ER) | payer MEDICARE ==
[~2021-12-06] VITALS: Ht 157.4 cm; Wt 56.7 kg
--- NOTE | 2021-12-06 18:49 | ED Respiratory ---
General Chief Complaint: Respiratory Problems Stated Complaint: SOB/LOW HEMOGLOBIN Nursing Triage Note: pt to room by wheelchair with a visitor. pt states she had blood drawn on sunday and she just got the result of her hgb today which was 6.2. pt reports having shortness of breath but not many other symptoms. pt states she has a port because she has to have blood transfusions so regularly Source: patient, family (Son) Exam Limitations: no limitations History of Present Illness Date Seen by Provider: Dec 06, 2021 Time Seen by Provider: 18:21 Initial Comments Patient to the ER by private conveyance with her son who is her caregiver with chief complaint that Sunday, yesterday she had lab drawn at [facility] in [place] and they called her today to tell her that her hemoglobin is 6.2. She feels short of breath she is having increased work of breathing. She lives on 3 and half liters of nasal cannula oxygen supplementally. She denies any fevers chills cough, recent illness or sick contacts. She has had to have transfusions with her last 1 being about a month ago. Her primary care provider tried to call the outpatient surgery center but they were closed so they sent her to the ER to get blood. Allergies and Home Medications Allergies Coded Allergies: Omwsrrp-NQG-SnE Reductase Inhibitor (Verified Allergy, Unknown, 08/25/20) Sulfa (Sulfonamide Antibiotics) (Unverified Allergy, Unknown, 08/21/18) amoxicillin (Verified Allergy, Unknown, 08/25/20) aspartame (Unverified Allergy, Unknown, 08/21/18) atorvastatin (Verified Allergy, Unknown, 08/25/20) bee venom protein (honey bee) (Verified Allergy, Unknown, 08/25/20) diphenhydramine (Verified Allergy, Unknown, 08/25/20) ipratropium (Verified Allergy, Unknown, 08/25/20) iron (Unverified Allergy, Unknown, 08/21/18) "TACHYCARDIA" WITH IV INFUSION nicotine (Verified Allergy, Unknown, 08/25/20) quinine (Verified Allergy, Unknown, 08/25/20) Patient Home Medication List Home Medication List Reviewed: Yes Albuterol Sulfate (Ventolin Hfa) 1 Puff Puff, 2 PUFF INH Q6H PRN for SHORTNESS OF BREATH, (Reported) Entered as Reported by: BRONSON AHUMADA on 08/21/18 1649 Albuterol Sulfate (Albuterol Sulfate) 2.5 Mg/3 Ml Vial.neb, 1 VIAL PO Q6H PRN for SHORTNESS OF BREATH, (Reported) Entered as Reported by: SUE PAULINO on 09/12/21 0843 Aspirin (Aspirin EC) 81 Mg Tablet.dr, 81 MG PO 1700, (Reported) Entered as Reported by: DORIS WADDELL on 09/29/21 0955 Cyanocobalamin (Vitamin B-12) (Vitamin B-12) 1,000 Mcg Tablet.er, 1,000 MCG PO DAILY, (Reported) Entered as Reported by: DORIS WADDELL on 09/29/21 0955 Diltiazem HCl (Diltiazem 24Hr ER) 180 Mg Cap.er.24h, 180 MG PO DAILY, (Reported) Entered as Reported by: DORIS WADDELL on 09/29/21 0955 Ergocalciferol (Vitamin D2) (Vitamin D2) 1,250 Mcg Capsule, 1,250 MCG PO SUN, (Reported) Entered as Reported by: DORIS WADDELL on 09/29/21 1000 Lorazepam (Ativan) 0.5 Mg Tablet, 0.5 MG PO 1700, (Reported) Entered as Reported by: SUE PAULINO on 09/12/21 0843 Lorazepam (Ativan) 0.5 Mg Tablet, 0.5 MG PO 0700,1200 PRN for ANXIETY, (Reported) Entered as Reported by: DORIS WADDELL on 09/29/21 1000 Pantoprazole Sodium (Pantoprazole Sodium) 40 Mg Tablet.dr, 40 MG PO DAILY, (Reported) Entered as Reported by: SUE PAULINO on 09/12/21 0844 Sucralfate (Sucralfate) 1 Gm Tablet, 1 GM PO ACHS, (Reported) Entered as Reported by: KYLEIGH JEFFERSON on 09/22/21 1315 Tramadol HCl (Tramadol HCl) 50 Mg Tablet, 50 MG PO BID PRN for PAIN-MILD (1-4), (Reported) Entered as Reported by: SUE PAULINO on 09/12/21 0853 Review of Systems Review of Systems Constitutional: No chills, No diaphoresis EENTM: No ear discharge, No ear pain Respiratory: No cough, No short of breath Cardiovascular: No chest pain, No palpitations Gastrointestinal: No abdominal pain, No diarrhea, No nausea Genitourinary: No discharge, No dysuria Musculoskeletal: No back pain, No joint pain All Other Systems Reviewed Negative Unless Noted: Yes Past Umegclv-Wvxrbo-Aorlbc Hx Patient Social History Tobacco Use?: No Use of E-Cig and/or Vaping dev: No Immunizations Up To Date First/Initial COVID19 Vaccinat: NO Second COVID19 Vaccination Devan: NO Third COVID19 Vaccination Date: NO Seasonal Allergies Seasonal Allergies: No Past Medical History Surgery/Hospitalization HX: COPD, SVT, STROKE, Surgeries: Yes (neck) Section, Hysterectomy, Orthopedic Respiratory: Yes COPD Currently Using CPAP: No Currently Using BIPAP: No Cardiac: Yes (SVT) Atrial Fibrillation, High Cholesterol, Hypertension Neurological: Yes Stroke, TIA Genitourinary: No Gastrointestinal: Yes Colitis, Gastrointestinal Bleed Musculoskeletal: No Endocrine: No HEENT: No Cancer: No Psychosocial: No Integumentary: No Blood Disorders: Yes (essential thrombocytosis, chronic anemia transfusion dependent) Family Medical History Heart Disease Physical Exam Vital Signs - First Documented 12/06/21 18:17 Temp 36.4 Pulse 87 Resp 22 B/P (MAP) 138/58 (84) Pulse Ox 100 O2 Delivery Nasal Cannula O2 Flow Rate 3.50 Capillary Refill : Height: 5'2.00" Weight: 139lbs. 0.0oz. [id number]; 22.00 BMI Method: General Appearance: WD/WN, mild distress Eyes: Bilateral Eye Normal Inspection, Bilateral Eye PERRL, Bilateral Eye EOMI HEENT: PERRL/EOMI, normal ENT inspection, pharynx normal Neck: full range of motion, supple, normal inspection Respiratory: lungs clear, normal breath sounds, no accessory muscle use, respiratory distress (mild, 100% on RA, 30 rr) Cardiovascular: normal peripheral pulses, regular rate, rhythm Gastrointestinal: normal bowel sounds, non tender Neurologic/Psychiatric: alert, normal mood/affect, oriented x 3 Skin: warm/dry, pallor Progress/Results/Core Measures Suspected Sepsis SIRS Temperature: Pulse: 87 Respiratory Rate: 22 Laboratory Tests 12/06/21 18:39: White Blood Count 7.4 Blood Pressure 138 /58 Mean: 84 Laboratory Tests 12/06/21 18:39: Creatinine 0.80, Platelet Count 317 Results/Orders Lab Results Laboratory Tests Test 12/06/21 18:39 Range/Units White Blood Count 7.4 4.3-11.0 10^3/uL Red Blood Count 2.57 L 3.80-5.11 10^6/uL Hemoglobin 5.7 *L 11.5-16.0 g/dL Hematocrit 19 *L 35-52 % Mean Corpuscular Volume 74 L 80-99 fL Mean Corpuscular Hemoglobin 22 L 25-34 pg Mean Corpuscular Hemoglobin Concent 30 L 32-36 g/dL Red Cell Distribution Width 16.0 H 10.0-14.5 % Platelet Count 317 130-400 10^3/uL Mean Platelet Volume 10.1 9.0-12.2 fL Immature Granulocyte % (Auto) 1 % Neutrophils (%) (Auto) 77 H 42-75 % Lymphocytes (%) (Auto) 8 L 12-44 % Monocytes (%) (Auto) 12 0-12 % Eosinophils (%) (Auto) 2 0-10 % Basophils (%) (Auto) 0 0-10 % Neutrophils # (Auto) 5.7 1.8-7.8 10^3/uL Lymphocytes # (Auto) 0.6 L 1.0-4.0 10^3/uL Monocytes # (Auto) 0.9 0.0-1.0 10^3/uL Eosinophils # (Auto) 0.2 0.0-0.3 10^3/uL Basophils # (Auto) 0.0 0.0-0.1 10^3/uL Immature Granulocyte # (Auto) 0.0 0.0-0.1 10^3/uL Neutrophils % (Manual) 79 % Lymphocytes % (Manual) 6 % Monocytes % (Manual) 11 % Eosinophils % (Manual) 4 % Hypochromasia MARKED Crenated Cell MARKED Elliptocytes MODERATE Rouleau MARKED Sodium Level 134 L 135-145 MMOL/L Potassium Level 3.9 3.6-5.0 MMOL/L Chloride Level 100 98-107 MMOL/L Carbon Dioxide Level 25 21-32 MMOL/L Anion Gap 9 5-14 MMOL/L Blood Urea Nitrogen 11 7-18 MG/DL Creatinine 0.80 0.60-1.30 MG/DL Estimat Glomerular Filtration Rate 73 BUN/Creatinine Ratio 14 Glucose Level 102 70-105 MG/DL Calcium Level 8.6 8.5-10.1 MG/DL C-Reactive Protein High Sensitivity 0.12 0.00-0.50 MG/DL My Orders Orders - SCOTT OGLESBY Cbc With Automated Diff (12/06/21 18:32) Basic Metabolic Panel (12/06/21 18:32) Hs C Reactive Protein (12/06/21 18:32) Chest 1 View, Ap/Pa Only (12/06/21 18:32) Manual Differential (12/06/21 18:39) Vital Signs/I&O 12/06/21 12/06/21 12/06/21 18:17 18:17 19:55 Temp 36.4 Pulse 87 80 Resp 22 B/P (MAP) 138/58 (84) 136/46 Pulse Ox 100 100 O2 Delivery Nasal Cannula O2 Flow Rate 3.50 Capillary Refill : Blood Pressure Mean: 84 Progress Note : Time: 18:50 Progress Note Plan to check some labs get a chest x-ray and look for any other alternative reason for her increased shortness of breath other than her hemoglobin being low. She does have a history of stroke and coronary disease according to patient. The son relates that they are working on getting capsule endoscopy set up through the primary care office. Diagnostic Imaging Diagonstic Imaging: Xray Plain Films/CT/US/NM/MRI: chest Comments No acute cardiopulmonary process on 1 view chest x-ray. [facility], [place] NAME: GARIMADORA Paulo [facility] REC#: [id number] PT STATUS: REG ER : 1940 PHYSICIAN: SCOTT OGLESBY MD ADMIT DATE: 12/06/21/ER Signed Date of Exam:12/06/21 CHEST 1 VIEW, AP/PA ONLY INDICATION: Shortness of air. Time of Exam: 7:36 PM Correlation is made to prior chest of 09/30/2021. Left chest wall port has tip overlying the SVC right atrial junction. Heart size normal. Lungs are clear. No infiltrates are seen. There is no effusion or pneumothorax. IMPRESSION: No acute cardiopulmonary process is detected. Dictated by: Dictated on workstation # [id number] Dict: 12/06/211940 Trans: 12/06/211952 [facility] [id number] Interpreted by: KAILYN HUBBARD MD Electronically signed by: KAILYN HUBBARD MD 12/06/211952 Reviewed: Reviewed by Me Departure Impression Primary Impression: Anemia Qualified Codes: D64.9 - Anemia, unspecified Additional Impression: Dyspnea Qualified Codes: R06.02 - Shortness of breath Disposition: 01 HOME, SELF-CARE Condition: Stable Departure-Patient Inst. Decision time for Depature: 19:44 Referrals: GAL DAN MD (PCP/Family) Primary Care Physician Patient Instructions: Anemia, Possibly From Low Iron, Adult ED Add. Discharge Instructions: From the ER he will go to fourth floor we will obtain 2 units of blood. When you are done you may go home and follow-up later in the week with your primary care doctor. All discharge instructions reviewed with patient and/or family. Voiced understanding. SCOTT OGLESBY J Dec 06, 2021 18:49
[2021-12-06 18:55] LABS: BASOPHILS % (AUTO) 0 % (0-10); EOSINOPHILS # (AUTO) 0.2 10^3/uL (0.0-0.3); EOSINOPHILS % (AUTO) 2 % (0-10); LYMPHOCYTES # (AUTO) 0.6 10^3/uL (1.0-4.0); LYMPHOCYTES % (AUTO) 8 % (12-44); MEAN CORPUSCULAR HEMOGLOBIN 22 pg (25-34); MEAN CORPUSCULAR HGB CONC 30 g/dL (32-36); MEAN CORPUSCULAR VOLUME 74 fL (80-99); MEAN PLATELET VOLUME 10.1 fL (9.0-12.2); MONOCYTES # (AUTO) 0.9 10^3/uL (0.0-1.0); MONOCYTES % (AUTO) 12 % (0-12); NEUTROPHILS # (AUTO) 5.7 10^3/uL (1.8-7.8); NEUTROPHILS % (AUTO) 77 % (42-75); PLATELET COUNT 317 10^3/uL (130-400); WHITE BLOOD COUNT 7.4 10^3/uL (4.3-11.0)
[2021-12-06 18:57] LABS: HEMATOCRIT 19 % (35-52); HEMOGLOBIN 5.7 g/dL (11.5-16.0)
[2021-12-06 19:02] LABS: POTASSIUM 3.9 MMOL/L (3.6-5.0)
[2021-12-06 19:04] LABS: CALCIUM 8.6 MG/DL (8.5-10.1)
[2021-12-06 19:08] LABS: CREATININE SERUM 0.8 MG/DL (0.60-1.30)
[2021-12-06 19:15] LABS: CRENATED RBC MARKED; ELLIPT/OVALOCYTES MODERATE; EOSINOPHILS % (MANUAL) 4 %; HYPOCHROMASIA MARKED; LYMPHOCYTES % (MANUAL) 6 %; MONOCYTES % (MANUAL) 11 %; NEUTROPHILS % (MANUAL) 79 %; ROULEAUX MARKED
--- NOTE | 2021-12-06 19:46 | Diagnostic Imaging Report ---
INDICATION: Shortness of air. Time of Exam: 7:36 PM Correlation is made to prior chest of 09/30/2021. Left chest wall port has tip overlying the SVC right atrial junction. Heart size normal. Lungs are clear. No infiltrates are seen. There is no effusion or pneumothorax. IMPRESSION: No acute cardiopulmonary process is detected. Dictated by: Dictated on workstation # [id number]
[2021-12-06 19:55] VITALS: BP 136/46
== END 2021-12-06 19:56 | disposition home or self-care (01) ==
LOC: EDUNIT# 18:11 → ER 18:12
DX: R06.00 Dyspnea, unspecified (principal); D64.9 Anemia, unspecified
CPT/HCPCS: 36415; 71045; 80048; 85007; 85027; 86141; 99282

== ENCOUNTER 2021-12-06 19:32 | Outpatient (CLI) | payer MEDICARE ==
[~2021-12-06] VITALS: Ht 157 cm; Wt 63.0 kg
[2021-12-06 20:30] VITALS: BP 132/64
[2021-12-06] MEDS ORDERED: NS IV 500 ML 500 ML IV SCH (20:30)
[2021-12-06] MEDS ORDERED: NS IV 500 ML 500 ML ONE (21:03)
[2021-12-06 21:28] VITALS: BP 132/64
[2021-12-06 21:42] VITALS: BP 143/73
[2021-12-07 00:14] VITALS: BP 140/63
[2021-12-07 00:40] VITALS: BP 137/71
[2021-12-07 00:55] VITALS: BP 130/58
[2021-12-07 04:16] VITALS: BP 156/74
== END 2021-12-07 04:38 | disposition home or self-care (01) ==
LOC: 4THo 19:32 → 4TH 19:32 → 4THo 12-07 04:38
PROVIDERS: ATTEND Emergency Medicine
DX: D64.9 Anemia, unspecified (principal)
CPT/HCPCS: 86850; 86900; 86901; 86920; P9016; 36430

== ENCOUNTER 2021-12-14 09:04 | Outpatient (RCR) | payer MEDICARE | END 2021-12-22 | disposition home or self-care (01) | LOC: LAB FS 09:04 | PROVIDERS: ATTEND Family Medicine | DX: D50.0 Iron deficiency anemia secondary to blood loss (chronic) (principal) ==

== ENCOUNTER 2021-12-30 07:34 | Outpatient (CLI) | payer MEDICARE ==
[2021-12-30 07:50] VITALS: BP 120/54
[2021-12-30] MEDS ORDERED: OMALIZUMAB SUB-Q 150 MG (XOLAIR) VIAL SQ SCH (08:00)
[2021-12-30] MEDS ORDERED: NS IV 500 ML 500 ML IV SCH ×2 (08:30→15:00)
[2021-12-30 08:52] LABS: HEMOGLOBIN 6.9 g/dL (11.5-16.0)
[2021-12-30 10:13] VITALS: BP 124/63
[2021-12-30 10:28] VITALS: BP 129/50
[2021-12-30 12:55] VITALS: BP 130/52
[2021-12-30 13:20] VITALS: BP 130/52
[2021-12-30 13:35] VITALS: BP_SYST 130; BP_SYST 134; BP_DIAS 52; BP_DIAS 64
== END 2021-12-30 16:20 ==
LOC: SDC 07:34
PROVIDERS: ATTEND Nurse Practitioner Family
DX: D64.9 Anemia, unspecified (principal)
CPT/HCPCS: 36430; 85014; 85018; 86850; 86900; 86901; 86920; P9016; 36415

== ENCOUNTER 2022-02-08 08:03 | Outpatient (CLI) | payer MEDICARE ==
[2022-02-08 08:13] VITALS: BP 120/57
[2022-02-08] MEDS ORDERED: NS IV 500 ML 500 ML IV SCH (08:45)
[2022-02-08 10:00] VITALS: BP 120/57
[2022-02-08 10:15] VITALS: BP 112/57
[2022-02-08 13:05] VITALS: BP 114/69
[2022-02-08 13:20] VITALS: BP_SYST 114; BP_SYST 127; BP_DIAS 69; BP_DIAS 73
[2022-02-08 15:40] VITALS: BP 140/69
== END 2022-02-08 12:20 | disposition home or self-care (01) ==
LOC: SDC 08:03
PROVIDERS: ATTEND Family Medicine
DX: D64.9 Anemia, unspecified (principal)
CPT/HCPCS: 36430; 86850; 86900; 86901; 86920; P9016

== ENCOUNTER 2022-03-15 18:38 | Emergency (ER) | payer MEDICARE ==
[~2022-03-15] VITALS: Ht 160 cm; Wt 58.6 kg
[2022-03-15] VITALS (12 sets, daily range): BP systolic 108–123; BP diastolic 44–63
--- NOTE | 2022-03-15 18:53 | ED General ---
General Chief Complaint: General Problems/Pain Stated Complaint: IRR LAB RESULTS Source of Information: Patient History of Present Illness Date Seen by Provider: Mar 15, 2022 Time Seen by Provider: 18:57 Initial Comments PT ARRIVES VIA POV FROM HOME IN [place] PT WITH CHRONIC ANEMIA, REQUIRING FREQUENT TRANSFUSIONS/TRANSFUSION DEPENDENT PT BRINGS OUTPATIENT ORDERS WITH HER FROM DR. DAN, FOR OUTPATIENT TRANSFUSION OF 2 UNITS OF PRBC'S FOR HGB OF 4.9. [employer] SALES REPRESENTATIVE CONTACTED TO ARRANGE FOR OUTPATIENT TRANSFUSION. [employer] SALES REPRESENTATIVE LATER CALLS BACK AND ADVISES TO DO TRANSFUSION IN ER NO STAF F AVAILABLE TO DO OUTPATIENT TRANSFUSION AT THIS TIME PT HAS HAD SHORTNESS OF BREATH FOR THE LAST 2 DAYS, WITH SOME FATIGUE NO CHEST PAIN NO OTHER SYMPTOMS PCP: DR. DAN, [place]. Allergies and Home Medications Allergies Coded Allergies: Grsjsvd-DOC-DeA Reductase Inhibitor (Verified Allergy, Unknown, 08/25/20) Sulfa (Sulfonamide Antibiotics) (Unverified Allergy, Unknown, 08/21/18) amoxicillin (Verified Allergy, Unknown, 08/25/20) aspartame (Unverified Allergy, Unknown, 08/21/18) atorvastatin (Verified Allergy, Unknown, 08/25/20) bee venom protein (honey bee) (Verified Allergy, Unknown, 08/25/20) diphenhydramine (Verified Allergy, Unknown, 08/25/20) ipratropium (Verified Allergy, Unknown, 08/25/20) iron (Unverified Allergy, Unknown, 08/21/18) "TACHYCARDIA" WITH IV INFUSION nicotine (Verified Allergy, Unknown, 08/25/20) quinine (Verified Allergy, Unknown, 08/25/20) Patient Home Medication List Home Medication List Reviewed: Yes Albuterol Sulfate (Ventolin Hfa) 1 Puff Puff, 2 PUFF INH Q6H PRN for SHORTNESS OF BREATH, (Reported) Entered as Reported by: BRONSON AHUMADA on 08/21/18 1649 Albuterol Sulfate (Albuterol Sulfate) 2.5 Mg/3 Ml Vial.neb, 1 VIAL PO Q6H PRN for SHORTNESS OF BREATH, (Reported) Entered as Reported by: SUE PAULINO on 09/12/21 0843 Aspirin (Aspirin EC) 81 Mg Tablet.dr, 81 MG PO 1700, (Reported) Entered as Reported by: DORIS WADDELL on 09/29/21 0955 Cyanocobalamin (Vitamin B-12) (Vitamin B-12) 1,000 Mcg Tablet.er, 1,000 MCG PO DAILY, (Reported) Entered as Reported by: DORIS WADDELL on 09/29/21 0955 Diltiazem HCl (Diltiazem 24Hr ER) 180 Mg Cap.er.24h, 180 MG PO DAILY, (Reported) Entered as Reported by: DORIS WADDELL on 09/29/21 0955 Ergocalciferol (Vitamin D2) (Vitamin D2) 1,250 Mcg Capsule, 1,250 MCG PO SUN, (Reported) Entered as Reported by: DORIS WADDELL on 09/29/21 1000 Lorazepam (Ativan) 0.5 Mg Tablet, 0.5 MG PO 1700, (Reported) Entered as Reported by: SUE PAULINO on 09/12/21 0843 Lorazepam (Ativan) 0.5 Mg Tablet, 0.5 MG PO 0700,1200 PRN for ANXIETY, (Reported) Entered as Reported by: DORIS WADDELL on 09/29/21 1000 Pantoprazole Sodium (Pantoprazole Sodium) 40 Mg Tablet.dr, 40 MG PO DAILY, (Reported) Entered as Reported by: SUE PAULINO on 09/12/21 0844 Sucralfate (Sucralfate) 1 Gm Tablet, 1 GM PO ACHS, (Reported) Entered as Reported by: KYLEIGH JEFFERSON on 09/22/21 1315 Tramadol HCl (Tramadol HCl) 50 Mg Tablet, 50 MG PO BID PRN for PAIN-MILD (1-4), (Reported) Entered as Reported by: SUE PAULINO on 09/12/21 0853 Review of Systems Review of Systems Constitutional: see HPI; No dizziness; malaise Respiratory: see HPI, dyspnea on exertion, short of breath Cardiovascular: no symptoms reported Gastrointestinal: no symptoms reported Genitourinary: no symptoms reported Musculoskeletal: no symptoms reported Skin: no symptoms reported Psychiatric/Neurological: No Symptoms Reported Hematologic/Lymphatic: See HPI, Anemia Immunological/Allergic: no symptoms reported Past Adisndz-Empyht-Bcwjzu Hx Immunizations Up To Date First/Initial COVID19 Vaccinat: NO Second COVID19 Vaccination Devan: NO Third COVID19 Vaccination Date: NO Seasonal Allergies Seasonal Allergies: No Past Medical History Surgery/Hospitalization HX: COPD, SVT, STROKE, Surgeries: Yes (neck) Section, Hysterectomy, Orthopedic Respiratory: Yes COPD Currently Using CPAP: No Currently Using BIPAP: No Cardiac: Yes (SVT) Atrial Fibrillation, High Cholesterol, Hypertension, Irregular Heartbeat Neurological: Yes Stroke, TIA Genitourinary: No Gastrointestinal: Yes Colitis, Gastrointestinal Bleed Musculoskeletal: No Endocrine: No HEENT: No Cancer: No Psychosocial: No Integumentary: No Blood Disorders: Yes (essential thrombocytosis, chronic anemia transfusion dependent) Family Medical History Heart Disease Physical Exam Vital Signs Vital Signs - First Documented 03/15/22 18:47 Temp 36.8 Pulse 95 Resp 18 B/P (MAP) 104/46 (65) Pulse Ox 92 O2 Delivery Nasal Cannula O2 Flow Rate 4.00 Capillary Refill : Height, Weight, BMI Height: 5'2.00" Weight: 139lbs. 0.0oz. [id number]; 22.00 BMI Method: General Appearance: No Apparent Distress, WD/WN HEENT: Pale Conjunctivae (L), Pale Conjunctivae (R) Neck: Normal Inspection Respiratory: Normal Breath Sounds Cardiovascular: Regular Rate, Rhythm Gastrointestinal: Non Tender Extremity: Normal Capillary Refill Neurologic/Psychiatric: Alert, Oriented x3 Skin: Warm/Dry; No Ecchymosis; Pallor; No Petechia Progress/Results/Core Measures Suspected Sepsis SIRS Temperature: Pulse: Respiratory Rate: Laboratory Tests 03/15/22 19:49: White Blood Count 9.8 Blood Pressure / Mean: Laboratory Tests 03/15/22 19:49: Creatinine 0.83, Platelet Count 343, Total Bilirubin 0.3 Results/Orders Lab Results Laboratory Tests Test 03/15/22 19:49 Range/Units White Blood Count 9.8 4.3-11.0 10^3/uL Red Blood Count 2.20 L 3.80-5.11 10^6/uL Hemoglobin 4.9 *L 11.5-16.0 g/dL Hematocrit 16 *L 35-52 % Mean Corpuscular Volume 74 L 80-99 fL Mean Corpuscular Hemoglobin 22 L 25-34 pg Mean Corpuscular Hemoglobin Concent 30 L 32-36 g/dL Red Cell Distribution Width 16.1 H 10.0-14.5 % Platelet Count 343 130-400 10^3/uL Mean Platelet Volume 10.4 9.0-12.2 fL Immature Granulocyte % (Auto) 1 % Neutrophils (%) (Auto) 83 H 42-75 % Lymphocytes (%) (Auto) 5 L 12-44 % Monocytes (%) (Auto) 9 0-12 % Eosinophils (%) (Auto) 1 0-10 % Basophils (%) (Auto) 0 0-10 % Neutrophils # (Auto) 8.1 H 1.8-7.8 10^3/uL Lymphocytes # (Auto) 0.5 L 1.0-4.0 10^3/uL Monocytes # (Auto) 0.9 0.0-1.0 10^3/uL Eosinophils # (Auto) 0.1 0.0-0.3 10^3/uL Basophils # (Auto) 0.0 0.0-0.1 10^3/uL Immature Granulocyte # (Auto) 0.1 0.0-0.1 10^3/uL Sodium Level 133 L 135-145 MMOL/L Potassium Level 4.4 3.6-5.0 MMOL/L Chloride Level 98 98-107 MMOL/L Carbon Dioxide Level 25 21-32 MMOL/L Anion Gap 10 5-14 MMOL/L Blood Urea Nitrogen 11 7-18 MG/DL Creatinine 0.83 0.60-1.30 MG/DL Estimat Glomerular Filtration Rate 69 BUN/Creatinine Ratio 13 Glucose Level 96 70-105 MG/DL Calcium Level 8.9 8.5-10.1 MG/DL Corrected Calcium 9.2 8.5-10.1 MG/DL Magnesium Level 2.0 1.6-2.4 MG/DL Total Bilirubin 0.3 0.1-1.0 MG/DL Aspartate Amino Transf (AST/SGOT) 12 5-34 U/L Alanine Aminotransferase (ALT/SGPT) 11 0-55 U/L Alkaline Phosphatase 92 40-136 U/L Total Protein 6.0 L 6.4-8.2 GM/DL Albumin 3.6 3.2-4.5 GM/DL My Orders Orders - LINA BERKOWITZ DO Ed Iv/Invasive Line Start (03/15/22 18:51) Monitor-Rhythm Ecg Trace Only (03/15/22 18:51) Cbc With Automated Diff (03/15/22 18:51) Comprehensive Metabolic Panel (03/15/22 18:51) Magnesium (03/15/22 18:51) Red Cells Leukocytes Reduced (03/15/22 19:35) Type And Screen (03/15/22 19:35) Ns (Ivpb) (Sodium Chloride 0.9%) (03/15/22 20:43) Medications Given in ED Current Medications Medications Dose Ordered Sig/Jonathan Route Start Time Stop Time Status Last Admin Dose Admin Sodium Chloride 250 ml @ ud STK-MED ONCE .ROUTE 03/15/22 20:43 03/15/22 20:47 DC 03/15/22 21:23 250 MLS/HR Vital Signs/I&O 03/15/22 03/15/22 03/15/22 03/15/22 18:47 19:30 21:00 21:05 Temp 36.8 37.1 36.9 Pulse 95 86 84 Resp 18 16 16 B/P (MAP) 104/46 (65) 123/51 108/53 Pulse Ox 92 96 95 O2 Delivery Nasal Cannula Nasal Cannula Room Air Nasal Cannula O2 Flow Rate 4.00 3.00 2.00 03/15/22 03/15/22 03/15/22 03/15/22 21:10 21:15 21:30 21:45 Temp 37.2 36.9 37.1 37.1 Pulse 85 83 80 84 Resp 20 20 21 B/P (MAP) 110/48 119/63 118/48 111/51 Pulse Ox 96 98 100 100 O2 Delivery Nasal Cannula Nasal Cannula Nasal Cannula Nasal Cannula O2 Flow Rate 4.00 4.00 4.00 4.00 03/15/22 03/15/22 03/15/22 03/15/22 21:50 22:00 22:15 22:55 Temp 37.2 37.0 37.4 Pulse 80 81 80 Resp 20 16 18 B/P (MAP) 119/44 117/56 121/52 Pulse Ox 100 100 100 O2 Delivery Nasal Cannula Nasal Cannula Nasal Cannula Nasal Cannula O2 Flow Rate 3.00 3.00 3.00 3.00 03/15/22 03/15/22 03/15/22 03/16/22 23:00 23:05 23:10 00:45 Temp 37.0 36.9 37.0 36.8 Pulse 87 80 81 Resp 20 16 20 20 B/P (MAP) 112/45 116/48 114/51 108/46 Pulse Ox 99 96 99 98 O2 Delivery Nasal Cannula Nasal Cannula Nasal Cannula Room Air O2 Flow Rate 3.00 3.00 3.00 03/16/22 00:00 Intake Total 395 ml Balance 395 ml Capillary Refill : Progress Note : Progress Note GIVEN 2 UNITS OF PRBC'S NO ADVERSE REACTION COMPUTERS WENT DOWN DURING ER STAY. Departure Impression Primary Impression: Acute on chronic anemia Disposition: HOME, SELF-CARE Condition: Stable Departure-Patient Inst. Decision time for Depature: 00:45 Referrals: GAL DAN MD (PCP/Family) Primary Care Physician Patient Instructions: Anemia, Possibly From Low Iron, Adult ED Add. Discharge Instructions: HOME, REST CONTINUE ALL YOUR MEDICATIONS PRESCRIBED FOLLOW UP WITH DR. DAN THIS WEEK FOR FURTHER CARE--CALL IN THE MORNING TO SCHEDULE APPOINTMENT All discharge instructions reviewed with patient and/or family. Voiced understanding. LINA BERKOWITZ DO Mar 15, 2022 18:53
[2022-03-15 20:02] LABS: BASOPHILS % (AUTO) 0 % (0-10); EOSINOPHILS # (AUTO) 0.1 10^3/uL (0.0-0.3); EOSINOPHILS % (AUTO) 1 % (0-10); LYMPHOCYTES # (AUTO) 0.5 10^3/uL (1.0-4.0); LYMPHOCYTES % (AUTO) 5 % (12-44); MEAN CORPUSCULAR HEMOGLOBIN 22 pg (25-34); MEAN CORPUSCULAR HGB CONC 30 g/dL (32-36); MEAN CORPUSCULAR VOLUME 74 fL (80-99); MEAN PLATELET VOLUME 10.4 fL (9.0-12.2); MONOCYTES # (AUTO) 0.9 10^3/uL (0.0-1.0); MONOCYTES % (AUTO) 9 % (0-12); NEUTROPHILS # (AUTO) 8.1 10^3/uL (1.8-7.8); NEUTROPHILS % (AUTO) 83 % (42-75); PLATELET COUNT 343 10^3/uL (130-400); WHITE BLOOD COUNT 9.8 10^3/uL (4.3-11.0)
[2022-03-15 20:03] LABS: HEMATOCRIT 16 % (35-52); HEMOGLOBIN 4.9 g/dL (11.5-16.0)
[2022-03-15 20:29] LABS: ALBUMIN 3.6 GM/DL (3.2-4.5); BILIRUBIN,TOTAL 0.3 MG/DL (0.1-1.0); CALCIUM 8.9 MG/DL (8.5-10.1); CREATININE SERUM 0.83 MG/DL (0.60-1.30); POTASSIUM 4.4 MMOL/L (3.6-5.0)
[2022-03-15] MEDS ORDERED: NS (IVPB) 250 ML ONE (20:43)
[2022-03-16 00:45] VITALS: BP 108/46
== END 2022-03-16 00:45 | disposition home or self-care (01) ==
LOC: EDUNIT# 18:38 → ER 18:39
DX: D64.9 Anemia, unspecified (principal); Z28.310 Unvaccinated for COVID-19
CPT/HCPCS: 36430; 80053; 83735; 85025; 86850; 86900; 86901; 86920; 93041; 99285; P9016; 36415

== ENCOUNTER → 2022-03-28 | Outpatient (CLI) | payer MEDICARE ==
[2022-03-28 09:34] LABS: BASOPHILS % (AUTO) 0 % (0-10); EOSINOPHILS # (AUTO) 0.3 10^3/uL (0.0-0.3); EOSINOPHILS % (AUTO) 4 % (0-10); HEMATOCRIT 22 % (35-52); LYMPHOCYTES # (AUTO) 0.8 10^3/uL (1.0-4.0); LYMPHOCYTES % (AUTO) 9 % (12-44); MEAN CORPUSCULAR HEMOGLOBIN 23 pg (25-34); MEAN CORPUSCULAR HGB CONC 31 g/dL (32-36); MEAN CORPUSCULAR VOLUME 76 fL (80-99); MEAN PLATELET VOLUME 10.2 fL (9.0-12.2); MONOCYTES # (AUTO) 0.8 10^3/uL (0.0-1.0); MONOCYTES % (AUTO) 10 % (0-12); NEUTROPHILS # (AUTO) 6.6 10^3/uL (1.8-7.8); NEUTROPHILS % (AUTO) 77 % (42-75); PLATELET COUNT 420 10^3/uL (130-400); WHITE BLOOD COUNT 8.6 10^3/uL (4.3-11.0)
[2022-03-28 09:40] LABS: HEMOGLOBIN 6.8 g/dL (11.5-16.0)
== END ==
LOC: LABNPT 09:26
PROVIDERS: ATTEND Family Medicine
DX: D64.9 Anemia, unspecified (principal)
CPT/HCPCS: 85025

== ENCOUNTER 2022-03-29 08:03 | Outpatient (CLI) | payer MEDICARE ==
[2022-03-29] VITALS (7 sets, daily range): BP systolic 113–146; BP diastolic 52–69
[~2022-03-29] VITALS: Ht 157.5 cm; Wt 58.6 kg
[2022-03-29] MEDS ORDERED: NS IV 500 ML 500 ML IV SCH (08:30)
[2022-03-29 08:53] LABS: HEMOGLOBIN 6.1 g/dL (11.5-16.0)
== END 2022-03-29 15:10 ==
LOC: SDC 08:03
PROVIDERS: ATTEND Family Medicine
DX: D64.9 Anemia, unspecified (principal)
CPT/HCPCS: 36430; 85014; 85018; 86850; 86900; 86901; 86920; P9016; 36415

== ENCOUNTER 2022-04-05 09:03 | Outpatient (RCR) | payer MEDICARE ==
[2022-04-05 09:14] LABS: BASOPHILS # (AUTO) 0.1 10^3/uL (0.0-0.1); BASOPHILS % (AUTO) 1 % (0-10); EOSINOPHILS # (AUTO) 0.3 10^3/uL (0.0-0.3); EOSINOPHILS % (AUTO) 4 % (0-10); HEMATOCRIT 27 % (35-52); HEMOGLOBIN 8.6 g/dL (11.5-16.0); LYMPHOCYTES # (AUTO) 0.5 10^3/uL (1.0-4.0); LYMPHOCYTES % (AUTO) 6 % (12-44); MEAN CORPUSCULAR HEMOGLOBIN 25 pg (25-34); MEAN CORPUSCULAR HGB CONC 32 g/dL (32-36); MEAN CORPUSCULAR VOLUME 80 fL (80-99); MEAN PLATELET VOLUME 10.1 fL (9.0-12.2); MONOCYTES # (AUTO) 0.8 10^3/uL (0.0-1.0); MONOCYTES % (AUTO) 8 % (0-12); NEUTROPHILS # (AUTO) 7.5 10^3/uL (1.8-7.8); NEUTROPHILS % (AUTO) 81 % (42-75); PLATELET COUNT 402 10^3/uL (130-400); WHITE BLOOD COUNT 9.2 10^3/uL (4.3-11.0)
[2022-04-05 10:36] LABS: BAND NEUTROPHILS 4 %; BASOPHILS % (MANUAL) 1 %; EOSINOPHILS % (MANUAL) 2 %; HYPOCHROMASIA 2+; LYMPHOCYTES % (MANUAL) 8 %; MICROCYTOSIS 1+; MONOCYTES % (MANUAL) 5 %; NEUTROPHILS % (MANUAL) 80 %; PLATELET ESTIMATE INCREASED
== END 2022-04-24 | disposition home or self-care (01) ==
LOC: LAB FS 09:03
PROVIDERS: ATTEND Family Medicine
DX: D50.9 Iron deficiency anemia, unspecified (principal)
CPT/HCPCS: 36415; 85007; 85027

== ENCOUNTER → 2022-04-11 | Outpatient (CLI) | payer MEDICARE ==
[2022-04-11 10:28] LABS: BASOPHILS % (AUTO) 0 % (0-10); EOSINOPHILS # (AUTO) 0.2 10^3/uL (0.0-0.3); EOSINOPHILS % (AUTO) 2 % (0-10); HEMATOCRIT 25 % (35-52); HEMOGLOBIN 8.1 g/dL (11.5-16.0); LYMPHOCYTES # (AUTO) 0.6 10^3/uL (1.0-4.0); LYMPHOCYTES % (AUTO) 6 % (12-44); MEAN CORPUSCULAR HEMOGLOBIN 25 pg (25-34); MEAN CORPUSCULAR HGB CONC 32 g/dL (32-36); MEAN CORPUSCULAR VOLUME 77 fL (80-99); MONOCYTES # (AUTO) 0.7 10^3/uL (0.0-1.0); MONOCYTES % (AUTO) 7 % (0-12); NEUTROPHILS # (AUTO) 8.8 10^3/uL (1.8-7.8); NEUTROPHILS % (AUTO) 84 % (42-75); PLATELET COUNT 410 10^3/uL (130-400); WHITE BLOOD COUNT 10.5 10^3/uL (4.3-11.0)
[2022-04-11 10:51] LABS: BAND NEUTROPHILS 0 %; BASOPHILS % (MANUAL) 0 %; EOSINOPHILS % (MANUAL) 3 %; LYMPHOCYTES % (MANUAL) 2 %; MONOCYTES % (MANUAL) 9 %; NEUTROPHILS % (MANUAL) 86 %
== END ==
LOC: LABNPT 10:10
PROVIDERS: ATTEND Family Medicine
DX: D50.9 Iron deficiency anemia, unspecified (principal)
CPT/HCPCS: 85007; 85027

== ENCOUNTER 2022-04-18 09:35 | Outpatient (RCR) | payer MEDICARE ==
[2022-04-18 09:42] LABS: BASOPHILS % (AUTO) 0 % (0-10); EOSINOPHILS # (AUTO) 0.3 10^3/uL (0.0-0.3); EOSINOPHILS % (AUTO) 3 % (0-10); HEMATOCRIT 23 % (35-52); LYMPHOCYTES # (AUTO) 0.6 10^3/uL (1.0-4.0); LYMPHOCYTES % (AUTO) 6 % (12-44); MEAN CORPUSCULAR HEMOGLOBIN 24 pg (25-34); MEAN CORPUSCULAR HGB CONC 30 g/dL (32-36); MEAN CORPUSCULAR VOLUME 78 fL (80-99); MEAN PLATELET VOLUME 9.9 fL (9.0-12.2); MONOCYTES # (AUTO) 0.9 10^3/uL (0.0-1.0); MONOCYTES % (AUTO) 8 % (0-12); NEUTROPHILS # (AUTO) 9.2 10^3/uL (1.8-7.8); NEUTROPHILS % (AUTO) 83 % (42-75); PLATELET COUNT 390 10^3/uL (130-400); WHITE BLOOD COUNT 11.1 10^3/uL (4.3-11.0)
[2022-04-18 09:44] LABS: HEMOGLOBIN 6.9 g/dL (11.5-16.0)
[2022-04-18 13:13] LABS: BAND NEUTROPHILS 3 %; EOSINOPHILS % (MANUAL) 1 %; HYPOCHROMASIA MODERATE; LYMPHOCYTES % (MANUAL) 4 %; MICROCYTOSIS 2+; MONOCYTES % (MANUAL) 9 %; NEUTROPHILS % (MANUAL) 83 %; PLATELET ESTIMATE NORMAL
== END 2022-04-24 | disposition home or self-care (01) ==
LOC: LABNPT 09:35
PROVIDERS: ATTEND Family Medicine
DX: D50.9 Iron deficiency anemia, unspecified (principal)
CPT/HCPCS: 85007; 85027

== ENCOUNTER 2022-04-19 07:57 | Outpatient (CLI) | payer MEDICARE ==
[2022-04-19] VITALS (7 sets, daily range): BP systolic 126–156; BP diastolic 54–74
[~2022-04-19] VITALS: Ht 157.5 cm; Wt 58.6 kg
[2022-04-19] MEDS ORDERED: NS IV 500 ML 500 ML IV SCH (08:30)
== END 2022-04-19 15:30 ==
LOC: SDC 07:57
PROVIDERS: ATTEND Family Medicine
DX: D64.9 Anemia, unspecified (principal)
CPT/HCPCS: 36430; 86850; 86900; 86901; 86920; 96523; P9016; 36415

== ENCOUNTER → 2022-05-16 | Outpatient (CLI) | payer MEDICARE ==
[2022-05-16] VITALS (7 sets, daily range): BP systolic 141–154; BP diastolic 50–80
[~2022-05-16] MED LIST changes: +FUROSEMIDE 40 MG/4 ML INJ (LASIX) IV ONE; +FUROSEMIDE 40 MG/4 ML INJ (LASIX) ONE; +NS IV 500 ML 500 ML IV ONE
[2022-05-16 08:23] LABS: HEMOGLOBIN 6.3 g/dL (11.5-16.0)
[2022-05-16 11:20] LABS: HEMOGLOBIN 7.5 g/dL (11.5-16.0)
== END ==
LOC: SDC 07:35
PROVIDERS: ATTEND Family Medicine
DX: D50.0 Iron deficiency anemia secondary to blood loss (chronic) (principal)
CPT/HCPCS: 36430; 36591; 85014; 85018; 86850; 86900; 86901; 86920; P9016; 36415

== ENCOUNTER 2022-05-22 08:42 | Outpatient (RCR) | payer MEDICARE ==
[2022-04-27 10:40] LABS: BASOPHILS % (AUTO) 0 % (0-10); EOSINOPHILS # (AUTO) 0.2 10^3/uL (0.0-0.3); EOSINOPHILS % (AUTO) 3 % (0-10); HEMATOCRIT 29 % (35-52); HEMOGLOBIN 9.1 g/dL (11.5-16.0); LYMPHOCYTES # (AUTO) 0.6 10^3/uL (1.0-4.0); LYMPHOCYTES % (AUTO) 7 % (12-44); MEAN CORPUSCULAR HEMOGLOBIN 24 pg (25-34); MEAN CORPUSCULAR HGB CONC 31 g/dL (32-36); MEAN CORPUSCULAR VOLUME 78 fL (80-99); MEAN PLATELET VOLUME 10.2 fL (9.0-12.2); MONOCYTES # (AUTO) 0.8 10^3/uL (0.0-1.0); MONOCYTES % (AUTO) 9 % (0-12); NEUTROPHILS # (AUTO) 7.5 10^3/uL (1.8-7.8); NEUTROPHILS % (AUTO) 82 % (42-75); PLATELET COUNT 335 10^3/uL (130-400); WHITE BLOOD COUNT 9.3 10^3/uL (4.3-11.0)
[2022-04-27 11:22] LABS: ANISOCYTOSIS SLIGHT; ATYPICAL LYMPHOCYTES 2 %; BAND NEUTROPHILS 0 %; BASOPHILS % (MANUAL) 1 %; EOSINOPHILS % (MANUAL) 2 %; LYMPHOCYTES % (MANUAL) 7 %; MONOCYTES % (MANUAL) 7 %; NEUTROPHILS % (MANUAL) 81 %
[2022-05-04 09:40] LABS: BASOPHILS # (AUTO) 0.1 10^3/uL (0.0-0.1); BASOPHILS % (AUTO) 1 % (0-10); EOSINOPHILS # (AUTO) 0.3 10^3/uL (0.0-0.3); EOSINOPHILS % (AUTO) 4 % (0-10); HEMATOCRIT 27 % (35-52); HEMOGLOBIN 8.3 g/dL (11.5-16.0); LYMPHOCYTES # (AUTO) 0.6 10^3/uL (1.0-4.0); LYMPHOCYTES % (AUTO) 7 % (12-44); MEAN CORPUSCULAR HEMOGLOBIN 24 pg (25-34); MEAN CORPUSCULAR HGB CONC 31 g/dL (32-36); MEAN CORPUSCULAR VOLUME 77 fL (80-99); MONOCYTES # (AUTO) 0.8 10^3/uL (0.0-1.0); MONOCYTES % (AUTO) 8 % (0-12); NEUTROPHILS # (AUTO) 7.4 10^3/uL (1.8-7.8); NEUTROPHILS % (AUTO) 80 % (42-75); PLATELET COUNT 366 10^3/uL (130-400); WHITE BLOOD COUNT 9.3 10^3/uL (4.3-11.0)
[2022-05-04 09:41] LABS: BAND NEUTROPHILS 1 %; EOSINOPHILS % (MANUAL) 2 %; HYPOCHROMASIA 2+; LYMPHOCYTES % (MANUAL) 9 %; MICROCYTOSIS 2+; MONOCYTES % (MANUAL) 9 %; NEUTROPHILS % (MANUAL) 79 %; PLATELET ESTIMATE NORMAL
[2022-05-11 09:16] LABS: BASOPHILS % (AUTO) 0 % (0-10); EOSINOPHILS # (AUTO) 0.3 10^3/uL (0.0-0.3); EOSINOPHILS % (AUTO) 3 % (0-10); HEMATOCRIT 25 % (35-52); HEMOGLOBIN 7.5 g/dL (11.5-16.0); LYMPHOCYTES # (AUTO) 0.7 10^3/uL (1.0-4.0); LYMPHOCYTES % (AUTO) 7 % (12-44); MEAN CORPUSCULAR HEMOGLOBIN 24 pg (25-34); MEAN CORPUSCULAR HGB CONC 31 g/dL (32-36); MEAN CORPUSCULAR VOLUME 78 fL (80-99); MEAN PLATELET VOLUME 10.3 fL (9.0-12.2); MONOCYTES # (AUTO) 0.7 10^3/uL (0.0-1.0); MONOCYTES % (AUTO) 7 % (0-12); NEUTROPHILS # (AUTO) 7.8 10^3/uL (1.8-7.8); NEUTROPHILS % (AUTO) 82 % (42-75); PLATELET COUNT 421 10^3/uL (130-400); WHITE BLOOD COUNT 9.6 10^3/uL (4.3-11.0)
[2022-05-11 09:45] LABS: ATYPICAL LYMPHOCYTES 1 %; BAND NEUTROPHILS 0 %; BASOPHILS % (MANUAL) 0 %; EOSINOPHILS % (MANUAL) 3 %; LYMPHOCYTES % (MANUAL) 6 %; MICROCYTOSIS SLIGHT; MONOCYTES % (MANUAL) 8 %; NEUTROPHILS % (MANUAL) 82 %
[2022-05-15 10:55] LABS: BASOPHILS # (AUTO) 0.1 10^3/uL (0.0-0.1); BASOPHILS % (AUTO) 0 % (0-10); EOSINOPHILS # (AUTO) 0.2 10^3/uL (0.0-0.3); EOSINOPHILS % (AUTO) 1 % (0-10); HEMATOCRIT 23 % (35-52); LYMPHOCYTES # (AUTO) 0.8 10^3/uL (1.0-4.0); LYMPHOCYTES % (AUTO) 6 % (12-44); MEAN CORPUSCULAR HEMOGLOBIN 24 pg (25-34); MEAN CORPUSCULAR HGB CONC 31 g/dL (32-36); MEAN CORPUSCULAR VOLUME 77 fL (80-99); MEAN PLATELET VOLUME 10.6 fL (9.0-12.2); MONOCYTES % (AUTO) 8 % (0-12); NEUTROPHILS # (AUTO) 10.2 10^3/uL (1.8-7.8); NEUTROPHILS % (AUTO) 83 % (42-75); PLATELET COUNT 440 10^3/uL (130-400); WHITE BLOOD COUNT 12.3 10^3/uL (4.3-11.0)
[2022-05-15 11:27] LABS: BAND NEUTROPHILS 0 %; BASOPHILS % (MANUAL) 0 %; EOSINOPHILS % (MANUAL) 0 %; LYMPHOCYTES % (MANUAL) 10 %; MONOCYTES % (MANUAL) 6 %; NEUTROPHILS % (MANUAL) 84 %
[2022-05-15 11:28] LABS: ANISOCYTOSIS SLIGHT; HYPOCHROMASIA MODERATE
[~2022-05-22 08:42] MED LIST changes: -FUROSEMIDE 40 MG/4 ML INJ (LASIX) IV ONE; -FUROSEMIDE 40 MG/4 ML INJ (LASIX) ONE; -NS IV 500 ML 500 ML IV ONE
[2022-05-22 08:50] LABS: BASOPHILS % (AUTO) 0 % (0-10); EOSINOPHILS # (AUTO) 0.3 10^3/uL (0.0-0.3); EOSINOPHILS % (AUTO) 4 % (0-10); HEMATOCRIT 32 % (35-52); HEMOGLOBIN 10.1 g/dL (11.5-16.0); LYMPHOCYTES # (AUTO) 0.6 10^3/uL (1.0-4.0); LYMPHOCYTES % (AUTO) 7 % (12-44); MEAN CORPUSCULAR HEMOGLOBIN 25 pg (25-34); MEAN CORPUSCULAR HGB CONC 32 g/dL (32-36); MEAN CORPUSCULAR VOLUME 80 fL (80-99); MONOCYTES # (AUTO) 0.9 10^3/uL (0.0-1.0); MONOCYTES % (AUTO) 11 % (0-12); NEUTROPHILS # (AUTO) 6.6 10^3/uL (1.8-7.8); NEUTROPHILS % (AUTO) 78 % (42-75); PLATELET COUNT 319 10^3/uL (130-400); WHITE BLOOD COUNT 8.5 10^3/uL (4.3-11.0)
[2022-05-22 09:21] LABS: BAND NEUTROPHILS 0 %; LYMPHOCYTES % (MANUAL) 8 %; NEUTROPHILS % (MANUAL) 74 %
[2022-05-22 09:22] LABS: ANISOCYTOSIS SLIGHT; BASOPHILS % (MANUAL) 1 %; EOSINOPHILS % (MANUAL) 2 %; HYPOCHROMASIA SLIGHT; MONOCYTES % (MANUAL) 15 %
== END 2022-05-24 | disposition home or self-care (01) ==
LOC: LABNPT 08:42
PROVIDERS: ATTEND Family Medicine
DX: D50.9 Iron deficiency anemia, unspecified (principal)
CPT/HCPCS: 85007; 85027

== ENCOUNTER 2022-05-27 06:42 | Emergency (ER) | payer MEDICARE ==
[~2022-05-27] VITALS: Ht 160 cm; Wt 58.3 kg
[2022-05-27] MEDS ORDERED: ONDANSETRON 4 MG/2 ML (SDV) Z0FRAN IVP ONE (07:00)
[2022-05-27] MEDS ORDERED: NS IV 500 ML 500 ML IV SCH (07:00)
[2022-05-27 07:26] LABS: BASOPHILS % (AUTO) 0 % (0-10); EOSINOPHILS % (AUTO) 0 % (0-10); HEMATOCRIT 33 % (35-52); HEMOGLOBIN 10.6 g/dL (11.5-16.0); LYMPHOCYTES # (AUTO) 0.3 10^3/uL (1.0-4.0); LYMPHOCYTES % (AUTO) 4 % (12-44); MEAN CORPUSCULAR HEMOGLOBIN 25 pg (25-34); MEAN CORPUSCULAR HGB CONC 32 g/dL (32-36); MEAN CORPUSCULAR VOLUME 79 fL (80-99); MONOCYTES # (AUTO) 0.7 10^3/uL (0.0-1.0); MONOCYTES % (AUTO) 9 % (0-12); NEUTROPHILS # (AUTO) 6.6 10^3/uL (1.8-7.8); NEUTROPHILS % (AUTO) 86 % (42-75); PLATELET COUNT 263 10^3/uL (130-400); WHITE BLOOD COUNT 7.7 10^3/uL (4.3-11.0)
--- NOTE | 2022-05-27 07:32 | Diagnostic Imaging Report ---
INDICATION: Cough and congestion EXAMINATION: Chest 05/27/2022 COMPARISON: 12/06/2021 FINDINGS: There are vague airspace opacities at the lung bases likely atelectasis with early infiltrate not excluded. Heart is stable. Pulmonary vasculature unchanged. There is no pneumothorax. Left chest port stable. IMPRESSION: 1. Persistent bibasal atelectasis versus infiltrates. This has worsened since the previous examination. Dictated by: Dictated on workstation # [id number]
[2022-05-27 07:48] LABS: ALBUMIN 3.7 GM/DL (3.2-4.5); BILIRUBIN,TOTAL 0.4 MG/DL (0.1-1.0); CREATININE SERUM 1.27 MG/DL (0.60-1.30); POTASSIUM 3.5 MMOL/L (3.6-5.0); TOTAL PROTEIN 6.4 GM/DL (6.4-8.2)
[2022-05-27 08:28] LABS: NEUTROPHILS % (MANUAL) 88 %
[2022-05-27 08:29] LABS: EOSINOPHILS % (MANUAL) 1 %; LYMPHOCYTES % (MANUAL) 5 %; MONOCYTES % (MANUAL) 5 %; PLATELET CLUMPS OCCASIONAL; RBC MORPH NORMAL
[2022-05-27] MEDS ORDERED: OSLT75C PO (08:50)
[2022-05-27] MEDS ORDERED: ONDA8TAB13 SL (08:51)
--- NOTE | 2022-05-27 08:52 | ED General ---
General Chief Complaint: COVID19 Suspect/Confirmed Stated Complaint: COPD,POSS FLU,WEAK,VOMITING Nursing Triage Note: ARRIVED VIA WC WITH COMPLAINTS OF V/D, COUGH, WEAKNESS STARTING A COUPLE OF DAYS AGO. Source of Information: Patient Exam Limitations: No Limitations History of Present Illness Date Seen by Provider: May 27, 2022 Time Seen by Provider: 07:00 Initial Comments Patient went to cough weakness vomiting diarrhea. Symptoms started a couple days ago and have been persistent. Presents today because she is vomiting would like something to help with this. She denies any fevers or chills. She does have some mild shortness of breath. She is on oxygen at home [id number]. Allergies and Home Medications Allergies Coded Allergies: Hsyfazr-DKT-VoM Reductase Inhibitor (Verified Allergy, Unknown, 08/25/20) Sulfa (Sulfonamide Antibiotics) (Unverified Allergy, Unknown, 08/21/18) amoxicillin (Verified Allergy, Unknown, 08/25/20) aspartame (Unverified Allergy, Unknown, 08/21/18) atorvastatin (Verified Allergy, Unknown, 08/25/20) bee venom protein (honey bee) (Verified Allergy, Unknown, 08/25/20) diphenhydramine (Verified Allergy, Unknown, 08/25/20) ipratropium (Verified Allergy, Unknown, 08/25/20) iron (Unverified Allergy, Unknown, 08/21/18) "TACHYCARDIA" WITH IV INFUSION nicotine (Verified Allergy, Unknown, 08/25/20) quinine (Verified Allergy, Unknown, 08/25/20) Patient Home Medication List Home Medication List Reviewed: Yes Albuterol Sulfate (Ventolin Hfa) 1 Puff Puff, 2 PUFF INH Q6H PRN for SHORTNESS OF BREATH, (Reported) Entered as Reported by: BRONSON AHUMADA on 08/21/18 1649 Albuterol Sulfate (Albuterol Sulfate) 2.5 Mg/3 Ml Vial.neb, 1 VIAL PO Q6H PRN for SHORTNESS OF BREATH, (Reported) Entered as Reported by: SUE PAULINO on 09/12/21 0843 Aspirin (Aspirin EC) 81 Mg Tablet.dr, 81 MG PO 1700, (Reported) Entered as Reported by: DORIS WADDELL on 09/29/21 0955 Cyanocobalamin (Vitamin B-12) (Vitamin B-12) 1,000 Mcg Tablet.er, 1,000 MCG PO DAILY, (Reported) Entered as Reported by: DORIS WADDELL on 09/29/21 0955 Diltiazem HCl (Diltiazem 24Hr ER) 180 Mg Cap.er.24h, 180 MG PO DAILY, (Reported) Entered as Reported by: DORIS WADDELL on 09/29/21 0955 Ergocalciferol (Vitamin D2) (Vitamin D2) 1,250 Mcg Capsule, 1,250 MCG PO SUN, (Reported) Entered as Reported by: DORIS WADDELL on 09/29/21 1000 Lorazepam (Ativan) 0.5 Mg Tablet, 0.5 MG PO 1700, (Reported) Entered as Reported by: SUE PAULINO on 09/12/21 0843 Lorazepam (Ativan) 0.5 Mg Tablet, 0.5 MG PO 0700,1200 PRN for ANXIETY, (Reported) Entered as Reported by: DORIS WADDELL on 09/29/21 1000 Ondansetron (Ondansetron Odt) 8 Mg Tab.rapdis, 8 MG SL Q4H PRN for NAUSEA/VOMITING Prescribed by: CHRISTIANO YARBROUGH MD on 05/27/22 0851 Oseltamivir Phosphate (Tamiflu) 75 Mg Cap, 75 MG PO BID Prescribed by: CHRISTIANO YARBROUGH MD on 05/27/22 0850 Pantoprazole Sodium (Pantoprazole Sodium) 40 Mg Tablet.dr, 40 MG PO DAILY, (Reported) Entered as Reported by: SUE PAULINO on 09/12/21 0844 Sucralfate (Sucralfate) 1 Gm Tablet, 1 GM PO ACHS, (Reported) Entered as Reported by: KYLEIGH JEFFERSON on 09/22/21 1315 Tramadol HCl (Tramadol HCl) 50 Mg Tablet, 50 MG PO BID PRN for PAIN-MILD (1-4), (Reported) Entered as Reported by: SUE PAULINO on 09/12/21 0853 Review of Systems Review of Systems Constitutional: weakness EENTM: no symptoms reported Respiratory: cough, short of breath Cardiovascular: no symptoms reported Gastrointestinal: diarrhea, nausea, vomiting Musculoskeletal: no symptoms reported Skin: no symptoms reported Psychiatric/Neurological: No Symptoms Reported Hematologic/Lymphatic: No Symptoms Reported Immunological/Allergic: no symptoms reported Past Ygdfutg-Zgzryx-Sghtea Hx Patient Social History Tobacco Use?: Yes Smoking Status: Former Smoker Substance use?: No Alcohol Use?: No Immunizations Up To Date First/Initial COVID19 Vaccinat: NO Second COVID19 Vaccination Devan: NO Third COVID19 Vaccination Date: NO Seasonal Allergies Seasonal Allergies: No Past Medical History Surgery/Hospitalization HX: COPD, SVT, STROKE, Surgeries: Yes (neck) Section, Hysterectomy, Orthopedic Respiratory: Yes COPD Currently Using CPAP: No Currently Using BIPAP: No Cardiac: Yes (SVT) Atrial Fibrillation, High Cholesterol, Hypertension, Irregular Heartbeat Neurological: Yes Stroke, TIA Genitourinary: No Gastrointestinal: Yes Colitis, Gastrointestinal Bleed Musculoskeletal: No Endocrine: No HEENT: No Cancer: No Psychosocial: No Integumentary: No Blood Disorders: Yes (essential thrombocytosis, chronic anemia transfusion dependent) Family Medical History Reviewed Nursing Family Hx Heart Disease Physical Exam Vital Signs Vital Signs - First Documented 05/27/22 06:52 Temp 35.7 Pulse 87 Resp 16 B/P (MAP) 91/64 (73) Pulse Ox 99 O2 Delivery Nasal Cannula O2 Flow Rate 3.00 Capillary Refill : Less Than 3 Seconds Height, Weight, BMI Height: 5'2.00" Weight: 139lbs. 0.0oz. 63.748672iw; 22.00 BMI Method: General Appearance: No Apparent Distress HEENT: Normal ENT Inspection, Pharynx Normal Neck: Full Range of Motion, Normal Inspection, Supple Respiratory: Chest Non Tender, Lungs Clear, Normal Breath Sounds, No Accessory Muscle Use, No Respiratory Distress Cardiovascular: Regular Rate, Rhythm, No Edema, No Murmur, Normal Peripheral Pulses Gastrointestinal: Normal Bowel Sounds, No Organomegaly, No Pulsatile Mass, Non Tender, Soft Extremity: Normal Capillary Refill, Normal Inspection, Normal Range of Motion, Non Tender, No Calf Tenderness Neurologic/Psychiatric: Alert, Oriented x3, No Motor/Sensory Deficits, Normal Mood/Affect Skin: Normal Color, Warm/Dry Focused Exam Lactate Level 05/27/22 07:15: Lactic Acid Level 1.00 Lactic Acid Level Laboratory Tests Test 05/27/22 07:15 Lactic Acid Level 1.00 MMOL/L (0.50-2.00) Progress/Results/Core Measures Suspected Sepsis SIRS Temperature: Pulse: 87 Respiratory Rate: 16 Laboratory Tests 05/27/22 07:15: White Blood Count 7.7 Blood Pressure 91 /64 Mean: 73 05/27/22 07:15: Lactic Acid Level 1.00 Laboratory Tests 05/27/22 07:15: Creatinine 1.27, Platelet Count 263, Total Bilirubin 0.4 Results/Orders Lab Results Laboratory Tests Test 05/27/22 06:53 05/27/22 07:15 Range/Units Influenza Type A (RT-PCR) Detected H Not Detecte Influenza Type B (RT-PCR) Not Detected Not Detecte SARS-CoV-2 RNA (RT-PCR) Not Detected Not Detecte White Blood Count 7.7 4.3-11.0 10^3/uL Red Blood Count 4.19 3.80-5.11 10^6/uL Hemoglobin 10.6 L 11.5-16.0 g/dL Hematocrit 33 L 35-52 % Mean Corpuscular Volume 79 L 80-99 fL Mean Corpuscular Hemoglobin 25 25-34 pg Mean Corpuscular Hemoglobin Concent 32 32-36 g/dL Red Cell Distribution Width 17.2 H 10.0-14.5 % Platelet Count 263 130-400 10^3/uL Mean Platelet Volume 10.0 9.0-12.2 fL Immature Granulocyte % (Auto) 1 % Neutrophils (%) (Auto) 86 H 42-75 % Lymphocytes (%) (Auto) 4 L 12-44 % Monocytes (%) (Auto) 9 0-12 % Eosinophils (%) (Auto) 0 0-10 % Basophils (%) (Auto) 0 0-10 % Neutrophils # (Auto) 6.6 1.8-7.8 10^3/uL Lymphocytes # (Auto) 0.3 L 1.0-4.0 10^3/uL Monocytes # (Auto) 0.7 0.0-1.0 10^3/uL Eosinophils # (Auto) 0.0 0.0-0.3 10^3/uL Basophils # (Auto) 0.0 0.0-0.1 10^3/uL Immature Granulocyte # (Auto) 0.1 0.0-0.1 10^3/uL Neutrophils % (Manual) 88 % Lymphocytes % (Manual) 5 % Monocytes % (Manual) 5 % Eosinophils % (Manual) 1 % Clumped Platelets OCCASIONAL Blood Morphology Comment NORMAL Sodium Level 129 L 135-145 MMOL/L Potassium Level 3.5 L 3.6-5.0 MMOL/L Chloride Level 93 L 98-107 MMOL/L Carbon Dioxide Level 23 21-32 MMOL/L Anion Gap 13 5-14 MMOL/L Blood Urea Nitrogen 14 7-18 MG/DL Creatinine 1.27 0.60-1.30 MG/DL Estimat Glomerular Filtration Rate 42 BUN/Creatinine Ratio 11 Glucose Level 117 H 70-105 MG/DL Lactic Acid Level 1.00 0.50-2.00 MMOL/L Calcium Level 9.0 8.5-10.1 MG/DL Corrected Calcium 9.2 8.5-10.1 MG/DL Total Bilirubin 0.4 0.1-1.0 MG/DL Aspartate Amino Transf (AST/SGOT) 26 5-34 U/L Alanine Aminotransferase (ALT/SGPT) 18 0-55 U/L Alkaline Phosphatase 105 40-136 U/L Total Protein 6.4 6.4-8.2 GM/DL Albumin 3.7 3.2-4.5 GM/DL My Orders Orders - CHRISTIANO YARBROUGH DO Cbc With Automated Diff (05/27/22 06:57) Comprehensive Metabolic Panel (05/27/22 06:57) Covid 19 Inhouse Test (05/27/22 06:57) Lactic Acid Analyzer (05/27/22 06:57) Influenza A And B By Pcr (05/27/22 06:57) Ns Iv 500 Ml (Sodium Chloride 0.9%) (05/27/22 07:00) Ondansetron Injection (Zofran Injectio (05/27/22 07:00) Blood Culture (05/27/22 06:57) Chest 1 View, Ap/Pa Only (05/27/22 06:57) Ed Iv/Invasive Line Start (05/27/22 06:57) O2 (05/27/22 06:57) Manual Differential (05/27/22 07:15) Medications Given in ED Vital Signs/I&O 05/27/22 05/27/22 06:52 08:58 Temp 35.7 Pulse 87 70 Resp 16 16 B/P (MAP) 91/64 (73) 109/56 Pulse Ox 99 97 O2 Delivery Nasal Cannula Nasal Cannula O2 Flow Rate 3.00 3.00 Capillary Refill : Less Than 3 Seconds Blood Pressure Mean: 73 Departure Communication (Admissions) Patient initially mildly hypotensive, increased rapidly with IV fluids. Electrolytes are relatively stable with mild hyponatremia. She is having diarrhea, recommended Imodium. She is having nausea with some vomiting intermittently as well, so she is given Zofran. She is high risk given her history of COPD and oxygen dependence so we will go ahead and give her Tamiflu. She is on her home oxygen requirement not really having any respiratory symptoms related to fluid at this time. Chest x-ray is negative. No indication of focal bacterial infection or require antibiotics. Discharged in stable condition. Impression Primary Impression: Influenza A Disposition: HOME, SELF-CARE Condition: Stable Departure-Patient Inst. Referrals: GAL DAN MD (PCP/Family) Primary Care Physician Patient Instructions: Flu, Adult ED Add. Discharge Instructions: Increase your fluids at home, rest. Take the Tamiflu as prescribed until it is gone. Use ibuprofen and Tylenol as needed for body aches, fevers. Use Imodium [id number] for diarrhea. I provided you with nausea medicine as well. To the emergency department for any severe concerns, inability to tolerate fluids or if your symptoms change in any way concerning to you. Follow-up with her primary doctor on Sunday. All discharge instructions reviewed with patient and/or family. Voiced understanding. Scripts Ondansetron (Ondansetron Odt) 8 Mg Tab.rapdis 8 MG SL Q4H PRN for NAUSEA/VOMITING for 3 Days, #18 TAB Prov: CHRISTIANO YARBROUGH DO 05/27/22 Oseltamivir Phosphate (Tamiflu) 75 Mg Cap 75 MG PO BID for 5 Days, #10 CAP Prov: CHRISTIANO YARBROUGH DO 05/27/22 CHRISTIANO YARBROUGH DO May 27, 2022 08:52
[2022-05-27 08:58] VITALS: BP 109/56
== END 2022-05-27 08:58 | disposition home or self-care (01) ==
LOC: EDUNIT# 06:42 → ER 06:46
DX: J10.1 Influenza due to other identified influenza virus with other respiratory manifestations (principal); E87.1 Hypo-osmolality and hyponatremia; I10 Essential (primary) hypertension; D64.9 Anemia, unspecified; J44.9 Chronic obstructive pulmonary disease, unspecified; Z99.81 Dependence on supplemental oxygen; Z87.891 Personal history of nicotine dependence; Z28.310 Unvaccinated for COVID-19; Z20.822 Contact with and (suspected) exposure to COVID-19
CPT/HCPCS: 36415; 71045; 80053; 83605; 85007; 85027; 87040; 87636

== ENCOUNTER 2022-06-02 09:21 | Outpatient (RCR) | payer MEDICARE ==
[~2022-06-02 09:21] MED LIST changes: +ONDA8TAB13 SL; +OSLT75C PO
[2022-06-02 09:35] LABS: BASOPHILS % (AUTO) 0 % (0-10); EOSINOPHILS # (AUTO) 0.1 10^3/uL (0.0-0.3); EOSINOPHILS % (AUTO) 2 % (0-10); HEMATOCRIT 31 % (35-52); HEMOGLOBIN 9.8 g/dL (11.5-16.0); LYMPHOCYTES # (AUTO) 0.6 10^3/uL (1.0-4.0); LYMPHOCYTES % (AUTO) 7 % (12-44); MEAN CORPUSCULAR HEMOGLOBIN 25 pg (25-34); MEAN CORPUSCULAR HGB CONC 32 g/dL (32-36); MEAN CORPUSCULAR VOLUME 78 fL (80-99); MEAN PLATELET VOLUME 10.2 fL (9.0-12.2); MONOCYTES # (AUTO) 0.7 10^3/uL (0.0-1.0); MONOCYTES % (AUTO) 8 % (0-12); NEUTROPHILS # (AUTO) 7.3 10^3/uL (1.8-7.8); NEUTROPHILS % (AUTO) 83 % (42-75); PLATELET COUNT 360 10^3/uL (130-400); WHITE BLOOD COUNT 8.7 10^3/uL (4.3-11.0)
[2022-06-02 10:16] LABS: BAND NEUTROPHILS 0 %; NEUTROPHILS % (MANUAL) 82 %
[2022-06-02 10:17] LABS: BASOPHILS % (MANUAL) 1 %; EOSINOPHILS % (MANUAL) 1 %; LYMPHOCYTES % (MANUAL) 6 %; MONOCYTES % (MANUAL) 8 %; MYELOCYTES % 2 %
== END 2022-06-24 | disposition home or self-care (01) ==
LOC: LABNPT 09:21
PROVIDERS: ATTEND Family Medicine
DX: D50.9 Iron deficiency anemia, unspecified (principal)
CPT/HCPCS: 85007; 85027

== ENCOUNTER 2022-06-07 09:33 | Emergency (ER) | payer MEDICARE ==
[~2022-06-07] VITALS: Ht 160 cm; Wt 57.0 kg
--- NOTE | 2022-06-07 10:21 | ED Abdominal Pain ---
General Chief Complaint: Abdominal/GI Problems Stated Complaint: BLOATING | CONGESTION Nursing Triage Note: PT TO RM 7 PER W/C PT CO OF INTERMITTENT ABD PAIN AND DARK TARRY STOOLS FOR 3 DAYS. PT HAS HX OF ANEMIA. PT HAS HX COPD. PT TESTED + FOR FLU A ON 05/27/22 (ROMERO ORELLANA) Source of Information: Patient, Family (AURELIA TORRES MD) History of Present Illness Date Seen by Provider: Jun 07, 2022 Time Seen by Provider: 10:10 Initial Comments 82 yo female with pmhx of COPD, Afib, GI bleeds, stoke and infusaport here with chief complaint of abdominal pain and dark tarry stools for 3 days. Pt is weak and somnolent so unable to obtain much hx from her but son was able to provide hx. He notes that his mother gets transfused frequently and gets a CBC checked every week. Pt has been having diffuse abdominal pain which she rates as a 9/10 and dark tarry stools for 3 days. Today she felt worse and more fatigued. Has associated ORDONEZ, lightheadedness/dizziness, nausea, and abdominal bloating. Pt was diagnosed with Influenza A on 05/27/22 and was treated with Tamiflu. Pt is feeling better since then but still coughing up green sputum. Pt on 3 1/2 liters O2 on home machine. Denies any CP or SOB. Pts son denies any changes to patients mentation. No other complaints. Timing/Duration: 3-4 Days (ROMERO ORELLANA) Allergies and Home Medications Allergies Coded Allergies: Kccblcc-WYY-KhQ Reductase Inhibitor (Verified Allergy, Unknown, 08/25/20) Sulfa (Sulfonamide Antibiotics) (Unverified Allergy, Unknown, 08/21/18) amoxicillin (Verified Allergy, Unknown, 08/25/20) aspartame (Unverified Allergy, Unknown, 08/21/18) atorvastatin (Verified Allergy, Unknown, 08/25/20) bee venom protein (honey bee) (Verified Allergy, Unknown, 08/25/20) diphenhydramine (Verified Allergy, Unknown, 08/25/20) ipratropium (Verified Allergy, Unknown, 08/25/20) iron (Unverified Allergy, Unknown, 08/21/18) "TACHYCARDIA" WITH IV INFUSION nicotine (Verified Allergy, Unknown, 08/25/20) quinine (Verified Allergy, Unknown, 08/25/20) Patient Home Medication List Home Medication List Reviewed: Yes (AURELIA TORRES MD) Albuterol Sulfate (Ventolin Hfa) 1 Puff Puff, 2 PUFF INH Q6H PRN for SHORTNESS OF BREATH, (Reported) Entered as Reported by: BRONSON AHUMADA on 08/21/18 1649 Albuterol Sulfate (Albuterol Sulfate) 2.5 Mg/3 Ml Vial.neb, 1 VIAL PO Q6H PRN for SHORTNESS OF BREATH, (Reported) Entered as Reported by: SUE PAULINO on 09/12/21 0843 Aspirin (Aspirin EC) 81 Mg Tablet.dr, 81 MG PO 1700, (Reported) Entered as Reported by: DORIS WADDELL on 09/29/21 0955 Cyanocobalamin (Vitamin B-12) (Vitamin B-12) 1,000 Mcg Tablet.er, 1,000 MCG PO DAILY, (Reported) Entered as Reported by: DORIS WADDELL on 09/29/21 0955 Diltiazem HCl (Diltiazem 24Hr ER) 180 Mg Cap.er.24h, 180 MG PO DAILY, (Reported) Entered as Reported by: DORIS WADDELL on 09/29/21 0955 Ergocalciferol (Vitamin D2) (Vitamin D2) 1,250 Mcg Capsule, 1,250 MCG PO SUN, (Reported) Entered as Reported by: DORIS WADDELL on 09/29/21 1000 Lorazepam (Ativan) 0.5 Mg Tablet, 0.5 MG PO 1700, (Reported) Entered as Reported by: SUE PAULINO on 09/12/21 0843 Lorazepam (Ativan) 0.5 Mg Tablet, 0.5 MG PO 0700,1200 PRN for ANXIETY, (Reported) Entered as Reported by: DORIS WADDELL on 09/29/21 1000 Ondansetron (Ondansetron Odt) 8 Mg Tab.rapdis, 8 MG SL Q4H PRN for N AUSEA/VOMITING Prescribed by: CHRISTIANO YARBROUGH MD on 05/27/22 0851 Oseltamivir Phosphate (Tamiflu) 75 Mg Cap, 75 MG PO BID Prescribed by: CHRISTIANO YARBROUGH MD on 05/27/22 0850 Pantoprazole Sodium (Pantoprazole Sodium) 40 Mg Tablet.dr, 40 MG PO DAILY, (Reported) Entered as Reported by: SUE PAULINO on 09/12/21 0844 Sucralfate (Sucralfate) 1 Gm Tablet, 1 GM PO ACHS, (Reported) Entered as Reported by: KYLEIGH JEFFERSON on 09/22/21 1315 Tramadol HCl (Tramadol HCl) 50 Mg Tablet, 50 MG PO BID PRN for PAIN-MILD (1-4), (Reported) Entered as Reported by: SUE PAULINO on 09/12/21 0853 Review of Systems Review of Systems Constitutional: No chills; dizziness; No fever; weakness EENTM: No Symptoms Reported Respiratory: Cough, Shortness of Air Cardiovascular: Denies Chest Pain; Lightheadedness Gastrointestinal: Abdomen Distended, Abdominal Pain, Nausea; Denies Vomiting; Other (black tarry stools) Genitourinary: No Symptoms Reported Musculoskeletal: no symptoms reported Skin: no symptoms reported Psychiatric/Neurological: No Symptoms Reported Endocrine: No Symptoms Reported Hematologic/Lymphatic: No Symptoms Reported (ROMERO ORELLANA) All Other Systems Reviewed Negative Unless Noted: Yes (ROMERO ORELLANA) Past Byioryo-Pjboif-Ixsrry Hx Patient Social History Smoking Status: Former Smoker Substance use?: No Alcohol Use?: No Pt feels they are or have been: No (ROMERO ORELLANA) Immunizations Up To Date First/Initial COVID19 Vaccinat: NO Second COVID19 Vaccination Devan: NO Third COVID19 Vaccination Date: NO (ROMERO ORELLANA) Seasonal Allergies Seasonal Allergies: No (ROMERO ORELLANA) Past Medical History Surgery/Hospitalization HX: COPD, SVT, STROKE, INFUSAPORT Surgeries: Yes (neck) Section, Hysterectomy, Orthopedic Respiratory: Yes COPD Currently Using CPAP: No Currently Using BIPAP: No Cardiac: Yes (SVT) Atrial Fibrillation, High Cholesterol, Hypertension, Irregular Heartbeat Neurological: Yes Stroke, TIA Genitourinary: No Gastrointestinal: Yes Colitis, Gastrointestinal Bleed Musculoskeletal: No Endocrine: No HEENT: No Cancer: No Psychosocial: No Integumentary: No Blood Disorders: Yes (essential thrombocytosis, chronic anemia transfusion dependent) (ROMERO ORELLANA) Family Medical History Heart Disease (ROMERO ORELLANA) Physical Exam Vital Signs Vital Signs - First Documented 06/07/22 09:40 Temp 36.6 Pulse 80 Resp 16 B/P (MAP) 136/58 (84) Pulse Ox 95 O2 Delivery Nasal Cannula O2 Flow Rate 3.50 (AURELIA TORRES MD) Vital Signs Capillary Refill : Less Than 3 Seconds (ROMERO ORELLANA) Height/Weight/BMI Height: 5'2.00" Weight: 139lbs. 0.0oz. 63.464487df; 22.00 BMI Method: General Appearance: WD/WN, no apparent distress HEENT: PERRL/EOMI, normal ENT inspection, TMs normal, pharynx normal Neck: non-tender, full range of motion, supple, normal inspection Respiratory: chest non-tender, no respiratory distress, no accessory muscle use, rhonchi, wheezing Cardiovascular: regular rate, rhythm, no edema, no gallop, no JVD, no murmur Gastrointestinal: normal bowel sounds, soft, no organomegaly, no pulsatile mass, distended, tenderness (LUQ and LLQ) Extremities: normal range of motion, non-tender, normal inspection, no pedal edema, no calf tenderness, normal capillary refill Back: normal inspection, no CVA tenderness, no vertebral tenderness Pelvic: normal external exam, normal adnexa, no cerv. motion tender, no masses Neurologic/Psychiatric: high reach operator II-XII nml as tested, no motor/sensory deficits, alert, normal mood/affect, oriented x 3 Skin: normal color, warm/dry Lymphatic: no adenopathy (ROMERO ORELLANA) Progress/Results/Core Measures Results/Orders Lab Results Laboratory Tests Test 06/07/22 10:27 06/07/22 10:31 06/07/22 11:05 Range/Units Urine Color YELLOW Urine Clarity CLOUDY Urine pH 7.0 5-9 Urine Specific Osteen 1.020 1.016-1.022 Urine Protein 1+ H NEGATIVE Urine Glucose (UA) NEGATIVE NEGATIVE Urine Ketones NEGATIVE NEGATIVE Urine Nitrite NEGATIVE NEGATIVE Urine Bilirubin NEGATIVE NEGATIVE Urine Urobilinogen 0.2 < = 1.0 MG/DL Urine Leukocyte Esterase NEGATIVE NEGATIVE Urine RBC (Auto) NEGATIVE NEGATIVE Urine RBC RARE /HPF Urine WBC 0-2 /HPF Urine Squamous Epithelial Cells 0-2 /HPF Urine Crystals NONE /LPF Urine Bacteria TRACE /HPF Urine Casts NONE /LPF Urine Mucus NEGATIVE /LPF Urine Culture Indicated NO White Blood Count 9.1 4.3-11.0 10^3/uL Red Blood Count 3.61 L 3.80-5.11 10^6/uL Hemoglobin 8.9 L 11.5-16.0 g/dL Hematocrit 28 L 35-52 % Mean Corpuscular Volume 78 L 80-99 fL Mean Corpuscular Hemoglobin 25 25-34 pg Mean Corpuscular Hemoglobin Concent 32 32-36 g/dL Red Cell Distribution Width 16.4 H 10.0-14.5 % Platelet Count 496 H 130-400 10^3/uL Mean Platelet Volume 10.5 9.0-12.2 fL Immature Granulocyte % (Auto) 1 % Neutrophils (%) (Auto) 84 H 42-75 % Lymphocytes (%) (Auto) 6 L 12-44 % Monocytes (%) (Auto) 8 0-12 % Eosinophils (%) (Auto) 1 0-10 % Basophils (%) (Auto) 0 0-10 % Neutrophils # (Auto) 7.6 1.8-7.8 10^3/uL Lymphocytes # (Auto) 0.5 L 1.0-4.0 10^3/uL Monocytes # (Auto) 0.8 0.0-1.0 10^3/uL Eosinophils # (Auto) 0.1 0.0-0.3 10^3/uL Basophils # (Auto) 0.0 0.0-0.1 10^3/uL Immature Granulocyte # (Auto) 0.1 0.0-0.1 10^3/uL Neutrophils % (Manual) 83 % Lymphocytes % (Manual) 9 % Monocytes % (Manual) 7 % Eosinophils % (Manual) 1 % Hypochromasia MODERATE Anisocytosis SLIGHT Microcytosis MODERATE Sodium Level 134 L 135-145 MMOL/L Potassium Level 3.5 L 3.6-5.0 MMOL/L Chloride Level 99 98-107 MMOL/L Carbon Dioxide Level 26 21-32 MMOL/L Anion Gap 9 5-14 MMOL/L Blood Urea Nitrogen 7 7-18 MG/DL Creatinine 0.78 0.60-1.30 MG/DL Estimat Glomerular Filtration Rate 75 BUN/Creatinine Ratio 9 Glucose Level 102 70-105 MG/DL Calcium Level 9.4 8.5-10.1 MG/DL Corrected Calcium 9.6 8.5-10.1 MG/DL Total Bilirubin 0.3 0.1-1.0 MG/DL Aspartate Amino Transf (AST/SGOT) 11 5-34 U/L Alanine Aminotransferase (ALT/SGPT) 8 0-55 U/L Alkaline Phosphatase 97 40-136 U/L C-Reactive Protein High Sensitivity 0.16 0.00-0.50 MG/DL B-Type Natriuretic Peptide 125.9 H <100.0 PG/ML Total Protein 6.4 6.4-8.2 GM/DL Albumin 3.8 3.2-4.5 GM/DL SARS-CoV-2 RNA (RT-PCR) Not Detected Not Detecte (AURELIA TORRES MD) My Orders Orders - AURELIA TORRES MD Chest 1 View, Ap/Pa Only (06/07/22 10:27) Bnp [place] (06/07/22 10:27) Cbc With Automated Diff (06/07/22 10:27) Comprehensive Metabolic Panel (06/07/22 10:27) Hs C Reactive Protein (06/07/22 10:27) Ua Culture If Indicated (06/07/22 10:27) Ed Iv/Invasive Line Start (06/07/22 10:27) Ekg Tracing (06/07/22 10:27) Monitor-Rhythm Ecg Trace Only (06/07/22 10:27) Manual Differential (06/07/22 10:31) Covid 19 Inhouse Test (06/07/22 10:50) Albuterol Inhaler (Albuterol) (06/07/22 10:56) (AURELIA TORRES MD) Vital Signs/I&O 06/07/22 06/07/22 09:40 13:08 Temp 36.6 Pulse 80 74 Resp 16 16 B/P (MAP) 136/58 (84) 123/51 Pulse Ox 95 95 O2 Delivery Nasal Cannula Nasal Cannula O2 Flow Rate 3.50 3.50 3.50 (AURELIA TORRES MD) Blood Pressure Mean: 84 Progress Progress Note : Progress Note Based on history is given by patient and son, it seems that the GI blood loss and abdominal pain are chronic problems relatively unchanged. Work-up is unremarkable. Patient becomes more alert throughout the course of her ER stay. No abnormalities requiring emergent treatment or admission were found during work-up. Results were discussed with patient and son and discharge instructions were reviewed. (AURELIA TORRES MD) Initial ECG Impression Date: Jun 07, 2022 Initial ECG Impression Time: 10:55 Initial ECG Rate: 76 Initial ECG Rhythm: Normal Sinus Initial ECG Intervals: Normal Initial ECG Impression: Normal Comment Normal sinus rhythm with no ST elevation or depression. No abnormal intervals or axis deviation. (AURELIA TORRES MD) Diagnostic Imaging Diagonstic Imaging: Xray Plain Films/CT/US/NM/MRI: chest Comments NAME: DORA PAINTING [facility] REC#: [id number] PT STATUS: REG ER : 1940 PHYSICIAN: AURELIA TORRES MD ADMIT DATE: 06/07/22/ER Signed Date of Exam:06/07/22 CHEST 1 VIEW, AP/PA ONLY EXAMINATION: Chest 1 view HISTORY: SOA, Flu COMPARISON: 05/27/2022. FINDINGS: Heart size and pulmonary vasculature are normal. The lungs are clear without consolidation, pleural effusion, or pneumothorax. The osseous structures are intact. IMPRESSION: 1. No acute radiographic abnormality in the chest. Dictated by: Dictated on workstation # [id number] Dict: 06/07/22 1033 Trans: 06/07/22 1043 [id number] Interpreted by: MARCELINO VALERIO DO Electronically signed by: MARCELINO VALERIO DO 06/07/22 1043 (AURELIA TORRES MD) Departure Impression Primary Impression: Chronic anemia Additional Impression: Generalized weakness Disposition: 01 HOME, SELF-CARE Condition: Improved Departure-Patient Inst. Decision time for Depature: 13:01 (AURELIA TORRES MD) Referrals: GAL DAN MD (PCP/Family) Primary Care Physician Patient Instructions: Weakness ED Add. Discharge Instructions: Your weakness and fatigue is likely due to multiple factors including recent influenza infection, chronic anemia, and possibly medication effects from sedating medications such as lorazepam. Please follow-up with your primary care provider soon as possible for monitoring of your chronic conditions. Return to the emergency room if you have worsening symptoms despite following these instructions. Continue your medications as previously prescribed. All discharge instructions reviewed with patient and/or family. Voiced understanding. Medical Student Attestation and Attending Note: I have personally interviewed and examined this patient along with Drake Orellana, MS 3. I have reviewed student documentation including history, physical, and assessments. I agree with the documentation except where otherwise noted. Exam: General: Alert, oriented, somnolent, no acute distress, well developed HEENT: Normocephalic and atraumatic Heart: Regular rate and rhythm without murmur Lungs: Clear to auscultation bilaterally with normal effort Abdomen: Soft, mild tenderness in the left lower quadrant, nondistended, normal bowel sounds Neuropsych: Alert, oriented, no focal deficits Skin: Warm and dry without rashes (AURELIA TORRES MD) Copy Copies To 1: GAL DAN MD Copies To 2: NELDA HUDSON MD, ANISHA T Jun 07, 2022 10:21 AURELIA TORRES MD Jun 07, 2022 13:02
[2022-06-07 10:33] LABS: BASOPHILS % (AUTO) 0 % (0-10); EOSINOPHILS # (AUTO) 0.1 10^3/uL (0.0-0.3); EOSINOPHILS % (AUTO) 1 % (0-10); HEMATOCRIT 28 % (35-52); HEMOGLOBIN 8.9 g/dL (11.5-16.0); LYMPHOCYTES # (AUTO) 0.5 10^3/uL (1.0-4.0); LYMPHOCYTES % (AUTO) 6 % (12-44); MEAN CORPUSCULAR HEMOGLOBIN 25 pg (25-34); MEAN CORPUSCULAR HGB CONC 32 g/dL (32-36); MEAN CORPUSCULAR VOLUME 78 fL (80-99); MEAN PLATELET VOLUME 10.5 fL (9.0-12.2); MONOCYTES # (AUTO) 0.8 10^3/uL (0.0-1.0); MONOCYTES % (AUTO) 8 % (0-12); NEUTROPHILS # (AUTO) 7.6 10^3/uL (1.8-7.8); NEUTROPHILS % (AUTO) 84 % (42-75); PLATELET COUNT 496 10^3/uL (130-400); WHITE BLOOD COUNT 9.1 10^3/uL (4.3-11.0)
--- NOTE | 2022-06-07 10:36 | Diagnostic Imaging Report ---
EXAMINATION: Chest 1 view HISTORY: SOA, Flu COMPARISON: 05/27/2022. FINDINGS: Heart size and pulmonary vasculature are normal. The lungs are clear without consolidation, pleural effusion, or pneumothorax. The osseous structures are intact. IMPRESSION: 1. No acute radiographic abnormality in the chest. Dictated by: Dictated on workstation # [id number]
[2022-06-07 10:39] LABS: ALBUMIN 3.8 GM/DL (3.2-4.5); POTASSIUM 3.5 MMOL/L (3.6-5.0)
[2022-06-07 10:40] LABS: CALCIUM 9.4 MG/DL (8.5-10.1)
[2022-06-07 10:41] LABS: TOTAL PROTEIN 6.4 GM/DL (6.4-8.2)
[2022-06-07 10:43] LABS: BILIRUBIN,TOTAL 0.3 MG/DL (0.1-1.0)
[2022-06-07 10:45] LABS: CREATININE SERUM 0.78 MG/DL (0.60-1.30)
[2022-06-07 10:51] LABS: ANISOCYTOSIS SLIGHT; EOSINOPHILS % (MANUAL) 1 %; HYPOCHROMASIA MODERATE; LYMPHOCYTES % (MANUAL) 9 %; MICROCYTOSIS MODERATE; MONOCYTES % (MANUAL) 7 %; NEUTROPHILS % (MANUAL) 83 %
[2022-06-07] MEDS ORDERED: RT-ALBUTEROL HFA 8.5 GM INHALER IH STA (10:56)
[2022-06-07 11:27] LABS: BILIRUBIN,URINE NEGATIVE (NEGATIVE); CLARITY,URINE CLOUDY; COLOR,URINE YELLOW; GLUCOSE, URINE (UA) NEGATIVE (NEGATIVE); KETONES,URINE NEGATIVE (NEGATIVE); LEUKOCYTE ESTERASE ,URINE NEGATIVE (NEGATIVE); NITRITE,URINE NEGATIVE (NEGATIVE); PROTEIN,URINE 1+ (NEGATIVE)
[2022-06-07 11:34] LABS: BACTERIA,URINE TRACE /HPF; RBC,URINE RARE /HPF; SQUAMOUS EPITHELIAL CELL,UR 0-2 /HPF; WBC,URINE 0-2 /HPF
[2022-06-07 13:08] VITALS: BP 123/51
== END 2022-06-07 13:08 | disposition home or self-care (01) ==
LOC: EDUNIT# 09:33 → ER 09:35
DX: D53.9 Nutritional anemia, unspecified (principal); R53.1 Weakness; Z87.891 Personal history of nicotine dependence; Z20.822 Contact with and (suspected) exposure to COVID-19
CPT/HCPCS: 36415; 71045; 80053; 81000; 83880; 85007; 85027; 86141; 87636; 93005; 93041

== ENCOUNTER 2022-06-13 08:45 | Emergency (ER) | payer MEDICARE ==
[~2022-06-13] VITALS: Ht 160 cm; Wt 58.9 kg
--- NOTE | 2022-06-13 08:56 | ED General ---
General Stated Complaint: HEADACHES | SOB Source of Information: Patient Exam Limitations: No Limitations History of Present Illness Date Seen by Provider: Jun 13, 2022 Time Seen by Provider: 08:55 Initial Comments Patient is an 82-year-old female who presents to the emergency room with a chief complaint of throbbing headache. She states onset prior to going to bed last night. She is not sure if anything makes her head hurt any worse or any better. She states she cannot lay flat. She is chronically on home oxygen. She denies any fevers or chills but has a slight runny nose. Was diagnosed approximately 3 weeks ago with influenza A. States that she is a little nauseated. Family member at the bedside interjects with history intermittently during my history with her and exam. States that she is prone to anemia and blood transfusions. States she has a history of strokes. No vision problems, no speech difficulty or swallowing difficulty. No new, unilateral numbness weakness or tingling. Denies any problems with bowel or bladder. Admits to occasional black stool. Patient states that she did not take anything for her headache. She occasionally takes baby aspirin. All other review of systems reviewed and negative except as stated. Timing/Duration: Other (8 hours) Severity: Severe ("8") Associated Systoms: Nausea/Vomiting (nausea without vomiting), Other (runny nose) Allergies and Home Medications Allergies Coded Allergies: Lpkcrfp-OUQ-XmR Reductase Inhibitor (Verified Allergy, Unknown, 08/25/20) Sulfa (Sulfonamide Antibiotics) (Unverified Allergy, Unknown, 08/21/18) amoxicillin (Verified Allergy, Unknown, 08/25/20) aspartame (Unverified Allergy, Unknown, 08/21/18) atorvastatin (Verified Allergy, Unknown, 08/25/20) bee venom protein (honey bee) (Verified Allergy, Unknown, 08/25/20) diphenhydramine (Verified Allergy, Unknown, 08/25/20) ipratropium (Verified Allergy, Unknown, 08/25/20) iron (Unverified Allergy, Unknown, 08/21/18) "TACHYCARDIA" WITH IV INFUSION nicotine (Verified Allergy, Unknown, 08/25/20) quinine (Verified Allergy, Unknown, 08/25/20) Patient Home Medication List Home Medication List Reviewed: Yes Albuterol Sulfate (Ventolin Hfa) 1 Puff Puff, 2 PUFF INH Q6H PRN for SHORTNESS OF BREATH, (Reported) Entered as Reported by: BRONSON AHUMADA on 08/21/18 1649 Albuterol Sulfate (Albuterol Sulfate) 2.5 Mg/3 Ml Vial.neb, 1 VIAL PO Q6H PRN for SHORTNESS OF BREATH, (Reported) Entered as Reported by: SUE PAULINO on 09/12/21 0843 Aspirin (Aspirin EC) 81 Mg Tablet.dr, 81 MG PO 1700, (Reported) Entered as Reported by: DORIS WADDELL on 09/29/21 0955 Cyanocobalamin (Vitamin B-12) (Vitamin B-12) 1,000 Mcg Tablet.er, 1,000 MCG PO DAILY, (Reported) Entered as Reported by: DORIS WADDELL on 09/29/21 0955 Diltiazem HCl (Diltiazem 24Hr ER) 180 Mg Cap.er.24h, 180 MG PO DAILY, (Reported) Entered as Reported by: DORIS WADDELL on 09/29/21 0955 Ergocalciferol (Vitamin D2) (Vitamin D2) 1,250 Mcg Capsule, 1,250 MCG PO SUN, (Reported) Entered as Reported by: DORIS WADDELL on 09/29/21 1000 Lorazepam (Ativan) 0.5 Mg Tablet, 0.5 MG PO 1700, (Reported) Entered as Reported by: SUE PAULINO on 09/12/21 0843 Lorazepam (Ativan) 0.5 Mg Tablet, 0.5 MG PO 0700,1200 PRN for ANXIETY, (R eported) Entered as Reported by: DORIS WADDELL on 09/29/21 1000 Ondansetron (Ondansetron Odt) 8 Mg Tab.rapdis, 8 MG SL Q4H PRN for NAUSEA/VOMITING Prescribed by: CHRISTIANO YARBROUGH MD on 05/27/22 0851 Oseltamivir Phosphate (Tamiflu) 75 Mg Cap, 75 MG PO BID Prescribed by: CHRISTIANO YARBROUGH MD on 05/27/22 0850 Pantoprazole Sodium (Pantoprazole Sodium) 40 Mg Tablet.dr, 40 MG PO DAILY, (Reported) Entered as Reported by: SUE PAULINO on 09/12/21 0844 Sucralfate (Sucralfate) 1 Gm Tablet, 1 GM PO ACHS, (Reported) Entered as Reported by: KYLEIGH JEFFERSON on 09/22/21 1315 Tramadol HCl (Tramadol HCl) 50 Mg Tablet, 50 MG PO BID PRN for PAIN-MILD (1-4), (Reported) Entered as Reported by: SUE PAULINO on 09/12/21 0853 Review of Systems Review of Systems Constitutional: see HPI EENTM: other (runny nose) Respiratory: short of breath (chronic) Cardiovascular: no symptoms reported Gastrointestinal: nausea Genitourinary: no symptoms reported : No Skin: no symptoms reported Psychiatric/Neurological: Headache All Other Systems Reviewed Negative Unless Noted: Yes Past Rizqlye-Rykhrq-Zocead Hx Immunizations Up To Date First/Initial COVID19 Vaccinat: NO Second COVID19 Vaccination Devan: NO Third COVID19 Vaccination Date: NO Seasonal Allergies Seasonal Allergies: No Past Medical History Surgery/Hospitalization HX: COPD, SVT, STROKE, INFUSAPORT Surgeries: Yes (neck) Section, Hysterectomy, Orthopedic Respiratory: Yes COPD Currently Using CPAP: No Currently Using BIPAP: No Cardiac: Yes (SVT) Atrial Fibrillation, High Cholesterol, Hypertension, Irregular Heartbeat Neurological: Yes Stroke, TIA Genitourinary: No Gastrointestinal: Yes Colitis, Gastrointestinal Bleed Musculoskeletal: No Endocrine: No HEENT: No Cancer: No Psychosocial: No Integumentary: No Blood Disorders: Yes (essential thrombocytosis, chronic anemia transfusion dependent) Family Medical History Heart Disease Physical Exam Vital Signs Vital Signs - First Documented 06/13/22 08:49 Temp 36.2 Pulse 93 Resp 16 B/P (MAP) 121/61 (81) Pulse Ox 97 O2 Delivery Nasal Cannula O2 Flow Rate 4.00 Capillary Refill : Height, Weight, BMI Height: 5'2.00" Weight: 139lbs. 0.0oz. 63.936302vh; 22.00 BMI Method: General Appearance: No Apparent Distress, WD/WN, Anxious Eyes: Bilateral Eye Normal Inspection, Bilateral Eye PERRL, Bilateral Eye EOMI HEENT: PERRL/EOMI, Pharynx Normal; No Pale Conjunctivae (L), No Pale Conjunctivae (R) Neck: Full Range of Motion Respiratory: No Accessory Muscle Use, No Respiratory Distress Cardiovascular: Regular Rate, Rhythm, Normal Peripheral Pulses Gastrointestinal: Normal Bowel Sounds, Non Tender, Soft Extremity: Normal Capillary Refill, Normal Inspection, Normal Range of Motion, Non Tender, No Calf Tenderness Neurologic/Psychiatric: Alert, Oriented x3, No Motor/Sensory Deficits, Normal Mood/Affect, supervisor carbon electrodes II-XII Norm as Tested Skin: Normal Color, Warm/Dry Progress/Results/Core Measures Suspected Sepsis SIRS Temperature: Pulse: Respiratory Rate: Laboratory Tests 06/13/22 10:06: White Blood Count 9.3 Blood Pressure / Mean: Laboratory Tests 06/13/22 10:06: Platelet Count 380 Results/Orders Lab Results Laboratory Tests Test 06/13/22 10:06 Range/Units White Blood Count 9.3 4.3-11.0 10^3/uL Red Blood Count 3.14 L 3.80-5.11 10^6/uL Hemoglobin 7.6 L 11.5-16.0 g/dL Hematocrit 24 L 35-52 % Mean Corpuscular Volume 76 L 80-99 fL Mean Corpuscular Hemoglobin 24 L 25-34 pg Mean Corpuscular Hemoglobin Concent 32 32-36 g/dL Red Cell Distribution Width 16.2 H 10.0-14.5 % Platelet Count 380 130-400 10^3/uL Mean Platelet Volume 9.4 9.0-12.2 fL Immature Granulocyte % (Auto) 0 % Neutrophils (%) (Auto) 86 H 42-75 % Lymphocytes (%) (Auto) 5 L 12-44 % Monocytes (%) (Auto) 8 0-12 % Eosinophils (%) (Auto) 0 0-10 % Basophils (%) (Auto) 0 0-10 % Neutrophils # (Auto) 7.9 H 1.8-7.8 10^3/uL Lymphocytes # (Auto) 0.4 L 1.0-4.0 10^3/uL Monocytes # (Auto) 0.8 0.0-1.0 10^3/uL Eosinophils # (Auto) 0.0 0.0-0.3 10^3/uL Basophils # (Auto) 0.0 0.0-0.1 10^3/uL Immature Granulocyte # (Auto) 0.0 0.0-0.1 10^3/uL Neutrophils % (Manual) 95 % Lymphocytes % (Manual) 2 % Monocytes % (Manual) 2 % Eosinophils % (Manual) 1 % Basophils % (Manual) 0 % Band Neutrophils 0 % Anisocytosis SLIGHT Microcytosis SLIGHT My Orders Orders - DELANO DAVILA MD Acetaminophen Tablet (Tylenol Tablet) (06/13/22 09:15) Ondansetron Oral Dissolve Tab (Zofran (06/13/22 09:15) Cbc With Automated Diff (06/13/22 09:24) Manual Differential (06/13/22 10:06) Medications Given in ED Current Medications Medications Dose Ordered Sig/Jonathan Route Start Time Stop Time Status Last Admin Dose Admin Acetaminophen 1,000 mg ONCE ONCE PO 06/13/22 09:15 06/13/22 09:16 DC 06/13/22 09:20 1,000 MG Ondansetron HCl 4 mg ONCE ONCE PO 06/13/22 09:15 06/13/22 09:16 DC 06/13/22 09:20 4 MG Vital Signs/I&O 06/13/22 08:49 Temp 36.2 Pulse 93 Resp 16 B/P (MAP) 121/61 (81) Pulse Ox 97 O2 Delivery Nasal Cannula O2 Flow Rate 4.00 Capillary Refill : Progress Note : Time: 11:12 Progress Note discussed with Dr Dan, would recommend waiting umtil her blood draw on and then he will send in the order, if it is necessary for the transfusion. She does not meet criteria at this point. He would like to maintain direction and care of her transfusions. He told me the patient actually had an appointment scheduled today in clinic with him. As far as her headache goes - she feels much better. No complaints. VSS. Recommend tylenol as needed in the future. Departure Impression Primary Impression: Headache Qualified Codes: R51.9 - Headache, unspecified Additional Impression: Chronic anemia Disposition: 01 HOME, SELF-CARE Condition: Improved Departure-Patient Inst. Decision time for Depature: 11:15 Referrals: GAL DAN MD (PCP/Family) Primary Care Physician Patient Instructions: Headache, Adult ED Add. Discharge Instructions: Drink plenty of fluids to stay well hydrated. Please follow up with Dr Dan on for repeat blood work and transfusion orders. You can take over the counter extra strength tylenol 2 tablets every 6 hours as needed for headache. Return to the Emergency Department for any new, concerning or emergent complaints. Copy Copies To 1: GAL DAN MD, KATHRYN M MD Jun 13, 2022 08:56
[2022-06-13] MEDS ORDERED: ACETAMINOPHEN 500 MG TAB (TYLENOL) PO ONE (09:15)
[2022-06-13] MEDS ORDERED: ONDANSETRON 4 MG (ZOFRAN) ORAL DISSOLVE TAB PO ONE (09:15)
[2022-06-13 10:12] LABS: BASOPHILS % (AUTO) 0 % (0-10); EOSINOPHILS % (AUTO) 0 % (0-10); HEMATOCRIT 24 % (35-52); HEMOGLOBIN 7.6 g/dL (11.5-16.0); LYMPHOCYTES # (AUTO) 0.4 10^3/uL (1.0-4.0); LYMPHOCYTES % (AUTO) 5 % (12-44); MEAN CORPUSCULAR HEMOGLOBIN 24 pg (25-34); MEAN CORPUSCULAR HGB CONC 32 g/dL (32-36); MEAN CORPUSCULAR VOLUME 76 fL (80-99); MEAN PLATELET VOLUME 9.4 fL (9.0-12.2); MONOCYTES # (AUTO) 0.8 10^3/uL (0.0-1.0); MONOCYTES % (AUTO) 8 % (0-12); NEUTROPHILS # (AUTO) 7.9 10^3/uL (1.8-7.8); NEUTROPHILS % (AUTO) 86 % (42-75); PLATELET COUNT 380 10^3/uL (130-400); WHITE BLOOD COUNT 9.3 10^3/uL (4.3-11.0)
[2022-06-13 10:41] LABS: BAND NEUTROPHILS 0 %; BASOPHILS % (MANUAL) 0 %; EOSINOPHILS % (MANUAL) 1 %; LYMPHOCYTES % (MANUAL) 2 %; MONOCYTES % (MANUAL) 2 %; NEUTROPHILS % (MANUAL) 95 %
[2022-06-13 10:42] LABS: ANISOCYTOSIS SLIGHT; MICROCYTOSIS SLIGHT
[2022-06-13 11:45] VITALS: BP 117/58
== END 2022-06-13 11:45 | disposition home or self-care (01) ==
LOC: EDUNIT# 08:45 → ER 08:46
DX: D64.9 Anemia, unspecified (principal)
CPT/HCPCS: 36415; 85007; 85027

== ENCOUNTER 2022-06-21 09:26 | Outpatient (RCR) | payer MEDICARE ==
[2022-06-15 09:37] LABS: BASOPHILS % (AUTO) 0 % (0-10); EOSINOPHILS # (AUTO) 0.2 10^3/uL (0.0-0.3); EOSINOPHILS % (AUTO) 2 % (0-10); HEMATOCRIT 25 % (35-52); HEMOGLOBIN 7.9 g/dL (11.5-16.0); LYMPHOCYTES # (AUTO) 0.5 10^3/uL (1.0-4.0); LYMPHOCYTES % (AUTO) 6 % (12-44); MEAN CORPUSCULAR HEMOGLOBIN 24 pg (25-34); MEAN CORPUSCULAR HGB CONC 32 g/dL (32-36); MEAN CORPUSCULAR VOLUME 77 fL (80-99); MEAN PLATELET VOLUME 9.7 fL (9.0-12.2); MONOCYTES # (AUTO) 0.7 10^3/uL (0.0-1.0); MONOCYTES % (AUTO) 8 % (0-12); NEUTROPHILS # (AUTO) 7.5 10^3/uL (1.8-7.8); NEUTROPHILS % (AUTO) 83 % (42-75); PLATELET COUNT 413 10^3/uL (130-400)
[2022-06-15 10:04] LABS: BAND NEUTROPHILS 0 %; BASOPHILS % (MANUAL) 1 %; EOSINOPHILS % (MANUAL) 1 %; LYMPHOCYTES % (MANUAL) 3 %; MONOCYTES % (MANUAL) 10 %; NEUTROPHILS % (MANUAL) 85 %
[2022-06-15 10:05] LABS: ANISOCYTOSIS SLIGHT; ELLIPT/OVALOCYTES SLIGHT; HYPOCHROMASIA SLIGHT; POIKILOCYTOSIS SLIGHT
[2022-06-21 09:53] LABS: BASOPHILS % (AUTO) 0 % (0-10); EOSINOPHILS % (AUTO) 0 % (0-10); HEMATOCRIT 23 % (35-52); HEMOGLOBIN 7.3 g/dL (11.5-16.0); LYMPHOCYTES # (AUTO) 0.6 10^3/uL (1.0-4.0); LYMPHOCYTES % (AUTO) 5 % (12-44); MEAN CORPUSCULAR HEMOGLOBIN 24 pg (25-34); MEAN CORPUSCULAR HGB CONC 32 g/dL (32-36); MEAN CORPUSCULAR VOLUME 76 fL (80-99); MEAN PLATELET VOLUME 10.7 fL (9.0-12.2); MONOCYTES # (AUTO) 0.8 10^3/uL (0.0-1.0); MONOCYTES % (AUTO) 6 % (0-12); NEUTROPHILS # (AUTO) 11.9 10^3/uL (1.8-7.8); NEUTROPHILS % (AUTO) 88 % (42-75); PLATELET COUNT 414 10^3/uL (130-400); WHITE BLOOD COUNT 13.6 10^3/uL (4.3-11.0)
[2022-06-21 10:46] LABS: BAND NEUTROPHILS 1 %; BASOPHILS % (MANUAL) 0 %; EOSINOPHILS % (MANUAL) 0 %; LYMPHOCYTES % (MANUAL) 6 %; MONOCYTES % (MANUAL) 3 %; NEUTROPHILS % (MANUAL) 90 %
[2022-06-21 10:47] LABS: HYPOCHROMASIA SLIGHT
== END 2022-06-24 | disposition home or self-care (01) ==
LOC: LAB FS 09:26
PROVIDERS: ATTEND Family Medicine
DX: D50.9 Iron deficiency anemia, unspecified (principal)
CPT/HCPCS: 36415; 85007; 85027

== ENCOUNTER 2022-06-28 08:04 | Outpatient (CLI) | payer MEDICARE ==
[2022-06-28 08:15] VITALS: BP 126/59
[2022-06-28] MEDS ORDERED: FUROSEMIDE 40 MG/4 ML INJ (LASIX) IVP ONE (09:00)
[2022-06-28] MEDS ORDERED: NS IV 500 ML 500 ML IV SCH (09:00)
[2022-06-28 09:45] VITALS: BP 126/59
[2022-06-28 10:00] VITALS: BP 121/56
[2022-06-28] MEDS ORDERED: FUROSEMIDE 40 MG/4 ML INJ (LASIX) IVP NR (12:00)
[2022-06-28] MEDS ORDERED: FUROSEMIDE 40 MG/4 ML INJ (LASIX) ONE (12:09)
[2022-06-28 13:03] VITALS: BP 125/56
[2022-06-28 13:18] VITALS: BP 130/60
[2022-06-28 15:45] VITALS: BP 122/61
== END 2022-06-28 17:55 | disposition home or self-care (01) ==
LOC: SDC 08:04
PROVIDERS: ATTEND Family Medicine
DX: D50.0 Iron deficiency anemia secondary to blood loss (chronic) (principal)
CPT/HCPCS: 36430; 86850; 86900; 86901; 86920; P9016

== ENCOUNTER 2022-07-13 10:16 | Outpatient (RCR) | payer MEDICARE, OTHER ==
[2022-06-27 08:44] LABS: BASOPHILS % (AUTO) 0 % (0-10); EOSINOPHILS # (AUTO) 0.3 10^3/uL (0.0-0.3); EOSINOPHILS % (AUTO) 2 % (0-10); HEMATOCRIT 22 % (35-52); LYMPHOCYTES # (AUTO) 0.8 10^3/uL (1.0-4.0); LYMPHOCYTES % (AUTO) 7 % (12-44); MEAN CORPUSCULAR HEMOGLOBIN 23 pg (25-34); MEAN CORPUSCULAR HGB CONC 31 g/dL (32-36); MEAN CORPUSCULAR VOLUME 75 fL (80-99); MEAN PLATELET VOLUME 10.3 fL (9.0-12.2); MONOCYTES # (AUTO) 1.1 10^3/uL (0.0-1.0); MONOCYTES % (AUTO) 9 % (0-12); NEUTROPHILS # (AUTO) 9.7 10^3/uL (1.8-7.8); NEUTROPHILS % (AUTO) 81 % (42-75); PLATELET COUNT 313 10^3/uL (130-400)
[2022-06-27 08:46] LABS: HEMOGLOBIN 6.8 g/dL (11.5-16.0)
[2022-06-27 10:01] LABS: BAND NEUTROPHILS 1 %; EOSINOPHILS % (MANUAL) 2 %; LYMPHOCYTES % (MANUAL) 6 %; MONOCYTES % (MANUAL) 8 %; NEUTROPHILS % (MANUAL) 83 %
[2022-06-27 10:02] LABS: HYPOCHROMASIA MODERATE; MICROCYTOSIS MODERATE; PLATELET ESTIMATE NORMAL
[2022-07-04 09:26] LABS: BASOPHILS % (AUTO) 0 % (0-10); EOSINOPHILS # (AUTO) 0.2 10^3/uL (0.0-0.3); EOSINOPHILS % (AUTO) 2 % (0-10); HEMATOCRIT 31 % (35-52); HEMOGLOBIN 9.7 g/dL (11.5-16.0); LYMPHOCYTES # (AUTO) 0.6 10^3/uL (1.0-4.0); LYMPHOCYTES % (AUTO) 6 % (12-44); MEAN CORPUSCULAR HEMOGLOBIN 24 pg (25-34); MEAN CORPUSCULAR HGB CONC 32 g/dL (32-36); MEAN CORPUSCULAR VOLUME 77 fL (80-99); MEAN PLATELET VOLUME 10.6 fL (9.0-12.2); MONOCYTES # (AUTO) 0.8 10^3/uL (0.0-1.0); MONOCYTES % (AUTO) 7 % (0-12); NEUTROPHILS # (AUTO) 9.1 10^3/uL (1.8-7.8); NEUTROPHILS % (AUTO) 84 % (42-75); PLATELET COUNT 300 10^3/uL (130-400); WHITE BLOOD COUNT 10.7 10^3/uL (4.3-11.0)
[2022-07-04 10:01] LABS: BAND NEUTROPHILS 0 %; BASOPHILS % (MANUAL) 0 %; EOSINOPHILS % (MANUAL) 2 %; LYMPHOCYTES % (MANUAL) 6 %; METAMYELOCYTES % 1 %; MONOCYTES % (MANUAL) 9 %; NEUTROPHILS % (MANUAL) 82 %
[2022-07-04 10:02] LABS: ANISOCYTOSIS SLIGHT
[2022-07-13 10:45] LABS: BASOPHILS % (AUTO) 0 % (0-10); EOSINOPHILS # (AUTO) 0.2 10^3/uL (0.0-0.3); EOSINOPHILS % (AUTO) 2 % (0-10); HEMATOCRIT 27 % (35-52); HEMOGLOBIN 8.3 g/dL (11.5-16.0); LYMPHOCYTES # (AUTO) 0.7 10^3/uL (1.0-4.0); LYMPHOCYTES % (AUTO) 7 % (12-44); MEAN CORPUSCULAR HEMOGLOBIN 24 pg (25-34); MEAN CORPUSCULAR HGB CONC 31 g/dL (32-36); MEAN CORPUSCULAR VOLUME 77 fL (80-99); MEAN PLATELET VOLUME 10.5 fL (9.0-12.2); MONOCYTES # (AUTO) 0.7 10^3/uL (0.0-1.0); MONOCYTES % (AUTO) 7 % (0-12); NEUTROPHILS # (AUTO) 7.9 10^3/uL (1.8-7.8); NEUTROPHILS % (AUTO) 84 % (42-75); PLATELET COUNT 454 10^3/uL (130-400); WHITE BLOOD COUNT 9.4 10^3/uL (4.3-11.0)
[2022-07-13 11:07] LABS: EOSINOPHILS % (MANUAL) 3 %; LYMPHOCYTES % (MANUAL) 6 %; MONOCYTES % (MANUAL) 6 %; NEUTROPHILS % (MANUAL) 85 %; PLATELET ESTIMATE INCREASED
[2022-07-13 11:08] LABS: HYPOCHROMASIA 1+; MICROCYTOSIS 1+
== END 2022-07-25 | disposition home or self-care (01) ==
LOC: LABNPT 10:16
PROVIDERS: ATTEND Family Medicine
DX: D50.9 Iron deficiency anemia, unspecified (principal)
CPT/HCPCS: 85007; 85027

== ENCOUNTER → 2022-07-25 | Outpatient (RCR) | payer MEDICARE ==
[2022-07-25 09:59] LABS: BASOPHILS % (AUTO) 0 % (0-10); EOSINOPHILS # (AUTO) 0.2 10^3/uL (0.0-0.3); EOSINOPHILS % (AUTO) 2 % (0-10); HEMATOCRIT 24 % (35-52); HEMOGLOBIN 7.3 g/dL (11.5-16.0); LYMPHOCYTES # (AUTO) 0.8 10^3/uL (1.0-4.0); LYMPHOCYTES % (AUTO) 8 % (12-44); MEAN CORPUSCULAR HEMOGLOBIN 23 pg (25-34); MEAN CORPUSCULAR HGB CONC 30 g/dL (32-36); MEAN CORPUSCULAR VOLUME 75 fL (80-99); MEAN PLATELET VOLUME 10.1 fL (9.0-12.2); MONOCYTES # (AUTO) 0.9 10^3/uL (0.0-1.0); MONOCYTES % (AUTO) 8 % (0-12); NEUTROPHILS # (AUTO) 8.4 10^3/uL (1.8-7.8); NEUTROPHILS % (AUTO) 81 % (42-75); PLATELET COUNT 444 10^3/uL (130-400); WHITE BLOOD COUNT 10.5 10^3/uL (4.3-11.0)
[2022-07-25 10:29] LABS: EOSINOPHILS % (MANUAL) 3 %; LYMPHOCYTES % (MANUAL) 11 %; MONOCYTES % (MANUAL) 7 %; NEUTROPHILS % (MANUAL) 79 %
[2022-07-25 10:30] LABS: HYPOCHROMASIA MODERATE; MICROCYTOSIS MODERATE; PLATELET ESTIMATE INCREASED
== END ==
LOC: LABNPT 09:17
PROVIDERS: ATTEND Family Medicine
DX: D50.9 Iron deficiency anemia, unspecified (principal)
CPT/HCPCS: 85007; 85027

== ENCOUNTER → 2022-08-02 | Outpatient (CLI) | payer MEDICARE ==
[2022-08-02] VITALS (7 sets, daily range): BP systolic 141–152; BP diastolic 70–72
[~2022-08-02] VITALS: Wt 58.9 kg
[~2022-08-02] MED LIST changes: +FUROSEMIDE 40 MG/4 ML INJ (LASIX) IVP ONE; +FUROSEMIDE 40 MG/4 ML INJ (LASIX) ONE; +NS IV 500 ML 500 ML IV SCH
[2022-08-02 08:04] LABS: HEMOGLOBIN 6.4 g/dL (11.5-16.0)
== END ==
LOC: SDC 07:14
PROVIDERS: ATTEND Family Medicine
DX: D50.0 Iron deficiency anemia secondary to blood loss (chronic) (principal)
CPT/HCPCS: 36430; 36591; 85014; 85018; 86850; 86900; 86901; 86920; P9016; 36415

== ENCOUNTER → 2022-08-22 | Outpatient (RCR) | payer MEDICARE ==
[2022-08-01 11:22] LABS: BASOPHILS % (AUTO) 0 % (0-10); EOSINOPHILS # (AUTO) 0.2 10^3/uL (0.0-0.3); EOSINOPHILS % (AUTO) 2 % (0-10); HEMATOCRIT 22 % (35-52); LYMPHOCYTES # (AUTO) 0.6 10^3/uL (1.0-4.0); LYMPHOCYTES % (AUTO) 6 % (12-44); MEAN CORPUSCULAR HEMOGLOBIN 22 pg (25-34); MEAN CORPUSCULAR HGB CONC 30 g/dL (32-36); MEAN CORPUSCULAR VOLUME 73 fL (80-99); MEAN PLATELET VOLUME 10.4 fL (9.0-12.2); MONOCYTES # (AUTO) 0.8 10^3/uL (0.0-1.0); MONOCYTES % (AUTO) 8 % (0-12); NEUTROPHILS # (AUTO) 8.5 10^3/uL (1.8-7.8); NEUTROPHILS % (AUTO) 83 % (42-75); PLATELET COUNT 340 10^3/uL (130-400); WHITE BLOOD COUNT 10.2 10^3/uL (4.3-11.0)
[2022-08-01 11:36] LABS: HEMOGLOBIN 6.6 g/dL (11.5-16.0)
[2022-08-01 11:56] LABS: ANISOCYTOSIS MODERATE; BAND NEUTROPHILS 2 %; BASOPHILS % (MANUAL) 0 %; EOSINOPHILS % (MANUAL) 2 %; HYPOCHROMASIA MARKED; LYMPHOCYTES % (MANUAL) 5 %; MONOCYTES % (MANUAL) 1 %; NEUTROPHILS % (MANUAL) 90 %
[2022-08-10 10:43] LABS: BASOPHILS % (AUTO) 1 % (0-10); EOSINOPHILS # (AUTO) 0.2 10^3/uL (0.0-0.3); EOSINOPHILS % (AUTO) 3 % (0-10); HEMATOCRIT 31 % (35-52); HEMOGLOBIN 9.8 g/dL (11.5-16.0); LYMPHOCYTES # (AUTO) 0.5 10^3/uL (1.0-4.0); LYMPHOCYTES % (AUTO) 6 % (12-44); MEAN CORPUSCULAR HEMOGLOBIN 24 pg (25-34); MEAN CORPUSCULAR HGB CONC 31 g/dL (32-36); MEAN CORPUSCULAR VOLUME 77 fL (80-99); MEAN PLATELET VOLUME 10.8 fL (9.0-12.2); MONOCYTES # (AUTO) 0.7 10^3/uL (0.0-1.0); MONOCYTES % (AUTO) 8 % (0-12); NEUTROPHILS # (AUTO) 6.7 10^3/uL (1.8-7.8); NEUTROPHILS % (AUTO) 82 % (42-75); PLATELET COUNT 302 10^3/uL (130-400); WHITE BLOOD COUNT 8.2 10^3/uL (4.3-11.0)
[2022-08-10 13:59] LABS: EOSINOPHILS % (MANUAL) 1 %; LYMPHOCYTES % (MANUAL) 7 %; MONOCYTES % (MANUAL) 6 %; NEUTROPHILS % (MANUAL) 86 %
[2022-08-10 14:00] LABS: HYPOCHROMASIA MODERATE; MICROCYTOSIS MODERATE; PLATELET ESTIMATE NORMAL
[~2022-08-22] MED LIST changes: -FUROSEMIDE 40 MG/4 ML INJ (LASIX) IVP ONE; -FUROSEMIDE 40 MG/4 ML INJ (LASIX) ONE; -NS IV 500 ML 500 ML IV SCH
[2022-08-22 09:55] LABS: BASOPHILS # (AUTO) 0.1 10^3/uL (0.0-0.1); BASOPHILS % (AUTO) 1 % (0-10); EOSINOPHILS # (AUTO) 0.2 10^3/uL (0.0-0.3); EOSINOPHILS % (AUTO) 2 % (0-10); HEMATOCRIT 29 % (35-52); HEMOGLOBIN 9.1 g/dL (11.5-16.0); LYMPHOCYTES # (AUTO) 0.7 10^3/uL (1.0-4.0); LYMPHOCYTES % (AUTO) 8 % (12-44); MEAN CORPUSCULAR HEMOGLOBIN 23 pg (25-34); MEAN CORPUSCULAR HGB CONC 31 g/dL (32-36); MEAN CORPUSCULAR VOLUME 75 fL (80-99); MEAN PLATELET VOLUME 10.1 fL (9.0-12.2); MONOCYTES # (AUTO) 0.7 10^3/uL (0.0-1.0); MONOCYTES % (AUTO) 8 % (0-12); NEUTROPHILS # (AUTO) 7.4 10^3/uL (1.8-7.8); NEUTROPHILS % (AUTO) 81 % (42-75); PLATELET COUNT 487 10^3/uL (130-400)
[2022-08-22 10:29] LABS: BASOPHILS % (MANUAL) 1 %; EOSINOPHILS % (MANUAL) 3 %; HYPOCHROMASIA MODERATE; LYMPHOCYTES % (MANUAL) 7 %; MICROCYTOSIS 2+; MONOCYTES % (MANUAL) 6 %; MYELOCYTES % 1 %; NEUTROPHILS % (MANUAL) 82 %; PLATELET ESTIMATE INCREASED
== END | disposition home or self-care (01) ==
LOC: LABNPT 08-01 11:16
PROVIDERS: ATTEND Family Medicine
DX: D50.9 Iron deficiency anemia, unspecified (principal)
CPT/HCPCS: 85007; 85027

== ENCOUNTER → 2022-08-30 | Outpatient (CLI) | payer MEDICARE ==
[2022-08-30 11:00] LABS: HEMATOCRIT 29 % (35-52); HEMOGLOBIN 8.7 g/dL (11.5-16.0); WHITE BLOOD COUNT 9.9 10^3/uL (4.3-11.0)
[2022-08-30 11:01] LABS: BASOPHILS % (AUTO) 0 % (0-10); EOSINOPHILS # (AUTO) 0.2 10^3/uL (0.0-0.3); EOSINOPHILS % (AUTO) 2 % (0-10); LYMPHOCYTES # (AUTO) 0.7 10^3/uL (1.0-4.0); LYMPHOCYTES % (AUTO) 7 % (12-44); MEAN CORPUSCULAR HEMOGLOBIN 23 pg (25-34); MEAN CORPUSCULAR HGB CONC 30 g/dL (32-36); MEAN CORPUSCULAR VOLUME 76 fL (80-99); MEAN PLATELET VOLUME 10.2 fL (9.0-12.2); MONOCYTES # (AUTO) 0.8 10^3/uL (0.0-1.0); MONOCYTES % (AUTO) 8 % (0-12); NEUTROPHILS # (AUTO) 8.2 10^3/uL (1.8-7.8); NEUTROPHILS % (AUTO) 83 % (42-75); PLATELET COUNT 399 10^3/uL (130-400)
[2022-08-30 11:22] LABS: ANISOCYTOSIS SLIGHT; BAND NEUTROPHILS 0 %; BASOPHILS % (MANUAL) 1 %; ELLIPT/OVALOCYTES SLIGHT; EOSINOPHILS % (MANUAL) 2 %; HYPOCHROMASIA MARKED; LYMPHOCYTES % (MANUAL) 2 %; MONOCYTES % (MANUAL) 4 %; NEUTROPHILS % (MANUAL) 91 %
== END ==
LOC: LABNPT 10:25
PROVIDERS: ATTEND Family Medicine
DX: D50.9 Iron deficiency anemia, unspecified (principal)
CPT/HCPCS: 85007; 85027

== ENCOUNTER 2022-09-12 07:39 | Outpatient (CLI) | payer MEDICARE ==
[2022-09-12] VITALS (7 sets, daily range): BP systolic 110–135; BP diastolic 49–63
[2022-09-12] MEDS ORDERED: FUROSEMIDE 40 MG/4 ML INJ (LASIX) IV ONE ×2 (08:00→11:30)
[2022-09-12] MEDS: NS IV 500 ML 500 ML IV SCH ×2 (09:15→09:59)
== END 2022-09-12 14:40 | disposition home or self-care (01) ==
LOC: SDC 07:39
PROVIDERS: ATTEND Family Medicine
DX: D64.9 Anemia, unspecified (principal)
CPT/HCPCS: 36430; 86850; 86900; 86901; 86920; P9016

== ENCOUNTER 2022-09-21 10:11 | Outpatient (RCR) | payer MEDICARE ==
[2022-09-07 10:32] LABS: BASOPHILS % (AUTO) 0 % (0-10); EOSINOPHILS # (AUTO) 0.2 10^3/uL (0.0-0.3); EOSINOPHILS % (AUTO) 2 % (0-10); HEMATOCRIT 24 % (35-52); HEMOGLOBIN 7.2 g/dL (11.5-16.0); LYMPHOCYTES # (AUTO) 0.5 10^3/uL (1.0-4.0); LYMPHOCYTES % (AUTO) 6 % (12-44); MEAN CORPUSCULAR HEMOGLOBIN 22 pg (25-34); MEAN CORPUSCULAR HGB CONC 30 g/dL (32-36); MEAN CORPUSCULAR VOLUME 74 fL (80-99); MEAN PLATELET VOLUME 10.2 fL (9.0-12.2); MONOCYTES # (AUTO) 0.7 10^3/uL (0.0-1.0); MONOCYTES % (AUTO) 8 % (0-12); NEUTROPHILS # (AUTO) 7.5 10^3/uL (1.8-7.8); NEUTROPHILS % (AUTO) 83 % (42-75); PLATELET COUNT 310 10^3/uL (130-400)
[2022-09-07 11:26] LABS: BAND NEUTROPHILS 2 %; EOSINOPHILS % (MANUAL) 2 %; HYPOCHROMASIA MODERATE; LYMPHOCYTES % (MANUAL) 8 %; MICROCYTOSIS MODERATE; MONOCYTES % (MANUAL) 9 %; NEUTROPHILS % (MANUAL) 79 %; PLATELET ESTIMATE NORMAL
[2022-09-11 09:05] LABS: BASOPHILS % (AUTO) 0 % (0-10); EOSINOPHILS # (AUTO) 0.3 10^3/uL (0.0-0.3); EOSINOPHILS % (AUTO) 4 % (0-10); HEMATOCRIT 23 % (35-52); LYMPHOCYTES # (AUTO) 0.6 10^3/uL (1.0-4.0); LYMPHOCYTES % (AUTO) 7 % (12-44); MEAN CORPUSCULAR HEMOGLOBIN 22 pg (25-34); MEAN CORPUSCULAR HGB CONC 30 g/dL (32-36); MEAN CORPUSCULAR VOLUME 74 fL (80-99); MEAN PLATELET VOLUME 10.8 fL (9.0-12.2); MONOCYTES # (AUTO) 0.7 10^3/uL (0.0-1.0); MONOCYTES % (AUTO) 9 % (0-12); NEUTROPHILS % (AUTO) 79 % (42-75); PLATELET COUNT 298 10^3/uL (130-400); WHITE BLOOD COUNT 7.5 10^3/uL (4.3-11.0)
[2022-09-11 09:10] LABS: HEMOGLOBIN 6.9 g/dL (11.5-16.0)
[2022-09-11 09:50] LABS: ANISOCYTOSIS SLIGHT; BAND NEUTROPHILS 0 %; BASOPHILS % (MANUAL) 0 %; EOSINOPHILS % (MANUAL) 1 %; HYPOCHROMASIA MODERATE; LYMPHOCYTES % (MANUAL) 8 %; MONOCYTES % (MANUAL) 7 %; NEUTROPHILS % (MANUAL) 84 %
[2022-09-21 10:22] LABS: BASOPHILS % (AUTO) 0 % (0-10); EOSINOPHILS # (AUTO) 0.1 10^3/uL (0.0-0.3); EOSINOPHILS % (AUTO) 1 % (0-10); HEMATOCRIT 30 % (35-52); HEMOGLOBIN 9.3 g/dL (11.5-16.0); LYMPHOCYTES # (AUTO) 0.6 10^3/uL (1.0-4.0); LYMPHOCYTES % (AUTO) 7 % (12-44); MEAN CORPUSCULAR HEMOGLOBIN 23 pg (25-34); MEAN CORPUSCULAR HGB CONC 31 g/dL (32-36); MEAN CORPUSCULAR VOLUME 76 fL (80-99); MEAN PLATELET VOLUME 10.1 fL (9.0-12.2); MONOCYTES # (AUTO) 0.7 10^3/uL (0.0-1.0); MONOCYTES % (AUTO) 7 % (0-12); NEUTROPHILS # (AUTO) 7.9 10^3/uL (1.8-7.8); NEUTROPHILS % (AUTO) 84 % (42-75); PLATELET COUNT 341 10^3/uL (130-400); WHITE BLOOD COUNT 9.3 10^3/uL (4.3-11.0)
[2022-09-21 12:59] LABS: EOSINOPHILS % (MANUAL) 2 %; HYPOCHROMASIA MODERATE; LYMPHOCYTES % (MANUAL) 7 %; MICROCYTOSIS MODERATE; MONOCYTES % (MANUAL) 6 %; NEUTROPHILS % (MANUAL) 85 %; PLATELET ESTIMATE NORMAL
== END 2022-09-22 | disposition home or self-care (01) ==
LOC: LABNPT 10:11
PROVIDERS: ATTEND Family Medicine
DX: D50.9 Iron deficiency anemia, unspecified (principal)
CPT/HCPCS: 85007; 85027

== ENCOUNTER 2022-10-05 09:22 | Outpatient (RCR) | payer MEDICARE ==
[2022-09-28 09:37] LABS: BASOPHILS % (AUTO) 1 % (0-10); EOSINOPHILS # (AUTO) 0.2 10^3/uL (0.0-0.3); EOSINOPHILS % (AUTO) 2 % (0-10); HEMATOCRIT 29 % (35-52); HEMOGLOBIN 8.9 g/dL (11.5-16.0); LYMPHOCYTES # (AUTO) 0.6 10^3/uL (1.0-4.0); LYMPHOCYTES % (AUTO) 7 % (12-44); MEAN CORPUSCULAR HEMOGLOBIN 23 pg (25-34); MEAN CORPUSCULAR HGB CONC 31 g/dL (32-36); MEAN CORPUSCULAR VOLUME 75 fL (80-99); MEAN PLATELET VOLUME 10.1 fL (9.0-12.2); MONOCYTES # (AUTO) 0.8 10^3/uL (0.0-1.0); MONOCYTES % (AUTO) 9 % (0-12); NEUTROPHILS # (AUTO) 6.7 10^3/uL (1.8-7.8); NEUTROPHILS % (AUTO) 81 % (42-75); PLATELET COUNT 412 10^3/uL (130-400); WHITE BLOOD COUNT 8.4 10^3/uL (4.3-11.0)
[2022-09-28 10:12] LABS: ANISOCYTOSIS SLIGHT; ATYPICAL LYMPHOCYTES 1 %; BAND NEUTROPHILS 0 %; BASOPHILS % (MANUAL) 0 %; ELLIPT/OVALOCYTES SLIGHT; EOSINOPHILS % (MANUAL) 2 %; HYPOCHROMASIA MODERATE; LYMPHOCYTES % (MANUAL) 8 %; MONOCYTES % (MANUAL) 8 %; NEUTROPHILS % (MANUAL) 81 %
[~2022-10-05 09:22] MED LIST changes: -GENT5DRO30 OP; +GENT5DRO6 OP
[2022-10-05 09:28] LABS: BASOPHILS % (AUTO) 0 % (0-10); EOSINOPHILS # (AUTO) 0.2 10^3/uL (0.0-0.3); EOSINOPHILS % (AUTO) 2 % (0-10); HEMATOCRIT 26 % (35-52); HEMOGLOBIN 7.8 g/dL (11.5-16.0); LYMPHOCYTES # (AUTO) 0.6 10^3/uL (1.0-4.0); LYMPHOCYTES % (AUTO) 6 % (12-44); MEAN CORPUSCULAR HEMOGLOBIN 23 pg (25-34); MEAN CORPUSCULAR HGB CONC 30 g/dL (32-36); MEAN CORPUSCULAR VOLUME 76 fL (80-99); MEAN PLATELET VOLUME 9.8 fL (9.0-12.2); MONOCYTES # (AUTO) 0.8 10^3/uL (0.0-1.0); MONOCYTES % (AUTO) 9 % (0-12); NEUTROPHILS # (AUTO) 7.5 10^3/uL (1.8-7.8); NEUTROPHILS % (AUTO) 83 % (42-75); PLATELET COUNT 411 10^3/uL (130-400); WHITE BLOOD COUNT 9.1 10^3/uL (4.3-11.0)
[2022-10-05 10:41] LABS: ANISOCYTOSIS SLIGHT; BASOPHILS % (MANUAL) 1 %; EOSINOPHILS % (MANUAL) 2 %; HYPOCHROMASIA MODERATE; LYMPHOCYTES % (MANUAL) 3 %; MICROCYTOSIS MODERATE; MONOCYTES % (MANUAL) 3 %; NEUTROPHILS % (MANUAL) 91 %; POLYCHROMASIA SLIGHT
== END 2022-10-22 | disposition home or self-care (01) ==
LOC: LABNPT 09:22
PROVIDERS: ATTEND Family Medicine
DX: D50.9 Iron deficiency anemia, unspecified (principal)
CPT/HCPCS: 85007; 85027

== ENCOUNTER 2022-10-19 13:12 | Outpatient (RCR) | payer MEDICARE ==
[2022-10-10 09:28] LABS: HEMATOCRIT 26 % (35-52); HEMOGLOBIN 7.7 g/dL (11.5-16.0); MEAN CORPUSCULAR HEMOGLOBIN 22 pg (25-34); MEAN CORPUSCULAR HGB CONC 30 g/dL (32-36); MEAN CORPUSCULAR VOLUME 75 fL (80-99); MEAN PLATELET VOLUME 9.8 fL (9.0-12.2); NEUTROPHILS % (AUTO) 83 % (42-75); PLATELET COUNT 378 10^3/uL (130-400); WHITE BLOOD COUNT 9.8 10^3/uL (4.3-11.0)
[2022-10-10 09:29] LABS: BASOPHILS % (AUTO) 0 % (0-10); EOSINOPHILS # (AUTO) 0.2 10^3/uL (0.0-0.3); EOSINOPHILS % (AUTO) 2 % (0-10); LYMPHOCYTES # (AUTO) 0.6 X 10^3 (1.0-4.0); LYMPHOCYTES % (AUTO) 6 % (12-44); MONOCYTES # (AUTO) 0.8 X 10^3 (0.0-1.0); MONOCYTES % (AUTO) 9 % (0-12); NEUTROPHILS # (AUTO) 8.1 X 10^3 (1.8-7.8)
[2022-10-10 09:45] LABS: ANISOCYTOSIS SLIGHT; BAND NEUTROPHILS 0 %; BASOPHILS % (MANUAL) 1 %; EOSINOPHILS % (MANUAL) 1 %; HYPOCHROMASIA MODERATE; LYMPHOCYTES % (MANUAL) 5 %; MONOCYTES % (MANUAL) 8 %; NEUTROPHILS % (MANUAL) 85 %
[2022-10-18 10:21] LABS: BASOPHILS % (AUTO) 0 % (0-10); EOSINOPHILS # (AUTO) 0.2 10^3/uL (0.0-0.3); EOSINOPHILS % (AUTO) 2 % (0-10); HEMATOCRIT 24 % (35-52); HEMOGLOBIN 7.1 g/dL (11.5-16.0); LYMPHOCYTES # (AUTO) 0.7 10^3/uL (1.0-4.0); LYMPHOCYTES % (AUTO) 6 % (12-44); MEAN CORPUSCULAR HEMOGLOBIN 22 pg (25-34); MEAN CORPUSCULAR HGB CONC 30 g/dL (32-36); MEAN CORPUSCULAR VOLUME 73 fL (80-99); MEAN PLATELET VOLUME 10.4 fL (9.0-12.2); MONOCYTES # (AUTO) 0.9 10^3/uL (0.0-1.0); MONOCYTES % (AUTO) 9 % (0-12); NEUTROPHILS # (AUTO) 8.7 10^3/uL (1.8-7.8); NEUTROPHILS % (AUTO) 82 % (42-75); PLATELET COUNT 318 10^3/uL (130-400); WHITE BLOOD COUNT 10.5 10^3/uL (4.3-11.0)
[2022-10-18 13:47] LABS: BASOPHILS % (MANUAL) 1 %; EOSINOPHILS % (MANUAL) 3 %; LYMPHOCYTES % (MANUAL) 9 %; MONOCYTES % (MANUAL) 9 %; NEUTROPHILS % (MANUAL) 78 %
[2022-10-18 13:48] LABS: HYPOCHROMASIA MODERATE; MICROCYTOSIS MODERATE; PLATELET ESTIMATE NORMAL
[2022-10-19 13:18] LABS: BASOPHILS % (AUTO) 0 % (0-10); EOSINOPHILS # (AUTO) 0.1 10^3/uL (0.0-0.3); EOSINOPHILS % (AUTO) 1 % (0-10); HEMATOCRIT 23 % (35-52); LYMPHOCYTES # (AUTO) 0.6 10^3/uL (1.0-4.0); LYMPHOCYTES % (AUTO) 8 % (12-44); MEAN CORPUSCULAR HEMOGLOBIN 22 pg (25-34); MEAN CORPUSCULAR HGB CONC 30 g/dL (32-36); MEAN CORPUSCULAR VOLUME 73 fL (80-99); MEAN PLATELET VOLUME 10.4 fL (9.0-12.2); MONOCYTES # (AUTO) 0.7 10^3/uL (0.0-1.0); MONOCYTES % (AUTO) 8 % (0-12); NEUTROPHILS # (AUTO) 6.9 10^3/uL (1.8-7.8); NEUTROPHILS % (AUTO) 82 % (42-75); PLATELET COUNT 307 10^3/uL (130-400); WHITE BLOOD COUNT 8.4 10^3/uL (4.3-11.0)
[2022-10-19 13:27] LABS: HEMOGLOBIN 6.8 g/dL (11.5-16.0)
== END 2022-10-22 | disposition home or self-care (01) ==
LOC: LABNPT 13:12
PROVIDERS: ATTEND Family Medicine
DX: D50.9 Iron deficiency anemia, unspecified (principal)
CPT/HCPCS: 85007; 85025; 85027

== ENCOUNTER 2022-10-20 08:04 | Outpatient (CLI) | payer MEDICARE ==
[~2022-10-20] VITALS: Ht 157.5 cm; Wt 58.9 kg
[2022-10-20] VITALS (7 sets, daily range): BP systolic 108–150; BP diastolic 51–67
[~2022-10-20 08:04] MED LIST changes: +GENT5DRO30 OP; -GENT5DRO6 OP
[2022-10-20] MEDS ORDERED: NS IV 500 ML 500 ML IV SCH (08:45)
[2022-10-20] MEDS ORDERED: FUROSEMIDE 40 MG/4 ML INJ (LASIX) IVP ONE (08:45)
[2022-10-20] MEDS ORDERED: FUROSEMIDE 40 MG/4 ML INJ (LASIX) ONE (11:49)
== END 2022-10-20 14:35 ==
LOC: SDC 08:04
PROVIDERS: ATTEND Family Medicine
DX: D64.9 Anemia, unspecified (principal)
CPT/HCPCS: 36430; 86850; 86900; 86901; 86920; 96374; P9016

== ENCOUNTER 2022-11-17 10:16 | Outpatient (RCR) | payer MEDICARE ==
[~2022-11-17 10:16] MED LIST changes: -FUROSEMIDE 40 MG/4 ML INJ (LASIX) IVP ONE; -FUROSEMIDE 40 MG/4 ML INJ (LASIX) ONE; -NS IV 500 ML 500 ML IV SCH
[2022-11-17 10:25] LABS: BASOPHILS % (AUTO) 0 % (0-10); EOSINOPHILS # (AUTO) 0.1 10^3/uL (0.0-0.3); EOSINOPHILS % (AUTO) 1 % (0-10); HEMATOCRIT 23 % (35-52); LYMPHOCYTES # (AUTO) 0.5 10^3/uL (1.0-4.0); LYMPHOCYTES % (AUTO) 5 % (12-44); MEAN CORPUSCULAR HEMOGLOBIN 22 pg (25-34); MEAN CORPUSCULAR HGB CONC 30 g/dL (32-36); MEAN CORPUSCULAR VOLUME 73 fL (80-99); MONOCYTES # (AUTO) 0.9 10^3/uL (0.0-1.0); MONOCYTES % (AUTO) 9 % (0-12); NEUTROPHILS # (AUTO) 7.8 10^3/uL (1.8-7.8); NEUTROPHILS % (AUTO) 83 % (42-75); PLATELET COUNT 331 10^3/uL (130-400); WHITE BLOOD COUNT 9.4 10^3/uL (4.3-11.0)
[2022-11-17 10:29] LABS: HEMOGLOBIN 6.8 g/dL (11.5-16.0)
[2022-11-17 11:23] LABS: NEUTROPHILS % (MANUAL) 80 %
[2022-11-17 11:24] LABS: ANISOCYTOSIS MODERATE; EOSINOPHILS % (MANUAL) 3 %; HYPOCHROMASIA MODERATE; LYMPHOCYTES % (MANUAL) 7 %; MICROCYTOSIS MODERATE; MONOCYTES % (MANUAL) 10 %; PLATELET ESTIMATE NORMAL
== END 2022-11-22 | disposition home or self-care (01) ==
LOC: LABNPT 10:16
PROVIDERS: ATTEND Family Medicine
DX: D50.9 Iron deficiency anemia, unspecified (principal)
CPT/HCPCS: 85007; 85027

== ENCOUNTER → 2022-11-17 | Outpatient (CLI) | payer MEDICARE ==
[2022-11-17] VITALS (8 sets, daily range): BP systolic 117–157; BP diastolic 46–69
[~2022-11-17] MED LIST changes: +FUROSEMIDE 40 MG/4 ML INJ (LASIX) IVP ONE; +FUROSEMIDE 40 MG/4 ML INJ (LASIX) ONE; -GENT5DRO30 OP; +GENT5DRO6 OP; +NS IV 500 ML 500 ML IV SCH
== END ==
LOC: SDC 12:12
PROVIDERS: ATTEND Family Medicine
DX: D64.9 Anemia, unspecified (principal)
CPT/HCPCS: 36430; 86850; 86900; 86901; 86920; P9016

== ENCOUNTER 2023-01-03 17:08 | Observation (INO) | payer MEDICARE, MEDICAID ==
[~2023-01-03] VITALS: Ht 160 cm; Wt 66.6 kg
--- NOTE | 2023-01-03 18:38 | ED General ---
General Chief Complaint: General Problems/Pain Stated Complaint: LOW HEMOGLOBIN 5.5 - SOA Nursing Triage Note: PT TO ED 3, PER W/C PT HAS HBG OF 5.[address] VISIT TODAY. PT HAS HX OF ANEMIA AND COPD. PT WEARS O2 @4L PER N/C. Source of Information: Patient, Family, Old Records Exam Limitations: No Limitations History of Present Illness Date Seen by Provider: Jan 03, 2023 Time Seen by Provider: 17:30 Initial Comments 82-year-old female with past medical history of chronic anemia, COPD, chronic hypoxic respiratory failure on roughly 4 L oxygen coming in due to anemia. She typically needs a transfusion roughly every 3 months. Typically they believe it is a GI source. She ends up with an upper and lower GI scope about every year with the last one just over a year ago. She has had esophagitis in the past and has had some polyps. She takes baby aspirin daily but no other blood thinner. Hemoglobin was around 10 a couple weeks ago, 7 last week, and now in the 5 range so she was referred to the emergency department. She does feel generally more weak and more short of breath when it is like this. She states her stools have been brown with no black or bright red blood. She denies any hematemesis as well. Otherwise denying any other acute complaints. Allergies and Home Medications Allergies Coded Allergies: Tvvhqey-JBR-CiE Reductase Inhibitor (Verified Allergy, Unknown, 08/25/20) Sulfa (Sulfonamide Antibiotics) (Unverified Allergy, Unknown, 08/21/18) amoxicillin (Verified Allergy, Unknown, 08/25/20) aspartame (Unverified Allergy, Unknown, 08/21/18) atorvastatin (Verified Allergy, Unknown, 08/25/20) bee venom protein (honey bee) (Verified Allergy, Unknown, 08/25/20) diphenhydramine (Verified Allergy, Unknown, 08/25/20) ipratropium (Verified Allergy, Unknown, 08/25/20) iron (Unverified Allergy, Unknown, 08/21/18) "TACHYCARDIA" WITH IV INFUSION nicotine (Verified Allergy, Unknown, 08/25/20) quinine (Verified Allergy, Unknown, 08/25/20) Patient Home Medication List Home Medication List Reviewed: Yes Albuterol Sulfate (Ventolin Hfa) 1 Puff Puff, 2 PUFF INH Q6H PRN for SHORTNESS OF BREATH, (Reported) Entered as Reported by: BRONSON AHUMADA on 08/21/18 1649 Albuterol Sulfate (Albuterol Sulfate) 2.5 Mg/3 Ml Vial.neb, 1 VIAL PO Q6H PRN for SHORTNESS OF BREATH, (Reported) Entered as Reported by: SUE PAULINO on 09/12/21 0843 Aspirin (Aspirin EC) 81 Mg Tablet.dr, 81 MG PO 1700, (Reported) Entered as Reported by: DORIS WADDELL on 09/29/21 0955 Cyanocobalamin (Vitamin B-12) (Vitamin B-12) 1,000 Mcg Tablet.er, 1,000 MCG PO DAILY, (Reported) Entered as Reported by: DORIS WADDELL on 09/29/21 0955 Diltiazem HCl (Diltiazem 24Hr ER) 180 Mg Cap.er.24h, 180 MG PO DAILY, (Reported) Entered as Reported by: DORIS WADDELL on 09/29/21 0955 Ergocalciferol (Vitamin D2) (Vitamin D2) 1,250 Mcg Capsule, 1,250 MCG PO SUN, (Reported) Entered as Reported by: DORIS WADDELL on 09/29/21 1000 Lorazepam (Ativan) 0.5 Mg Tablet, 0.5 MG PO 1700, (Reported) Entered as Reported by: SUE PAULINO on 09/12/21 0843 Lorazepam (Ativan) 0.5 Mg Tablet, 0.5 MG PO 0700,1200 PRN for ANXIETY, (Reported) Entered as Reported by: DORIS WADDELL on 09/29/21 1000 Ondansetron (Ondansetron Odt) 8 Mg Tab.rapdis, 8 MG SL Q4H PRN for NAUSEA/VOMITING Prescribed by: CHRISTIANO YARBROUGH MD on 05/27/22 0851 Oseltamivir Phosphate (Tamiflu) 75 Mg Cap, 75 MG PO BID Prescribed by: CHRISTIANO YARBROUGH MD on 05/27/22 0850 Pantoprazole Sodium (Pantoprazole Sodium) 40 Mg Tablet.dr, 40 MG PO DAILY, (Reported) Entered as Reported by: SUE PAULINO on 09/12/21 0844 Sucralfate (Sucralfate) 1 Gm Tablet, 1 GM PO ACHS, (Reported) Entered as Reported by: KYLEIGH JEFFERSON on 09/22/21 1315 Tramadol HCl (Tramadol HCl) 50 Mg Tablet, 50 MG PO BID PRN for PAIN-MILD (1-4), (Reported) Entered as Reported by: SUE PAULINO on 09/12/21 0853 Review of Systems Review of Systems Constitutional: No fever EENTM: no symptoms reported Respiratory: see HPI Cardiovascular: no symptoms reported Gastrointestinal: see HPI Genitourinary: no symptoms reported Musculoskeletal: no symptoms reported Skin: no symptoms reported Psychiatric/Neurological: No Symptoms Reported Hematologic/Lymphatic: No Symptoms Reported Past Jfzvgjy-Iyuzxu-Dzooqv Hx Patient Social History Tobacco Use?: No Smoking Status: Former Smoker Substance use?: No Alcohol Use?: No Pt feels they are or have been: No Immunizations Up To Date First/Initial COVID19 Vaccinat: NO Second COVID19 Vaccination Devan: NO Third COVID19 Vaccination Date: NO Seasonal Allergies Seasonal Allergies: No Past Medical History Surgery/Hospitalization HX: COPD, SVT, STROKE, INFUSAPORT Surgeries: Yes (neck) Section, Hysterectomy, Orthopedic Respiratory: Yes COPD Currently Using CPAP: No Currently Using BIPAP: No Cardiac: Yes (SVT) Atrial Fibrillation, High Cholesterol, Hypertension, Irregular Heartbeat Neurological: Yes Stroke, TIA Genitourinary: No Gastrointestinal: Yes Colitis, Gastrointestinal Bleed Musculoskeletal: No Endocrine: No HEENT: No Cancer: No Psychosocial: No Integumentary: No Blood Disorders: Yes (essential thrombocytosis, chronic anemia transfusion dependent) Family Medical History Heart Disease Physical Exam Vital Signs Vital Signs - First Documented 01/03/23 17:15 Temp 36.4 Pulse 86 Resp 29 B/P (MAP) 92/46 (61) Pulse Ox 96 O2 Delivery Nasal Cannula O2 Flow Rate 4.00 Capillary Refill : Height, Weight, BMI Height: 5'2.00" Weight: 139lbs. 0.0oz. [id number]; 21.00 BMI Method: General Appearance: No Apparent Distress, WD/WN Eyes: Bilateral Eye Normal Inspection HEENT: PERRL/EOMI, Normal ENT Inspection, Pharynx Normal Neck: Full Range of Motion, Normal Inspection, Non Tender, Supple Respiratory: Chest Non Tender, No Accessory Muscle Use, No Respiratory Distress Cardiovascular: No Edema, Normal Peripheral Pulses, Irregularly Irregular Gastrointestinal: Normal Bowel Sounds, Non Tender, Soft Back: Normal Inspection, No CVA Tenderness Extremity: Normal Capillary Refill, Normal Inspection, Normal Range of Motion, Non Tender, No Calf Tenderness Neurologic/Psychiatric: Alert, Oriented x3, No Motor/Sensory Deficits, Normal Mood/Affect Skin: Warm/Dry, Other (Pale) Progress/Results/Core Measures Suspected Sepsis SIRS Temperature: Pulse: 86 Respiratory Rate: 29 Blood Pressure 92 /46 Mean: 61 Laboratory Tests 01/03/23 17:25: Results/Orders Lab Results Laboratory Tests Test 01/03/23 17:25 Range/Units My Orders Orders - LISA AMAYA MD Comprehensive Metabolic Panel (01/03/23 18:29) Cbc No Diff (01/03/23 21:00) Furosemide Injection (Lasix Injection) (01/03/23 18:45) Ed Admission (Communication) (01/03/23 18:33) Code/Resuscitation (01/03/23 18:41) Vital Signs/I&O 01/03/23 17:15 Temp 36.4 Pulse 86 Resp 29 B/P (MAP) 92/46 (61) Pulse Ox 96 O2 Delivery Nasal Cannula O2 Flow Rate 4.00 Capillary Refill : Blood Pressure Mean: 61 Progress Note : Progress Note 82-year-old female with above history coming in due to symptomatic anemia. ABCs were intact and vitals were stable on presentation on her baseline oxygen. She is pale on exam,, but nontoxic. An IV was placed and a type and screen was done and 2 units of blood were ordered due to her hemoglobin of 5.8 in the system. We will also send a CMP. I contacted Dr. HUDSON for consultation, he will follow along the case to see if she is not responding to blood appropriately, and if not, then he would consider doing a GI scope. I then contacted Dr. Martinez who admit the patient since she needs to receive the blood slowly followed by Taco in between. She will be under observation for now. I had a discussion with the patient regarding her CODE STATUS. She is alert and oriented, and she is showing the ability to have decision-making capacity at this time. The patient states that she has seen the things she would like to see in this life including her grand kids graduate from high school and go to college. She states if it is her time to go than she would like to just pass peacefully. The patient will be made DNR based on her wishes. Departure Impression Primary Impression: Acute on chronic anemia Additional Impression: Chronic respiratory failure Qualified Codes: J96.11 - Chronic respiratory failure with hypoxia Disposition: ADMITTED INPATIENT Condition: Stable Admissions Decision to Admit Reason: Admit from ER (General) Decision to Admit/Date: Jan 03, 2023 Time/Decision to Admit Time: 18:30 Departure-Patient Inst. Referrals: GAL DAN MD (PCP/Family) Primary Care Physician LISA AMAYA MD Jan 03, 2023 18:38
[2023-01-03] MEDS ORDERED: FUROSEMIDE INJECTION 40 MG/4 ML VIAL IVP PRN (18:45)
[2023-01-03 18:49] LABS: ALBUMIN 3.7 GM/DL (3.2-4.5)
[2023-01-03 18:50] LABS: POTASSIUM 4.6 MMOL/L (3.6-5.0)
[2023-01-03 18:52] LABS: TOTAL PROTEIN 6.2 GM/DL (6.4-8.2)
[2023-01-03 18:54] LABS: BILIRUBIN,TOTAL 0.2 MG/DL (0.1-1.0)
[2023-01-03 18:55] LABS: CREATININE SERUM 0.9 MG/DL (0.60-1.30)
[2023-01-03] MEDS ORDERED: ACETAMINOPHEN 325 MG TABLET PO PRN (19:45)
[2023-01-03] MEDS ORDERED: ANTACID SUSP 30 ML UDC (MYLANTA) PO PRN (19:45)
[2023-01-03] MEDS ORDERED: LACTULOSE SYRUP 10GM/15ML (ENULOSE) 30ML UDC PO PRN (19:45)
[2023-01-03] MEDS ORDERED: polyethylene glycoL POWDER 17 GM (MIRALAX) PACK PO PRN (19:45)
[2023-01-03] MEDS ORDERED: HYDROmorphone INJECTION 2 MG/ML VIAL IV PRN (19:45)
[2023-01-03] MEDS ORDERED: LORazepam 0.5 MG (ATIVAN) TABLET PO PRN (19:45)
[2023-01-03] MEDS ORDERED: MILK OF MAGNESIA 400 MG/5 ML 30 ML UDC PO PRN (19:45)
[2023-01-03] MEDS ORDERED: oxyCODONE IMMEDIATE RELEASE 5 MG TABLET PO PRN (19:45)
[2023-01-03] MEDS ORDERED: MELATONIN 3 MG TABLET PO PRN (19:45)
[2023-01-03] MEDS ORDERED: ONDANSETRON 4 MG/2 ML (SDV) Z0FRAN IV PRN (19:45)
[2023-01-03] MEDS ORDERED: ONDANSETRON 4 MG (ZOFRAN) ORAL DISSOLVE TAB PO PRN (19:45)
[2023-01-03] MEDS ORDERED: FUROSEMIDE INJECTION 40 MG/4 ML VIAL IVP SCH (19:45)
[2023-01-03] MEDS ORDERED: BISACODYL 10 MG SUPPOSITORY PR PRN (19:45)
[2023-01-03] MEDS ORDERED: CALCIUM CARBONATE 500 MG CHEW TABLET PO PRN (19:45)
[2023-01-03 20:03] VITALS: BP 119/54
[2023-01-03] MEDS ORDERED: NS IV 500 ML 500 ML IV SCH (20:45)
[2023-01-03] MEDS ORDERED: NS IV 500 ML 500 ML ONE (21:17)
[2023-01-03 21:21] VITALS: BP 119/56
[2023-01-03 21:48] VITALS: BP 92/46
[2023-01-03 21:54] VITALS: BP 118/58
[2023-01-03] MEDS ORDERED: RT-ALBUTEROL SULF 2.5 MG/3 ML PRE-MIX VIAL INH PRN (22:00)
[2023-01-03] MEDS: SENNOSIDES 8.6 MG (SENOKOT) TAB PO SCH (22:28)
[2023-01-03] MEDS: DOCUSATE SODIUM 100 MG CAPSULE PO SCH (22:28)
[2023-01-03] MEDS ORDERED: FUROSEMIDE INJECTION 40 MG/4 ML VIAL IVP ONE (22:30)
[2023-01-03] MEDS: PANTOPRAZOLE 40 MG (PROTONIX) TAB PO SCH (22:45)
[2023-01-03 23:11] VITALS: BP 110/61
[2023-01-03 23:53] VITALS: BP 147/65
[2023-01-04] VITALS (8 sets, daily range): BP systolic 126–151; BP diastolic 60–75
[2023-01-04 00:13] LABS: BASOPHILS % (AUTO) 0 % (0-10); EOSINOPHILS # (AUTO) 0.1 10^3/uL (0.0-0.3); EOSINOPHILS % (AUTO) 1 % (0-10); HEMATOCRIT 21 % (35-52); LYMPHOCYTES # (AUTO) 0.8 10^3/uL (1.0-4.0); LYMPHOCYTES % (AUTO) 8 % (12-44); MEAN CORPUSCULAR HEMOGLOBIN 24 pg (25-34); MEAN CORPUSCULAR HGB CONC 32 g/dL (32-36); MEAN CORPUSCULAR VOLUME 77 fL (80-99); MONOCYTES # (AUTO) 1.2 10^3/uL (0.0-1.0); MONOCYTES % (AUTO) 12 % (0-12); NEUTROPHILS # (AUTO) 8.3 10^3/uL (1.8-7.8); NEUTROPHILS % (AUTO) 79 % (42-75); PLATELET COUNT 314 10^3/uL (130-400); WHITE BLOOD COUNT 10.6 10^3/uL (4.3-11.0)
[2023-01-04 00:20] LABS: HEMOGLOBIN 6.7 g/dL (11.5-16.0)
[2023-01-04] MEDS: PANTOPRAZOLE 40 MG (PROTONIX) TAB PO SCH (06:02)
[2023-01-04 06:17] LABS: ALBUMIN 3.9 GM/DL (3.2-4.5); POTASSIUM 3.9 MMOL/L (3.6-5.0)
[2023-01-04 06:18] LABS: CALCIUM 9.1 MG/DL (8.5-10.1)
[2023-01-04 06:19] LABS: BASOPHILS % (AUTO) 0 % (0-10); EOSINOPHILS # (AUTO) 0.1 10^3/uL (0.0-0.3); EOSINOPHILS % (AUTO) 1 % (0-10); HEMATOCRIT 26 % (35-52); HEMOGLOBIN 8.6 g/dL (11.5-16.0); LYMPHOCYTES # (AUTO) 0.7 10^3/uL (1.0-4.0); LYMPHOCYTES % (AUTO) 6 % (12-44); MEAN CORPUSCULAR HEMOGLOBIN 26 pg (25-34); MEAN CORPUSCULAR HGB CONC 33 g/dL (32-36); MEAN CORPUSCULAR VOLUME 78 fL (80-99); MEAN PLATELET VOLUME 10.6 fL (9.0-12.2); MONOCYTES # (AUTO) 1.1 10^3/uL (0.0-1.0); MONOCYTES % (AUTO) 10 % (0-12); NEUTROPHILS # (AUTO) 8.7 10^3/uL (1.8-7.8); NEUTROPHILS % (AUTO) 82 % (42-75); PLATELET COUNT 320 10^3/uL (130-400); WHITE BLOOD COUNT 10.5 10^3/uL (4.3-11.0)
[2023-01-04 06:20] LABS: TOTAL PROTEIN 6.4 GM/DL (6.4-8.2)
[2023-01-04 06:21] LABS: BILIRUBIN,TOTAL 0.5 MG/DL (0.1-1.0)
[2023-01-04 06:23] LABS: CREATININE SERUM 0.94 MG/DL (0.60-1.30)
[2023-01-04] MEDS: DOCUSATE SODIUM 100 MG CAPSULE PO SCH (09:24)
[2023-01-04] MEDS: SENNOSIDES 8.6 MG (SENOKOT) TAB PO SCH (09:24)
--- NOTE | 2023-01-04 10:15 | Occupational Therapy Eval ---
OT Evaluation-General/PLF Medical Diagnosis Admission Date Jan 03, 2023 at 19:26 Medical Diagnosis: anemia Onset Date: Jan 03, 2023 Therapy Diagnosis Therapy Diagnosis: weakness Height/Weight Height (Feet): 5 Height (Inches): 2.00 Weight (Pounds): 139 Weight (Ounces): 0.0 Precautions Precautions/Isolations: Fall Prevention, Standard Precautions Weight Bear Status Weight Bearing Restriction: Full Weight Bearing Referral Referral Reason: Activity Tolerance, Self Care, Evaluation/Treatment Medical History Pertinent Medical History: Atrial Fib, CAD, COPD, CVA Additional Medical History 82-year-old female with past medical history of chronic anemia, COPD, chronic hypoxic respiratory failure on roughly 4 L oxygen coming in due to anemia. She typically needs a transfusion roughly every 3 months. Typically they believe it is a GI source. She ends up with an upper and lower GI scope about every year with the last one just over a year ago. She has had esophagitis in the past and has had some polyps. She takes baby aspirin daily but no other blood thinner. Hemoglobin was around 10 a couple weeks ago, 7 last week, and now in the 5 range so she was referred to the emergency department. She does feel generally more weak and more short of breath when it is like this. She states her stools have been brown with no black or bright red blood. She denies any hematemesis as well. Otherwise denying any other acute complaints. Current History Requires encouragement to participate Reviewed History: Yes Social History Home: Single Level Current Living Status: Children Entry Into Home: Stairs Without Railing Steps Into Home: 1 ADL-Prior Level of Function SCALE: Activities may be completed with or without assistive devices. 8-Wfzeyvicte-ivhdfna completes the activity by him/herself with no assistance from a helper. 5-Set-up or Clean-up Assistance-helper sets up or cleans up; patient completes activity. [place] assists only prior to or following the activity. 4-Supervision or Touching Assistance-helper provides verbal cues and/or touching/steadying and/or contact guard assistance as patient completes activi ty. Assistance may be provided throughout the activity or intermittently. 3-Partial/Moderate Assistance-helper does LESS THAN HALF the effort. [place] lifts, holds or supports trunk or limbs, but provides less than half the effort. 2-Substantial/Maximal Assistance-helper does MORE THAN HALF the effort. [place] lifts or holds trunk or limbs and provides more than half the effort. 4-Nqgunianu-yzhoij does ALL the effort. Patient does none of the effort to complete the activity. Or, the assistance of 2 or more helpers is required for the patient to complete the activity. If activity was not attempted, code reason: 7-Patient Refused. 9-Not Applicable-not attempted and the patient did not perform the activity before the current illness, exacerbation or injury. 10-Not Attempted due to Environmental Limitations-(lack of equipment, weather restraints, etc.). 88-Not Attempted due to Medical Conditions or Safety Concerns. Self Care: Independent Functional Cognition: Independent DME/Equipment: Tub/Shower Drive Self: No OT Current Status Subjective Laying in bed fully dressed, requires encouragement to increase activity Pain Numeric Pain Scale: 4 Comment: my legs just hurt, they get this way sometimes Mental Status/Objective Patient Orientation: Person, Place, Time, Situation Attachments: Oxygen, Telemetry Current Hand Dominance: Right Upper Extremity ROM BUE ROM WFLS Upper Extremity Coordination INTACT but slow responses Upper Extremity Strength -4/5 grossly ADL-Treatment Eating (QC): 6 Oral Hygiene (QC): 5 Shower/Bathe Self (QC): 7 Upper Body Dressing (QC): 5 Lower Body Dressing (QC): 5 On/Off Footwear (QC): 5 Toileting Hygiene (QC): 5 Education OT Patient Education: Correct positioning, Modified ADL techniques, Progress toward Goal/Update tx plan, Purpose of tx/functional activities, Reviewed precautions, Rehab process, Safety issues, Transfer techniques, Use of adapted equipment Teaching Recipient: Patient Teaching Methods: Demonstration, Discussion Response to Teaching: Verbalize Understanding, Reinforcement Needed OT Manufacturing Baker Goals Manufacturing Baker Goals 1=Demonstrate adherence to instructed precautions during ADL tasks. 2=Patient will verbalize/demonstrate understanding of assistive devices/modifications for ADL. 3=Patient will improve strength/tolerance for activity to enable patient to perform ADL's. OT Education/Plan Problem List/Assessment Assessment: No Skilled OT Needs ID'd Discharge Recommendations Plan/Recommendations: Discontinue OT Treatment Plan/Plan of Care Treatment,Training & Education: Yes Patient would benefit from OT for education, treatment and training to promote independence in ADL's, mobility, safety and/or upper extremity function for ADL's. Plan of Care: Functional Mobility, OTHER (EVAL ONLY) Treatment Duration: Jan 04, 2023 Frequency: 1 time per week Estimated Hrs Per Day: .25 hour per day Agreement: Yes Rehab Potential: Good Time Start Time: 08:20 Stop Time: 08:40 DATE: Jan 04, 2023 Total Time Billed (hr/min): 20 Billed Treatment Time EVM 20 LUISA DALY OT Jan 04, 2023 10:15
--- NOTE | 2023-01-04 10:46 | Physical Therapy Evaluation ---
PT Evaluation-General Medical Diagnosis Admission Date Jan 03, 2023 at 19:26 Medical Diagnosis: anemia Onset Date: Jan 03, 2023 Therapy Diagnosis Therapy Diagnosis: debility Height/Weight Height (Feet): 5 Height (Inches): 2.00 Weight (Pounds): 139 Weight (Ounces): 0.0 Precautions Precautions/Isolations: Fall Prevention, Standard Precautions Referral Physician: Michelle Reason for Referral: Evaluation/Treatment Medical History Pertinent Medical History: Atrial Fib, CAD, COPD, CVA Current History ER secondary to Hgb 5.[address] [address] Reviewed History: Yes Social History Home: Single Level Current Living Status: Children Entry Into Home: Stairs Without Railing PT Steps Into Home: 1 Prior Prior Level of Function SCALE: Activities may be completed with or without assistive devices. 9-Jdxtlkucve-jdyzqku completes the activity by him/herself with no assistance from a helper. 5-Set-up or Clean-up Assistance-helper sets up or cleans up; patient completes activity. [place] assists only prior to or following the activity. 4-Supervision or Touching Assistance-helper provides verbal cues and/or touching/steadying and/or contact guard assistance as patient completes activity. Assistance may be provided throughout the activity or intermittently. 3-Partial/Moderate Assistance-helper does LESS THAN HALF the effort. [place] lifts, holds or supports trunk or limbs, but provides less than half the effort. 2-Substantial/Maximal Assistance-helper does MORE THAN HALF the effort. [place] lifts or holds trunk or limbs and provides more than half the effort. 0-Bzoquxasq-bnrthd does ALL the effort. Patient does none of the effort to complete the activity. Or, the assistance of 2 or more helpers is required for the patient to complete the activity. If activity was not attempted, code reason: 7-Patient Refused. 9-Not Applicable-not attempted and the patient did not perform the activity before the current illness, exacerbation or injury. 10-Not Attempted due to Environmental Limitations-(lack of equipment, weather restraints, etc.). 88-Not Attempted due to Medical Conditions or Safety Concerns. Bed Mobility: 6 Transfers (B,C,W/C): 6 Gait: 6 Stairs: 6 Indoor Mobility (Ambulation): Independent Stairs: Independent Prior Devices Use: Walker PT Evaluation-Current Subjective Patient agrees to therapy. Pain Numeric Pain Scale: 7 Location: Right, Left, Soft Tissue Location Body Site: Calf Pain Description: Ache Objective Patient Orientation: Normal For Age Attachments: Oxygen ROM/Strength ROM Lower Extremities bilateral LE WFL Strength Lower Extremities 4-/5 grossly bilateral LE all planes Integumentary/Posture Bowel Incontinence: No Bladder Incontinence: No Posture WFL Neuromuscular (Tone, Coordination, Reflexes) grossly intact Sensory Vision: Functional Hearing: Functional Hand Dominance: Right Transfers Lying to Sitting/Side of Bed(Q: 4 Sit to Stand (QC): 4 Chair/Wwk-xd-Kaicz Xfer(QC): 4 Gait Mode of Locomotion: Walk Anticipated Mode of Locomotion: Walk Walk 10 feet (QC): 4 Walk 50 ft with 2 Turns(QC): 4 Walk 150 ft (QC): 4 Distance: 150' Gait Assistive Device: FWW Comments/Gait Description slow, steady, functional gait sequence Balance Sitting Static: Normal Sitting Dynamic: Normal Standing Static: Fair Standing Dynamic: Fair Assessment/Needs Patient will be seen short term by skilled PT to address functional mobility to ensure return to home at maximum LOF. Rehab Potential: Fair PT Fpc Goals Neighborhood Coordinator Goals PT Neighborhood Coordinator Goals Time Frame: Jan 13, 2023 Roll Left & Right (QC): 6 Sit to Lying (QC): 6 Lying-Sitting on Side/Bed(QC): 6 Sit to Stand (QC): 6 Chair/Vzj-pu-Rivni Xfer(QC): 6 Toilet Transfer (QC): 6 Walk 10 feet (QC): 5 Walk 50ft with 2 Turns (QC): 5 Walk 150 ft (QC): 5 PT Plan Problem List Problem List: Activity Tolerance, Functional Strength, Safety, Balance, Gait, Transfer Treatment/Plan Treatment Plan: Continue Plan of Care Treatment Plan: Education, Functional Activity Santino, Functional Strength, Gait, Safety, Therapeutic Exercise, Transfers Treatment Duration: Jan 13, 2023 Frequency: 6 times per week Estimated Hrs Per Day: .25 hour per day Time Time In: 825 Time Out: 838 DATE: Jan 04, 2023 Total Billed Treatment Time: 13 Total Billed Treatment 1 visit EVMod 13 min TOÑO STANLEY PT Jan 04, 2023 10:46
--- NOTE | 2023-01-04 11:25 | Short Stay Summary-Hospitalist ---
History of Present Illness HPI/Chief Complaint Chief complaint: Severe symptomatic anemia and transfusion dependent individual HPI: This is an 82-year-old female who has had severe anemia and has become transfusion dependent even after multiple scopes to evaluate blood loss source. She remains on proton pump inhibitor and Carafate. She received 2 units of blood and now her hemoglobin is 8.6 and she will go home. Source: patient, RN/MD, old records Exam Limitations: no limitations Date Seen 01/04/23 Time Seen by a Provider: 11:00 Attending Physician Kailash Lake MD PCP Admitting Physician: Lizet Martinez DO Attending Physician: Lizet Martinez DO Referring Physician Date of Admission Jan 03, 2023 at 19:26 Home Medications & Allergies Home Medications Reviewed patient Home Medication Reconciliation performed by pharmacy medication reconciliations patient service technician pst and/or nursing. Patients Allergies have been reviewed. Allergies Allergies Coded Allergies Duxwypp-GHS-BcI Reductase Inhibitor (Verified Allergy, Unknown, 08/25/20) Sulfa (Sulfonamide Antibiotics) (Unverified Allergy, Unknown, 08/21/18) amoxicillin (Verified Allergy, Unknown, 08/25/20) aspartame (Unverified Allergy, Unknown, 08/21/18) atorvastatin (Verified Allergy, Unknown, 08/25/20) bee venom protein (honey bee) (Verified Allergy, Unknown, 08/25/20) diphenhydramine (Verified Allergy, Unknown, 08/25/20) ipratropium (Verified Allergy, Unknown, 08/25/20) iron (Unverified Allergy, Unknown, 08/21/18) "TACHYCARDIA" WITH IV INFUSION nicotine (Verified Allergy, Unknown, 08/25/20) quinine (Verified Allergy, Unknown, 08/25/20) Past Dnzkdzi-Biyiou-Ifjaen Hx Patient Social History Marrital Status: single Employed/Student: retired Tobacco Use?: No Tobacco type used: Cigars Smoking Status: Former Smoker Use of E-Cig and/or Vaping dev: No Substance use?: No Alcohol Use?: No Pt feels they are or have been: No Immunizations Up To Date Date of Influenza Vaccine: Jul 12, 2021 First/Initial COVID19 Vaccinat: NO Second COVID19 Vaccination Devan: NO Seasonal Allergies Seasonal Allergies: No Current Status status: No status: No Advance Directives: No Communicates: Verbally Primary Language: Wallisian Preferred Spoken Language: Wallisian Is interpretation needed?: No Sensory deficits: Vision impairment Implanted or Applied Medical D: Port-a-cath Past Medical History Surgeries: Section, Hysterectomy, Orthopedic COPD Currently Using CPAP: No Currently Using BIPAP: No Atrial Fibrillation, High Cholesterol, Hypertension, Irregular Heartbeat Stroke, TIA Colitis, Gastrointestinal Bleed Blood Disorders: Yes (essential thrombocytosis, chronic anemia transfusion dependent) PMHx: Depression COPD CAD HTN Chronic transfusion dependent anemia SurgHx: Hysterectomy Appendectomy Neck surgery Family Medical History Heart Disease Review of Systems Constitutional: see HPI, malaise, weakness Physical Exam Physical Exam Vital Signs Vital Signs - First Documented 01/03/23 01/03/23 17:15 21:48 Temp 36.4 Pulse 86 Resp 29 B/P (MAP) 92/46 (61) Pulse Ox 96 O2 Delivery Nasal Cannula O2 Flow Rate 4.00 FiO2 36 Capillary Refill : Height, Weight, BMI Height: 5'2.00" Weight: 139lbs. 0.0oz. [id number]; 26.01 BMI Method: General Appearance: No Apparent Distress, WD/WN Eyes: Bilateral Eye Normal Inspection HEENT: PERRL/EOMI, Normal ENT Inspection, Pharynx Normal Neck: Full Range of Motion, Normal Inspection, Non Tender, Supple Respiratory: Chest Non Tender, No Accessory Muscle Use, No Respiratory Distress Cardiovascular: No Edema, Normal Peripheral Pulses, Irregularly Irregular Gastrointestinal: Normal Bowel Sounds, Non Tender, Soft Back: Normal Inspection, No CVA Tenderness Extremity: Normal Capillary Refill, Normal Inspection, Normal Range of Motion, Non Tender, No Calf Tenderness Neurologic/Psychiatric: Alert, Oriented x3, No Motor/Sensory Deficits, Normal Mood/Affect Skin: Warm/Dry, Other (Pale) Results Results/Procedures Labs Laboratory Tests 01/03/23 17:25 01/04/23 00:05 01/04/23 06:05 Patient resulted labs reviewed. Short Stay Diagnosis Discharge Diagnosis-Short Stay Admission Diagnosis Severe and symptomatic anemia Final Discharge Diagnosis Severe and symptomatic anemia status post 2 units of blood Transfusion dependency Conclusion Plan Discharge home Clinical Quality Measures DVT/VTE Risk/Contraindication: Contraindications-Pharm: Other *list below* Other: anemia LIZET MARTINEZ DO Jan 04, 2023 11:25
[2023-01-04] MEDS: RT-ALBUTEROL SULF 2.5 MG/3 ML PRE-MIX VIAL INH SCH ×2 (13:14→13:15)
== END 2023-01-04 16:15 | disposition home or self-care (01) ==
LOC: EDUNIT# 17:08 → ER 17:09 → 4TH 19:26 → UNDOADMOB 19:26 → 4TH 20:19 → UNDODISOB 01-04 16:15
PROVIDERS: ADMIT Internal Medicine; ATTEND Internal Medicine
DX: D64.9 Anemia, unspecified (principal); J44.9 Chronic obstructive pulmonary disease, unspecified; J96.11 Chronic respiratory failure with hypoxia; Z99.81 Dependence on supplemental oxygen; Z66 Do not resuscitate; Z87.891 Personal history of nicotine dependence; Z88.1 Allergy status to other antibiotic agents; Z88.2 Allergy status to sulfonamides; Z88.8 Allergy status to other drugs, medicaments and biological substances; Z79.82 Long term (current) use of aspirin; Z79.899 Other long term (current) drug therapy
CPT/HCPCS: 36430; 80053 ×2; 85025 ×2; 86850; 86900; 86901; 86920; 94640; 94760; 96375; 97162; 97166; 99284; G0378; P9016 ×2; 36415

== ENCOUNTER → 2023-01-03 | Outpatient (CLI) | payer MEDICARE ==
[2023-01-03 15:46] LABS: BASOPHILS % (AUTO) 0 % (0-10); EOSINOPHILS % (AUTO) 0 % (0-10); LYMPHOCYTES # (AUTO) 0.5 10^3/uL (1.0-4.0); LYMPHOCYTES % (AUTO) 5 % (12-44); MEAN CORPUSCULAR HEMOGLOBIN 22 pg (25-34); MEAN CORPUSCULAR HGB CONC 30 g/dL (32-36); MEAN CORPUSCULAR VOLUME 74 fL (80-99); MEAN PLATELET VOLUME 10.3 fL (9.0-12.2); MONOCYTES # (AUTO) 0.9 10^3/uL (0.0-1.0); MONOCYTES % (AUTO) 8 % (0-12); NEUTROPHILS # (AUTO) 9.3 10^3/uL (1.8-7.8); NEUTROPHILS % (AUTO) 86 % (42-75); PLATELET COUNT 352 10^3/uL (130-400); WHITE BLOOD COUNT 10.8 10^3/uL (4.3-11.0)
[2023-01-03 15:49] LABS: HEMOGLOBIN 5.8 g/dL (11.5-16.0)
[2023-01-03 15:50] LABS: HEMATOCRIT 19 % (35-52)
[2023-01-03 16:31] LABS: BAND NEUTROPHILS 3 %; BASOPHILS % (MANUAL) 0 %; EOSINOPHILS % (MANUAL) 0 %; LYMPHOCYTES % (MANUAL) 3 %; MONOCYTES % (MANUAL) 7 %; NEUTROPHILS % (MANUAL) 87 %; PLATELET ESTIMATE NORMAL
[2023-01-03 16:32] LABS: HYPOCHROMASIA MARKED; MICROCYTOSIS MARKED
== END ==
LOC: LABNPT 15:37
PROVIDERS: ATTEND Family Medicine
DX: D50.9 Iron deficiency anemia, unspecified (principal)
CPT/HCPCS: 85007; 85027

== ENCOUNTER → 2023-01-25 | Outpatient (CLI) | payer MEDICARE, MEDICAID ==
[2023-01-25] VITALS (9 sets, daily range): BP systolic 129–151; BP diastolic 55–76
[~2023-01-25] VITALS: Ht 160 cm; Wt 61.3 kg
[~2023-01-25] MED LIST changes: +FUROSEMIDE INJECTION 40 MG/4 ML VIAL IV SCH; +FUROSEMIDE INJECTION 40 MG/4 ML VIAL IVP ONE; +NS IV 500 ML 500 ML IV ONE; +NS IV 500 ML 500 ML ONE
[2023-01-25 13:23] LABS: HEMOGLOBIN 6.9 g/dL (11.5-16.0)
== END ==
LOC: SDC 07:28
PROVIDERS: ATTEND Family Medicine
DX: D64.9 Anemia, unspecified (principal)
CPT/HCPCS: 36430; 85014; 85018; 86850; 86900; 86901; 86920; P9016; 36415

== ENCOUNTER 2023-02-16 08:00 | Outpatient (CLI) | payer MEDICARE, MEDICAID ==
[2023-02-16] VITALS (7 sets, daily range): BP systolic 129–152; BP diastolic 63–83
[~2023-02-16] VITALS: Ht 160 cm; Wt 61.3 kg
[~2023-02-16 08:00] MED LIST changes: -FUROSEMIDE INJECTION 40 MG/4 ML VIAL IV SCH; -FUROSEMIDE INJECTION 40 MG/4 ML VIAL IVP ONE; -NS IV 500 ML 500 ML IV ONE; -NS IV 500 ML 500 ML ONE
[2023-02-16] MEDS ORDERED: FUROSEMIDE INJECTION 40 MG/4 ML VIAL IV ONE (08:15)
[2023-02-16] MEDS ORDERED: NS IV 500 ML 500 ML IV SCH (08:15)
== END 2023-02-16 14:50 ==
LOC: SDC 08:00
PROVIDERS: ATTEND Family Medicine
DX: D64.9 Anemia, unspecified (principal)
CPT/HCPCS: 36430; 86850; 86900; 86901; 86920; 96374; P9016

== ENCOUNTER 2023-03-21 08:17 | Observation (INO) | payer MEDICARE, MEDICAID ==
[~2023-03-21] VITALS: Ht 157 cm; Wt 66.2 kg
[2023-03-21] VITALS (10 sets, daily range): BP systolic 114–133; BP diastolic 40–75
[2023-03-21 08:59] LABS: BASOPHILS % (AUTO) 0 % (0-10); EOSINOPHILS # (AUTO) 0.1 10^3/uL (0.0-0.3); EOSINOPHILS % (AUTO) 1 % (0-10); LYMPHOCYTES # (AUTO) 0.6 10^3/uL (1.0-4.0); LYMPHOCYTES % (AUTO) 5 % (12-44); MEAN CORPUSCULAR HEMOGLOBIN 23 pg (25-34); MEAN CORPUSCULAR HGB CONC 30 g/dL (32-36); MEAN CORPUSCULAR VOLUME 75 fL (80-99); MEAN PLATELET VOLUME 9.9 fL (9.0-12.2); MONOCYTES % (AUTO) 9 % (0-12); NEUTROPHILS # (AUTO) 9.2 10^3/uL (1.8-7.8); NEUTROPHILS % (AUTO) 84 % (42-75); PLATELET COUNT 343 10^3/uL (130-400)
[2023-03-21 09:03] LABS: HEMATOCRIT 20 % (35-52); HEMOGLOBIN 6.2 g/dL (11.5-16.0)
[2023-03-21 09:10] LABS: INR 1.1 (0.8-1.4); PROTHROMBIN TIME PATIENT 14.8 SEC (12.2-14.7)
[2023-03-21 09:11] LABS: ALBUMIN 3.6 GM/DL (3.2-4.5); POTASSIUM 4.3 MMOL/L (3.6-5.0)
[2023-03-21 09:12] LABS: CALCIUM 9.3 MG/DL (8.5-10.1)
[2023-03-21 09:15] LABS: BILIRUBIN,TOTAL 0.2 MG/DL (0.1-1.0)
[2023-03-21 09:17] LABS: CREATININE SERUM 0.82 MG/DL (0.60-1.30)
--- NOTE | 2023-03-21 09:20 | ED General ---
General Chief Complaint: General Problems/Pain Stated Complaint: WEAKNESS | Nursing Triage Note: ARRIVED VIA TO ROOM 07 WITH COMPLAINTS OF CONTINUED WEAKNESS AND A BLACK STOOL THIS AM. HMG LAST WEEK AT [facility] WAS 7.7 Source of Information: Patient Exam Limitations: No Limitations History of Present Illness Date Seen by Provider: Mar 21, 2023 Time Seen by Provider: 08:33 Initial Comments This 83-year-old woman presents to the emergency room by private vehicle accompanied by her son who provides much of the history. Her primary complaints are weakness, black stool this morning, and left-sided abdominal pain. She reports that hemoglobin of 7.7 at the [facility] clinic last week. She has a history of severe anemia which has required transfusions in the past. She does not tolerate iron infusions. Her son reports she had an arrhythmia during iron infusion in the past. She has atrial fibrillation but is not presently on any anticoagulation. She takes aspirin 81 mg daily. Her son reports urinary frequency but patient states she does not urinate as much as she should. She has had upper and lower endoscopy by Dr. Wolfe September 2021. Findings included esophagitis, hiatal hernia, internal hemorrhoids, and polyp. She reportedly has also been evaluated by specialists at [facility] and was found to have "leaks" in her GI tract. Her son could not provide much in regard to specific details of this history. Patient is alert and oriented. Her vital signs are stable on her usual home oxygen. Dr. Murillo is her primary care provider. Her neon glass blower was previously Dr. Murillo, and she needs to establish with a new neon glass blower. Her son reports that she usually requires 2 units of blood to be transfused with a dose of Lasix between them. She has had a reaction to transfusion in the past and therefore does better when she receives the transfusion slowly. Allergies and Home Medications Allergies Coded Allergies: Vpqjzew-OLR-QyO Reductase Inhibitor (Verified Allergy, Unknown, 03/21/23) Sulfa (Sulfonamide Antibiotics) (Unverified Allergy, Unknown, 03/21/23) amoxicillin (Verified Allergy, Unknown, 03/21/23) aspartame (Unverified Allergy, Unknown, 03/21/23) atorvastatin (Verified Allergy, Unknown, 03/21/23) bee venom protein (honey bee) (Verified Allergy, Unknown, 03/21/23) diphenhydramine (Verified Allergy, Unknown, 03/21/23) ipratropium (Verified Allergy, Unknown, 03/21/23) iron (Unverified Allergy, Unknown, 03/21/23) "TACHYCARDIA" WITH IV INFUSION nicotine (Verified Allergy, Unknown, 03/21/23) quinine (Verified Allergy, Unknown, 03/21/23) Patient Home Medication List Home Medication List Reviewed: Yes Albuterol Sulfate (Ventolin Hfa) 1 Puff Puff, 2 PUFF INH Q6H PRN for SHORTNESS O F BREATH, (Reported) Entered as Reported by: BRONSON AHUMADA on 08/21/18 1649 Last Action: Reviewed Albuterol Sulfate (Albuterol Sulfate) 2.5 Mg/0.5 Ml Vial.neb, 2.5 MG INH Q8H PRN for SHORTNESS OF BREATH, (Reported) Entered as Reported by: DORIS WADDELL on 03/22/23 1519 Last Action: Reviewed Aspirin (Aspirin EC) 81 Mg Tablet.dr, 81 MG PO DAILY, (Reported) Entered as Reported by: DORIS WADDELL on 09/29/21954 Last Action: Reviewed Cyanocobalamin (Vitamin B-12) (Vitamin B-12) 1,000 Mcg Tablet.er, 1,000 MCG PO DAILY, (Reported) Entered as Reported by: DORIS WADDELL on 09/29/21954 Last Action: Reviewed Diltiazem HCl (Diltiazem 24Hr ER) 180 Mg Cap.er.24h, 180 MG PO DAILY, (Reported) Entered as Reported by: DORIS WADDELL on 09/29/21954 Last Action: Continued Lorazepam (Ativan) 0.5 Mg Tablet, 0.5 MG PO HS, (Reported) Entered as Reported by: SUE PAULINO on 09/12/21 0843 Last Action: Reviewed Pantoprazole Sodium (Pantoprazole Sodium) 40 Mg Tablet., 40 MG PO DAILY, (Reported) Entered as Reported by: SUE PAULINO on 09/12/21 0844 Last Action: Reviewed Sucralfate (Sucralfate) 1 Gram Tablet, 1 GM PO BID, (Reported) Entered as Reported by: KYLEIGH JEFFERSON on 09/22/21 1315 Last Action: Reviewed Review of Systems Review of Systems Constitutional: see HPI EENTM: no symptoms reported Respiratory: no symptoms reported Cardiovascular: no symptoms reported Gastrointestinal: see HPI Genitourinary: see HPI : No Musculoskeletal: no symptoms reported Skin: no symptoms reported Psychiatric/Neurological: See HPI Hematologic/Lymphatic: See HPI Immunological/Allergic: no symptoms reported Past Prmmohc-Fbdvta-Rtbhlq Hx Patient Social History Tobacco Use?: Yes Smoking Status: Former Smoker Substance use?: No Alcohol Use?: No Immunizations Up To Date First/Initial COVID19 Vaccinat: NO Second COVID19 Vaccination Devan: NO Third COVID19 Vaccination Date: NO Seasonal Allergies Seasonal Allergies: No Past Medical History Surgery/Hospitalization HX: COPD, SVT, STROKE, INFUSAPORT Surgeries: Yes (neck) Abdominal (endoscopy with cauterization of bleeds), Section, Hysterect anat, Orthopedic Respiratory: Yes COPD Currently Using CPAP: No Currently Using BIPAP: No Cardiac: Yes (SVT) Atrial Fibrillation (not anticoagulated due to anemia and GI bleeds), High Cholesterol, Hypertension, Irregular Heartbeat Neurological: Yes Stroke, TIA Genitourinary: No Gastrointestinal: Yes Colitis, Gastrointestinal Bleed Musculoskeletal: No Endocrine: No HEENT: No Cancer: No Psychosocial: No Integumentary: No Blood Disorders: Yes (essential thrombocytosis, chronic anemia transfusion dependent) Family Medical History Heart Disease Physical Exam Vital Signs Vital Signs - First Documented 03/21/23 08:31 Temp 36.7 Pulse 86 Resp 16 B/P (MAP) 129/40 (69) Pulse Ox 99 O2 Delivery Nasal Cannula O2 Flow Rate 3.00 Capillary Refill : Less Than 3 Seconds Height, Weight, BMI Height: 5'2.00" Weight: 139lbs. 0.0oz. 63.713212ey; 24.00 BMI Method: General Appearance: No Apparent Distress, WD/WN HEENT: PERRL/EOMI, Normal ENT Inspection Neck: Normal Inspection Respiratory: Lungs Clear, Normal Breath Sounds, No Accessory Muscle Use Cardiovascular: Regular Rate, Rhythm, No Edema, Systolic Murmur Gastrointestinal: Normal Bowel Sounds, Soft; No Distended; Tenderness (left flank and lower abdomen) Extremity: Normal Inspection Neurologic/Psychiatric: Alert, Oriented x3, No Motor/Sensory Deficits, Normal Mood/Affect, Other (requires assistance with history) Skin: Normal Color, Warm/Dry Progress/Results/Core Measures Suspected Sepsis SIRS Temperature: Pulse: 86 Respiratory Rate: 16 Laboratory Tests 03/21/23 08:50: White Blood Count 11.0 Blood Pressure 129 /40 Mean: 69 Laboratory Tests 03/21/23 08:50: Creatinine 0.82, INR Comment 1.1, Platelet Count 343, Total Bilirubin 0.2 Results/Orders Lab Results Laboratory Tests Test 03/21/23 08:50 Range/Units White Blood Count 11.0 4.3-11.0 10^3/uL Red Blood Count 2.73 L 3.80-5.11 10^6/uL Hemoglobin 6.2 *L 11.5-16.0 g/dL Hematocrit 20 *L 35-52 % Mean Corpuscular Volume 75 L 80-99 fL Mean Corpuscular Hemoglobin 23 L 25-34 pg Mean Corpuscular Hemoglobin Concent 30 L 32-36 g/dL Red Cell Distribution Width 18.1 H 10.0-14.5 % Platelet Count 343 130-400 10^3/uL Mean Platelet Volume 9.9 9.0-12.2 fL Immature Granulocyte % (Auto) 1 % Neutrophils (%) (Auto) 84 H 42-75 % Lymphocytes (%) (Auto) 5 L 12-44 % Monocytes (%) (Auto) 9 0-12 % Eosinophils (%) (Auto) 1 0-10 % Basophils (%) (Auto) 0 0-10 % Neutrophils # (Auto) 9.2 H 1.8-7.8 10^3/uL Lymphocytes # (Auto) 0.6 L 1.0-4.0 10^3/uL Monocytes # (Auto) 1.0 0.0-1.0 10^3/uL Eosinophils # (Auto) 0.1 0.0-0.3 10^3/uL Basophils # (Auto) 0.0 0.0-0.1 10^3/uL Immature Granulocyte # (Auto) 0.1 0.0-0.1 10^3/uL Neutrophils % (Manual) 87 % Lymphocytes % (Manual) 4 % Monocytes % (Manual) 9 % Hypochromasia SLIGHT Anisocytosis SLIGHT Microcytosis SLIGHT Prothrombin Time 14.8 H 12.2-14.7 SEC INR Comment 1.1 0.8-1.4 Activated Partial Thromboplast Time 162 *H 24-35 SEC Sodium Level 131 L 135-145 MMOL/L Potassium Level 4.3 3.6-5.0 MMOL/L Chloride Level 97 L 98-107 MMOL/L Carbon Dioxide Level 25 21-32 MMOL/L Anion Gap 9 5-14 MMOL/L Blood Urea Nitrogen 21 H 7-18 MG/DL Creatinine 0.82 0.60-1.30 MG/DL Estimat Glomerular Filtration Rate 70 BUN/Creatinine Ratio 26 Glucose Level 111 H 70-105 MG/DL Calcium Level 9.3 8.5-10.1 MG/DL Corrected Calcium 9.6 8.5-10.1 MG/DL Total Bilirubin 0.2 0.1-1.0 MG/DL Aspartate Amino Transf (AST/SGOT) 13 5-34 U/L Alanine Aminotransferase (ALT/SGPT) 10 0-55 U/L Alkaline Phosphatase 105 40-136 U/L C-Reactive Protein High Sensitivity 0.33 0.00-0.50 MG/DL Total Protein 6.0 L 6.4-8.2 GM/DL Albumin 3.6 3.2-4.5 GM/DL Lipase 25 8-78 U/L My Orders Orders - AURELIA TORRES MD Ua Culture If Indicated (03/21/23 08:29) Cbc And Automated Diff (03/21/23 08:52) Comprehensive Metabolic Panel (03/21/23 08:52) Protime With Inr (03/21/23 08:52) Partial Thromboplastin Time (03/21/23 08:52) Ed Iv/Invasive Line Start (03/21/23 08:52) Fecal Occult Bedside (03/21/23 08:52) Manual Differential (03/21/23 08:50) Red Cells Leukocytes Reduced (03/21/23 09:10) Type And Screen (03/21/23 09:10) Hs C Reactive Protein (03/21/23 09:20) Lipase (03/21/23 09:20) Ct Abdomen/Pelvis W (03/21/23 09:21) Iohexol Injection (Omnipaque 350 Mg/Ml 1 (03/21/23 09:45) Ns (Ivpb) 100 Ml (Sodium Chloride 0.9% 1 (03/21/23 09:45) Ns Iv 1000 Ml (Ns Iv 1000 Ml) (03/21/23 10:30) Ed Admission (Communication) (03/21/23 10:52) Medications Given in ED Vital Signs/I&O 03/21/23 03/21/23 03/21/23 03/21/23 08:31 08:31 10:36 10:51 Temp 36.7 36.6 36.2 Pulse 86 81 83 Resp 16 16 16 B/P (MAP) 129/40 (69) 114/58 118/58 Pulse Ox 99 100 97 O2 Delivery Nasal Cannula Room Air Room Air O2 Flow Rate 3.00 2.00 Capillary Refill : Less Than 3 Seconds Blood Pressure Mean: 69 Progress Note : Progress Note Patient was interviewed and examined along with her son who provided much of the history. Labs were reviewed and interpreted by me. CBC was remarkable for anemia with hemoglobin of 6.2. WBC and platelets were normal. CMP, lipase, CRP, and UA were clinically unremarkable. Two units of PRBC were ordered. She has history of cardiac disease among other chronic conditions necessitating at least [address] was obtained to evaluate her abdominal pain. Uncomplicated diverticulosis was noted without evidence of diverticulitis. An incidental renal lesion was also noted. CT was reviewed by me personally and I appreciated no acute abnormalities to explain her pain. Radiologist's report was reviewed as below. Patient was ultimately admitted for transfusion and further evaluation. Dr. Wolfe, her general surgeon, was consulted. Case was reviewed with Dr. Moreno, hospitalist on duty for [facility]. CODE STATUS was discussed with patient, and she elects to remain full code. Diagnostic Imaging Diagonstic Imaging: CT Plain Films/CT/US/NM/MRI: abdomen, pelvis Comments NAME: DORA [facility]ING [facility] REC#: [id number] PT STATUS: REG ER : 1940 PHYSICIAN: AURELIA TORRES MD ADMIT DATE: 03/21/23/ER Draft Date of Exam:03/21/23 CT ABDOMEN/PELVIS W PROCEDURE: CT abdomen and pelvis with contrast. TECHNIQUE: Multiple contiguous axial images were obtained through the abdomen and pelvis after administration of intravenous contrast. Auto Exposure Controls were utilized during the CT exam to meet ALARA standards for radiation dose reduction. All CT scans use one or more of the following dose optimizing techniques: automated exposure control, MA and/or KvP adjustment based on patient size and exam type or iterative reconstruction. INDICATION: Left flank pain as well as black tarry stools and weakness. Correlation is made with prior CT from 09/09/2021. Previously noted nodular density in the posterior right lower lobe is no longer visualized. The lung bases are clear. No discrete liver mass is identified. The gallbladder is surgically absent. There is no biliary duct dilatation. The pancreas and spleen are unremarkable. No adrenal mass is identified. There is a small cortical lesion in the upper pole of the right kidney posteriorly measuring approximately 11 mm in size. This was 5 to [address] from 2021. Overall density is greater than water content and solid mass cannot be excluded. Renal vascular calcifications are noted. There is no hydronephrosis. Aorta is heavily calcified and ectatic but nonaneurysmal. The small and large bowel loops appear to be normal caliber. There is no obstruction. There are occasional diverticula present within the sigmoid but no evidence of acute diverticulitis. There is no free fluid or fluid collection identified. The bladder is unremarkable. Uterus is surgically absent. No abdominal or pelvic lymphadenopathy is detected. The bony structures are nonacute. IMPRESSION: 1. There is an enlarging nodule in the upper pole of the right kidney posteriorly, concerning for a solid renal mass. Renal ultrasound could be performed on a nonemergent basis for further evaluation. 2. Uncomplicated diverticulosis. 3. No acute feature is identified. Dictated on workstation # [id number] Dict: 03/21/23 1015 Trans: 03/21/23 1025 [id number] Interpreted by: KAILYN HUBBARD MD Departure Communication (Admissions) Time/Spoke to Admitting Phy: 10:48 Dr. Moreno Time/Spoke to Consulting Phy: 10:55 Dr. Wolfe Impression Primary Impression: Severe anemia Additional Impressions: Nodule of kidney Left sided abdominal pain Disposition: ADMITTED INPATIENT Condition: Stable Admissions Decision to Admit Reason: Admit from ER (General) Decision to Admit/Date: Mar 21, 2023 Time/Decision to Admit Time: 10:48 Departure-Patient Inst. Referrals: GAL DAN MD (PCP/Family) Primary Care Physician Copy Copies To 1: [facility] [place] Copies To 2: NELDA WOLFE MD, JOSHUA T MD Mar 21, 2023 09:20
[2023-03-21 09:34] LABS: HYPOCHROMASIA SLIGHT; LYMPHOCYTES % (MANUAL) 4 %; MONOCYTES % (MANUAL) 9 %; NEUTROPHILS % (MANUAL) 87 %
[2023-03-21 09:35] LABS: ANISOCYTOSIS SLIGHT; MICROCYTOSIS SLIGHT
[2023-03-21] MEDS ORDERED: IOHEXOL 350 MG/ML 100 ML (OMNIPAQUE 350) VIAL IV ONE (09:45)
[2023-03-21] MEDS ORDERED: NS 100 ML (IVPB) BAG IV ONE (09:45)
--- NOTE | 2023-03-21 10:26 | Diagnostic Imaging Report ---
PROCEDURE: CT abdomen and pelvis with contrast. TECHNIQUE: Multiple contiguous axial images were obtained through the abdomen and pelvis after administration of intravenous contrast. Auto Exposure Controls were utilized during the CT exam to meet ALARA standards for radiation dose reduction. All CT scans use one or more of the following dose optimizing techniques: automated exposure control, MA and/or KvP adjustment based on patient size and exam type or iterative reconstruction. INDICATION: Left flank pain as well as black tarry stools and weakness. Correlation is made with prior CT from 09/09/2021. Previously noted nodular density in the posterior right lower lobe is no longer visualized. The lung bases are clear. No discrete liver mass is identified. The gallbladder is surgically absent. There is no biliary duct dilatation. The pancreas and spleen are unremarkable. No adrenal mass is identified. There is a small cortical lesion in the upper pole of the right kidney posteriorly measuring approximately 11 mm in size. This was 5 to [address] from 2021. Overall density is greater than water content and solid mass cannot be excluded. Renal vascular calcifications are noted. There is no hydronephrosis. Aorta is heavily calcified and ectatic but nonaneurysmal. The small and large bowel loops appear to be normal caliber. There is no obstruction. There are occasional diverticula present within the sigmoid but no evidence of acute diverticulitis. There is no free fluid or fluid collection identified. The bladder is unremarkable. Uterus is surgically absent. No abdominal or pelvic lymphadenopathy is detected. The bony structures are nonacute. IMPRESSION: 1. There is an enlarging nodule in the upper pole of the right kidney posteriorly, concerning for a solid renal mass. Renal ultrasound could be performed on a nonemergent basis for further evaluation. 2. Uncomplicated diverticulosis. 3. No acute feature is identified. Dictated by: Dictated on workstation # [id number]
[2023-03-21] MEDS ORDERED: NS IV 1000 ML 1,000 ML IV ONE (10:30)
[2023-03-21 12:02] LABS: BACTERIA,URINE NEGATIVE /HPF; BILIRUBIN,URINE NEGATIVE (NEGATIVE); CLARITY,URINE CLEAR; COLOR,URINE YELLOW; GLUCOSE, URINE (UA) NEGATIVE (NEGATIVE); KETONES,URINE NEGATIVE (NEGATIVE); LEUKOCYTE ESTERASE ,URINE NEGATIVE (NEGATIVE); NITRITE,URINE NEGATIVE (NEGATIVE); PROTEIN,URINE NEGATIVE (NEGATIVE); WBC,URINE RARE /HPF
--- NOTE | 2023-03-21 13:25 | History & Physical ---
LEXA HALE 03/21/23 1325: HPI History of Present Illness: Patient presented to the ED with her son because she was feeling sick. History of afib, HTN, chronic anemia, 2 strokes, and COPD. Patient says that last night she started feeling nauseous, weak, had a headache, chest pain, dark stool and left sided abdominal pain. She said this came on very quickly. She continued to stay at home overnight and her son showed up to her house this morning and she requested that she go to the ED. She has a history of chronic anemia, her last CBC being 7.7 at [facility]. Her son says that she gets weekly CBC's due to her anemia. Roughly 5 years ago she was at [facility] seeing Dr. Garrison, a GI doctor. They were told by him that she had a lower GI bleed and that she would most likely struggle with chronic anemia. She had a upper and lower endoscopy done in September of 2021 showing esophagitis, hiatal hernia, internal hemorrhoids, and a polyp. She has received blood on multiple occasions. She has had reactions in the past so says it is best for the transfusion to be slow. She also normally receives a dose of Lasix in between transfusions if it is more than 1 unit. She has a history of arrhythmias while receiving iron transfusions, so she does not receive iron orally or via IV. Patient has a history of afib but does not take a blood thinner due to her chronic anemia. She does take aspirin 81mg. Denies sick contacts, vision changes, dysuria, hematochezia, hematemesis, hematuria, or hemoptysis. Source: patient, family (Son) Exam Limitations: no limitations Date seen by provider: Mar 21, 2023 Time Seen by Provider: 13:45 Attending Physician Kailash Lake MD PCP Admitting Physician: Soraya Sauceda MD Attending Physician: Soraya Sauceda MD Consult Date of Admission Mar 21, 2023 at 11:31 Home Medications Home Medications Reviewed patient Home Medication Reconciliation performed by pharmacy medication reconciliations die maintenance technician and/or nursing. Patients Allergies have been reviewed. Allergies Coded Allergies: [id number]-[id number]-HnQ Reductase Inhibitor (Verified Allergy, Unknown, 03/21/23) Sulfa (Sulfonamide Antibiotics) (Unverified Allergy, Unknown, 03/21/23) amoxicillin (Verified Allergy, Unknown, 03/21/23) aspartame (Unverified Allergy, Unknown, 03/21/23) atorvastatin (Verified Allergy, Unknown, 03/21/23) bee venom protein (honey bee) (Verified Allergy, Unknown, 03/21/23) diphenhydramine (Verified Allergy, Unknown, 03/21/23) ipratropium (Verified Allergy, Unknown, 03/21/23) iron (Unverified Allergy, Unknown, 03/21/23) "TACHYCARDIA" WITH IV INFUSION nicotine (Verified Allergy, Unknown, 03/21/23) quinine (Verified Allergy, Unknown, 03/21/23) XOJ-Oiudhy-Xbhepe Hx Patient Social History Smoking Status: Former Smoker 2nd Hand Smoke Exposure: No Recent Hopitalizations: No Alcohol Use?: No Immunizations Up To Date Influenza Vaccine Up-to-Date: No; Not Current First/Initial COVID19 Vaccinat: NO Second COVID19 Vaccination Devan: NO Third COVID19 Vaccination Date: NO Past Medical History PMHx: Depression COPD CAD HTN Chronic transfusion dependent anemia Stroke (x2) afib SurgHx: Hysterectomy Appendectomy Neck surgery Cholecystectomy Family Medical History Significant Family History: Heart Disease Review of Systems (CHC) Constitutional: see HPI EENTM: see HPI Respiratory: see HPI Cardiovascular: see HPI Gastrointestinal: see HPI Genitourinary: see HPI : No Musculoskeletal: no symptoms reported Skin: no symptoms reported Psychiatric/Neurological: No Symptoms Reported Reviewed Test Results Reviewed Test Results Lab Laboratory Tests 03/21/23 08:50: White Blood Count 11.0, Red Blood Count 2.73L, Hemoglobin 6.2*L, Hematocrit 20*L , Mean Corpuscular Volume 75L, Mean Corpuscular Hemoglobin 23L, Mean Corpuscular Hemoglobin Concent 30L, Red Cell Distribution Width 18.1H, Platelet Count 343, M steve Platelet Volume 9.9, Immature Granulocyte % (Auto) 1, Neutrophils (%) (Auto) 84H, Lymphocytes (%) (Auto) 5L, Monocytes (%) (Auto) 9, Eosinophils (%) (Auto) 1, Basophils (%) (Auto) 0, Neutrophils # (Auto) 9.2H, Lymphocytes # (Auto) 0.6L, Monocytes # (Auto) 1.0, Eosinophils # (Auto) 0.1, Basophils # (Auto) 0.0, Immature Granulocyte # (Auto) 0.1, Neutrophils % (Manual) 87, Lymphocytes % (Manual) 4, Monocytes % (Manual) 9, Hypochromasia SLIGHT, Anisocytosis SLIGHT, Microcytosis SLIGHT, Prothrombin Time 14.8H, INR Comment 1.1, Activated Partial Thromboplast Time 162*H, Sodium Level 131L, Potassium Level 4.3, Chloride Level 97L, Carbon Dioxide Level 25, Anion Gap 9, Blood Urea Nitrogen 21H, Creatinine 0.82, Estimat Glomerular Filtration Rate 70, BUN/Creatinine Ratio 26, Glucose Level 111H, Calcium Level 9.3, Corrected Calcium 9.6, Total Bilirubin 0.2, Aspartate Amino Transf (AST/SGOT) 13, Alanine Aminotransferase (ALT/SGPT) 10, Al kaline Phosphatase 105, C-Reactive Protein High Sensitivity 0.33, Total Protein 6.0L, Albumin 3.6, Lipase 25 03/21/23 11:37: Urine Color YELLOW, Urine Clarity CLEAR, Urine pH 7.0, Urine Specific [place] 1.010L, Urine Protein NEGATIVE, Urine Glucose (UA) NEGATIVE, Urine Ketones NEGATIVE, Urine Nitrite NEGATIVE, Urine Bilirubin NEGATIVE, Urine Urobilinogen 0.2, Urine Leukocyte Esterase NEGATIVE, Urine RBC (Auto) NEGATIVE, Urine RBC NONE, Urine WBC RARE, Urine Squamous Epithelial Cells 5-10, Urine Crystals NONE, Urine Bacteria NEGATIVE, Urine Casts NONE, Urine Mucus NEGATIVE, Urine Culture Indicated NO Radiology CT Abdomen and Pelvis: 1. There is an enlarging nodule in the upper pole of the right kidney posteriorly, concerning for a solid renal mass. Renal ultrasound could be performed on a nonemergent basis for further evaluation. 2. Uncomplicated diverticulosis. 3. No acute feature is identified. Physical Exam-([facility]) Physical Exam Vital Signs VS - Last 72 Hours, by Label 03/21/23 03/21/23 03/21/23 03/21/23 08:31 08:31 10:36 10:51 Temp 36.7 36.6 36.2 Pulse 86 81 83 Resp 16 16 16 B/P (MAP) 129/40 (69) 114/58 118/58 Pulse Ox 99 100 97 O2 Delivery Nasal Cannula Room Air Room Air O2 Flow Rate 3.00 2.00 03/21/23 03/21/23 03/21/23 03/21/23 11:40 12:36 12:38 12:43 Temp 36.8 36.7 36.5 Pulse 88 80 80 84 Resp 16 20 20 B/P (MAP) 122/67 132/74 (93) 132/74 131/60 Pulse Ox 97 96 96 100 O2 Delivery Room Air Room Air Nasal Cannula Room Air O2 Flow Rate 2.00 03/21/23 12:50 Pulse Ox 96 O2 Delivery Nasal Cannula O2 Flow Rate 2.00 Capillary Refill : Less Than 3 Seconds General Appearance: WD/WN, no apparent distress Respiratory: chest non-tender, lungs clear, no respiratory distress, no accessory muscle use, decreased breath sounds Cardiovascular: regular rate, rhythm, no edema, no gallop, systolic murmur Gastrointestinal: normal bowel sounds, guarding (LLQ) Extremities: normal range of motion, normal inspection, no pedal edema, no calf tenderness, normal capillary refill Neurologic/Psychiatric: 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 Garrison at [facility] and try to obtain records - Upper and lower endoscopy done in September 2021 showed esophagitis, hiatal hernia, internal hemorrhoids, and a polyp. - Consider pill endoscopy - Consider ordering iron panel (2) Left sided abdominal pain Status: Acute Assessment & Plan: - WBC count of 11 with 84% neuts - Guarding of LLQ of abdomen - CT scan showed uncomplicated diverticulosis. No acute feature identified. - Consider pelvic US for ovarian torsion - NPO - Consider adding ciprofloxacin with metronidazole for possible diverticulitis (3) Atrial fibrillation Status: Chronic Assessment & Plan: - Waiting on [facility] rec to confirm patient home medications. She does not know what she takes at home Qualifiers: Qualified Codes: I48.91 - Unspecified atrial fibrillation (4) Nodule of kidney Status: Chronic Assessment & Plan: - CT from today showed nodule in the upper pole of the right kidney posteriorly, concerning for a solid renal mass. Approximately 11mm in size - Prior CT from 2021 showed a kidney mass 5-6mm in size - Consider renal US (5) COPD (chronic obstructive pulmonary disease) Status: Chronic Assessment & Plan: - Waiting on med rec to confirm patient home medications. She does not know what she takes at home - She brought an albuterol inhaler. Continue this as needed. Qualifiers: Qualified Codes: J44.9 - Chronic obstructive pulmonary disease, unspecified (6) Hyponatremia Status: Chronic Assessment & Plan: - Sodium of 131 upon admission - Continue to monitor with AM CMP SORAYA SAUCEDA MD 03/22/23 1651: Home Medications Allergies Coded Allergies: Sirgisi-IPT-EqL Reductase Inhibitor (Verified Allergy, Unknown, 03/21/23) Sulfa (Sulfonamide Antibiotics) (Unverified Allergy, Unknown, 03/21/23) amoxicillin (Verified Allergy, Unknown, 03/21/23) aspartame (Unverified Allergy, Unknown, 03/21/23) atorvastatin (Verified Allergy, Unknown, 03/21/23) bee venom protein (honey bee) (Verified Allergy, Unknown, 03/21/23) diphenhydramine (Verified Allergy, Unknown, 03/21/23) ipratropium (Verified Allergy, Unknown, 03/21/23) iron (Unverified Allergy, Unknown, 03/21/23) "TACHYCARDIA" WITH IV INFUSION nicotine (Verified Allergy, Unknown, 03/21/23) quinine (Verified Allergy, Unknown, 03/21/23) Supervisory-Addendum Brief Supervisory Addendum Verification and Attestation of Medical Student E/M Service A medical student performed and documented this service in my presence. I reviewed and verified all information documented by the medical student and made modifications to such information, when appropriate. I personally performed the physical exam and medical decision making. Soraya Sauceda, Mar 22, 2023,16:42 Agree with above in addition Plan Symptomatic Anemia - s/p 2 units pRBCs in ER, HDS this AM, General Surgery Dr Wolfe consulted and plan to EGD today LLQ Abdominal pain Diverticulitis - Continue Flagyl/Cipro, CLD Atrial Fibrillation - Rate controlled, unable to tolerated Kidney Nodule - CT abd for kidney nodule COPD Hyponatremia LEXA HALE Mar 21, 2023 13:25 SORAYA SAUCEDA MD Mar 22, 2023 16:51
--- NOTE | 2023-03-21 16:08 | Progress Note-Pre Operative ---
Pre-Operative Progress Note Date of Available H&P: Mar 21, 2023 Date H&P Reviewed: Mar 21, 2023 Time H&P Reviewed: 16:30 History & Physical: No changes noted Pre-Operative Diagnosis: sx anemia with hx type 3 gastric ulcer. NELDA HUDSON MD Mar 21, 2023 16:08
--- NOTE | 2023-03-21 16:40 | CONSULTATION REPORT ---
DATE OF SERVICE: 03/21/2023 ATTENDING PRIMARY CARE PHYSICIAN: Kailash Lake MD ADMITTING PHYSICIAN: Dr. Belle Moreno. The patient is an 83-year-old female known to us. In 09/2021, she presented with generalized weakness, shortness of breath and lethargy. She had reported having SVT and was treated a few days prior to that presentation. The patient also had a history of atrial fibrillation. Upon presentation, she was found to be tachycardic in the 140s and rhythm consistent with SVT. This was then controlled with calcium channel blockers. The patient had reported some nausea and vomiting as well as mid abdominal and epigastric pain. She had also reported loose stools and some dark bowel movements. On 08/27/2020, she had undergone an EGD where she was found to have a small hiatal hernia, moderate gastritis as well as a small type 3 antral ulcer with an overlying fibrin clot and no active bleeding. CT scan was also performed, which did show some inflammation of the right side of the colon consistent with a mild colitis. The patient was admitted and did undergo another EGD and colonoscopy on 09/30/2021. She was found to have reflux esophagitis, [place] grade B as well as a small hiatal hernia, 1.5 cm in size. There were no ulcers at that time, she was also found to have a small sessile polyp of the descending colon, 5 mm in size, which was biopsied and found to be benign. The patient presented with a similar presentation to the emergency department with weakness, fatigue, lethargy as well as a crampy upper abdominal pain. Upon further questioning, she had reported some very dark tarry stools in the past few weeks as well. She had reported also that this weakness has been progressing in the past 2-3 weeks and the pain in the abdomen with associated nausea has been present for approximately 4-5 days. Upon this admission, her hemoglobin was found to be at 6.2 and hematocrit of 20. Again, she had reported dark tarry stools, likely consistent with an upper gastrointestinal bleed. PAST MEDICAL HISTORY: Anemia, SVT, atrial fibrillation, history of myocardial infarction x2, hypertension, COPD, history of stroke, history of TIA, gastroesophageal reflux disease, peptic ulcer disease. PAST SURGERIES: section, total hysterectomy, open cholecystectomy. ALLERGIES: SULFA, STATINS, IRON, ASPARTAME, QUININE, AMOXICILLIN, DIPHENHYDRAMINE, IPRATROPIUM. MEDICATIONS: Albuterol MDI 2 puffs q.6 hours p.r.n., albuterol breathing treatments q.6 hours p.r.n., aspirin 81 mg daily, diltiazem 180 mg daily, lorazepam 0.5 mg daily p.r.n., tramadol 50 mg b.i.d. p.r.n. SOCIAL HISTORY: Previous smoker, quit 2021. Negative alcohol. FAMILY HISTORY: Father, myocardial infarction. Mother, hypertension, stroke. VITAL SIGNS: Temperature 36.6, blood pressure 127/75, pulse 80, respirations 18, pulse ox 95% on 2 liters nasal cannula. REVIEW OF SYSTEMS: A well-nourished female, currently in no acute distress. She is not experiencing shortness of breath or difficulty breathing. No chest pain, palpitations, diaphoresis. No nausea, vomiting with a previous crampy upper abdominal pain as well as dark tarry stools and progressive weakness in the past 2-3 weeks. No fever, chills, no recent inadvertent weight loss. All other review of systems negative. PHYSICAL EXAMINATION: CHEST: Few scattered wheezes and distant breath sounds bilaterally. HEART: Regular. No murmurs. EXTREMITIES: No lower extremity edema. Negative Homans sign. HEENT: No scleral icterus. No cervical lymphadenopathy. ABDOMEN: Soft, nondistended. There is mild discomfort in the epigastric region upon deep palpation. No peritoneal signs. No hernias. SKIN: Warm, dry. LABORATORY DATA: WBC 11.0, hemoglobin 6.2, hematocrit 20, platelets 343. BUN 21, creatinine 0.82. Liver function enzymes normal. ASSESSMENT AND PLAN: An 83-year-old female with an acute blood loss anemia, likely from an upper gastrointestinal source with a resultant shortness of breath, fatigue and lethargy. She will be admitted and resuscitated with IV crystalloids as well as blood products. At this time, her vital signs are stable and we will treat her for peptic ulcer disease with PPI acid science interpreter on a b.i.d. basis. On this admission, we will also schedule her for an EGD as well as biopsies as appropriate. Upon this history and physical, she states that she is not on any acid reducers at home and due to her history, she will need to be on some form of PPI acid science interpreter for the most part lifelong. Job ID: [id number] DocumentID: [id number] Dictated Date: 03/21/2023 16:16:54 Surgical Resident Date: 03/21/2023 16:38:00 Dictated By: NELDA HUDSON MD
--- NOTE | 2023-03-21 16:40 | Diagnostic Imaging Report ---
INDICATION: Mass-like area seen involving the right kidney on previous CT. COMPARISON: CT dated 03/21/2023. FINDINGS: Limited sonographic evaluation of the right kidney was performed. FINDINGS: Right kidney measures 9.1 cm in length. Cortical thickness and corticomedullary differentiation are maintained. Anechoic benign-appearing cyst is present within the mid region. No separate cyst or mass is identified within the superior pole of the right kidney to correspond with area described on recent CT. There is no evidence of calculus or hydronephrosis. There is no ascites. IMPRESSION: 1. Area described involving the superior pole of the right kidney on previous recent CT is not seen on this exam. Assessment with noncontrast CT of the abdomen may be of benefit, as this could represent a hemorrhagic cyst. Dictated by: Dictated on workstation # [id number]
[2023-03-21] MEDS: CIPROFLOXACIN 500 MG TABLET PO SCH (19:16)
[2023-03-21] MEDS: PANTOPRAZOLE INJECTION 40 MG VIAL IV SCH (19:16)
[2023-03-21] MEDS: metroNIDAZOLE 500 MG TABLET PO SCH (19:16)
[2023-03-21] MEDS: RT-ALBUTEROL SULF 2.5 MG/3 ML PRE-MIX VIAL INH PRN (22:41)
[2023-03-22] VITALS (9 sets, daily range): BP systolic 88–132; BP diastolic 44–66
[2023-03-22 04:54] LABS: BASOPHILS % (AUTO) 0 % (0-10); EOSINOPHILS # (AUTO) 0.1 10^3/uL (0.0-0.3); EOSINOPHILS % (AUTO) 1 % (0-10); HEMATOCRIT 26 % (35-52); HEMOGLOBIN 8.2 g/dL (11.5-16.0); LYMPHOCYTES # (AUTO) 0.6 10^3/uL (1.0-4.0); LYMPHOCYTES % (AUTO) 6 % (12-44); MEAN CORPUSCULAR HEMOGLOBIN 24 pg (25-34); MEAN CORPUSCULAR HGB CONC 32 g/dL (32-36); MEAN CORPUSCULAR VOLUME 76 fL (80-99); MEAN PLATELET VOLUME 9.9 fL (9.0-12.2); MONOCYTES # (AUTO) 0.9 10^3/uL (0.0-1.0); MONOCYTES % (AUTO) 9 % (0-12); NEUTROPHILS # (AUTO) 7.8 10^3/uL (1.8-7.8); NEUTROPHILS % (AUTO) 83 % (42-75); PLATELET COUNT 277 10^3/uL (130-400); WHITE BLOOD COUNT 9.4 10^3/uL (4.3-11.0)
[2023-03-22 05:15] LABS: ALBUMIN 3.6 GM/DL (3.2-4.5); POTASSIUM 4.1 MMOL/L (3.6-5.0)
[2023-03-22 05:17] LABS: CALCIUM 9.1 MG/DL (8.5-10.1)
[2023-03-22 05:18] LABS: TOTAL PROTEIN 5.9 GM/DL (6.4-8.2)
[2023-03-22 05:19] LABS: BILIRUBIN,TOTAL 0.5 MG/DL (0.1-1.0)
[2023-03-22 05:21] LABS: CREATININE SERUM 0.92 MG/DL (0.60-1.30)
[2023-03-22] MEDS: CIPROFLOXACIN 500 MG TABLET PO SCH ×2 (07:32→20:24)
[2023-03-22] MEDS: metroNIDAZOLE 500 MG TABLET PO SCH ×2 (07:32→20:24)
[2023-03-22] MEDS: PANTOPRAZOLE INJECTION 40 MG VIAL IV SCH ×2 (07:32→20:24)
[2023-03-22] MEDS: ONDANSETRON INJECTION 4 MG/2 ML (SDV) IVP PRN ×2 (08:26→22:20)
--- NOTE | 2023-03-22 09:16 | Progress Note ---
LEXA HALE 03/22/23 0916: Subjective Subjective/Events-last exam Patient was resting comfortably in bed this morning. She said she is feeling better and did not have any concerns. Treatment plan was discussed with patient and she was happy with our approach. I told her that the renal US was not able to view the mass on her right kidney and they recommended a non-contrast CT scan. She is interested in getting this scan because her of cancer and she wants to know what the mass is. Iron supplementation was discussed with patient and she does not want any iron due to previous arrythmias associated with her iron infusion. Objective Exam Last Set of Vital Signs Vital Signs Date Time Temp Pulse Resp B/P (MAP) Pulse Ox O2 Delivery O2 Flow Rate FiO2 03/22/23 07:47 78 03/22/23 07:44 36.1 16 121/56 (77) 100 Nasal Cannula 2.00 03/21/23 16:00 32 Capillary Refill : Less Than 3 Seconds I&O Intake and Output 03/22/23 00:00 Intake Total 1648 ml Output Total 200 ml Balance 1448 ml Intake Oral 610 ml Other 1038 ml Output Urine Total 200 ml # Voids 2 Daily Weight Change No General: Alert, Oriented X3, Cooperative, No Acute Distress Lungs: Other (Diminished breath sounds) Heart: Regular Rate, Normal S1, Normal S2, Other (Grade III/ systolic heart murmur) Abdomen: Normal Bowel Sounds, Other (Guarding of epigastric area and LLQ upon deep palpation) Extremities: No Clubbing, No Cyanosis, No Edema, Normal Pulses, No Tenderness/Swelling Skin: No Rashes, No Breakdown, No Significant Lesion Neuro: Normal Speech, Sensation Intact, Cranial Nerves 3-12 NL, Other (Left sided motor weakness) Psych/Mental Status: Mental Status NL, Mood NL Results/Procedures Lab Laboratory Tests 03/21/23 11:37: Urine Color YELLOW, Urine Clarity CLEAR, Urine pH 7.0, Urine Specific [place] 1.010L, Urine Protein NEGATIVE, Urine Glucose (UA) NEGATIVE, Urine Ketones NEGATIVE, Urine Nitrite NEGATIVE, Urine Bilirubin NEGATIVE, Urine Urobilinogen 0.2, Urine Leukocyte Esterase NEGATIVE, Urine RBC (Auto) NEGATIVE, Urine RBC NONE, Urine WBC RARE, Urine Squamous Epithelial Cells 5-10, Urine Crystals NONE, Urine Bacteria NEGATIVE, Urine Casts NONE, Urine Mucus NEGATIVE, Urine Culture Indicated NO 03/21/23 15:30: Iron Level 254H, Total Iron Binding Capacity 431H, Unsaturated Iron Binding Capacity 177, Transferrin % Saturation 59H, Ferritin 10.7L 03/22/23 04:49: White Blood Count 9.4, Red Blood Count 3.39L, Hemoglobin 8.2#L, Hematocrit 26L, Mean Corpuscular Volume 76L, Mean Corpuscular Hemoglobin 24L, Mean Corpuscular Hemoglobin Concent 32, Red Cell Distribution Width 17.7H, Platelet Count 277, Mean Platelet Volume 9.9, Immature Granulocyte % (Auto) 1, Neutrophils (%) (Auto) 83H, Lymphocytes (%) (Auto) 6L, Monocytes (%) (Auto) 9, Eosinophils (%) (Auto) 1, Basophils (%) (Auto) 0, Neutrophils # (Auto) 7.8, Lymphocytes # (Auto) 0.6L, Monocytes # (Auto) 0.9, Eosinophils # (Auto) 0.1, Basophils # (Auto) 0.0, Immature Granulocyte # (Auto) 0.1, Sodium Level 134L, Potassium Level 4.1, Ch [place]or[place] Level 99, Carbon Dioxide Level 25, Anion Gap 10, Blood Urea Nitrogen 13, Creatinine 0.92, Estimat Glomerular Filtration Rate 61, BUN/Creatinine Ratio 14, Glucose Level 102, Calcium Level 9.1, Corrected Calcium 9.4, Total Bilirubin 0.5, Aspartate Amino Transf (AST/SGOT) 12, Alanine Aminotransferase (ALT/SGPT) 9, Alkaline Phosphatase 99, Total Protein 5.9L, Albumin 3.[address] Abdomen and Pelvis: 1. There is an enlarging nodule in the upper pole of the right kidney posteriorly, concerning for a solid renal mass. Renal ultrasound could be performed on a nonemergent basis for further evaluation. 2. Uncomplicated diverticulosis. 3. No acute feature is identified. Renal US: 1. Area described involving the superior pole of the right kidney on previous recent CT is not seen on this exam. Assessment with noncontrast CT of the abdomen may be of benefit, as this could represent a hemorrhagic cyst. Assessment/Plan Assessment/Plan Admission Status: Inpatient Order (span 2 midnights) (1) Acute on chronic anemia Status: Chronic Assessment & Plan: - 6.2 upon admission today - Received 2 units of blood with hgb today of 8.2 - Upper and lower endoscopy done in September 2021 showed esophagitis, hiatal hernia, internal hemorrhoids, and a polyp. - Dr. Wolfe consulted. He will be doing an EGD with biopsies and started pantoprazole 40mg BID IV - Iron panel consistent with [place]. Patient denies iron supplements. Consider starting vitamin. (2) Left sided abdominal pain Status: Acute Assessment & Plan: - WBC count of 11 with 84% neuts - Guarding in LLQ of abdomen - CT scan showed uncomplicated diverticulosis. No acute feature identified. - Continue oral metronidazole and ciprofloxacin until 03/26 (3) Nodule of kidney Status: Chronic Assessment & Plan: - CT from today showed nodule in the upper pole of the right kidney posteriorly, concerning for a solid renal mass. Approximately 11mm in size - Prior CT from 2021 showed a kidney mass 5-6mm in size - Renal US: Were not able to view kidney mass. Recommended a noncontrast CT of abdomen (4) Atrial fibrillation Status: Chronic Assessment & Plan: - Restart GLOBAL IMPLEMENTATION MANAGER Diltiazem 180mg ER capsule PO daily Qualifiers: Qualified Codes: I48.91 - Unspecified atrial fibrillation (5) COPD (chronic obstructive pulmonary disease) Status: Chronic Assessment & Plan: - Patient has albuterol nebulizer at home for her COPD - She also has albuterol inhaler. Continue GLOBAL IMPLEMENTATION MANAGER albuterol inhaler Qualifiers: Qualified Codes: J44.9 - Chronic obstructive pulmonary disease, unspecified (6) Hyponatremia Status: Chronic Assessment & Plan: - 131 on admission - 134 today - Continue to monitor Clinical Quality Measures DVT/VTE Risk/Contraindication: Other: Due to Symptomatic anemia BELLE SAUCEDA MD 03/22/23 1652: Supervisory-Addendum Brief Supervisory Addendum Verification and Attestation of Medical Student E/M Service A medical student performed and documented this service in my presence. I reviewed and verified all information documented by the medical student and made modifications to such information, when appropriate. I personally performed the physical exam and medical decision making. Belle Sauceda, Mar 22, 2023,16:52 See H&LEXA FRANCISCO Mar 22, 2023 09:16 BELLE SAUCEDA MD Mar 22, 2023 16:52
[2023-03-22] MEDS ORDERED: LACTATED RINGERS 1,000 ML 1,000 ML IV STA (14:21)
[2023-03-22] MEDS ORDERED: LIDOCAINE JELLY 2% 6 ML SYRINGE MM PRN (14:30)
[2023-03-22] MEDS ORDERED: HURRICAINE EXT TUBE (BENZOCAINE) XX PRN (14:30)
[2023-03-22] MEDS ORDERED: ALB0.5V INH (15:19)
--- NOTE | 2023-03-22 16:00 | Anesthesia-General Post-Op ---
MAC Patient Condition Mental Status/LOC: Same as Preop Cardiovascular: Satisfactory Nausea/Vomiting: Absent Respiratory: Satisfactory Pain: Controlled Complications: Absent Post Op Complications Complications None Follow Up Care/Instructions Patient Instructions None needed. Anesthesiology Discharge Order Discharge Order Patient is doing well, no complaints, stable vital signs, no apparent adverse anesthesia problems. No complications reported per nursing. DAVID POTTS CRNA Mar 22, 2023 16:00
--- NOTE | 2023-03-22 16:11 | Progress Note-Post Operative ---
Post-Operative Progess Note Surgeon (s)/Construction Materials Tester (s) Surgeon NELDA HUDSON MD Construction Materials Tester: none Pre-Operative Diagnosis sx anemia with hx type 3 gastric ulcer. Post-Operative Diagnosis reflux esophagitis(grade C), mild dist esoph stricture, small-mod HH(2.5cm), mild-mod gastritis. no active bleeding. Procedure & Operative Findings Date of Procedure 03/22/23 Procedure Performed/Findings EGD with bx and balloon dilatation. Anesthesia Type mac Estimated Blood Loss Estimated blood loss (mL): minimal Specimens/Packing Specimens Removed ge jxn, antrum NELDA HUDSON MD Mar 22, 2023 16:11
[2023-03-22] MEDS: PRENATAL VITAMIN TABLET PO SCH (16:37)
--- NOTE | 2023-03-22 20:45 | OPERATIVE REPORT ---
DATE OF SERVICE: 03/22/2023 ATTENDING PRIMARY CARE PHYSICIAN: Dr. Kailash Lake. ADMITTING PHYSICIAN: Dr. Belle Moreno. PREOPERATIVE DIAGNOSIS: Symptomatic anemia with dark tarry stools. POSTOPERATIVE DIAGNOSES: Reflux esophagitis, [place] grade C with a mild distal esophageal stricture, small to moderate size hiatal hernia, 2.5 cm in size, mild to moderate gastritis, no active bleeding. PROCEDURE: EGD with biopsy and balloon dilatation. SURGEON: Nleda Hudson MD ANESTHESIA: Monitored anesthesia care. ESTIMATED BLOOD LOSS: Minimal. FINDINGS: Reflux esophagitis, [place] grade C with a mild distal esophageal stricture, small to moderate size hiatal hernia, 2.5 cm in size, mild to moderate gastritis, no active bleeding. DISPOSITION: The patient tolerated the procedure well. INDICATIONS: The patient is an 83-year-old female known to us. In 09/2021, she presented with generalized weakness, shortness of breath and lethargy and was also found to be in SVT and was treated. The patient had reported some nausea and vomiting as well as a mid abdominal and epigastric pain. She also had reported loose stools and some dark stools as well. On 08/27/2020, she underwent an EGD and was found to have a small hiatal hernia, moderate gastritis as well as a small type 3 antral ulcer with an overlying fibrin clot and no active bleeding. A CT scan was also performed, which did show some inflammation of the right side of the colon consistent with a mild colitis and she underwent a colonoscopy 09/30/2021 and found to have a small sessile polyp at the descending colon, 5 mm in size, which was biopsied and found to be benign. The patient presented with a similar presentation with weakness, fatigue, lethargy and crampy upper abdominal pain. Upon further questioning, she had reported some dark tarry stools in the past few weeks. Upon this admission, her hemoglobin was found to be 6.2 with a hematocrit of 20. The patient also reports, but cannot remember any specifics about referral to a [facility] teacher specialist and she did undergo some other form of procedure relating to hemostasis; however, unsure. DESCRIPTION OF PROCEDURE: The patient was brought to the endoscopy suite and laid in the left lateral decubitus position. After adequate IV pain and sedative medications and monitored anesthesia care, the mouthpiece was applied. The endoscope was placed in the mouth, visualizing the pharynx and hypopharyngeal region. Vocal cords, epiglottis and vallecula identified and appeared to be normal. The endoscope was then gently intubated into the esophageal opening and esophagus insufflated. The endoscope was then advanced through the first, second and third portions of esophagus at the level of the GE junction, a reflux esophagitis, [place] grade C identified with a mild distal esophageal stricture. A biopsy was taken of the GE junction with forceps with visualization of good hemostasis. The endoscope was then advanced into the stomach and endoscope retroflexed visualizing a moderate size hiatal hernia approximately 2.5 cm in size. There was a [id number] gastritis. There were no ulcers, polyps, or any active bleeding sources identified. A biopsy was taken of the stomach, antrum to rule out H. pylori with visualization of good hemostasis. The endoscope was then advanced through the pylorus and the first and second portion of the duodenum, which appeared normal with no ulcerations or any active bleeding sources. The balloon was then placed in the stomach and pulled back to the area of the stricture. We then proceeded with graded dilatation from 2, 4, then eventually 6 atmospheres of pressure with 60 seconds in between and once we reached 6 atmospheres of pressure, we hit moderate resistance and left this in place for 120 seconds or approximately 20 mm in luminal diameter. The balloon was then desufflated and removed with visualization of good hemostasis as well as no mucosal tears. The endoscope was then slowly withdrawn while taking a second look and suctioning of residual air with no additional findings. The patient tolerated the procedure well. We will start her back on a regular diet and recommend continued acid suppression therapy with pantoprazole 40 mg daily. If she continues to have these issues with symptomatic anemia, this may represent some other form of bleeding, which may be in the small bowel and also may be related to AV malformation. In this scenario, we would refer her back to her [facility] teacher specialist. Job ID: [id number] DocumentID: [id number] Dictated Date: 03/22/2023 16:19:53 Form Grader Date: 03/22/2023 20:43:00 Dictated By: NELDA HUDSON MD
[2023-03-23 00:18] VITALS: BP 144/67
[2023-03-23 04:34] VITALS: BP 142/63
[2023-03-23] MEDS: RT-ALBUTEROL SULF 2.5 MG/3 ML PRE-MIX VIAL INH PRN (04:59)
[2023-03-23] MEDS: PRENATAL VITAMIN TABLET PO SCH (05:28)
[2023-03-23 05:45] LABS: BASOPHILS % (AUTO) 0 % (0-10); EOSINOPHILS # (AUTO) 0.1 10^3/uL (0.0-0.3); EOSINOPHILS % (AUTO) 1 % (0-10); HEMATOCRIT 27 % (35-52); HEMOGLOBIN 8.8 g/dL (11.5-16.0); LYMPHOCYTES # (AUTO) 0.7 10^3/uL (1.0-4.0); LYMPHOCYTES % (AUTO) 8 % (12-44); MEAN CORPUSCULAR HEMOGLOBIN 24 pg (25-34); MEAN CORPUSCULAR HGB CONC 32 g/dL (32-36); MEAN CORPUSCULAR VOLUME 76 fL (80-99); MONOCYTES # (AUTO) 0.9 10^3/uL (0.0-1.0); MONOCYTES % (AUTO) 10 % (0-12); NEUTROPHILS # (AUTO) 7.5 10^3/uL (1.8-7.8); NEUTROPHILS % (AUTO) 81 % (42-75); PLATELET COUNT 286 10^3/uL (130-400); WHITE BLOOD COUNT 9.2 10^3/uL (4.3-11.0)
[2023-03-23 05:54] LABS: ALBUMIN 3.8 GM/DL (3.2-4.5); BILIRUBIN,TOTAL 0.4 MG/DL (0.1-1.0); CALCIUM 8.9 MG/DL (8.5-10.1); CREATININE SERUM 0.92 MG/DL (0.60-1.30); POTASSIUM 3.8 MMOL/L (3.6-5.0)
[2023-03-23 07:24] VITALS: BP 119/73
[2023-03-23] MEDS: CIPROFLOXACIN 500 MG TABLET PO SCH (08:44)
[2023-03-23] MEDS: metroNIDAZOLE 500 MG TABLET PO SCH (08:45)
[2023-03-23] MEDS: PANTOPRAZOLE INJECTION 40 MG VIAL IV SCH (08:45)
[2023-03-23] MEDS ORDERED: dilTIAZem ER 180 MG CAPSULE PO SCH (09:00)
[2023-03-23] MEDS ORDERED: HOLD METFORMIN - RECEIVED CONTRAST 20 ML VIAL IV SCH (09:15)
[2023-03-23] MEDS ORDERED: IOHEXOL 350 MG/ML 100 ML (OMNIPAQUE 350) VIAL IV ONE (09:15)
[2023-03-23] MEDS ORDERED: NS 100 ML (IVPB) BAG IV ONE (09:15)
--- NOTE | 2023-03-23 10:52 | Discharge Summary ---
LEXA HALE 03/23/23 1052: Diagnosis/Chief Complaint Date of Admission Mar 21, 2023 at 11:31 Date of Discharge Admission Diagnosis Admission Diagnosis Acute on chronic anemia Discharge Diagnosis Acute on chronic anemia Problems/Diagnosis: (1) Acute on chronic anemia Assessment & Plan: - Patients hemoglobin was 6.2 on admission. She received 2 units of blood with subsequent hemoglobin of 8.8. - Dr. Wolfe performed EGD showing esophagitis, gastritis, and an hiatal hernia. No acute bleeding - Continue pantoprazole 40mg daily as outpatient - Continue vitamin as outpatient - Patient is going to consider referral to GI specialist in [place]. She is going to talk to her son about this because he is her main source of transportation. Status: Chronic (2) Left sided abdominal pain Assessment & Plan: - WBC count of 11 with 84% neuts - Guarding in LLQ of abdomen - Most likely secondary to diverticulitis - Continue oral metronidazole and ciprofloxacin until 03/26 Status: Acute (3) Nodule of kidney Assessment & Plan: - CT from today showed nodule in the upper pole of the right kidney posteriorly, concerning for a solid renal mass. Approximately 11mm in size - Prior CT from 2021 showed a kidney mass 5-6mm in size - Renal US: Were not able to view kidney mass. - Noncontrast CT of abdomen: Results pending Status: Chronic (4) Atrial fibrillation Assessment & Plan: - Continue Diltiazem 180mg ER capsule PO daily Qualifiers: Qualified Codes: I48.91 - Unspecified atrial fibrillation Status: Chronic (5) COPD (chronic obstructive pulmonary disease) Assessment & Plan: - Continue albuterol nebulizer at home for her COPD Qualifiers: Qualified Codes: J44.9 - Chronic obstructive pulmonary disease, unspecified Status: Chronic (6) Hyponatremia Status: Resolved Resolution Date/Time: 03/23/23 @ 10:54 Chief Complaint/HPI Chief Complaint/HPI Patient presented to the ED with her son because she was feeling sick. History of afib, HTN, chronic anemia, 2 strokes, and COPD. Patient says that last night she started feeling nauseous, weak, had a headache, chest pain, dark stool and left sided abdominal pain. She said this came on very quickly. She continued to stay at home overnight and her son showed up to her house this morning and she requested that she go to the ED. She has a history of chronic anemia, her last CBC being 7.7 at [facility]. Her son says that she gets weekly CBC's due to her anemia. Roughly 5 years ago she was at [facility] seeing Dr. Garrison, a GI doctor. They were told by him that she had a lower GI bleed and that she would most likely struggle with chronic anemia. She had a upper and lower endoscopy done in September of 2021 showing esophagitis, hiatal hernia, internal hemorrhoids, and a polyp. She has received blood on multiple occasions. She has had reactions in the past so says it is best for the transfusion to be slow. She also normally receives a dose of Lasix in between transfusions if it is more than 1 unit. She has a history of arrhythmias while receiving iron transfusions, so she does not receive iron orally or via IV. Patient has a history of afib but does not take a blood thinner due to her chronic anemia. She does take aspirin 81mg. Denies sick contacts, vision changes, dysuria, hematochezia, hematemesis, hematuria, or hemoptysis. Discharge Summary-Simple/Stand Consultations Discharge Physical Examination Allergies: Coded Allergies: Dqovdas-DZK-PnY Reductase Inhibitor (Verified Allergy, Unknown, 03/21/23) Sulfa (Sulfonamide Antibiotics) (Unverified Allergy, Unknown, 03/21/23) amoxicillin (Verified Allergy, Unknown, 03/21/23) aspartame (Unverified Allergy, Unknown, 03/21/23) atorvastatin (Verified Allergy, Unknown, 03/21/23) bee venom protein (honey bee) (Verified Allergy, Unknown, 03/21/23) diphenhydramine (Verified Allergy, Unknown, 03/21/23) ipratropium (Verified Allergy, Unknown, 03/21/23) iron (Unverified Allergy, Unknown, 03/21/23) "TACHYCARDIA" WITH IV INFUSION nicotine (Verified Allergy, Unknown, 03/21/23) quinine (Verified Allergy, Unknown, 03/21/23) Vitals & I&Os Vital Sign - Last 12Hours Date Time Temp Pulse Resp B/P (MAP) Pulse Ox O2 Delivery O2 Flow Rate FiO2 03/23/23 08:00 97 Nasal Cannula 2.00 03/23/23 07:24 36.3 93 16 119/73 (88) 03/23/23 04:59 98 Intake and Output 03/23/23 00:00 Intake Total 860 ml Output Total 1420 ml Balance -560 ml General Appearance: Alert, Oriented X3, Cooperative, No Acute Distress Cardiovascular: Regular Rate, Normal S1, Normal S2, Other (Grade 3+ systolic murmur) Abdominal: Normal Bowel Sounds, No Hepatosplenomegaly, No Masses, Other (Tenderness in epigastric and LLQ) Extremities: No Clubbing, No Cyanosis, No Edema, Normal Pulses, No Tenderness/Swelling Skin: No Rashes, No Breakdown, No Significant Lesion Psych/Mental Status: Mental Status NL, Mood NL Hospital Course Was the Problem List Reviewed?: Yes See problem list Radiology Reviewed CT Abdomen and Pelvis: 1. There is an enlarging nodule in the upper pole of the right kidney posteriorly, concerning for a solid renal mass. Renal ultrasound could be performed on a nonemergent basis for further evaluation. 2. Uncomplicated diverticulosis. 3. No acute feature is identified. Renal US: 1. Area described involving the superior pole of the right kidney on previous recent CT is not seen on this exam. Assessment with noncontrast CT of the abdomen may be of benefit, as this could represent a hemorrhagic cyst. Discharge Instructions to patient/family - For your anemia, continue to follow with your PCP for weekly blood checks. - We discussed referring you to a GI specialist in [place] for your chronic GI bleed. You said you wanted to speak with your son about this before making any decisions. If you decide you want to see the GI doctor, please tell your PCP and they will put in the referral for you. - Continue taking your metronidazole and ciprofloxacin until 03/26 for your suspected diverticulitis - We do not yet have the results from your CT scan regarding the mass on your right kidney. If you have not yet heard these results by the time you see your PCP, let them know and they will inform you of the findings. Discharge Medications Reviewed and agree with Discharge Medication list on patient's Discharge Instruction sheet Clinical Quality Measures DVT/VTE Risk/Contraindication: Other: Due to Symptomatic anemia BELLE SAUCEDA MD 03/23/23 1249: Discharge Summary-Simple/Stand Discharge Physical Examination Allergies: Coded Allergies: Sadetdz-CUZ-GyV Reductase Inhibitor (Verified Allergy, Unknown, 03/21/23) Sulfa (Sulfonamide Antibiotics) (Unverified Allergy, Unknown, 03/21/23) amoxicillin (Verified Allergy, Unknown, 03/21/23) aspartame (Unverified Allergy, Unknown, 03/21/23) atorvastatin (Verified Allergy, Unknown, 03/21/23) bee venom protein (honey bee) (Verified Allergy, Unknown, 03/21/23) diphenhydramine (Verified Allergy, Unknown, 03/21/23) ipratropium (Verified Allergy, Unknown, 03/21/23) iron (Unverified Allergy, Unknown, 03/21/23) "TACHYCARDIA" WITH IV INFUSION nicotine (Verified Allergy, Unknown, 03/21/23) quinine (Verified Allergy, Unknown, 03/21/23) Supervisory-Addendum Brief Supervisory Addendum Verification and Attestation of Medical Student E/M Service A medical student performed and documented this service in my presence. I reviewed and verified all information documented by the medical student and made modifications to such information, when appropriate. I personally performed the physical exam and medical decision making. Belle Sauceda, Mar 23, 2023,12:47 In addition Renal mass - Will set up appt for urology as outpatient, patient prefers to stay in [place] Ok to d/c today with close f.u with PCP LEXA HALE Mar 23, 2023 10:52 BELLE SAUCEDA MD Mar 23, 2023 12:49
[2023-03-23 11:26] VITALS: BP 123/68
--- NOTE | 2023-03-23 11:59 | Diagnostic Imaging Report ---
PROCEDURE: CT abdomen and pelvis with and without contrast. TECHNIQUE: Precontrast acquisitions were acquired through the abdomen and pelvis. Multiple contiguous axial images were obtained through the abdomen and pelvis after the administration of intravenous contrast. Auto Exposure Controls were utilized during the CT exam to meet ALARA standards for radiation dose reduction. INDICATION: Right renal mass. The study is performed for further evaluation. COMPARISON: Correlation is made with prior CT from 03/21/2023 as well as ultrasound exam from 03/21/2023. FINDINGS: The small cortical lesion in the posterior aspect of the upper pole of the right kidney is again noted. This does appear to show contrast enhancement, concerning for a solid lesion. No other renal lesions are identified. Renal vascular calcifications are noted. There is no hydronephrosis. Lung bases are clear. The liver is unremarkable. Gallbladder is surgically absent. Pancreas, spleen, adrenal glands are unremarkable. Aorta is heavily calcified but nonaneurysmal. Bowel loops are nonobstructed. There is diverticulosis without evidence of acute diverticulitis. There is no ascites. Bladder and prostate are unremarkable. IMPRESSION: 1. The small cortical lesion in the upper pole of the right kidney does appear to show some contrast enhancement, concerning for a solid renal lesion. Urologic consultation would be recommended. 2. Uncomplicated diverticulosis. Dictated by: Dictated on workstation # [id number]
[2023-03-23] MEDS ORDERED: CIPR500T5 PO (13:18)
[2023-03-23] MEDS ORDERED: PNV1TABL67 PO (13:18)
[2023-03-23] MEDS ORDERED: METR-145 PO (13:18)
[2023-03-23] MEDS: RT-ALBUTEROL SULF 2.5 MG/3 ML PRE-MIX VIAL INH SCH (14:50)
[2023-03-23 15:00] VITALS: BP 123/68
== END 2023-03-23 15:00 | disposition home or self-care (01) ==
LOC: EDUNIT# 08:17 → ER 08:19 → 4TH 11:31
PROVIDERS: ADMIT Family Medicine; ATTEND Internal Medicine
DX: K29.50 Unspecified chronic gastritis without bleeding (principal); K22.2 Esophageal obstruction; K21.00 Gastro-esophageal reflux disease with esophagitis, without bleeding; K31.89 Other diseases of stomach and duodenum; K44.9 Diaphragmatic hernia without obstruction or gangrene; D53.9 Nutritional anemia, unspecified; I48.91 Unspecified atrial fibrillation; N28.89 Other specified disorders of kidney and ureter; J44.9 Chronic obstructive pulmonary disease, unspecified; E87.1 Hypo-osmolality and hyponatremia; Z28.310 Unvaccinated for COVID-19; Z87.891 Personal history of nicotine dependence
CPT/HCPCS: 36430; 43239; 43249; 74177; 74178; 76775; 80053 ×3; 81000; 82728; 83540; 83550; 83690; 85007; 85025 ×2; 85027; 85610; 85730; 86141; 86850; 86900; 86901; 86920; 94640; 94760; 96375 ×2; 96376 ×2; 99284; G0378; P9016; 36415

== ENCOUNTER 2023-05-23 23:11 | Emergency (ER) | payer MEDICARE, MEDICAID ==
[~2023-05-23] VITALS: Ht 66 cm; Wt 63.0 kg
[~2023-05-23 23:11] MED LIST changes: +ALB0.5V INH; +CIPR500T5 PO; +METR-145 PO; +PNV1TABL67 PO
[2023-05-23 23:35] VITALS: BP 120/57
--- NOTE | 2023-05-23 23:44 | ED Hip Pain/Injury ---
General Chief Complaint: Hip/Pelvic Problems Stated Complaint: HIP PAIN/DIFFICULTY STANDING Source: patient History of Present Illness Date Seen by Provider: May 23, 2023 Time Seen by Provider: 23:44 Initial Comments Patient is an 83-year-old female who presents to the emergency room with a chief complaint of low back pain and left hip pain. She had a mechanical trip and fall over her oxygen tubing at home about 3 months ago. She has had alternating left and right hip pain ever since. She has not sought evaluation or treatment since the fall. She states today the pain got so bad that she really could not ambulate at all. She denies numbness tingling or weakness to the leg. She points specifically to the PSIS of the left hip. Range of motion intensifies the pain. She does have tramadol at home but has not taken anything. She has not taken any ibuprofen or Tylenol either. She is chronically oxygen dependent. Still smokes. Denies bowel or bladder incontinence. No saddle anesthesia. Timing/Duration: getting worse, other (3 months) Severity: severe Location: hip (R), hip (L) Method of Injury: fell Modifying Factors: Improves With Immobilization; Worse With Movement Associated Symptoms: trouble walking Allergies and Home Medications Allergies Coded Allergies: Ejsdxux-POT-BfJ Reductase Inhibitor (Verified Allergy, Unknown, 03/21/23) Sulfa (Sulfonamide Antibiotics) (Unverified Allergy, Unknown, 03/21/23) amoxicillin (Verified Allergy, Unknown, 03/21/23) aspartame (Unverified Allergy, Unknown, 03/21/23) atorvastatin (Verified Allergy, Unknown, 03/21/23) bee venom protein (honey bee) (Verified Allergy, Unknown, 03/21/23) diphenhydramine (Verified Allergy, Unknown, 03/21/23) ipratropium (Verified Allergy, Unknown, 03/21/23) iron (Unverified Allergy, Unknown, 03/21/23) "TACHYCARDIA" WITH IV INFUSION nicotine (Verified Allergy, Unknown, 03/21/23) quinine (Verified Allergy, Unknown, 03/21/23) Patient Home Medication List Home Medication List Reviewed: Yes Albuterol Sulfate (Ventolin Hfa) 1 Puff Puff, 2 PUFF INH Q6H PRN for SHORTNESS OF BREATH, (Reported) Entered as Reported by: BRONSON AHUMADA on 08/21/18 1649 Albuterol Sulfate (Albuterol Sulfate) 2.5 Mg/0.5 Ml Vial.neb, 2.5 MG INH Q8H PRN for SHORTNESS OF BREATH, (Reported) Entered as Reported by: DORIS WADDELL on 03/22/23 1519 Aspirin (Aspirin EC) 81 Mg Tablet.dr, 81 MG PO DAILY, (Reported) Entered as Reported by: DORIS WADDELL on 09/29/21 0955 Ciprofloxacin HCl (Ciprofloxacin HCl) 500 Mg Tablet, 500 MG PO BID Prescribed by: SUSHIL ESPAÑA on 03/23/23 1318 Cyanocobalamin (Vitamin B-12) (Vitamin B-12) 1,000 Mcg Tablet.er, 1,000 MCG PO DAILY, (Reported) Entered as Reported by: DORIS WADDELL on 09/29/21 0955 Diltiazem HCl (Diltiazem 24Hr ER) 180 Mg Cap.er.24h, 180 MG PO DAILY, (Reported) Entered as Reported by: DORIS WADDELL on 09/29/21 0955 Hydrocodone/Acetaminophen (Hydrocodone-Acetamin 5-325 mg) 5 Mg-325 Mg Tablet, 1 TAB PO Q6H PRN for PAIN-MODERATE (5-7) Prescribed by: DELANO DAVILA on 05/24/23 0440 Lorazepam (Ativan) 0.5 Mg Tablet, 0.5 MG PO HS, (Reported) Entered as Reported by: SUE PAULINO on 09/12/21 0843 Metronidazole (Metronidazole) 500 Mg Tablet, 500 MG PO BID Prescribed by: SUSHIL ESPAÑA on 03/23/23 1318 Pantoprazole Sodium (Pantoprazole Sodium) 40 Mg Tablet.dr, 40 MG PO DAILY, (Reported) Entered as Reported by: SUE PAULINO on 09/12/21 0844 Pnv with Ca,No.72/Iron/FA (Pnv Plus Multivit Tab) 27 Mg Iron-1 Mg Tablet, 1 EA PO DAILY@0700 Prescribed by: SUSHIL ESPAÑA on 03/23/23 1318 Sucralfate (Sucralfate) 1 Gram Tablet, 1 GM PO BID, (Reported) Entered as Reported by: KYLEIGH JEFFERSON on 09/22/21 1315 Review of Systems Constitutional: see HPI EENTM: no symptoms reported Respiratory: short of breath (chronic) Cardiovascular: no symptoms reported Gastrointestinal: no symptoms reported Genitourinary: no symptoms reported Musculoskeletal: back pain, joint pain (left hip) Skin: no symptoms reported Past Tcukpbl-Jcfuup-Opfysp Hx Immunizations Up To Date First/Initial COVID19 Vaccinat: NO Second COVID19 Vaccination Devan: NO Third COVID19 Vaccination Date: NO Seasonal Allergies Seasonal Allergies: No Past Medical History Surgery/Hospitalization HX: COPD, SVT, STROKE, INFUSAPORT Surgeries: Yes (neck) Abdominal, Section, Hysterectomy, Orthopedic Respiratory: Yes COPD Currently Using CPAP: No Currently Using BIPAP: No Cardiac: Yes (SVT) Atrial Fibrillation, High Cholesterol, Hypertension, Irregular Heartbeat Neurological: Yes Stroke, TIA Genitourinary: No Gastrointestinal: Yes Colitis, Gastrointestinal Bleed Musculoskeletal: No Endocrine: No HEENT: No Cancer: No Psychosocial: No Integumentary: No Blood Disorders: Yes (essential thrombocytosis, chronic anemia transfusion dependent) Family Medical History Heart Disease Physical Exam Vital Signs Vital Signs - First Documented 05/23/23 23:35 Temp 36.6 Pulse 88 Resp 20 B/P (MAP) 120/57 (78) Pulse Ox 94 O2 Delivery Room Air Capillary Refill : Height, Weight, BMI Height: 5'2.00" Weight: 139lbs. 0.0oz. [id number]; 26.85 BMI Method: General Appearance: WD/WN, Chronically ill HEENT: PERRL/EOMI Cardiovascular: Regular Rate, Rhythm, Normal Peripheral Pulses, Systolic Murmur (loud systolic murmur over the precordium) Respiratory: Lungs Clear, No Respiratory Distress Gastrointestinal: Non Tender, Soft Extremity: Normal Inspection, Other (decreased ROM left hip; SLR on the right causes pain to the left hip/leg; distal NVI both feet; tenderness to palpation to the mid thoracic to upper lumbar spine) Neurologic/Psychiatric: Alert, Oriented x3, No Motor/Sensory Deficits, Normal Mood/Affect Skin: Normal Color, Warm/Dry Progress/Results/Core Measures Results/Orders My Orders Orders - DELANO DAVILA MD Tramadol Tablet (Ultram Tablet) (05/24/23 00:45) Ct Thoracic/Lumbar Spine Wo (05/24/23 00:44) Hydrocodone/Apap 5/325 Tablet (Hydrocod (05/24/23 03:30) Acetaminophen Tablet (Acetaminophen Ta (05/24/23 03:30) Pelvis With Left Hip 2-3 Views (05/24/23 03:32) Morphine Injection (Morphine Injection (05/24/23 04:08) Rx-Hydrocodone/Apap 5-325 Mg (Rx-Vicodin (05/24/23 04:30) Medications Given in ED Current Medications Medications Dose Ordered Sig/Jonathan Route Start Time Stop Time Status Last Admin Dose Admin Acetaminophen 500 mg ONCE ONCE PO 05/24/23 03:30 05/24/23 03:31 DC 05/24/23 03:36 500 MG Acetaminophen/ Hydrocodone Bitart 1 ea ONCE ONCE PO 05/24/23 03:30 05/24/23 03:31 DC 05/24/23 03:36 1 EA Tramadol HCl 50 mg ONCE ONCE PO 05/24/23 00:45 05/24/23 00:46 DC 05/24/23 02:00 50 MG Vital Signs/I&O 05/23/23 23:35 Temp 36.6 Pulse 88 Resp 20 B/P (MAP) 120/57 (78) Pulse Ox 94 O2 Delivery Room Air Progress Progress Note : Time: 03:25 Progress Note Patient seen and evaluated by me, evaluation today includes history and physical exam, CT scans of the thoracic spine and lumbar spine. Pertinent physical exam findings elderly 83-year-old female who appears chronically ill in no acute distress with stable vital signs. Heart is regular, lungs are clear, abdomen is soft. She has diffuse tenderness to the midline thoracic and lumbar spine from approximately T5-L3 4. She is tender over the posterior iliac's crest on the left. Decreased range of motion at the left hip. Straight leg raise on the right causes pain in the left hip. Pain does not radiate below the knee. She denies numbness to the left lower extremity. Distal pulses are intact. No significant edema in her lower extremities. Differential diagnosis includes lumbar compression fracture, thoracic compression fracture, radiculopathy Patient is treated with p.o. tramadol in the emergency department she states she did not get much relief from this pain medication. She is noted to be lying quite comfortably on her left side with her knees and hips bent. She is offered a hydrocodone tablet with 500 mg of acetaminophen. I obtained results from stat rad on her CT thoracic spine which shows no acute findings in the right the thoracic spine but does demonstrate a 2.1 cm mass in the right lower lobe suspicious for neoplasm prominent intra fissural lymph node in the left upper lobe recommend PET/CT. Her lumbar spine CT is pertinent for disc spinal canal and neural foramina at the level of L3-4 and 4 5 with moderate spinal canal stenosis. No other fractures or subluxations. I reviewed these results with her and recommended that she follow-up with Dr. Dan her primary care physician. She became quite tearful as her from lung cancer. Son is not at the bedside at this time but she will call him after we see if we can get her pain controlled with the hydrocodone and Tylenol. Diagnostic Imaging Diagonstic Imaging: CT Comments CT thoracic and lumbar spine read by stat rad, no significant compression fractures, subluxations. Of note on the CT thoracic spine a 2.1 cm mass in the right lower lobe suspicious for neoplasm, prominent intrafissural lymph node in the left upper lobe Diagonstic Imaging: Xray Comments Pelvis x-ray independently reviewed and interpreted by me, no fractures in the pelvis or left hip identified Departure Impression Primary Impression: Back pain Qualified Codes: M54.89 - Other dorsalgia Additional Impressions: Left hip pain Right lower lobe lung mass Disposition: 01 HOME, SELF-CARE Condition: Improved Departure-Patient Inst. Decision time for Depature: 03:31 Referrals: GAL DAN MD (PCP/Family) Primary Care Physician Patient Instructions: Joint Pain Add. Discharge Instructions: Use lidocaine patches to the sore area of your left hip. You can also use Voltaren (or Diclofenac) gel to the sore area for pain relief. Take the hydrocodone tablet with 1 extra strength Tylenol tablet every 6 hours as needed for pain. Heating pad to the sore area of your left hip will also help with discomfort. Please call Dr. Dan's office today for a follow-up appointment this week or early next week. I have sent copies of your emergency room chart to his office. Your CT Scan of the Thoracic spine identified a 2.1cm mass in the right lower lobe suspicious for a cancerous mass. This needs follow up and further evaluation by Dr Dan. Return to the emergency department for any new, concerning or worsening symptoms. Scripts Hydrocodone/Acetaminophen (Hydrocodone-Acetamin 5-325 mg) 5 Mg-325 Mg Tablet 1 TAB PO Q6H PRN for PAIN-MODERATE (5-7), #15 TAB Prov: DELANO DAVILA MD 05/24/23 Copy Copies To 1: GAL DAN MD, KATHRYN M MD May 23, 2023 23:44
[2023-05-24] MEDS ORDERED: ACETAMINOPHEN 500 MG TABLET PO ONE (03:30)
[2023-05-24] MEDS ORDERED: HYDROcodone/ACETAMINOPHEN 5 MG/325 MG TABLET PO ONE (03:30)
[2023-05-24] MEDS ORDERED: morphine INJ 10 MG/ML 1ML (SYR OR VIAL) IM STA (04:08)
[2023-05-24] MEDS ORDERED: ACHD5005 PO (04:39)
--- NOTE | 2023-05-24 06:55 | Diagnostic Imaging Report ---
EXAM: PELVIS WITH LEFT HIP 2-3 VIEWS INDICATION: Trauma. Left hip pain. Fall. COMPARISON: None. FINDINGS: No fracture or malalignment. The visualized pelvis is intact. Moderate to advanced degenerative changes in the visualized lower lumbar spine. Vascular calcifications. IMPRESSION: No acute radiographic findings in the left hip or pelvis. Dictated by: Dictated on workstation # [id number]
--- NOTE | 2023-05-24 08:03 | Diagnostic Imaging Report ---
PROCEDURE: CT thoracic and lumbar spine without contrast. TECHNIQUE: Multiple contiguous axial images were obtained through the thoracic and lumbar spine without the use of intravenous contrast. Sagittal and coronal reformations were then performed. All CT scans use one or more of the following dose optimizing techniques: automated exposure control, MA and/or KvP adjustment based on a patient size and exam type, or iterative reconstruction. INDICATION: Trauma. Back pain. Fall. COMPARISON: None. FINDINGS: Normal alignment. Vertebral body heights preserved. No fractures. Mild to moderate spondylotic changes are greatest at L2-L3 and L4-S1. No CT evidence of high-grade spinal canal stenosis. Enlarged thyroid. Partially visualized cholecystectomy clips. The visualized pelvis appears intact. Mild ectasia of the infrarenal abdominal aorta measuring up to 2.3 cm. Lobulated mass in the posterior right lower lobe measures 2.1 x 1.8 cm. IMPRESSION: 1. No acute CT findings in the thoracic and lumbar spine. 2. Mass in the posterior right lower lobe measuring up to 2.1 cm suspicious for malignancy. Recommend correlation with clinical history. Nuclear medicine FDG PET/CT and/or tissue sampling may be warranted. Agree with preliminary interpretation. Dictated by: Dictated on workstation # [id number]
== END 2023-05-24 05:15 | disposition home or self-care (01) ==
LOC: EDUNIT# 23:11 → ER 23:18
DX: M54.50 Low back pain, unspecified (principal); M25.552 Pain in left hip; R91.8 Other nonspecific abnormal finding of lung field
CPT/HCPCS: 72128; 72131